=== PATIENT | female | born 1940 | race Caucasian/White ===

== ENCOUNTER → 2017-12-15 09:20 | Outpatient (CLI) | payer MEDICARE, SELFPAY ==
[2017-12-15 12:07] LABS: Absolute Lymphocyte Count 0.54 X10^3/ul (0.83-4.51); Basophil# 0.02 X10^3/uL; Basophil% 0.5 % (0-1); Eosinophils% 2.3 % (0-5); Hematocrit 44.4 % (37-47); Hemoglobin 14.1 g/dl (12.0-15.0); Lymphocyte # 0.54 X10^3/ul (4.0); Lymphocyte % 12.5 % (19-41); Mean Corp Hgb Conc 31.8 g/gl (32-36); Mean Corpuscular Hgb 30.9 pg (27.0-32.0); Mean Corpuscular Volume 97.2 fL (81-99); Mean Platelet Vol. 10.3 fl (6.2-12.0); Monocyte# 0.68 X10^3/uL; Monocyte% 15.8 % (0-10); Neutrophil # 2.97 X10^3/uL (2.7-7.7); Neutrophil % 68.9 % (47-70); Platelet Count 225 K/mm3 (150-450); RBC Distribution Width CV 13.7 % (11.6-14.6); RBC Distribution Width SD 46.5 fl (35.1-43.9); Red Blood Count 4.57 M/mm3 (4.2-5.4); White Blood Count 4.3 K/mm3 (4.4-11.0)
[2017-12-15 12:09] LABS: Differential Indicated SCAN CRITERIA MET; POSITIVE COUNT NO; POSITIVE DIFFERENTIAL YES; POSITIVE MORPHOLOGY NO
[2017-12-15 12:25] LABS: AST(SGOT) 22 U/L (15-37); Alanine Aminotransfer ALT/SGPT 18 U/L (13-56); Albumin, Serum 3.5 g/dL (3.2-5.0); Alkaline Phosphatase 91 U/L (45-117); Anion Gap 6 (5-15); BUN 12 mg/dL (7-18); BUN/Creat Ratio 13.3 RATIO (10-20); Chloride 106 mmol/L (98-107); EST Glomerular Filtration Rate 64 mL/min (>60); Est Glom Filt Rate - Afr Amer 77 mL/min (>60); Globulin 3.6 g/dL (2.2-4.2); Glucose 86 mg/dL (74-106); Potassium 3.9 mmol/L (3.5-5.1); Protein, Total 7.1 g/dL (6.4-8.2); Sodium Level 140 mmol/L (136-145)
== END ==
PROVIDERS: Family Provider Family Medicine; PCP Family Medicine; Visit Provider Internal Medicine Rheumatology
DX: M05.79 Rheumatoid arthritis with rheumatoid factor of multiple sites without organ or systems involvement (principal); Z79.899 Other long term (current) drug therapy; M21.40 Flat foot [pes planus] (acquired), unspecified foot; E03.9 Hypothyroidism, unspecified; Z85.51 Personal history of malignant neoplasm of bladder
CPT/HCPCS: 36415; 80053; 85025

== ENCOUNTER → 2018-02-26 10:34 | Outpatient (CLI) | payer MEDICARE, SELFPAY ==
[2018-02-26 12:30] LABS: AST(SGOT) 22 U/L (15-37); Alanine Aminotransfer ALT/SGPT 17 U/L (13-56); Albumin, Serum 3.4 g/dL (3.2-5.0); Alkaline Phosphatase 79 U/L (45-117); Anion Gap 4 (5-15); BUN 16 mg/dL (7-18); Calcium,Total 8.5 mg/dL (8.5-10.1); Chloride 104 mmol/L (98-107); Creatinine, Serum 0.89 mg/dL (0.55-1.02); EST Glomerular Filtration Rate 65 mL/min (>60); Est Glom Filt Rate - Afr Amer 79 mL/min (>60); Globulin 3.3 g/dL (2.2-4.2); Glucose 78 mg/dL (74-106); Potassium 3.9 mmol/L (3.5-5.1); Protein, Total 6.7 g/dL (6.4-8.2); Sodium Level 137 mmol/L (136-145)
[2018-02-26 12:53] LABS: Absolute Lymphocyte Count 0.85 X10^3/ul (0.83-4.51); Absolute Neutrophil Count 2.4 X10^3/uL (2.0-7.7); Basophil# 0.04 X10^3/uL; Eosinophil# 0.14 X10^3/uL; Eosinophils% 3.6 % (0-5); Hematocrit 42.3 % (37-47); Hemoglobin 13.2 g/dl (12.0-15.0); Lymphocyte # 0.85 X10^3/ul (4.0); Lymphocyte % 21.9 % (19-41); Mean Corp Hgb Conc 31.2 g/gl (32-36); Mean Corpuscular Hgb 30.6 pg (27.0-32.0); Mean Corpuscular Volume 97.9 fL (81-99); Mean Platelet Vol. 11.1 fl (6.2-12.0); Monocyte# 0.48 X10^3/uL; Monocyte% 12.4 % (0-10); Neutrophil # 2.37 X10^3/uL (2.7-7.7); Neutrophil % 61.1 % (47-70); Platelet Count 210 K/mm3 (150-450); RBC Distribution Width CV 14.3 % (11.6-14.6); RBC Distribution Width SD 49.5 fl (35.1-43.9); Red Blood Count 4.32 M/mm3 (4.2-5.4); White Blood Count 3.9 K/mm3 (4.4-11.0)
[2018-02-26 12:57] LABS: POSITIVE COUNT NO; POSITIVE DIFFERENTIAL NO; POSITIVE MORPHOLOGY NO
== END ==
PROVIDERS: Family Provider Family Medicine; PCP Family Medicine; Visit Provider Internal Medicine Rheumatology
DX: M05.79 Rheumatoid arthritis with rheumatoid factor of multiple sites without organ or systems involvement (principal); M21.40 Flat foot [pes planus] (acquired), unspecified foot; E03.9 Hypothyroidism, unspecified; Z79.899 Other long term (current) drug therapy; Z85.51 Personal history of malignant neoplasm of bladder
CPT/HCPCS: 36415; 80053; 85025

== ENCOUNTER → 2018-05-21 11:05 | Outpatient (CLI) | payer MEDICARE, SELFPAY ==
[2018-05-21 12:21] LABS: Absolute Lymphocyte Count 0.94 X10^3/ul (0.83-4.51); Absolute Neutrophil Count 2.8 X10^3/uL (2.0-7.7); Basophil# 0.03 X10^3/uL; Basophil% 0.7 % (0-1); Eosinophil# 0.13 X10^3/uL; Eosinophils% 3.1 % (0-5); Hematocrit 41.9 % (37-47); Hemoglobin 13.1 g/dl (12.0-15.0); Lymphocyte # 0.94 X10^3/ul (4.0); Lymphocyte % 22.7 % (19-41); Mean Corp Hgb Conc 31.3 g/gl (32-36); Mean Corpuscular Volume 99.1 fL (81-99); Mean Platelet Vol. 10.4 fl (6.2-12.0); Monocyte# 0.29 X10^3/uL; Neutrophil # 2.75 X10^3/uL (2.7-7.7); Neutrophil % 66.5 % (47-70); Platelet Count 234 K/mm3 (150-450); RBC Distribution Width CV 14.2 % (11.6-14.6); Red Blood Count 4.23 M/mm3 (4.2-5.4); White Blood Count 4.1 K/mm3 (4.4-11.0)
[2018-05-21 12:35] LABS: POSITIVE COUNT NO; POSITIVE DIFFERENTIAL NO; POSITIVE MORPHOLOGY NO
[2018-05-21 12:55] LABS: AST(SGOT) 29 U/L (15-37); Alanine Aminotransfer ALT/SGPT 26 U/L (13-56); Albumin, Serum 3.4 g/dL (3.2-5.0); Alkaline Phosphatase 96 U/L (45-117); Anion Gap 6 (5-15); BUN 12 mg/dL (7-18); BUN/Creat Ratio 14.9 RATIO (10-20); Calcium,Total 8.9 mg/dL (8.5-10.1); Chloride 104 mmol/L (98-107); EST Glomerular Filtration Rate 73 mL/min (>60); Est Glom Filt Rate - Afr Amer 88 mL/min (>60); Globulin 3.4 g/dL (2.2-4.2); Glucose 84 mg/dL (74-106); Protein, Total 6.8 g/dL (6.4-8.2); Sodium Level 141 mmol/L (136-145)
== END ==
PROVIDERS: Family Provider Family Medicine; PCP Family Medicine; Visit Provider Internal Medicine Rheumatology
DX: M05.79 Rheumatoid arthritis with rheumatoid factor of multiple sites without organ or systems involvement (principal); M21.40 Flat foot [pes planus] (acquired), unspecified foot; E03.9 Hypothyroidism, unspecified; Z85.51 Personal history of malignant neoplasm of bladder; Z79.899 Other long term (current) drug therapy
CPT/HCPCS: 36415; 80053; 85025

== ENCOUNTER → 2018-08-17 08:11 | Outpatient (CLI) | payer MEDICARE, SELFPAY ==
[2018-08-17 10:14] LABS: Absolute Lymphocyte Count 0.74 X10^3/ul (0.83-4.51); Absolute Neutrophil Count 2.7 X10^3/uL (2.0-7.7); Basophil# 0.02 X10^3/uL; Basophil% 0.5 % (0-1); Eosinophil# 0.13 X10^3/uL; Eosinophils% 3.2 % (0-5); Hematocrit 42.2 % (37-47); Hemoglobin 13.4 g/dl (12.0-15.0); Lymphocyte # 0.74 X10^3/ul (4.0); Lymphocyte % 18.3 % (19-41); Mean Corp Hgb Conc 31.8 g/gl (32-36); Mean Corpuscular Hgb 31.1 pg (27.0-32.0); Mean Corpuscular Volume 97.9 fL (81-99); Mean Platelet Vol. 10.4 fl (6.2-12.0); Monocyte# 0.42 X10^3/uL; Monocyte% 10.4 % (0-10); Neutrophil # 2.74 X10^3/uL (2.7-7.7); Neutrophil % 67.6 % (47-70); POSITIVE COUNT NO; POSITIVE DIFFERENTIAL NO; POSITIVE MORPHOLOGY NO; Platelet Count 240 K/mm3 (150-450); RBC Distribution Width CV 13.9 % (11.6-14.6); RBC Distribution Width SD 47.8 fl (35.1-43.9); Red Blood Count 4.31 M/mm3 (4.2-5.4); White Blood Count 4.1 K/mm3 (4.4-11.0)
[2018-08-17 10:25] LABS: ALB/GLOB Ratio 0.9 RATIO (0.9-2.4); AST(SGOT) 19 U/L (15-37); Alanine Aminotransfer ALT/SGPT 18 U/L (13-56); Albumin, Serum 3.3 g/dL (3.2-5.0); Alkaline Phosphatase 93 U/L (45-117); Anion Gap 5 (5-15); BUN 16 mg/dL (7-18); Calcium,Total 8.7 mg/dL (8.5-10.1); Chloride 108 mmol/L (98-107); Creatinine, Serum 0.89 mg/dL (0.55-1.02); EST Glomerular Filtration Rate 65 mL/min (>60); Est Glom Filt Rate - Afr Amer 79 mL/min (>60); Globulin 3.6 g/dL (2.2-4.2); Glucose 78 mg/dL (74-106); Potassium 3.7 mmol/L (3.5-5.1); Protein, Total 6.9 g/dL (6.4-8.2); Sodium Level 141 mmol/L (136-145)
== END ==
PROVIDERS: Family Provider Family Medicine; PCP Family Medicine; Referring Provider Internal Medicine Rheumatology; Visit Provider Internal Medicine Rheumatology
DX: M05.79 Rheumatoid arthritis with rheumatoid factor of multiple sites without organ or systems involvement (principal); M21.40 Flat foot [pes planus] (acquired), unspecified foot; E03.9 Hypothyroidism, unspecified; Z85.51 Personal history of malignant neoplasm of bladder; Z79.899 Other long term (current) drug therapy
CPT/HCPCS: 36415; 80053; 85025

== ENCOUNTER → 2018-11-16 08:00 | Outpatient (CLI) | payer MEDICARE, SELFPAY ==
[2017-11-12 14:28] VITALS: BMI 25.9
[2018-11-16 10:26] LABS: Absolute Lymphocyte Count 0.66 X10^3/ul (0.83-4.51); Absolute Neutrophil Count 2.5 X10^3/uL (2.0-7.7); Basophil# 0.02 X10^3/uL; Basophil% 0.5 % (0-1); Eosinophil# 0.15 X10^3/uL; Eosinophils% 3.9 % (0-5); Hematocrit 43.6 % (37-47); Hemoglobin 13.4 g/dl (12.0-15.0); Lymphocyte # 0.66 X10^3/ul (4.0); Lymphocyte % 17.1 % (19-41); Mean Corp Hgb Conc 30.7 g/gl (32-36); Mean Corpuscular Hgb 29.8 pg (27.0-32.0); Mean Corpuscular Volume 96.9 fL (81-99); Mean Platelet Vol. 10.6 fl (6.2-12.0); Monocyte# 0.55 X10^3/uL; Monocyte% 14.2 % (0-10); Neutrophil # 2.49 X10^3/uL (2.7-7.7); Neutrophil % 64.3 % (47-70); Platelet Count 232 K/mm3 (150-450); RBC Distribution Width CV 14.4 % (11.6-14.6); RBC Distribution Width SD 50.3 fl (35.1-43.9); White Blood Count 3.9 K/mm3 (4.4-11.0)
[2018-11-16 10:32] LABS: POSITIVE COUNT NO; POSITIVE DIFFERENTIAL NO; POSITIVE MORPHOLOGY NO
[2018-11-16 10:47] LABS: AST(SGOT) 18 U/L (15-37); Alanine Aminotransfer ALT/SGPT 15 U/L (13-56); Albumin, Serum 3.4 g/dL (3.2-5.0); Alkaline Phosphatase 101 U/L (45-117); Anion Gap 7 (5-15); BUN 12 mg/dL (7-18); BUN/Creat Ratio 15.4 RATIO (10-20); Calcium,Total 8.6 mg/dL (8.5-10.1); Chloride 109 mmol/L (98-107); Creatinine, Serum 0.78 mg/dL (0.55-1.02); EST Glomerular Filtration Rate 76 mL/min (>60); Est Glom Filt Rate - Afr Amer 92 mL/min (>60); Globulin 3.3 g/dL (2.2-4.2); Glucose 90 mg/dL (74-106); Protein, Total 6.7 g/dL (6.4-8.2); Sodium Level 141 mmol/L (136-145)
== END ==
PROVIDERS: Family Provider Family Medicine; PCP Family Medicine; Referring Provider Internal Medicine Rheumatology; Visit Provider Internal Medicine Rheumatology
DX: M05.79 Rheumatoid arthritis with rheumatoid factor of multiple sites without organ or systems involvement (principal); M21.40 Flat foot [pes planus] (acquired), unspecified foot; E03.9 Hypothyroidism, unspecified; Z85.51 Personal history of malignant neoplasm of bladder; Z79.899 Other long term (current) drug therapy
CPT/HCPCS: 36415; 80053; 85025

== ENCOUNTER → 2018-11-24 15:31 | Outpatient (CLI) | payer MEDICARE, SELFPAY ==
--- NOTE | 2018-11-24 15:48 | RAD_ITS ---
STUDY: X-RAY CHEST REASON FOR EXAM: Female, 78 years old. Rheumatoid arthritis, starting long-term metastases, no complaints. TECHNIQUE: PA and lateral views of the chest. COMPARISON: None. FINDINGS: There is hyperinflation and emphysematous changes, hyperaeration particularly in the right upper and midlung parenchyma with compression of right basilar parenchyma. Increased AP thoracic diameter. There is no focal parenchymal abnormality. There is no demonstrated pleural abnormality. Normal size heart. Normal mediastinum and manuel. Normal visualized pulmonary arteries. Normal visualized aortic arch and descending thoracic aorta. There is demineralization of the osseous structures. Normal visualized ribs, clavicles, and shoulders. There is no demonstrated abnormality of the visualized soft tissue structures of the upper abdomen. RAD/Chest PA and Lateral IMPRESSION: Chronic interstitial lung disease/emphysema and osteopenia. No pulmonary edema, congestive heart failure or confluent pneumonia. Electronically Signed: Sparkle Love MD at 5:36 EST , Service support ,
[2018-11-27 10:37] LABS: QNTFERON TB Mitogen Value > 10.00 IU/mL (.); QNTFERON TB Nil Value 0.05 IU/mL (.); QNTFERON TB1+ Ag Value 0.05 IU/mL (.); QNTFERON TB2+ Ag Value 0.05 IU/mL (.)
[2018-11-27 10:41] LABS: QNTIFERON TB Positive Criteria Negative (Negative)
--- OUTSIDE RECORDS SUMMARY | 2019-01-29 14:51 | XMS RPT_ITS ---
:1940 Author Organization OHIP Care Team Providers Name Role Phone DUGLAS SALES Attending Unavailable ABE HELMS Referring Unavailable DUGLAS SALES Referring Unavailable DUGLAS SALES Referring Unavailable DUGLAS SALES Referring Unavailable DUGLAS SALES Attending Unavailable DUGLAS SALES Referring Unavailable Keilanhawa, Patty Attending Unavailable Morgan, Patty Referring Unavailable Duglas Sales Primary Care Unavailable Morgan, Patty Attending Unavailable Morgan, Patty Referring Unavailable Duglas Sales Primary Care Unavailable Rakanki, Patty Attending Unavailable Morgan, Patty Referring Unavailable Duglas Sales Primary Care Unavailable Rakanki, Patty Attending Unavailable Duglas Sales Primary Care Unavailable Vellanki, Patty Attending Unavailable Morgan, Patty Referring Unavailable Duglas Sales Primary Care Unavailable Rakanki, Patty Attending Unavailable Morgan, Patty Referring Unavailable Duglas Sales Primary Care Unavailable PROBLEMS PROBLEMS DATE TYPE CONDITION / CODE ATTENDING STATUS SOURCE 11/24/2018 Unknown M05.79 - Rheumatoid Rakanhawa Patty Active [place] arthritis with Community rheumatoid factor [facility] sites Repository without organ or systems involvement / M05.79(ICD-10) 11/24/2018 Unknown Z79.899 - Other KeiwesPatty shaikh Active [place] fdc (current) Community drug therapy / Hospital Z79.899(ICD-10) Repository 11/24/2018 Unknown M21.40 - Flat foot Morgan Patty Active [place] [pes planus] Community (acquired), Hospital unspecified foot / Repository M21.40(ICD-10) 11/24/2018 Unknown E03.9 - Morgan Patty Active [place] Hypothyroidism, [facility] unspecified / Hospital E03.9(ICD-10) Repository 11/24/2018 Unknown Z85.51 - Personal Morgan Patty Active [place] history of Community malignant neoplasm [facility] [place] [place] / Repository Z85.51(ICD-10) 08/07/2018 Active Encounter for Active [facility] immunization / [place] Z23(ICD-10) Repository 06/02/2018 Active Encounter for Active [facility] screening mammogram [facility] [place] for malignant Repository neoplasm of breast / Z12.31(ICD-10) 11/20/2015 Active Hypothyroidism, Active [facility] unspecified / [place] E03.9(ICD-10) Repository 12/09/2017 Active Encounter for other Active [facility] preprocedural [place] examination / Repository Z01.818(ICD-10) PROCEDURES PROCEDURES No Procedure Records FoundRESULTS RESULTS CHEST PA AND LATERAL Observed: 11/24/2018 Status: F Source: [place] 3:49 PM [facility] HOSPITAL REPOSITORY [facility] Imaging Services [address] [place] [address] Chest PA and Lateral MR#: [id number] Acct: [id number] Name: CLINT HACKETT Rep #: [id number] : 1940 F 78 From: Sparkle Love MD PCP: Duglas Sales MD Status: REG CLI Study: Chest PA and Lateral Date of Exam: 11/24/18 Exam# [id number] Ordering Dr: Patty Mora MD STUDY: X-RAY CHEST REASON FOR EXAM: Female, 78 years old. Rheumatoid arthritis, starting long-term metastases, no complaints. TECHNIQUE: PA and lateral views of the chest. COMPARISON: None. FINDINGS: There is hyperinflation and emphysematous changes, hyperaeration particularly in the right upper and midlung parenchyma with compression of right basilar parenchyma. Increased AP thoracic diameter. There is no focal parenchymal abnormality. There is no demonstrated pleural abnormality. Normal size heart. Normal mediastinum and manuel. Normal visualized pulmonary arteries. Normal visualized aortic arch and descending thoracic aorta. There is demineralization of the osseous structures. Normal visualized ribs, clavicles, and shoulders. There is no demonstrated abnormality of the visualized soft tissue structures of the upper abdomen. RAD/Chest PA and Lateral IMPRESSION: Chronic interstitial lung disease/emphysema and osteopenia. No pulmonary edema, congestive heart failure or confluent pneumonia. Electronically Signed: Sparkle Love MD at 5:36 EST , Service support , CC: Duglas Sales MD; Patty Mora MD Assistant Brand Manager: Signed QUANTIFERON TB-GOLD+ Collected: 11/24/2018 Status: F Source: [place] 3:40 PM [facility] REPOSITORY TYPE CODE TESTS RESULT OUT OF RANGE REFERENCE UNITS LAB L3400.8025 . Normal QFT TB Comment GOLD Result Comment: The QuantiFERON-TB Gold Plus result is determined by subtracting the Nil value from either TB antigen (Ag) tube. The mitogen tube serves as a control for the test. LAB L3400.8035 . IU/mL Normal QFT TB1+ AG 0.05 [facility] LAB L3400.8045 . IU/mL Normal QFT TB2+ AG 0.05 [facility] LAB L3400.8055 . IU/mL Normal QFT NIL VALUE 0.05 LAB L3400.8065 . IU/mL Normal QFT MITOGEN > 10.00 [facility] LAB L3400.8075 Negative Normal QFT TB POS Negative CRIT Result Comment: The specimen received for QuantiFERON testing was incubated by the ordering institution. Specific procedures outlined in our Directory of Services and in the package insert for the QuantiFERON Gold (In Tube) test must be followed to enable for proper stimulation of cells for the production of interferon gamma. Performed at: [facility] [id number] Valve Steamer: Car Hernandez PhD, Phone: [phone] Performed By: #### L3400.8000 #### [facility] (refer to report for specific site) refer to report for address and phone number CBC W/DIFF, AUTOMATED Collected: 11/16/2018 Status: F Source: [place] 8:08 AM [facility] REPOSITORY TYPE CODE TESTS RESULT OUT OF RANGE REFERENCE UNITS LAB L100.1000 4.4-11.0 K/mm3 Low WBC 3.9 LAB L100.1200 4.2-5.4 M/mm3 Normal RBC 4.50 LAB L100.1300 12.0-15.0 g/dl Normal HGB 13.4 LAB L100.1400 37-47 % Normal HCT 43.6 LAB L100.1500 81-99 fL Normal MCV 96.9 LAB L100.1600 27.0-32.0 pg Normal MCH 29.8 LAB L100.1700 32-36 g/gl Low MCHC 30.7 LAB L100.1810 11.6-14.6 % Normal RDW CV 14.4 LAB L100.1820 35.1-43.9 fl High RDW SD 50.3 LAB L100.1900 150-450 K/mm3 Normal PLT 232 LAB L100.2000 6.2-12.0 fl Normal MPV 10.6 LAB L100.2100 47-70 % Normal NEUT% 64.3 LAB L100.2200 19-41 % Low LY% 17.1 LAB L100.2300 0-10 % High MONO% 14.2 LAB L100.2400 0-5 % Normal EO% 3.9 LAB L100.2500 0-1 % Normal BASO% 0.5 LAB L100.2550 0.0-0.9 % Normal IM GRAN % 0.000 Result Comment: IG% - Immature Granulocytes (promyelocytes, myelocytes and metamyelocytes) > 1% indicates that a LEFT SHIFT is Present. LAB L100.2620 2.0-7.7 X10 3/uL Normal Absolute Neut 2.5 LAB L100.2720 0.83-4.51 X10 3/ul Low Absolute Lymph 0.66 Performed By: #### L100.0100 #### [facility] [address] [place], [address] COMPREHENSIVE METABOLIC Collected: 11/16/2018 Status: F Source: [place] [facility] 8:08 AM [facility] REPOSITORY TYPE CODE TESTS RESULT OUT OF RANGE REFERENCE UNITS LAB L501.0100 74-106 mg/dL Normal GLU 90 Result Comment: Please note revised GLUCOSE reference range effective 2017. LAB L501.1000 7-18 mg/dL Normal BUN 12 LAB L501.1100 0.55-1.02 mg/dL Normal CREAT,SERUM 0.78 Result Comment: The validity of the calculated GFR AND GFRAA in patients over 70 years has not been determined. Clinical correlation is essential. LAB L501.1110 >60 mL/min Normal EST GFR 76 Result Comment: Non- GFR Calc LAB L501.1115 >60 mL/min Normal EST GFR - AA 92 Result Comment: GFR Calc LAB L501.1300 10-20 RATIO Normal BUN/CRE 15.4 LAB L501.1500 6.4-8.2 g/dL T Normal PROT 6.7 LAB L501.1800 3.2-5.0 g/dL Normal ALB 3.4 LAB L501.1950 2.2-4.2 g/dL Normal GLOB 3.3 LAB L501.2000 0.9-2.4 RATIO Normal A/G 1.0 LAB L501.2200 8.5-10.1 mg/dL CA Normal 8.6 LAB L501.4100 15-37 U/L Normal AST 18 LAB L501.4305 45-117 U/L Normal ALK P 101 LAB L501.4405 13-56 U/L Normal ALT 15 LAB L501.4600 0.20-1.00 mg/dL T Normal BILI 0.50 LAB L501.5300 136-145 mmol/L NA Normal 141 LAB L501.5600 3.5-5.1 mmol/L K Normal 4.0 LAB L501.5900 98-107 mmol/L High CL 109 LAB L501.6100 21.0-32.0 mmol/L Normal CO2 25.0 LAB L501.6200 5-15 Normal GAP 7 Performed By: #### L500.4050 #### [facility] [address] [place], [address] CBC W/DIFF, AUTOMATED Collected: 08/17/2018 Status: F Source: [place] 8:16 AM [facility] REPOSITORY TYPE CODE TESTS RESULT OUT OF RANGE REFERENCE UNITS LAB L100.1000 4.4-11.0 K/mm3 Low WBC 4.1 LAB L100.1200 4.2-5.4 M/mm3 Normal RBC 4.31 LAB L100.1300 12.0-15.0 g/dl Normal HGB 13.4 LAB L100.1400 37-47 % Normal HCT 42.2 LAB L100.1500 81-99 fL Normal MCV 97.9 LAB L100.1600 27.0-32.0 pg Normal MCH 31.1 LAB L100.1700 32-36 g/gl Low MCHC 31.8 LAB L100.1810 11.6-14.6 % Normal RDW CV 13.9 LAB L100.1820 35.1-43.9 fl High RDW SD 47.8 LAB L100.1900 150-450 K/mm3 Normal PLT 240 LAB L100.2000 6.2-12.0 fl Normal MPV 10.4 LAB L100.2100 47-70 % Normal NEUT% 67.6 LAB L100.2200 19-41 % Low LY% 18.3 LAB L100.2300 0-10 % High MONO% 10.4 LAB L100.2400 0-5 % Normal EO% 3.2 LAB L100.2500 0-1 % Normal BASO% 0.5 LAB L100.2550 0.0-0.9 % Normal IM GRAN % 0.000 Result Comment: IG% - Immature Granulocytes (promyelocytes, myelocytes and metamyelocytes) > 1% indicates that a LEFT SHIFT is Present. LAB L100.2620 2.0-7.7 X10 3/uL Normal Absolute Neut 2.7 LAB L100.2720 0.83-4.51 X10 3/ul Low Absolute Lymph 0.74 Performed By: #### L100.0100 #### [facility] [address] [place], [place], [address] COMPREHENSIVE METABOLIC Collected: 08/17/2018 Status: F Source: [place] 8:16 AM [facility] REPOSITORY TYPE CODE TESTS RESULT OUT OF RANGE REFERENCE UNITS LAB L501.0100 74-106 mg/dL Normal GLU 78 Result Comment: Please note revised GLUCOSE reference range effective 2017. LAB L501.1000 7-18 mg/dL Normal BUN 16 LAB L501.1100 0.55-1.02 mg/dL Normal CREAT,SERUM 0.89 Result Comment: The validity of the calculated GFR AND GFRAA in patients over 70 years has not been determined. Clinical correlation is essential. LAB L501.1110 >60 mL/min Normal EST GFR 65 Result Comment: Non- GFR Calc LAB L501.1115 >60 mL/min Normal EST GFR - AA 79 Result Comment: GFR Calc LAB L501.1300 10-20 RATIO Normal BUN/CRE 18.0 LAB L501.1500 6.4-8.2 g/dL T Normal PROT 6.9 LAB L501.1800 3.2-5.0 g/dL Normal ALB 3.3 LAB L501.1950 2.2-4.2 g/dL Normal GLOB 3.6 LAB L501.2000 0.9-2.4 RATIO Normal A/G 0.9 LAB L501.2200 8.5-10.1 mg/dL CA Normal 8.7 LAB L501.4100 15-37 U/L Normal AST 19 LAB L501.4305 45-117 U/L Normal ALK P 93 LAB L501.4405 13-56 U/L Normal ALT 18 LAB L501.4600 0.20-1.00 mg/dL T Normal BILI 0.50 LAB L501.5300 136-145 mmol/L NA Normal 141 LAB L501.5600 3.5-5.1 mmol/L K Normal 3.7 LAB L501.5900 98-107 mmol/L High CL 108 LAB L501.6100 21.0-32.0 mmol/L Normal CO2 28.0 LAB L501.6200 5-15 Normal GAP 5 Performed By: #### L500.4050 #### [facility] [place], [address] CNPN Observed: 08/17/2018 Status: COMPLETED Source: [place] 12:00 AM [facility]IT[facility] LEWCLINT Jj ([id number]) 1940 F Date Time Provider Department 08/17/18 DUGLAS SALES [facility] During your visit today, we recorded the following information about you: Allergies As of Date: 08/17/2018 (No Known Allergies) Date Reviewed: 06/15/2018 Reviewed by: Duglas Sales - Fully Assessed Reason for Visit: Outside [id number] Ordered [1005] Order(s):CMP (EXTERNAL) [8168286] Order #: [id number] CBCDIF (EXTERNAL) [[id number]] Order #: [id number] CMP (EXTERNAL) [[id number]] Order #: [id number] CBCDIF (EXTERNAL) [[id number]] Order #: [id number] Prescriptions as of 08/17/2018 Sig: LEVOTHYROXINE 88 MCG TABLET Take 1 tablet by mouth once d* OSTOMY SUPPLIES 1 1/2 Ostomy Pouches to be applied * OSTOMY SUPPLIES SWABS 1 application twice a week. OSTOMY SUPPLIES 1 application twice a week. OSTOMY ADHESIVE PASTE 1 application twice a week. OSTOMY SUPPLIES POWDER Apply 1 application to affect* OSTOMY SUPPLIES 20 Devices. Urostomy care URINARY BAG 1 mL. q * LEFLUNOMIDE 10 MG TABLET Take 10 mg by mouth every oth* * METHOTREXATE SODIUM 2.5 MG TA* Take 5 tablets by mouth one t* * HYDROXYCHLOROQUINE 200 MG TAB* Take 1 tablet by mouth twice * * LEUCOVORIN CALCIUM 5 MG TABLET Take one(1) tablet weekly * FOLIC ACID 1 MG TABLET take two tablets daily * FREDDY-600 WITH VITAMIN D 600 MG* Take one(1) tablet two(2) marquis* More... More... 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 More... Osteopenia [M85.80] INVALID FOR* More... Ureterostomy status (HCC) [Z93.6] INVALID FOR* Leg edema, right [R60.0] INVALID FOR* More... Well adult exam [Z00.00] INVALID FOR* More... Acquired hypothyroidism [E03.9] INVALID FOR* Varicose veins with pain [I83.819] INVALID FOR* Malignant neoplasm of urinary bladder (HCC) [C6*INVALID FOR* More... More... Colon cancer screening [Z12.11] INVALID FOR* Encounter for screening for cardiovascular diso*INVALID FOR* Encounter for screening for diabetes mellitus [*INVALID FOR* Rheumatoid arthritis involving multiple sites (*INVALID FOR* More... Encounter for screening mammogram for malignant*INVALID FOR* Abdominal aortic aneurysm (AAA) without rupture*INVALID FOR* More... Bilateral carotid artery disease (HCC) [I77.9] INVALID FOR* More... Medicare annual wellness visit, subsequent [Z00*INVALID FOR* More... Encounter Status:Closed by LAINA RODGERS MA on 08/17/18 CNNURSE Observed: 08/07/2018 Status: COMPLETED Source: [place] 9:50 AM [facility] REPOSITORY Nurse Visit ([facility]) CLINT HACKETT ([id number]) 1940 F Date Time Provider Department 08/07/18 9:50 AM [facility] During your visit today, we recorded the following information about you: Elida Almanza Esmer 08/07/2018 9:24 AM Signed 78 year old female here for INACTIVATED INFLUENZA VACCINE. Season Patient is identified by name and date of : Yes [] CONTRAINDICATIONS color enhanced section Age less than 6 months? No Allergy to eggs, chicken, chicken feathers, or chicken dander? No Allergy to thimerosal (a preservative) or formaldehyde, gelatin? No History of severe reaction to any vaccine component or a previous dose of influenza vaccination? No History of Guillain-Alma Syndrome within 6 weeks after a previous influenza vaccine? No Patient is not moderately or severely ill? No Current temperature greater or equal to 100.4F? No History of Bone Marrow Transplant prior 6 months or solid organ transplant in the past 3 months ? No History of fainting after a prior injection or medical procedure? No- ? If patient has fainted in the past, the CDC recommends sitting or lying down for 15 minutes after the vaccination. [] VERIFICATION color enhanced section Was the answer Yes for any of the above contraindications? No contraindications present. Acceptable to proceed with vaccine. Patient/guardian agrees the above answers are true to the best of their knowledge? Yes Flu vaccine information sheet given? Yes See immunization activity in [facility] for details of immunizations adminstered today. Patient age: [age] year old For The 0302-0733 Flu Season 6-35 months old: Fluzone 0.25 ml - IM (Preservative Free) 3 years of age: Fluzone 0.5 ml - IM (Preservative Free) 3 years and older: Fluzone 0.5 ml- IM-(with Preservatives) 65+ years old: 2-49 years old Fluzone High-Dose 0.5 ml - IM (Preservative Free) FLUMIST- intranasal REMEMBER: If patient is less than 9 years of age and this is the first vaccine of Influenza to be received in any flu season, they should receive a second dose in one months time. Referring Provider: SELF [200] Allergies As of Date: 08/07/2018 (No Known Allergies) Date Reviewed: 06/15/2018 Reviewed by: Duglas Sales - Fully Assessed Reason for Visit: Imm/Inj [58] Cmt: Flu Vaccine Primary Visit Diagnosis:Need for vaccination [Z23] Order(s):INFLUENZA SEASONAL HIGH DOSE AGE 65+ [[id number]] Order #: [id number] Prescriptions as of 08/07/2018 Sig: LEVOTHYROXINE 88 MCG TABLET Take 1 tablet by mouth once d* OSTOMY SUPPLIES 1 1/2 Ostomy Pouches to be applied * OSTOMY SUPPLIES SWABS 1 application twice a week. OSTOMY SUPPLIES 1 application twice a week. OSTOMY ADHESIVE PASTE 1 application twice a week. OSTOMY SUPPLIES POWDER Apply 1 application to affect* OSTOMY SUPPLIES 20 Devices. Urostomy care URINARY BAG 1 mL. q * LEFLUNOMIDE 10 MG TABLET Take 10 mg by mouth every oth* * METHOTREXATE SODIUM 2.5 MG TA* Take 5 tablets by mouth one t* * HYDROXYCHLOROQUINE 200 MG TAB* Take 1 tablet by mouth twice * * LEUCOVORIN CALCIUM 5 MG TABLET Take one(1) tablet weekly * FOLIC ACID 1 MG TABLET take two tablets daily * FREDDY-600 WITH VITAMIN D 600 MG* Take one(1) tablet two(2) marquis* More... More... 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 More... Osteopenia [M85.80] INVALID FOR* Priority: A More... 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 Well adult exam [Z00.00] INVALID FOR* Priority: E More... Acquired hypothyroidism [E03.9] INVALID FOR* Priority: A Varicose veins with pain [I83.819] INVALID FOR* Priority: D Malignant neoplasm of urinary bladder (HCC) [C6*INVALID FOR* Priority: B More... More... Colon cancer screening [Z12.11] INVALID FOR* Encounter for screening for cardiovascular diso*INVALID FOR* Encounter for screening for diabetes mellitus [*INVALID FOR* Rheumatoid arthritis involving multiple sites (*INVALID FOR* Priority: A More... Encounter for screening mammogram for malignant*INVALID FOR* Abdominal aortic aneurysm (AAA) without rupture*INVALID FOR* Priority: A More... Bilateral carotid artery disease (HCC) [I77.9] INVALID FOR* Priority: A More... Medicare annual wellness visit, subsequent [Z00*INVALID FOR* Priority: E More... Encounter Status:Closed by ELIDA ALMANZA MA on 08/07/18 PROGRESS Observed: 08/02/2018 Status: COMPLETED Source: [place] 4:[address] [facility] [place] REPOSITORY O ID: [id number] Author: Elida Almanza Ma Service: (none) Author Type: (none) Type: Progress Notes Filed: 08/07/2018 9:24 AM Note Text: 78 year old female here for INACTIVATED INFLUENZA VACCINE. 3793-9628 Season Patient is identified by name and date of : Yes [] CONTRAINDICATIONS color enhanced section Age less than 6 months? No Allergy to eggs, chicken, chicken feathers, or chicken dander? No Allergy to thimerosal (a preservative) or formaldehyde, gelatin? No History of severe reaction to any vaccine component or a previous dose of influenza vaccination? No History of Guillain-Alma Syndrome within 6 weeks after a previous influenza vaccine? No Patient is not moderately or severely ill? No Current temperature greater or equal to 100.4F? No History of Bone Marrow Transplant prior 6 months or solid organ transplant in the past 3 months ? No History of fainting after a prior injection or medical procedure? No- ? If patient has fainted in the past, the CDC recommends sitting or lying down for 15 minutes after the vaccination. [] VERIFICATION color enhanced section Was the answer Yes for any of the above contraindications? No contraindications present. Acceptable to proceed with vaccine. Patient/guardian agrees the above answers are true to the best of their knowledge? Yes Flu vaccine information sheet given? Yes See immunization activity in [facility] for details of immunizations adminstered today. Patient age: [age] year old For The 7881-2147 Flu Season 6-35 months old: Fluzone 0.25 ml - IM (Preservative Free) 3 years of age: Fluzone 0.5 ml - IM (Preservative Free) 3 years and older: Fluzone 0.5 ml- IM-(with Preservatives) 65+ years old: 2-49 years old Fluzone High-Dose 0.5 ml - IM (Preservative Free) FLUMIST- intranasal REMEMBER: If patient is less than 9 years of age and this is the first vaccine of Influenza to be received in any flu season, they should receive a second dose in one months time. JAYLEEN Observed: 06/16/2018 Status: COMPLETED Source: [place] 12:00 AM [facility] REPOSITORY Telephone ([facility]) CLINT HACKETT ([id number]) 1940 F Date Time Provider Department 06/16/18 [facility] During your visit today, we recorded the following information about you: Karenwilfredo Buenrostro Psr 06/16/2018 11:59 AM Signed Left message on the cell number and there was not a voicemail on the home number. Was calling to schedule patient for US and García along with a 1 year follow up with PCP. Allergies As of Date: 06/16/2018 (No Known Allergies) Date Reviewed: 06/15/2018 Reviewed by: Duglas Sales - Fully Assessed Reason for Visit: Schedule Appointments [Other] Prescriptions as of 06/16/2018 Sig: LEVOTHYROXINE 88 MCG TABLET Take 1 tablet by mouth once d* OSTOMY SUPPLIES 1 1/2 Ostomy Pouches to be applied * OSTOMY SUPPLIES SWABS 1 application twice a week. OSTOMY SUPPLIES 1 application twice a week. OSTOMY ADHESIVE PASTE 1 application twice a week. OSTOMY SUPPLIES POWDER Apply 1 application to affect* OSTOMY SUPPLIES 20 Devices. Urostomy care URINARY BAG 1 mL. q * LEFLUNOMIDE 10 MG TABLET Take 10 mg by mouth every oth* * METHOTREXATE SODIUM 2.5 MG TA* Take 5 tablets by mouth one t* * HYDROXYCHLOROQUINE 200 MG TAB* Take 1 tablet by mouth twice * * LEUCOVORIN CALCIUM 5 MG TABLET Take one(1) tablet weekly * FOLIC ACID 1 MG TABLET take two tablets daily * FREDDY-600 WITH VITAMIN D 600 MG* Take one(1) tablet two(2) marquis* More... More... 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 More... Osteopenia [M85.80] INVALID FOR* Priority: A More... 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 Well adult exam [Z00.00] INVALID FOR* Priority: E More... Acquired hypothyroidism [E03.9] INVALID FOR* Priority: A Varicose veins with pain [I83.819] INVALID FOR* Priority: D Malignant neoplasm of urinary bladder (HCC) [C6*INVALID FOR* Priority: B More... More... Colon cancer screening [Z12.11] INVALID FOR* Encounter for screening for cardiovascular diso*INVALID FOR* Encounter for screening for diabetes mellitus [*INVALID FOR* Rheumatoid arthritis involving multiple sites (*INVALID FOR* Priority: A More... Encounter for screening mammogram for malignant*INVALID FOR* Abdominal aortic aneurysm (AAA) without rupture*INVALID FOR* Priority: A More... Bilateral carotid artery disease (HCC) [I77.9] INVALID FOR* Priority: A More... Medicare annual wellness visit, subsequent [Z00*INVALID FOR* Priority: E More... Encounter Status:Closed by BILLY GUTIERREZ on 06/16/18 PROGRESS Observed: 06/15/2018 Status: COMPLETED Source: [place] 4:51 PM [facility] REPOSITORY HNO ID: [id number] Author: Duglas Sales Service: (none) Author Type: Physician Type: Progress Notes Filed: 06/15/2018 9:51 PM Note Text: Medicare Yearly Visit Medical B eligibilty date not able to find Date of last exam NA PAST MEDICAL HISTORY Diagnosis Date - Abdominal aortic aneurysm (AAA) without rupture (HCC) 06/08/2017 - Abdominal pain, left lower quadrant - Bilateral carotid artery disease (HCC) 10/16/2017 10/13/2017 Rt: 50-70%, Lt less than 50% - Bowel disease diverticulitis - Diverticulosis of colon (without mention of hemorrhage) - DVT (deep venous thrombosis) (HCC) distal - Kidney stones - LOSS OF HEIGHT (NOT OSTEOPOROSIS) 11/13/2005 - Malignant neoplasm of bladder, part unspecified Bladder cancer - Osteoporosis - 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 - HERNIA REPAIR W/MESH 2008 - PAST SURGICAL HISTORY OF 12/23/2004 bladder removal with urosotomy - REPAIR INCISIONAL HERNIA,REDUCIBLE Hernia repair, incisional - TOTAL ABDOM HYSTERECTOMY 12/23/2004 Hysterectomy, ANDRE, oophorectomy Patient has no known allergies. Medications reviewed: Yes FAMILY HISTORY Problem Relation Age of Onset - None Mother - Heart Father SOCIAL HISTORY: Social History Marital status: Spouse name: Years of education: Number of children: 1 Occupational History Occupation Employer Comment retired [employer]* Social History Main Topics Smoking status: Former Smoker Packs/day: 1.00 Years: 20.00 Types: Cigarettes Quit date: 11/09/1994 Smokeless tobacco: Never Used Alcohol use: No Drug use: No Clint denies regular aerobic exercise. She watches her diet for sodium, low fat and low cholesterol generally not very much. List of current specialists seen: Dr. Venegas and Urology End of Live Planning discussed including patients advanced directive wishes: Yes I am willing to follow Clint's advanced directives. Depression screen She in the past two weeks denies having felt down, depressed, hopeless or with little interest or pleasure in doing things. Functional Ability/Safety Screen 1. Was the patient's timed Up and Go test unsteady or longer than 30 seconds? No 2. Does the patient need help with the phone, transportation, shopping,preparing meals, housework, laundry, medications or managing money? No 3. Does your home have rugs in the hallway, lack of grab bars in the bathroom, lack of handrails on the stairs or have poor lighting? No Hearing Evaluation: normal PHYSICAL EXAM BP 132/70 (BP Site: Left Arm, BP Position: Sitting, BP Cuff Size: Regular Adult) Pulse 72 Resp 14 Ht 160 cm (5' 3) Wt 67.6 kg (149 lb) BMI 26.39 kg/m? Alert and oriented X 3: YES Body mass index is 26.39 kg/m?. Seeing optho See below ASSESSMENT/PLAN: 77 year old female The following prevention plan was discussed during the office visit and provided to the patient: See below Duglas Sales MD Chief Complaint Patient presents with: Physical: 6 months HPI Clint Hackett is a 77 year old female who presents here today for extensive exam. Patient with Hx as reviewed and documented below. Has been doing well. 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 Past medical history, appointments, medications, allergies reviewed. Previous Medical History PAST MEDICAL HISTORY Diagnosis Date - Abdominal aortic aneurysm (AAA) without rupture (HCC) 06/08/2017 - Abdominal pain, left lower quadrant - Bilateral carotid artery disease (HCC) 10/16/2017 US 10/13/2017 Rt: 50-70%, Lt less than 50% - Bowel disease diverticulitis - Diverticulosis of colon (without mention of hemorrhage) - DVT (deep venous thrombosis) (HCC) distal - Kidney stones - LOSS OF HEIGHT (NOT OSTEOPOROSIS) 11/13/2005 - Malignant neoplasm of bladder, part unspecified Bladder cancer - Osteoporosis - Parastomal hernia of ileal conduit 12/27/2011 - Rheumatoid arthritis(714.0) - Unspecified hypothyroidism Hypothyroidism Previous Surgical History PAST SURGICAL HISTORY Procedure Laterality Date - APPENDECTOMY - COLONOSCOP W/ OR W/O BRSH SPEC 04/23/2006 Colonoscopy - COL[facility]OSCOPY 01/20/[facility] - HERNIA REPAIR W/MESH 2008 - PAST SURGICAL HISTORY OF 12/23/2004 bladder removal with urosotomy - REPAIR INCISIONAL HERNIA,REDUCIBLE Hernia repair, incisional - TOTAL ABDOM HYSTERECTOMY 12/23/2004 Hysterectomy, ANDRE, oophorectomy Family History FAMILY HISTORY Problem Relation Age of Onset - None Mother - Heart Father Patient Allergies ALLERGIES No Known Allergies Current Medications Current Outpatient Prescriptions on File Prior to Visit: levothyroxine (SYNTHROID) 88 mcg tablet Take 1 tablet by mouth once daily. leflunomide (ARAVA) 10 mg tablet Take 10 mg by mouth every other day. methotrexate 2.5 mg tablet Take 5 tablets by mouth one time only. hydroxychloroquine 200 mg ORAL tablet Take 1 tablet by mouth twice daily. LEUCOVORIN CALCIUM 5 MG TAB Take one(1) tablet weekly FOLIC ACID 1 MG TAB take two tablets daily Ostomy Supplies 1 1/2 misc Ostomy Pouches to be applied twice a week Ostomy Supplies (ADHESIVE REMOVER WIPES) swab 1 application twice a week. Ostomy Supplies (SKIN PREP WIPES) misc 1 application twice a week. Ostomy Adhesive (STOMAHESIVE PASTE) pste 1 application twice a week. Ostomy Supplies (STOMAHESIVE PROTECTIVE) powd Apply 1 application to affected area twice a week. Ostomy Supplies ([place] COHESIVE SEALS) misc 20 Devices. Urostomy care Urinary Bag (BARDIA URINARY DRAINAGE BAG) misc 1 mL. q FREDYD-600 WITH VITAMIN D 600 MG-200 UNIT TAB Take one(1) tablet two(2) times daily. No current facility-administered medications on file prior to visit. Social History Social History Marital status: Spouse name: Years of education: Number of children: 1 Occupational History Occupation Employer Comment retired [employer]* Social History Main Topics Smoking status: Former Smoker Packs/day: 1.00 Years: 20.00 Types: Cigarettes Quit date: 11/09/1994 Smokeless tobacco: Never Used Alcohol use: No Drug use: No Review of Symptoms REVIEW OF SYSTEMS GENERAL: No malaise or fevers. Some mild weight loss, About 2 lbs over a 17 month period. Just not eating as much HEENT: Negative for frequent or significant headaches, significant change in vision, significant vision problems, significant ear problems or hearing loss, nasal discharge, or nose bleeds, sore throat, difficulty swallowing, mouth lesions, hoarseness, SEE HPI NECK: Negative for lumps, goiter, pain and significant neck swelling RESPIRATORY: Negative for cough, hemoptysis, wheezing, COPD, dyspnea or shortness of breath CARDIOVASCULAR: Negative for chest pain, hypertension, CHF or palpitations. Has chronic swelling in the right leg after lymph nodes removed. GI: No nausea, vomiting, or diarrhea, No heartburn or reflux symptoms and no blood : No history of blood. No issues with urostomy. MUSCULOSKELETAL: Negative for joint pain or swelling, back pain or muscle pain SKIN: Negative for lesions, rash, and itching PSYCH: Negative for sleep disturbance, mood disorder and recent psychosocial stressors HEMATOLOGY/LYMPHOLOGY: Negative for prolonged bleeding, bruising easily or swollen nodes ENDOCRINE: Negative for cold or heat intolerance, polyuria, polydipsia and goiter NEURO: No history of headaches, syncope, paralysis, seizures or tremors EXAM: BP 132/70 (BP Site: Left Arm, BP Position: Sitting, BP Cuff Size: Regular Adult) Pulse 72 Resp 14 Ht 160 cm (5' 3) Wt 67.6 kg (149 lb) BMI 26.39 kg/m? Last 8 Encounter Wt Readings: Date: Wt: 06/15/2018 67.6 kg (149 lb) 12/09/2017 71.7 kg (158 lb) 01/22/2017 77.7 kg (171 lb 3.2 oz) 11/25/2016 75.8 kg (167 lb) 01/24/2016 81.7 kg (180 lb 3.2 oz) 12/25/2015 78.7 kg (173 lb 6.4 oz) 11/26/2015 78.9 kg (174 lb) 11/20/2015 78.9 kg (174 lb) General Appearance: Well appearing, alert, in no acute distress, well-hydrated, well nourished.. Skin: Skin color, texture, turgor normal, no suspicious rashes or lesions. Head: Normocephalic, no masses, lesions, tenderness or abnormalities. Eyes: Anicteric sclera. Pupils are equally round and reactive to light. Extraocular movements are intact. . Ears: External ears normal, canals clear. Nose/Sinuses: Nares normal, septum midline, mucosa normal, no drainage or sinus tenderness. Oropharynx: Lips, mucosa, and tongue normal, teeth and gums normal, oropharynx normal. Neck: Supple, no adenopathy; thyroid symmetric, normal size, no bruits. Lungs: Lungs clear to auscultation. No wheezing, rhonchi, rales. Heart: RRR without murmur, gallop, or rubs. No ectopy. Abdomen: Normal abdominal exam, Abdomen soft, non-tender. Bowel sounds normal. No masses, organomegaly. Extremities: No deformities, edema, skin discoloration. Musculoskeletal: Spine range of motion normal. Muscular strength intact, No joint swelling, deformity, or tenderness. Peripheral Pulses: Normal. Neurologic: Gait normal. Reflexes normal and symmetric. Sensation to light touch and crainal nerves 2-12 intact.. Health Maintenance List DTAP,TDAP,TD(1 - Tdap) due on 11/14/2005 INFLUENZA(1) due on 07/10/2018 DIABETES SCREEN due on 02/26/2021 LIPID SCREEN due on 11/26/2021 COLORECTAL CANCER SCREENING,SEE MODIFIER due on 01/19/2022 BONE DENSITY Completed ADULT PREVNAR-13 Completed PNEUMOVAX AGE 65 AND OVER WITH 5YR LOOKBACK Completed Data reviewed Component Latest Ref Rng AND Units 12/09/2017 02/26/2018 NA 136 - 145 mmol/L 137 K 3.5 - 5.1 mmol/L 3.9 Chloride 98 - 107 MEQ/L 104 CO2 21 - 32 MEQ/L 29.0 Glucose 74 - 106 MG/DL 78 BUN 7 - 18 MG/DL 16 Creatinine 0.6 - 1.3 MG/DL 0.89 GFR mL/MIN 65 GFR AFR AMER mL/MIN 79 Total Protein 6.4 - 8.2 gm/dL 6.7 Albumin 3.2 - 4.6 gm/dL 3.4 Calcium 8.5 - 10.1 mg/dL 8.5 Bili Total 0.2 - 1 mg/dL 0.80 AST 8 - 37 U/L 22 ALT (SGPT) 12 - 78 U/L 17 Alk Phos Total 45 - 117 U/L 79 WBC 3.9 - 11 K/uL 3.9 RBC 4 - 6 M/uL 4.32 HGB 14 - 16.5 g/dL 13.2 (A) HCT 39 - 55 % 42.3 MCV 79 - 98 fL 97.9 MCH 25.4 - 34.6 pg 30.6 MCHC 30 - 36 g/dL 31.2 Platelet 140 - 440 K/uL 210 MPV 7.4 - 10.4 fL 11.1 (A) NEUT % 40 - 74 % 61.1 LYMPH % 20 - 30 % 21.9 MONO % 2 - 8 % 12.4 (A) EOS % 1 - 3 % 3.6 (A) BASO % 0 - 1.5 % 1.0 NEUT ABS 1.9 - 8 K/uL 2.4 LYMPH ABS 1.2 - 4 K/uL 0.85 (A) TSH 0.400 - 5.500 uU/mL 1.400 A/P ASSESSMENT/PLAN: 1. Medicare annual wellness visit, subsequent - ICD9: V70.0, ICD10: Z00.00 (primary diagnosis) - Encouraged monthly Breast Self Exam - Follow up for annual exam in one year. 2. Acquired hypothyroidism - ICD9: 244.9, ICD10: E03.9 - Instructed patient on importance of taking on an empty stomach either first thing in the morning or at bedtime. - continue current dose of Synthroid 0.088 mg 3. Rheumatoid arthritis involving multiple sites, unspecified rheumatoid factor presence (HCC) - ICD9: 714.0, ICD10: M06.9 - Cont f/u with Rheum 4. Bilateral carotid artery disease, unspecified type (HCC) - ICD9: , ICD10: I77.9 - will need US of carotids 5. Abdominal aortic aneurysm (AAA) without rupture (HCC) - ICD9: 441.4, ICD10: I71.4 - Needs US of abd aorta 6. Leg edema, right - ICD9: 782.3, ICD10: R60.0 - Stable, suggest trying CONCEPCION wrap which would be easier to put on. 7. Malignant neoplasm of urinary bladder, unspecified site (HCC) - ICD9: 188.9, ICD10: C67.9 - Cont Urology f/u 8. Ureterostomy status (HCC) - ICD9: V44.6, ICD10: Z93.6 - No issues. Signed Prescriptions Disp Refills levothyroxine (SYNTHROID) 88 mcg tablet 90 tablet 1 Sig: Take 1 tablet by mouth once daily. ELLIE: No f/u in a year sooner if issues. Time entering room was 4:50 PM and time leaving was 5:17 PM (total face to face time was 27 min) Duglas Sales MD CNOV Observed: 06/15/2018 Status: COMPLETED Source: [place] 4:20 PM [facility] REPOSITORY [facility] CLINT HACKETT ([id number]) 1940 F Date Time Provider Department 06/15/18 4:20 PM DUGLAS SALES [facility] During your visit today, we recorded the following information about you: Pulse Respiration Blood pressure Weight 72/minute 14/minute 132/70 67.6 kg Height 1.6 m Duglas Sales MD 06/15/2018 9:51 PM Signed Medicare Yearly Visit Medical B eligibilty date not able to find Date of last exam NA PAST MEDICAL HISTORY Diagnosis Date - Abdominal aortic aneurysm (AAA) without rupture (HCC) 06/08/2017 - Abdominal pain, left lower quadrant - Bilateral carotid artery disease (HCC) 10/16/2017 US 10/13/2017 Rt: 50-70%, Lt less than 50% - Bowel disease diverticulitis - Diverticulosis of colon (without mention of hemorrhage) - DVT (deep venous thrombosis) (HCC) distal - Kidney stones - LOSS OF HEIGHT (NOT OSTEOPOROSIS) 11/13/2005 - Malignant neoplasm of bladder, part unspecified Bladder cancer - Osteoporosis - Parastomal hernia of ileal conduit 12/27/2011 - Rheumatoid arthritis(714.0) - Unspecified hypothyroidism Hypothyroidism PAST SURGICAL HISTORY Procedure Laterality Date - APPENDECTOMY - COLONOSCOP W/ OR W/O BRSH SPEC 04/23/2006 Colonoscopy - COLONOSCOPY 01/20/12 [facility] - HERNIA REPAIR W/MESH 2008 - PAST SURGICAL HISTORY OF 12/23/2004 bladder removal with urosotomy - REPAIR INCISIONAL HERNIA,REDUCIBLE Hernia repair, incisional - TOTAL ABDOM HYSTERECTOMY 12/23/2004 Hysterectomy, ANDRE, oophorectomy Patient has no known allergies. Medications reviewed: Yes FAMILY HISTORY Problem Relation Age of Onset - None Mother - Heart Father SOCIAL HISTORY: Social History Marital status: Spouse name: Years of education: Number of children: 1 Occupational History Occupation Employer Comment retired [employer]* Social History Main Topics Smoking status: Former Smoker Packs/day: 1.00 Years: 20.00 Types: Cigarettes Quit date: 11/09/1994 Smokeless tobacco: Never Used Alcohol use: No Drug use: No Clint denies regular aerobic exercise. She watches her diet for sodium, low fat and low cholesterol generally not very much. List of current specialists seen: Dr. Venegas and Urology [facility] of Live Planning discussed including patients advanced directive wishes: Yes I am willing to follow Clint's advanced directives. Depression screen She in the past two weeks denies having felt down, depressed, hopeless or with little interest or pleasure in doing things. Functional Ability/Safety Screen 1. Was the patient's timed Up and Go test unsteady or longer than 30 seconds? No 2. Does the patient need help with the phone, transportation, shopping,preparing meals, housework, laundry, medications or managing money? No 3. Does your home have rugs in the hallway, lack of grab bars in the bathroom, lack of handrails on the stairs or have poor lighting? No Hearing Evaluation: normal PHYSICAL EXAM BP 132/70 (BP Site: Left Arm, BP Position: Sitting, BP Cuff Size: Regular Adult) Pulse 72 Resp 14 Ht 160 cm (5' 3) Wt 67.6 kg (149 lb) BMI 26.39 kg/m? Alert and oriented X 3: YES Body mass index is 26.39 kg/m?. Seeing optho See below ASSESSMENT/PLAN: 77 year old female The following prevention plan was discussed during the office visit and provided to the patient: See below Duglas Sales MD Chief Complaint Patient presents with: Physical: 6 months HPI Clint Hackett is a 77 year old female who presents here today for extensive exam. Patient with Hx as reviewed and documented below. Has been doing well. 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 Past medical history, appointments, medications, allergies reviewed. 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 - HERNIA REPAIR W/MESH 2008 - PAST SURGICAL HISTORY OF 12/23/2004 bladder removal with urosotomy - REPAIR INCISIONAL HERNIA,REDUCIBLE Hernia repair, incisional - TOTAL ABDOM HYSTERECTOMY 12/23/2004 Hysterectomy, ANDRE, oophorectomy Family History FAMILY HISTORY Problem Relation Age of Onset - None Mother - Heart Father Patient Allergies ALLERGIES No Known Allergies Current Medications Current Outpatient Prescriptions on File Prior to Visit: levothyroxine (SYNTHROID) 88 mcg tablet Take 1 tablet by mouth once daily. leflunomide (ARAVA) 10 mg tablet Take 10 mg by mouth every other day. methotrexate 2.5 mg tablet Take 5 tablets by mouth one time only. hydroxychloroquine 200 mg ORAL tablet Take 1 tablet by mouth twice daily. LEUCOVORIN CALCIUM 5 MG TAB Take one(1) tablet weekly FOLIC ACID 1 MG TAB take two tablets daily Ostomy Supplies 1 / misc Ostomy Pouches to be applied twice a week Ostomy Supplies (ADHESIVE REMOVER WIPES) swab 1 application twice a week. Ostomy Supplies (SKIN PREP WIPES) misc 1 application twice a week. Ostomy Adhesive (STOMAHESIVE PASTE) pste 1 application twice a week. Ostomy Supplies (STOMAHESIVE PROTECTIVE) powd Apply 1 application to affected area twice a week. Ostomy Supplies ([place] COHESIVE SEALS) misc 20 Devices. Urostomy care Urinary Bag (BARDIA URINARY DRAINAGE BAG) misc 1 mL. q FREDDY-600 WITH VITAMIN D 600 MG-200 UNIT TAB Take one(1) tablet two(2) times daily. No current facility-administered medications on file prior to visit. Social History Social History Marital status: Spouse name: Years of education: Number of children: 1 Occupational History Occupation Employer Comment retired [employer]* Social History Main Topics Smoking status: Former Smoker Packs/day: 1.00 Years: 20.00 Types: Cigarettes Quit date: 11/09/1994 Smokeless tobacco: Never Used Alcohol use: No Drug use: No Review of Symptoms REVIEW OF SYSTEMS GENERAL: No malaise or fevers. Some mild weight loss, About 2 lbs over a 17 month period. Just not eating as much HEENT: Negative for frequent or significant headaches, significant change in vision, significant vision problems, significant ear problems or hearing loss, nasal discharge, or nose bleeds, sore throat, difficulty swallowing, mouth lesions, hoarseness, SEE HPI NECK: Negative for lumps, goiter, pain and significant neck swelling RESPIRATORY: Negative for cough, hemoptysis, wheezing, COPD, dyspnea or shortness of breath CARDIOVASCULAR: Negative for chest pain, hypertension, CHF or palpitations. Has chronic swelling in the right leg after lymph nodes removed. GI: No nausea, vomiting, or diarrhea, No heartburn or reflux symptoms and no blood : No history of blood. No issues with urostomy. MUSCULOSKELETAL: Negative for joint pain or swelling, back pain or muscle pain SKIN: Negative for lesions, rash, and itching PSYCH: Negative for sleep disturbance, mood disorder and recent psychosocial stressors HEMATOLOGY/LYMPHOLOGY: Negative for prolonged bleeding, bruising easily or swollen nodes ENDOCRINE: Negative for cold or heat intolerance, polyuria, polydipsia and goiter NEURO: No history of headaches, syncope, paralysis, seizures or tremors EXAM: BP 132/70 (BP Site: Left Arm, BP Position: Sitting, BP Cuff Size: Regular Adult) Pulse 72 Resp 14 Ht 160 cm (5' 3) Wt 67.6 kg (149 lb) BMI 26.39 kg/m? Last 8 Encounter Wt Readings: Date: Wt: 06/15/2018 67.6 kg (149 lb) 12/09/2017 71.7 kg (158 lb) 01/22/2017 77.7 kg (171 lb 3.2 oz) 11/25/2016 75.8 kg (167 lb) 01/24/2016 81.7 kg (180 lb 3.2 oz) 12/25/2015 78.7 kg (173 lb 6.4 oz) 11/26/2015 78.9 kg (174 lb) 11/20/2015 78.9 kg (174 lb) General Appearance: Well appearing, alert, in no acute distress, well-hydrated, well nourished.. Skin: Skin color, texture, turgor normal, no suspicious rashes or lesions. Head: Normocephalic, no masses, lesions, tenderness or abnormalities. Eyes: Anicteric sclera. Pupils are equally round and reactive to light. Extraocular movements are intact. . Ears: External ears normal, canals clear. Nose/Sinuses: Nares normal, septum midline, mucosa normal, no drainage or sinus tenderness. Oropharynx: Lips, mucosa, and tongue normal, teeth and gums normal, oropharynx normal. Neck: Supple, no adenopathy; thyroid symmetric, normal size, no bruits. Lungs: Lungs clear to auscultation. No wheezing, rhonchi, rales. Heart: RRR without murmur, gallop, or rubs. No ectopy. Abdomen: Normal abdominal exam, Abdomen soft, non-tender. Bowel sounds normal. No masses, organomegaly. Extremities: No deformities, edema, skin discoloration. Musculoskeletal: Spine range of motion normal. Muscular strength intact, No joint swelling, deformity, or tenderness. Peripheral Pulses: Normal. Neurologic: Gait normal. Reflexes normal and symmetric. Sensation to light touch and crainal nerves 2-12 intact.. Health Maintenance List DTAP,TDAP,TD(1 - Tdap) due on 11/14/2005 INFLUENZA(1) due on 07/10/2018 DIABETES SCREEN due on 02/26/2021 LIPID SCREEN due on 11/26/2021 COLORECTAL CANCER SCREENING,SEE MODIFIER due on 01/19/2022 BONE DENSITY Completed ADULT PREVNAR-13 Completed PNEUMOVAX AGE 65 AND OVER WITH 5YR LOOKBACK Completed Data reviewed Component Latest Ref Rng AND Units 12/09/2017 02/26/2018 NA 136 - 145 mmol/L 137 K 3.5 - 5.1 mmol/L 3.9 Chloride 98 - 107 MEQ/L 104 CO2 21 - 32 MEQ/L 29.0 Glucose 74 - 106 MG/DL 78 BUN 7 - 18 MG/DL 16 Creatinine 0.6 - 1.3 MG/DL 0.89 GFR mL/MIN 65 GFR AFR AMER mL/MIN 79 Total Protein 6.4 - 8.2 gm/dL 6.7 Albumin 3.2 - 4.6 gm/dL 3.4 Calcium 8.5 - 10.1 mg/dL 8.5 Bili Total 0.2 - 1 mg/dL 0.80 AST 8 - 37 U/L 22 ALT (SGPT) 12 - 78 U/L 17 Alk Phos Total 45 - 117 U/L 79 WBC 3.9 - 11 K/uL 3.9 RBC 4 - 6 M/uL 4.32 HGB 14 - 16.5 g/dL 13.2 (A) HCT 39 - 55 % 42.3 MCV 79 - 98 fL 97.9 MCH 25.4 - 34.6 pg 30.6 MCHC 30 - 36 g/dL 31.2 Platelet 140 - 440 K/uL 210 MPV 7.4 - 10.4 fL 11.1 (A) NEUT % 40 - 74 % 61.1 LYMPH % 20 - 30 % 21.9 MONO % 2 - 8 % 12.4 (A) EOS % 1 - 3 % 3.6 (A) BASO % 0 - 1.5 % 1.0 NEUT ABS 1.9 - 8 K/uL 2.4 LYMPH ABS 1.2 - 4 K/uL 0.85 (A) TSH 0.400 - 5.500 uU/mL 1.400 A/P ASSESSMENT/PLAN: 1. Medicare annual wellness visit, subsequent - ICD9: V70.0, ICD10: Z00.00 (primary diagnosis) - Encouraged monthly Breast Self Exam - Follow up for annual exam in one year. 2. Acquired hypothyroidism - ICD9: 244.9, ICD10: E03.9 - Instructed patient on importance of taking on an empty stomach either first thing in the morning or at bedtime. - continue current dose of Synthroid 0.088 mg 3. Rheumatoid arthritis involving multiple sites, unspecified rheumatoid factor presence (HCC) - ICD9: 714.0, ICD10: M06.9 - Cont f/u with Rheum 4. Bilateral carotid artery disease, unspecified type (HCC) - ICD9: , ICD10: I77.9 - will need US of carotids 5. Abdominal aortic aneurysm (AAA) without rupture (HCC) - ICD9: 441.4, ICD10: I71.4 - Needs US of abd aorta 6. Leg edema, right - ICD9: 782.3, ICD10: R60.0 - Stable, suggest trying CONCEPCION wrap which would be easier to put on. 7. Malignant neoplasm of urinary bladder, unspecified site (HCC) - ICD9: 188.9, ICD10: C67.9 - Cont Urology f/u 8. Ureterostomy status (HCC) - ICD9: V44.6, ICD10: Z93.6 - No issues. Signed Prescriptions Disp Refills levothyroxine (SYNTHROID) 88 mcg tablet 90 tablet 1 Sig: Take 1 tablet by mouth once daily. ELLIE: No f/u in a year sooner if issues. Time entering room was 4:50 PM and time leaving was 5:17 PM (total face to face time was 27 min) MD Duglas Monte MD 06/15/2018 5:15 PM Signed Please call office in Dec 2018 to schedule a complete Physical for on or after 06/15/2019 Referring Provider: DUGLAS SALES [[id number]] Allergies As of Date: 06/15/2018 (No Known Allergies) Date Reviewed: 06/15/2018 Reviewed by: Duglas Sales - Fully Assessed Reason for Visit: Physical [83] Cmt: 6 months Primary Visit Diagnosis:Medicare annual wellness visit, subsequent [Z00.00] Comment:last done: 06/15/2018 Other Visit Diagnoses:Acquired hypothyroidism [E03.9] Rheumatoid arthritis involving multiple sites, unspecified rheumatoid factor presence (HCC) [M06.9] Bilateral carotid artery disease, unspecified type (HCC) [I77.9] Abdominal aortic aneurysm (AAA) without rupture (HCC) [I71.4] Leg edema, right [R60.0] Malignant neoplasm of urinary bladder, unspecified site (HCC) [C67.9] Ureterostomy status (HCC) [Z93.6] Order(s):levothyroxine (SYNTHROID) 88 mcg tabletTake 1 tablet by mouth once daily.Disp: 90 tabletRfl: 1 US CAROTID ARTERIES [facility] [[id number]] Order #: [id number] FUTURE US ABD AORTA [[id number]] Order #: [id number] FUTURE Prescriptions as of 06/15/2018 Sig: LEVOTHYROXINE 88 MCG TABLET Take 1 tablet by mouth once d* * LEFLUNOMIDE 10 MG TABLET Take 10 mg by mouth every oth* * METHOTREXATE SODIUM 2.5 MG TA* Take 5 tablets by mouth one t* * HYDROXYCHLOROQUINE 200 MG TAB* Take 1 tablet by mouth twice * * LEUCOVORIN CALCIUM 5 MG TABLET Take one(1) tablet weekly * FOLIC ACID 1 MG TABLET take two tablets daily OSTOMY SUPPLIES 1 1/2 Ostomy Pouches to be applied * OSTOMY SUPPLIES SWABS 1 application twice a week. OSTOMY SUPPLIES 1 application twice a week. OSTOMY ADHESIVE PASTE 1 application twice a week. OSTOMY SUPPLIES POWDER Apply 1 application to affect* OSTOMY SUPPLIES 20 Devices. Urostomy care URINARY BAG 1 mL. q * FREDDY-600 WITH VITAMIN D 600 MG* Take one(1) tablet two(2) marquis* More... More... 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 More... Osteopenia [M85.80] INVALID FOR* Priority: A More... 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 Well adult exam [Z00.00] INVALID FOR* Priority: E More... Acquired hypothyroidism [E03.9] INVALID FOR* Priority: A Varicose veins with pain [I83.819] INVALID FOR* Priority: D Malignant neoplasm of urinary bladder (HCC) [C6*INVALID FOR* Priority: B More... More... Colon cancer screening [Z12.11] INVALID FOR* Encounter for screening for cardiovascular diso*INVALID FOR* Encounter for screening for diabetes mellitus [*INVALID FOR* Rheumatoid arthritis involving multiple sites (*INVALID FOR* Priority: A More... Encounter for screening mammogram for malignant*INVALID FOR* Abdominal aortic aneurysm (AAA) without rupture*INVALID FOR* Priority: A More... Bilateral carotid artery disease (HCC) [I77.9] INVALID FOR* Priority: A More... Medicare annual wellness visit, subsequent [Z00*INVALID FOR* Priority: E More... Other instructions from your clinician: Please call office in Dec 2018 to schedule a complete Physical for on or after 06/15/2019 Prescriptions ordered this encounter Disp Refills Start End LEVOTHYROXINE 88 MCG TABLET 90 t* 1 06/15/2018 Class: Print RX Route: ORAL Sig: Take 1 tablet by mouth once daily. Medications Discontinued During This Encounter levothyroxine (SYNTHROID) 88 mcg tab* 90 t* 3 06/12/2017 06/15/2018 Route: ORAL Sig: Take 1 tablet by mouth once daily. Disc: Reason for discontinue is not on file. Disposition: Return in about 1 year (around 06/15/2019) for extensive exam/medicare wellness 40 min. Follow-up and Disposition History Recorded Encounter Status:Closed by DUGLAS SALES on 06/15/18 CNCO Observed: 06/02/2018 Status: COMPLETED Source: [place] 12:[address] [facility] [place] REPOSITORY HNO ID: [id number] Author: Mammography Coordinator Service: (none) Author Type: Physician Type: Letter Filed: 06/03/2018 11:32 PM Note Text: June 02, 2018 PID: [id number] Clint Hackett [address] [place] [address] Dear Ms. Hackett, We are pleased to inform you that the results of your recent breast imaging exam on 06/02/2018 are normal. Your mammogram demonstrates that you have dense breast tissue, which could hide abnormalities. Dense breast tissue, in and of itself, is a relatively common condition. Therefore, this information is not provided to cause undue concern; rather, it is to raise your awareness and promote discussion with your health care provider regarding the presence of dense breast tissue in addition to other risk factors. Early detection of cancer is very important. We also understand recommendations regarding breast cancer screening are controversial. Please discuss with your primary care provider which strategy is best for you and whether a mammogram is right for you. Your imaging studies and report will be kept on file at [facility] as part of your permanent medical record and are available for your continuing care. Thank you for allowing us to help in meeting your health care needs. Sincerely, Dr. Henry Interpreting Radiologist [facility] (Normal over 40) [facility] SCREENING Observed: 06/02/2018 Status: F Source: [place] 10:[address] [facility] REPOSITORY * * *Final Report* * * DATE OF EXAM: Jun 02 2018 10:40AM [facility] 0581 - [facility] SCREENING / PROCEDURE REASON: Encounter for screening mammogram for malignant neoplasm of breast * * * * Physician Interpretation * * * * RESULT: #[id number] - [facility] SCREENING BILATERAL DIGITAL SCREENING MAMMOGRAM WITH CAD: 06/02/2018 HISTORY: Encounter For Screening Mammogram For Malignant Neoplasm Of Breast /patient reports no breast symptoms /priors available for comparison. RESULT: TECHNIQUE: The study was acquired using full field digital technology and interpreted from soft copy. Current study was also evaluated with a Computer Aided Detection (CAD). Comparison is made to exams dated: 12/04/2016 mammogram - [facility] and 08/24/2015 mammogram - [facility]. The tissue of both breasts is heterogeneously dense. This may lower the sensitivity of mammography. No significant masses, calcifications, or other findings are seen in either breast. There has been no significant interval change. IMPRESSION: NEGATIVE There is no mammographic evidence of malignancy.A 1 year screening mammogram is recommended. Briana Henry M.D., mc/eric:06/02/2018 12:17:12 Senior Management Consultant: Paola BETANCOURT)(Jeff), [facility] letter sent: Normal over 40 Mammogram BI-RADS: 1 Negative Assistant Brand Manager: Eric Transcribe Date/Time: Jun 02 2018 10:25A Dictated by: BRIANA COVARRUBIAS MD This examination was interpreted and the report reviewed and electronically signed by: BRIANA COVARRUBIAS MD on Jun 02 2018 12:17PM EST [id number] Observed: 06/02/2018 Status: COMPLETED Source: [place] 10:[address] [facility] REPOSITORY HNO ID: [id number] Author: Babita Martino Service: (none) Author Type: (none) Type: Progress Notes Filed: 06/02/2018 10:42 AM Note Text: Radiology Service Progress Note PATIENT NAME: Clint Hackett DATE OF SERVICE: June 02, 2018 TIME: 10:22 AM PATIENT IDENTITY VERIFICATION COMPLETED USING TWO (2) METHODS: Patient confirmed name verbally and Date of . PATIENT GENDER DATA: Female. status: : No status: NO. PATIENT RELEVANT IMPLANT DATA REVIEWED: Not Applicable RADIOLOGY DEPARTMENT: [facility] mammogram PERIPHERAL IV DATA: Not applicable SIGNED BY: Babtia Martino June 02, 2018 10:22 AM CBC W/DIFF, AUTOMATED Collected: 05/21/2018 Status: F Source: [place] 11:24 AM [facility] REPOSITORY TYPE CODE TESTS RESULT OUT OF RANGE REFERENCE UNITS LAB L100.1000 4.4-11.0 K/mm3 Low WBC 4.1 LAB L100.1200 4.2-5.4 M/mm3 Normal RBC 4.23 LAB L100.1300 12.0-15.0 g/dl Normal HGB 13.1 LAB L100.1400 37-47 % Normal HCT 41.9 LAB L100.1500 81-99 fL High MCV 99.1 LAB L100.1600 27.0-32.0 pg Normal MCH 31.0 LAB L100.1700 32-36 g/gl Low MCHC 31.3 LAB L100.1810 11.6-14.6 % Normal RDW CV 14.2 LAB L100.1820 35.1-43.9 fl High RDW SD 51.0 LAB L100.1900 150-450 K/mm3 Normal PLT 234 LAB L100.2000 6.2-12.0 fl Normal MPV 10.4 LAB L100.2100 47-70 % Normal NEUT% 66.5 LAB L100.2200 19-41 % Normal LY% 22.7 LAB L100.2300 0-10 % Normal MONO% 7.0 LAB L100.2400 0-5 % Normal EO% 3.1 LAB L100.2500 0-1 % Normal BASO% 0.7 LAB L100.2550 0.0-0.9 % Normal IM GRAN % 0.000 Result Comment: IG% - Immature Granulocytes (promyelocytes, myelocytes and metamyelocytes) > 1% indicates that a LEFT SHIFT is Present. LAB L100.2620 2.0-7.7 X10 3/uL Normal Absolute Neut 2.8 LAB L100.2720 0.83-4.51 X10 3/ul Normal Absolute Lymph 0.94 Performed By: #### L100.0100 #### [facility] [address] [place], [address] COMPREHENSIVE METABOLIC Collected: 05/21/2018 Status: F Source: [facility] 11:24 AM [facility] REPOSITORY TYPE CODE TESTS RESULT OUT OF RANGE REFERENCE UNITS LAB L501.0100 74-106 mg/dL Normal GLU 84 Result Comment: Please note revised GLUCOSE reference range effective 2017. LAB L501.1000 7-18 mg/dL Normal BUN 12 LAB L501.1100 0.55-1.02 mg/dL Normal CREAT,SERUM 0.80 Result Comment: The validity of the calculated GFR AND GFRAA in patients over 70 years has not been determined. Clinical correlation is essential. LAB L501.1110 >60 mL/min Normal EST GFR 73 Result Comment: Non- GFR Calc LAB L501.1115 >60 mL/min Normal EST GFR - AA 88 Result Comment: GFR Calc LAB L501.1300 10-20 RATIO Normal BUN/CRE 14.9 LAB L501.1500 6.4-8.2 g/dL T Normal PROT 6.8 LAB L501.1800 3.2-5.0 g/dL Normal ALB 3.4 LAB L501.1950 2.2-4.2 g/dL Normal GLOB 3.4 LAB L501.2000 0.9-2.4 RATIO Normal A/G 1.0 LAB L501.2200 8.5-10.1 mg/dL CA Normal 8.9 LAB L501.4100 15-37 U/L Normal AST 29 LAB L501.4305 45-117 U/L Normal ALK P 96 LAB L501.4405 13-56 U/L Normal ALT 26 LAB L501.4600 0.20-1.00 mg/dL T Normal BILI 0.50 LAB L501.5300 136-145 mmol/L NA Normal 141 LAB L501.5600 3.5-5.1 mmol/L K Normal 4.0 LAB L501.5900 98-107 mmol/L CL Normal 104 LAB L501.6100 21.0-32.0 mmol/L Normal CO2 31.0 LAB L501.6200 5-15 Normal GAP 6 Performed By: #### L500.4050 #### [facility] [place], [address] CNPN Observed: 05/21/2018 Status: COMPLETED Source: [place] 12:00 AM [facility] REPOSITORY Telephone (COUMWS) CLINT HACKETT ([id number]) 1940 F Date Time Provider Department 05/21/18 [employer] During your visit today, we recorded the following information about you: Karis Underwood RN 05/21/2018 10:08 AM Signed ----- Message from Jami Cee sent at 05/21/2018 10:06 AM EDT ----- Regarding: MEDICINE/MEERA/HENRRY/MAMMOGRAM Contact: Patient has been identified by name and Date of : Yes Patient: Clint Jj Hackett Date of : 1940 Provider for this encounter : MD Duglas Monte MD Reason for call: ORDER MAMMOGRAM PLEASE CALL PATIENT WHEN ORDER IS PLACED Was an appointment scheduled: No Reason for requesting visit (RFV/signs and symptoms/diagnosis) : MAMMOGRAM Person calling: self Return call to: self Call patient at: at home [phone] (home) Payor: [employer] / Plan: [employer] MEDIELISE ACCESS / Product Type: PPO / Jami Underwood RN 05/21/2018 10:10 AM Signed order for mammo has been pended for review and file if able. patients last mammo was 12/04/16. Duglas Sales MD 05/22/2018 4:33 PM Signed Order filed. Carleen Bradley MA, ESMER 05/24/2018 9:16 AM Signed Please help patient get scheduled for mammo Allergies As of Date: 05/21/2018 (No Known Allergies) Date Reviewed: 12/09/2017 Reviewed by: Duglas Sales - Fully Assessed Reason for Visit: Orders [681] Cmt: request via my chart Primary Visit Diagnosis:Screening for malignant neoplasm of breast [Z12.31] Order(s):ZAIRA SCREENING [0000380] Order #: [id number] FUTURE Prescriptions as of 05/21/2018 Sig: LEVOTHYROXINE 88 MCG TABLET Take 1 tablet by mouth once d* OSTOMY SUPPLIES 1 1/2 Ostomy Pouches to be applied * OSTOMY SUPPLIES SWABS 1 application twice a week. OSTOMY SUPPLIES 1 application twice a week. OSTOMY ADHESIVE PASTE 1 application twice a week. OSTOMY SUPPLIES POWDER Apply 1 application to affect* OSTOMY SUPPLIES 20 Devices. Urostomy care URINARY BAG 1 mL. q * LEFLUNOMIDE 10 MG TABLET Take 10 mg by mouth every oth* * METHOTREXATE SODIUM 2.5 MG TA* Take 5 tablets by mouth one t* * HYDROXYCHLOROQUINE 200 MG TAB* Take 1 tablet by mouth twice * * LEUCOVORIN CALCIUM 5 MG TABLET Take one(1) tablet weekly * FOLIC ACID 1 MG TABLET take two tablets daily * FREDDY-600 WITH VITAMIN D 600 MG* Take one(1) tablet two(2) marquis* More... More... 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 More... Osteopenia [M85.80] INVALID FOR* Priority: A More... 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 Well adult exam [Z00.00] INVALID FOR* Priority: E More... Acquired hypothyroidism [E03.9] INVALID FOR* Priority: A Varicose veins with pain [I83.819] INVALID FOR* Priority: D Malignant neoplasm of urinary bladder (HCC) [C6*INVALID FOR* Priority: B More... More... Colon cancer screening [Z12.11] INVALID FOR* Encounter for screening for cardiovascular diso*INVALID FOR* Encounter for screening for diabetes mellitus [*INVALID FOR* Rheumatoid arthritis involving multiple sites (*INVALID FOR* Priority: A More... Encounter for screening mammogram for malignant*INVALID FOR* Abdominal aortic aneurysm (AAA) without rupture*INVALID FOR* Priority: A More... Bilateral carotid artery disease (HCC) [I77.9] INVALID FOR* Priority: A More... Encounter Status:Closed by KARIS UNDERWOOD RN on 05/24/18 COMPREHENSIVE METABOLIC Collected: 02/26/2018 Status: F Source: [place] 10:39 AM [facility] REPOSITORY TYPE CODE TESTS RESULT OUT OF RANGE REFERENCE UNITS LAB L501.0100 74-106 mg/dL Normal GLU 78 Result Comment: Please note revised GLUCOSE reference range effective 2017. LAB L501.1000 7-18 mg/dL Normal BUN 16 LAB L501.1100 0.55-1.02 mg/dL Normal CREAT,SERUM 0.89 Result Comment: The validity of the calculated GFR AND GFRAA in patients over 70 years has not been determined. Clinical correlation is essential. LAB L501.1110 >60 mL/min Normal EST GFR 65 Result Comment: Non- GFR Calc LAB L501.1115 >60 mL/min Normal EST GFR - AA 79 Result Comment: GFR Calc LAB L501.1300 10-20 RATIO Normal BUN/CRE 18.0 LAB L501.1500 6.4-8.2 g/dL T Normal PROT 6.7 LAB L501.1800 3.2-5.0 g/dL Normal ALB 3.4 LAB L501.1950 2.2-4.2 g/dL Normal GLOB 3.3 LAB L501.2000 0.9-2.4 RATIO Normal A/G 1.0 LAB L501.2200 8.5-10.1 mg/dL CA Normal 8.5 LAB L501.4100 15-37 U/L Normal AST 22 LAB L501.4305 45-117 U/L Normal ALK P 79 LAB L501.4405 13-56 U/L Normal ALT 17 LAB L501.4600 0.20-1.00 mg/dL T Normal BILI 0.80 LAB L501.5300 136-145 mmol/L NA Normal 137 LAB L501.5600 3.5-5.1 mmol/L K Normal 3.9 LAB L501.5900 98-107 mmol/L CL Normal 104 LAB L501.6100 21.0-32.0 mmol/L Normal CO2 29.0 LAB L501.6200 5-15 Low GAP 4 Performed By: #### L500.4050 #### [facility] [address] [place], [address] CBC W/DIFF, AUTOMATED Collected: 02/26/2018 Status: F Source: [place] 10:39 AM [facility] REPOSITORY TYPE CODE TESTS RESULT OUT OF RANGE REFERENCE UNITS LAB L100.1000 4.4-11.0 K/mm3 Low WBC 3.9 LAB L100.1200 4.2-5.4 M/mm3 Normal RBC 4.32 LAB L100.1300 12.0-15.0 g/dl Normal HGB 13.2 LAB L100.1400 37-47 % Normal HCT 42.3 LAB L100.1500 81-99 fL Normal MCV 97.9 LAB L100.1600 27.0-32.0 pg Normal MCH 30.6 LAB L100.1700 32-36 g/gl Low MCHC 31.2 LAB L100.1810 11.6-14.6 % Normal RDW CV 14.3 LAB L100.1820 35.1-43.9 fl High RDW SD 49.5 LAB L100.1900 150-450 K/mm3 Normal PLT 210 LAB L100.2000 6.2-12.0 fl Normal MPV 11.1 LAB L100.2100 47-70 % Normal NEUT% 61.1 LAB L100.2200 19-41 % Normal LY% 21.9 LAB L100.2300 0-10 % High MONO% 12.4 LAB L100.2400 0-5 % Normal EO% 3.6 LAB L100.2500 0-1 % Normal BASO% 1.0 LAB L100.2550 0.0-0.9 % Normal IM GRAN % 0.000 Result Comment: IG% - Immature Granulocytes (promyelocytes, myelocytes and metamyelocytes) > 1% indicates that a LEFT SHIFT is Present. LAB L100.2620 2.0-7.7 X10 3/uL Normal Absolute Neut 2.4 LAB L100.2720 0.83-4.51 X10 3/ul Normal Absolute Lymph 0.85 Performed By: #### L100.0100 #### [facility] [address] [place], [place], [id number] CBC W/DIFF, AUTOMATED Collected: 12/15/2017 Status: F Source: [place] 9:49 AM [facility] REPOSITORY TYPE CODE TESTS RESULT OUT OF RANGE REFERENCE UNITS LAB L100.1000 4.4-11.0 K/mm3 Low WBC 4.3 LAB L100.1200 4.2-5.4 M/mm3 Normal RBC 4.57 LAB L100.1300 12.0-15.0 g/dl Normal HGB 14.1 LAB L100.1400 37-47 % Normal HCT 44.4 LAB L100.1500 81-99 fL Normal MCV 97.2 LAB L100.1600 27.0-32.0 pg Normal MCH 30.9 LAB L100.1700 32-36 g/gl Low MCHC 31.8 LAB L100.1810 11.6-14.6 % Normal RDW CV 13.7 LAB L100.1820 35.1-43.9 fl High RDW SD 46.5 LAB L100.1900 150-450 K/mm3 Normal PLT 225 LAB L100.2000 6.2-12.0 fl Normal MPV 10.3 LAB L100.2100 47-70 % Normal NEUT% 68.9 LAB L100.2200 19-41 % Low LY% 12.5 LAB L100.2300 0-10 % High MONO% 15.8 LAB L100.2400 0-5 % Normal EO% 2.3 LAB L100.2500 0-1 % Normal BASO% 0.5 LAB L100.2550 0.0-0.9 % Normal IM GRAN % 0.000 Result Comment: IG% - Immature Granulocytes (promyelocytes, myelocytes and metamyelocytes) > 1% indicates that a LEFT SHIFT is Present. LAB L100.2620 2.0-7.7 X10 3/uL Normal Absolute Neut 3.0 LAB L100.2720 0.83-4.51 X10 3/ul Low Absolute Lymph 0.54 LAB L100.4500 Normal SMEAR COMMENT COMMENT Result Comment: SLIDE SCANNED - LYMPHOPENIA NOTED. Performed By: #### L100.0100 #### [facility] [address] [place], [address] COMPREHENSIVE METABOLIC Collected: 12/15/2017 Status: F Source: [facility] 9:49 AM [facility] REPOSITORY TYPE CODE TESTS RESULT OUT OF RANGE REFERENCE UNITS LAB L501.0100 74-106 mg/dL Normal GLU 86 LAB L501.1000 7-18 mg/dL Normal BUN 12 LAB L501.1100 0.55-1.02 mg/dL Normal 0.90 CREAT,SERUM Result Comment: The validity of the calculated GFR AND GFRAA in patients over 70 years has not been determined. Clinical correlation is essential. LAB L501.1110 >60 mL/min Normal EST GFR 64 Result Comment: Non- GFR Calc LAB L501.1115 >60 mL/min Normal EST GFR - AA 77 Result Comment: GFR Calc LAB L501.1300 10-20 RATIO Normal BUN/CRE 13.3 LAB L501.1500 6.4-8.2 g/dL T Normal PROT 7.1 LAB L501.1800 3.2-5.0 g/dL Normal ALB 3.5 LAB L501.1950 2.2-4.2 g/dL Normal GLOB 3.6 LAB L501.2000 0.9-2.4 RATIO Normal A/G 1.0 LAB L501.2200 8.5-10.1 mg/dL CA Normal 9.0 LAB L501.4100 15-37 U/L Normal AST 22 LAB L501.4305 45-117 U/L Normal ALK P 91 LAB L501.4405 13-56 U/L Normal ALT 18 Result Comment: Please note revised ALT reference range effective 2017. LAB L501.4600 0.20-1.00 mg/dL Normal T BILI 0.50 LAB L501.5300 136-145 mmol/L Normal NA 140 LAB L501.5600 3.5-5.1 mmol/L Normal K 3.9 LAB L501.5900 98-107 mmol/L Normal CL 106 LAB L501.6100 21.0-32.0 mmol/L Normal CO2 28.0 LAB L501.6200 5-15 Normal GAP 6 Performed By: #### L500.4050 #### [facility] [place], [address] CNPN Observed: 12/10/2017 Status: COMPLETED Source: [place] 12:00 AM [facility] CLINT HACKETT ([id number]) 1940 F Date Time Provider Department 12/10/17 [employer] [facility] During your visit today, we recorded the following information about you: Duglas Sales MD 12/10/2017 8:01 AM Signed Let patient know thyroid test was ok. Laina Rodgers Ma 12/10/2017 8:34 AM Signed Patient notified of results, verbalizes understanding of instructions. Laina Rodgers Ma Allergies As of Date: 12/10/2017 (No Known Allergies) Date Reviewed: 12/09/2017 Reviewed by: Duglas Sales - Fully Assessed Reason for Visit: Results [95] Order(s):CMP (EXTERNAL) [9253673] Order #: [id number] CBCDIF (EXTERNAL) [[id number]] Order #: [id number] Prescriptions as of 12/10/2017 Sig: LEVOTHYROXINE 88 MCG TABLET Take 1 tablet by mouth once d* OSTOMY SUPPLIES 1 1/2 Ostomy Pouches to be applied * OSTOMY SUPPLIES SWABS 1 application twice a week. OSTOMY SUPPLIES 1 application twice a week. OSTOMY ADHESIVE PASTE 1 application twice a week. OSTOMY SUPPLIES POWDER Apply 1 application to affect* OSTOMY SUPPLIES 20 Devices. Urostomy care URINARY BAG 1 mL. q * LEFLUNOMIDE 10 MG TABLET Take 10 mg by mouth every oth* * METHOTREXATE SODIUM 2.5 MG TA* Take 5 tablets by mouth one t* * HYDROXYCHLOROQUINE 200 MG TAB* Take 1 tablet by mouth twice * * LEUCOVORIN CALCIUM 5 MG TABLET Take one(1) tablet weekly * FOLIC ACID 1 MG TABLET take two tablets daily * FREDDY-600 WITH VITAMIN D 600 MG* Take one(1) tablet two(2) marquis* More... More... 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 More... Osteopenia [M85.80] INVALID FOR* Priority: A More... 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 Well adult exam [Z00.00] INVALID FOR* Priority: E More... Acquired hypothyroidism [E03.9] INVALID FOR* Priority: A Varicose veins with pain [I83.819] INVALID FOR* Priority: D Malignant neoplasm of urinary bladder (HCC) [C6*INVALID FOR* Priority: B More... More... Colon cancer screening [Z12.11] INVALID FOR* Encounter for screening for cardiovascular diso*INVALID FOR* Encounter for screening for diabetes mellitus [*INVALID FOR* Rheumatoid arthritis involving multiple sites (*INVALID FOR* Priority: A More... Encounter for screening mammogram for malignant*INVALID FOR* Abdominal aortic aneurysm (AAA) without rupture*INVALID FOR* Priority: A More... Bilateral carotid artery disease (HCC) [I77.9] INVALID FOR* Priority: A More... Encounter Status:Closed by LAINA RODGERS MA on 12/10/17 TSH Collected: 12/09/2017 Status: F Source: [place] 10:18 AM [facility] REPOSITORY TYPE CODE TESTS RESULT OUT OF RANGE REFERENCE UNITS LAB TSH 0.400-5.500 uU/mL TSH 1.400 Performed By: #### TSH #### [facility] [address] [place], [place] [address] PROGRESS Observed: 12/09/2017 Status: COMPLETED Source: [place] 9:49 AM [facility] REPOSITORY HNO ID: [id number] Author: Duglas Sales Service: (none) Author Type: Physician Type: Progress Notes Filed: 12/09/2017 10:40 AM Note Text: Chief Complaint Patient presents with: Pre-Op Exam: eye surgery HPI Clint Hackett is a 77 year old female who presents here today for Pre-op clearance. patient is scheduled to have cornea surgery on the right at the end of December. None healing cataract incision and affecting her vision. Past medical history, appointments, medications, allergies reviewed. 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 - HERNIA REPAIR W/MESH 2008 - PAST SURGICAL HISTORY OF 12/23/2004 bladder removal with urosotomy - REPAIR INCISIONAL HERNIA,REDUCIBLE Hernia repair, incisional - TOTAL ABDOM HYSTERECTOMY 12/23/2004 Hysterectomy, ANDRE, oophorectomy Family History FAMILY HISTORY Problem Relation Age of Onset - None Mother - Heart Father Patient Allergies ALLERGIES No Known Allergies Current Medications Current Outpatient Prescriptions on File Prior to Visit: levothyroxine (SYNTHROID) 88 mcg tablet Take 1 tablet by mouth once daily. Ostomy Supplies 1 11/10 misc Ostomy Pouches to be applied twice a week Ostomy Supplies (ADHESIVE REMOVER WIPES) swab 1 application twice a week. Ostomy Supplies (SKIN PREP WIPES) misc 1 application twice a week. Ostomy Adhesive (STOMAHESIVE PASTE) pste 1 application twice a week. Ostomy Supplies (STOMAHESIVE PROTECTIVE) powd Apply 1 application to affected area twice a week. Ostomy Supplies ([place] COHESIVE SEALS) misc 20 Devices. Urostomy care Urinary Bag (BARDIA URINARY DRAINAGE BAG) misc 1 mL. q leflunomide (ARAVA) 10 mg tablet Take 10 mg by mouth every other day. methotrexate 2.5 mg tablet Take 5 tablets by mouth one time only. hydroxychloroquine 200 mg ORAL tablet Take 1 tablet by mouth twice daily. LEUCOVORIN CALCIUM 5 MG TAB Take one(1) tablet weekly FOLIC ACID 1 MG TAB take two tablets daily FREDDY-600 WITH VITAMIN D 600 MG-200 UNIT TAB Take one(1) tablet two(2) times daily. No current facility-administered medications on file prior to visit. Social History Social History Marital status: Spouse name: Years of education: Number of children: 1 Occupational History Occupation Employer Comment retired [employer]* Social History Main Topics Smoking status: Former Smoker Packs/day: 1.00 Years: 20.00 Types: Cigarettes Quit date: 11/09/1994 Smokeless status: Never Used Alcohol use: No Drug use: No Review of Symptoms REVIEW OF SYSTEMS GENERAL: No weight loss, malaise or fevers HEENT: Negative for frequent or significant headaches, significant change in vision, significant vision problems, significant ear problems or hearing loss, nasal discharge, or nose bleeds, sore throat, difficulty swallowing, mouth lesions, hoarseness NECK: Negative for lumps, goiter, pain and significant neck swelling RESPIRATORY: Negative for productive cough, hemoptysis, wheezing, COPD, dyspnea or shortness of breath. Has a mild dry cough. CARDIOVASCULAR: Negative for chest pain, change in chronic right leg swelling, hypertension, CHF or palpitations GI: No nausea, vomiting, or diarrhea and No heartburn or reflux symptoms : No history of discolored urine or blood in blag MUSCULOSKELETAL: Negative for joint pain or swelling, back pain or muscle pain SKIN: Negative for lesions, rash, and itching HEMATOLOGY/LYMPHOLOGY: Negative for prolonged bleeding, bruising easily or swollen nodes ENDOCRINE: Negative for cold or heat intolerance, polyuria, polydipsia and goiter NEURO: No history of headaches, syncope, paralysis, seizures or tremors EXAM: BP 120/82 (BP Site: Left Arm, BP Position: Sitting, BP Cuff Size: Regular Adult) Pulse 60 Resp 12 Ht 165.1 cm (5' 5) Wt 71.7 kg (158 lb) BMI 26.29 kg/m2 General Appearance: Well appearing, alert, in no acute distress, well-hydrated, well nourished.. Skin: Skin color, texture, turgor normal, no suspicious rashes or lesions. Head: Normocephalic, no masses, lesions, tenderness or abnormalities. Eyes: Anicteric sclera. Pupils are equally round and reactive to light. Extraocular movements are intact. . Ears: External ears normal, canals clear. Nose/Sinuses: Nares normal, septum midline, mucosa normal, no drainage or sinus tenderness. Oropharynx: Lips, mucosa, and tongue normal, teeth and gums normal, oropharynx normal. Neck: Supple, no adenopathy; thyroid symmetric, normal size, no bruits. Lungs: Lungs clear to auscultation. No wheezing, rhonchi, rales. Heart: RRR without murmur, gallop, or rubs. No ectopy. Abdomen: Normal abdominal exam, Abdomen soft, non-tender. Bowel sounds normal. No masses, organomegaly. Extremities: No deformities or skin discoloration. Has chronic right lower extremity edema Musculoskeletal: al. Muscular strength intact, No joint swelling, deformity, or tenderness. Peripheral Pulses: Normal. Neurologic: Gait normal. Reflexes normal and symmetric. Sensation to light touch and crainal nerves 2-12 intact.. Health Maintenance List TETANUS due on 11/13/2015 DIABETES SCREEN due on 11/26/2019 LIPID SCREEN due on 11/26/2021 COLORECTAL CANCER SCREENING,SEE MODIFIER due on 01/19/2022 BONE DENSITY Completed ADULT PREVNAR-13 Completed INFLUENZA Completed PNEUMOVAX AGE 65 AND OVER WITH 5YR LOOKBACK Completed Data reviewed EKG in office shows no acute findings and no changes from EKG done 10/13/2012 ASSESSMENT/PLAN: 1. Pre-op examination - ICD9: V72.84, ICD10: Z01.818 (primary diagnosis) - patient with low risk surgical procedure and cardiac risk index is less than 0.4%. EKG in office is stable in appearance compared to previous one done on 10/13/2012 and is having no cardiac symptoms. It's my opinion that she is low risk cardiac rodriguez for surgery and therefore is not in need of any further cardiac workup and will be cleared medically for surgery. - Patient to contact surgeon and have a medical clearance form faxed to office to be completed and returned. - ECG COMPLETE W INTERPRETATION 2. Corneal abnormality - ICD9: 371.9, ICD10: H18.9 - Has none healing incision and is to have surgical repair. 3. Acquired hypothyroidism - ICD9: 244.9, ICD10: E03.9 - Instructed patient on importance of taking on an empty stomach either first thing in the morning or at bedtime. - continue current dose of Synthroid 0.088 mg - check TSH 4. Rheumatoid arthritis involving multiple sites, unspecified rheumatoid factor presence (HCC) - ICD9: 714.0, ICD10: M06.9 - clinically stable F/u in 6 months WAE Time with patient face to face was 25 min Duglas Sales MD CNOV Observed: 12/09/2017 Status: COMPLETED Source: [place] 9:40 AM [facility] REPOSITORY Office Visit (FAMPWS) CLINT HACKETT ([id number]) 1940 F Date Time Provider Department 12/09/17 9:40 AM [facility]GL[facility] [employer] FAMPWS During your visit today, we recorded the following information about you: Pulse Respiration Blood pressure Weight 60/minute 12/minute 120/82 71.7 kg Height 1.651 m Duglas Sales MD 12/09/2017 10:40 AM Signed Chief Complaint Patient presents with: Pre-Op Exam: eye surgery HPI Clint Hernandezwell is a 77 year old female who presents here today for Pre-op clearance. patient is scheduled to have cornea surgery on the right at the end of December. None healing cataract incision and affecting her vision. Past medical history, appointments, medications, allergies reviewed. 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 - HERNIA REPAIR W/MESH 2008 - PAST SURGICAL HISTORY OF 12/23/2004 bladder removal with urosotomy - REPAIR INCISIONAL HERNIA,REDUCIBLE Hernia repair, incisional - TOTAL ABDOM HYSTERECTOMY 12/23/2004 Hysterectomy, ANDRE, oophorectomy Family History FAMILY HISTORY Problem Relation Age of Onset - None Mother - Heart Father Patient Allergies ALLERGIES No Known Allergies Current Medications Current Outpatient Prescriptions on File Prior to Visit: levothyroxine (SYNTHROID) 88 mcg tablet Take 1 tablet by mouth once daily. Ostomy Supplies 1 11/10 ANDquot; misc Ostomy Pouches to be applied twice a week Ostomy Supplies (ADHESIVE REMOVER WIPES) swab 1 application twice a week. Ostomy Supplies (SKIN PREP WIPES) misc 1 application twice a week. Ostomy Adhesive (STOMAHESIVE PASTE) pste 1 application twice a week. Ostomy Supplies (STOMAHESIVE PROTECTIVE) powd Apply 1 application to affected area twice a week. Ostomy Supplies ([place] COHESIVE SEALS) misc 20 Devices. Urostomy care Urinary Bag (BARDIA URINARY DRAINAGE BAG) misc 1 mL. q leflunomide (ARAVA) 10 mg tablet Take 10 mg by mouth every other day. methotrexate 2.5 mg tablet Take 5 tablets by mouth one time only. hydroxychloroquine 200 mg ORAL tablet Take 1 tablet by mouth twice daily. LEUCOVORIN CALCIUM 5 MG TAB Take one(1) tablet weekly FOLIC ACID 1 MG TAB take two tablets daily FREDDY-600 WITH VITAMIN D 600 MG-200 UNIT TAB Take one(1) tablet two(2) times daily. No current facility-administered medications on file prior to visit. Social History Social History Marital status: Spouse name: Years of education: Number of children: 1 Occupational History Occupation Employer Comment retired [employer]* Social History Main Topics Smoking status: Former Smoker Packs/day: 1.00 Years: 20.00 Types: Cigarettes Quit date: 11/09/1994 Smokeless status: Never Used Alcohol use: No Drug use: No Review of Symptoms REVIEW OF SYSTEMS GENERAL: No weight loss, malaise or fevers HEENT: Negative for frequent or significant headaches, significant change in vision, significant vision problems, significant ear problems or hearing loss, nasal discharge, or nose bleeds, sore throat, difficulty swallowing, mouth lesions, hoarseness NECK: Negative for lumps, goiter, pain and significant neck swelling RESPIRATORY: Negative for productive cough, hemoptysis, wheezing, COPD, dyspnea or shortness of breath. Has a mild dry cough. CARDIOVASCULAR: Negative for chest pain, change in chronic right leg swelling, hypertension, CHF or palpitations GI: No nausea, vomiting, or diarrhea and No heartburn or reflux symptoms : No history of discolored urine or blood in blag MUSCULOSKELETAL: Negative for joint pain or swelling, back pain or muscle pain SKIN: Negative for lesions, rash, and itching HEMATOLOGY/LYMPHOLOGY: Negative for prolonged bleeding, bruising easily or swollen nodes ENDOCRINE: Negative for cold or heat intolerance, polyuria, polydipsia and goiter NEURO: No history of headaches, syncope, paralysis, seizures or tremors EXAM: BP 120/82 (BP Site: Left Arm, BP Position: Sitting, BP Cuff Size: Regular Adult) Pulse 60 Resp 12 Ht 165.1 cm (5' 5ANDquot;) Wt 71.7 kg (158 lb) BMI 26.29 kg/m2 General Appearance: Well appearing, alert, in no acute distress, well-hydrated, well nourished.. Skin: Skin color, texture, turgor normal, no suspicious rashes or lesions. Head: Normocephalic, no masses, lesions, tenderness or abnormalities. Eyes: Anicteric sclera. Pupils are equally round and reactive to light. Extraocular movements are intact. . Ears: External ears normal, canals clear. Nose/Sinuses: Nares normal, septum midline, mucosa normal, no drainage or sinus tenderness. Oropharynx: Lips, mucosa, and tongue normal, teeth and gums normal, oropharynx normal. Neck: Supple, no adenopathy; thyroid symmetric, normal size, no bruits. Lungs: Lungs clear to auscultation. No wheezing, rhonchi, rales. Heart: RRR without murmur, gallop, or rubs. No ectopy. Abdomen: Normal abdominal exam, Abdomen soft, non-tender. Bowel sounds normal. No masses, organomegaly. Extremities: No deformities or skin discoloration. Has chronic right lower extremity edema Musculoskeletal: al. Muscular strength intact, No joint swelling, deformity, or tenderness. Peripheral Pulses: Normal. Neurologic: Gait normal. Reflexes normal and symmetric. Sensation to light touch and crainal nerves 2-12 intact.. Health Maintenance List TETANUS due on 11/13/2015 DIABETES SCREEN due on 11/26/2019 LIPID SCREEN due on 11/26/2021 COLORECTAL CANCER SCREENING,SEE MODIFIER due on 01/19/2022 BONE DENSITY Completed ADULT PREVNAR-13 Completed INFLUENZA Completed PNEUMOVAX AGE 65 AND OVER WITH 5YR LOOKBACK Completed Data reviewed EKG in office shows no acute findings and no changes from EKG done 10/13/2012 ASSESSMENT/PLAN: 1. Pre-op examination - ICD9: V72.84, ICD10: Z01.818 (primary diagnosis) - patient with low risk surgical procedure and cardiac risk index is less than 0.4%. EKG in office is stable in appearance compared to previous one done on 10/13/2012 and is having no cardiac symptoms. It's my opinion that she is low risk cardiac rodriguez for surgery and therefore is not in need of any further cardiac workup and will be cleared medically for surgery. - Patient to contact surgeon and have a medical clearance form faxed to office to be completed and returned. - ECG COMPLETE W INTERPRETATION 2. Corneal abnormality - ICD9: 371.9, ICD10: H18.9 - Has none healing incision and is to have surgical repair. 3. Acquired hypothyroidism - ICD9: 244.9, ICD10: E03.9 - Instructed patient on importance of taking on an empty stomach either first thing in the morning or at bedtime. - continue current dose of Synthroid 0.088 mg - check TSH 4. Rheumatoid arthritis involving multiple sites, unspecified rheumatoid factor presence (HCC) - ICD9: 714.0, ICD10: M06.9 - clinically stable F/u in 6 months WAE Time with patient face to face was 25 min Duglas Sales MD Referring Provider: ABE HLEMS [[id number]] Allergies As of Date: 12/09/2017 (No Known Allergies) Date Reviewed: 12/09/2017 Reviewed by: Duglas Sales - Fully Assessed Reason for Visit: Pre-Op Exam [87] Cmt: eye surgery Primary Visit Diagnosis:Pre-op examination [Z01.818] Other Visit Diagnoses:Corneal abnormality [H18.9] Acquired hypothyroidism [E03.9] Rheumatoid arthritis involving multiple sites, unspecified rheumatoid factor presence (HCC) [M06.9] Order(s):ECG COMPLETE W INTERPRETATION [ECG01] Order #: [id number] FUTURE TSH BLD [SQTSH] Order #: [id number] FUTURE Prescriptions as of 12/09/2017 Sig: LEVOTHYROXINE 88 MCG TABLET Take 1 tablet by mouth once d* OSTOMY SUPPLIES 1 1/2 Ostomy Pouches to be applied * OSTOMY SUPPLIES SWABS 1 application twice a week. OSTOMY SUPPLIES 1 application twice a week. OSTOMY ADHESIVE PASTE 1 application twice a week. OSTOMY SUPPLIES POWDER Apply 1 application to affect* OSTOMY SUPPLIES 20 Devices. Urostomy care URINARY BAG 1 mL. q * LEFLUNOMIDE 10 MG TABLET Take 10 mg by mouth every oth* * METHOTREXATE SODIUM 2.5 MG TA* Take 5 tablets by mouth one t* * HYDROXYCHLOROQUINE 200 MG TAB* Take 1 tablet by mouth twice * * LEUCOVORIN CALCIUM 5 MG TABLET Take one(1) tablet weekly * FOLIC ACID 1 MG TABLET take two tablets daily * FREDDY-600 WITH VITAMIN D 600 MG* Take one(1) tablet two(2) marquis* More... More... 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 More... Osteopenia [M85.80] INVALID FOR* Priority: A More... 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 Well adult exam [Z00.00] INVALID FOR* Priority: E More... Acquired hypothyroidism [E03.9] INVALID FOR* Priority: A Varicose veins with pain [I83.819] INVALID FOR* Priority: D Malignant neoplasm of urinary bladder (HCC) [C6*INVALID FOR* Priority: B More... More... Colon cancer screening [Z12.11] INVALID FOR* Encounter for screening for cardiovascular diso*INVALID FOR* Encounter for screening for diabetes mellitus [*INVALID FOR* Rheumatoid arthritis involving multiple sites (*INVALID FOR* Priority: A More... Encounter for screening mammogram for malignant*INVALID FOR* Abdominal aortic aneurysm (AAA) without rupture*INVALID FOR* Priority: A More... Bilateral carotid artery disease (HCC) [I77.9] INVALID FOR* Priority: A More... Disposition: Return in about 6 months (around 06/08/2018) for complete PE. Follow-up and Disposition History Recorded Encounter Status:Closed by [facility] [employer]ES on 12/09/17 ALLERGIES ALLERGIES DATE TYPE / CODE NAME / CODE REACTION SEVERITY SOURCE 11/12/2017 Drug No Known Unknown [facility] Allergy/416 Allergies/D28822 [facility] 182402(SNOM 0388(RXNORM) Repository ED CT) Drug NO KNOWN [facility] Class/56474 ALLERGIES [facility] 1003(SNOMED Repository CT) ENCOUNTERS ENCOUNTERS ADMIT/DISCHARGE ACCOUNT ADMITTING ENCOUNTER LOCATION SOURCE NUMBER CLASS 11/24/2018 [id number] [facility] ing:MTLAB Repository 11/16/2018 [id number] [facility] ing:MTLAB Repository 08/17/2018 [id number] [facility] ing:MTLAB Repository 08/07/2018/10/01 [id number] Ambulatory [address] Repository 06/15/2018/06/16/20 [id number] Ambulatory [address] Repository 06/02/2018/06/02/20 [id number] Ambulatory [address] Repository 05/21/2018 [id number] Ambulatory [facility] ing:MTLAB Repository 02/26/2018 [id number] Ambulatory [facility] ing:MTLAB Repository 12/15/2017 [id number] Ambulatory [facility] ing:MTLAB Repository 12/09/2017/12/09/19 [id number] Ambulatory [address] Repository 12/09/2017/12/09/19 [id number] Ambulatory [address] Repository 12/09/2017/12/10/19 [id number] Ambulatory [address] Repository PAYERS PAYERS ENCOUNTER GUARANTOR PAYER SUBSCRIBER SOURCE 11/24/2018 CLINT Gardner [id number] Primary [facility] [place] [facility] Insurance:LYNETTE HACKETTDOB: [place], [place] MEDICARE [facility] [id number] [id number]: [phone]) Number: Repository [phone] () [id number] Date:[id number] [address] [place] [address] 09432YD: 11/24/2018 Secondary NOT GIVENUNK [place] Insurance:SELF PAY [facility] Number: Effective Repository Date:2018-11-24 11/16/2018 CLINT Gardner [id number] Primary [place] Insurance:ANTHEM DAVIDESTELADOB: [place], [place] MEDICARE [facility] [id number] [facility] [address]Vus: [phone]) Number: Repository [phone] () [id number] Date:[id number] [address] [place] [address] 38402YR: 11/16/2018 Secondary NOT GIVENUNK [place] Insurance:SELF PAY [facility] Number: Effective Repository Date:2018-11-16 08/17/2018 CLINT [id number] Primary CLINT Gardner [place] Insurance:ANTHEM KIDWELLDOB[facility] [place] [facility] [id number] Hospital 20867Xqj: [phone]) Number: Repository [phone] () [id number] Date:[id number] [address]BT: 08/17/2018 Secondary NOT GIVENUNK [place] Insurance:SELF PAY [facility] Number: Effective Repository Date:2018-08-17 05/21/2018 CLINT Gardner [id number] Primary [place] Insurance:ANTHEM KIDWELLDOB: [facility] [place] [facility] [id number] [facility] 7[address]Ulj: [phone]) Number: Repository [phone] () [id number] Date:[id number] [address] [place] [address] 24883CB: 05/21/2018 Secondary NOT GIVENUNK [place] Insurance:SELF PAY [facility] Number: Effective Repository Date:2018-05-21 02/26/2018 CLINT [id number] Primary CLINT C [place] Insurance:ANTHEM KIDWELLDOB: [place] [facility] [id number] [facility] [address]1371Dyw: [phone] Number: Repository [phone] () [id number] Date:[id number] [address] [place] [address] 92[address]QC: 02/26/2018 Secondary NOT GIVENUNK [place] Insurance:SELF PAY [facility] Number: Effective Repository Date:2018-02-26 12/15/2017 CLINT [id number] Primary CL[place] Insurance:ANTHEM KIDWELLDOB: [facility] [place] [facility] [id number] Hospital [address]Zaw: [phone] Number: Repository [phone] () [id number] Date:[id number], [place] [address]MY: 12/15/2017 Secondary NOT GIVENUNK [place] Insurance:SELF PAY [facility] Number: Effective Repository Date:2017-12-15
== END ==
PROVIDERS: Family Provider Family Medicine; PCP Family Medicine; Referring Provider Internal Medicine Rheumatology; Visit Provider Internal Medicine Rheumatology
DX: M05.79 Rheumatoid arthritis with rheumatoid factor of multiple sites without organ or systems involvement (principal); M21.40 Flat foot [pes planus] (acquired), unspecified foot; E03.9 Hypothyroidism, unspecified; Z85.51 Personal history of malignant neoplasm of bladder; Z79.899 Other long term (current) drug therapy
CPT/HCPCS: 36415; 71046; 86480

== ENCOUNTER → 2019-02-14 | Outpatient (CLI) | payer MEDICARE, SELFPAY ==
[2017-11-12 14:28] VITALS: BMI 25.9
[2019-02-14 12:44] LABS: Absolute Lymphocyte Count 0.64 X10^3/ul (0.83-4.51); Absolute Neutrophil Count 3.2 X10^3/uL (2.0-7.7); Basophil# 0.01 X10^3/uL; Basophil% 0.2 % (0-1); Eosinophil# 0.12 X10^3/uL; Eosinophils% 2.7 % (0-5); Hematocrit 42.4 % (37-47); Hemoglobin 13.3 g/dl (12.0-15.0); Lymphocyte # 0.64 X10^3/ul (4.0); Lymphocyte % 14.3 % (19-41); Mean Corp Hgb Conc 31.4 g/gl (32-36); Mean Corpuscular Hgb 30.4 pg (27.0-32.0); Mean Platelet Vol. 10.8 fl (6.2-12.0); Monocyte# 0.48 X10^3/uL; Monocyte% 10.7 % (0-10); Neutrophil # 3.21 X10^3/uL (2.7-7.7); Neutrophil % 71.9 % (47-70); Platelet Count 232 K/mm3 (150-450); RBC Distribution Width CV 14.5 % (11.6-14.6); Red Blood Count 4.37 M/mm3 (4.2-5.4); White Blood Count 4.5 K/mm3 (4.4-11.0)
[2019-02-14 12:52] LABS: POSITIVE COUNT NO; POSITIVE DIFFERENTIAL NO; POSITIVE MORPHOLOGY NO
[2019-02-14 13:18] LABS: AST(SGOT) 22 U/L (15-37); Alanine Aminotransfer ALT/SGPT 16 U/L (13-56); Albumin, Serum 3.2 g/dL (3.2-5.0); Alkaline Phosphatase 95 U/L (45-117); Anion Gap 5 (5-15); BUN 13 mg/dL (7-18); BUN/Creat Ratio 15.4 RATIO (10-20); Calcium,Total 8.4 mg/dL (8.5-10.1); Chloride 108 mmol/L (98-107); Creatinine, Serum 0.84 mg/dL (0.55-1.02); EST Glomerular Filtration Rate 69 mL/min (>60); Est Glom Filt Rate - Afr Amer 83 mL/min (>60); Globulin 3.1 g/dL (2.2-4.2); Glucose 84 mg/dL (74-106); Potassium 3.8 mmol/L (3.5-5.1); Protein, Total 6.3 g/dL (6.4-8.2); Sodium Level 140 mmol/L (136-145)
== END | disposition home or self-care (01) ==
LOC: MTLAB 11:03
PROVIDERS: Family Provider Family Medicine; PCP Family Medicine; Referring Provider Internal Medicine Rheumatology; Visit Provider Internal Medicine Rheumatology
DX: M05.79 Rheumatoid arthritis with rheumatoid factor of multiple sites without organ or systems involvement (principal); M21.40 Flat foot [pes planus] (acquired), unspecified foot; E03.9 Hypothyroidism, unspecified; Z85.51 Personal history of malignant neoplasm of bladder; Z79.899 Other long term (current) drug therapy
CPT/HCPCS: 36415; 80053; 85025

== ENCOUNTER → 2019-02-21 14:51 | Outpatient (CLI) | payer MEDICARE, SELFPAY ==
[2017-11-12 14:28] VITALS: BMI 25.9
== END ==
PROVIDERS: Family Provider Family Medicine; PCP Family Medicine; Referring Provider Internal Medicine Rheumatology; Visit Provider Internal Medicine Rheumatology
DX: M05.79 Rheumatoid arthritis with rheumatoid factor of multiple sites without organ or systems involvement (principal); M21.40 Flat foot [pes planus] (acquired), unspecified foot; E03.9 Hypothyroidism, unspecified; Z85.51 Personal history of malignant neoplasm of bladder; Z79.899 Other long term (current) drug therapy
CPT/HCPCS: 36415

== ENCOUNTER → 2019-05-18 08:13 | Outpatient (CLI) | payer MEDICARE, SELFPAY ==
[2017-11-12 14:28] VITALS: BMI 25.9
[2019-05-18 10:18] LABS: Absolute Lymphocyte Count 0.68 X10^3/ul (0.83-4.51); Absolute Neutrophil Count 3.4 X10^3/uL (2.0-7.7); Basophil# 0.02 X10^3/uL; Basophil% 0.4 % (0-1); Eosinophil# 0.07 X10^3/uL; Eosinophils% 1.4 % (0-5); Hematocrit 44.4 % (37-47); Hemoglobin 14.2 g/dl (12.0-15.0); Lymphocyte # 0.68 X10^3/ul (4.0); Mean Corpuscular Hgb 30.7 pg (27.0-32.0); Mean Corpuscular Volume 96.1 fL (81-99); Mean Platelet Vol. 10.3 fl (6.2-12.0); Monocyte# 0.68 X10^3/uL; Neutrophil # 3.41 X10^3/uL (2.7-7.7); Platelet Count 236 K/mm3 (150-450); RBC Distribution Width CV 13.9 % (11.6-14.6); RBC Distribution Width SD 46.8 fl (35.1-43.9); Red Blood Count 4.62 M/mm3 (4.2-5.4); White Blood Count 4.9 K/mm3 (4.4-11.0)
[2019-05-18 10:19] LABS: POSITIVE COUNT NO; POSITIVE DIFFERENTIAL NO; POSITIVE MORPHOLOGY NO
[2019-05-18 10:38] LABS: BUN 15 mg/dL (7-18); Creatinine, Serum 0.93 mg/dL (0.55-1.02); Glucose 94 mg/dL (74-106)
[2019-05-18 10:39] LABS: AST(SGOT) 20 U/L (15-37); Alanine Aminotransfer ALT/SGPT 16 U/L (13-56); Albumin, Serum 3.5 g/dL (3.2-5.0); Alkaline Phosphatase 97 U/L (45-117); Anion Gap 7 (5-15); BUN/Creat Ratio 16.1 RATIO (10-20); Chloride 105 mmol/L (98-107); EST Glomerular Filtration Rate 61 mL/min (>60); Est Glom Filt Rate - Afr Amer 74 mL/min (>60); Globulin 3.6 g/dL (2.2-4.2); Potassium 3.9 mmol/L (3.5-5.1); Protein, Total 7.1 g/dL (6.4-8.2); Sodium Level 141 mmol/L (136-145)
== END ==
PROVIDERS: Family Provider Family Medicine; PCP Family Medicine; Referring Provider Internal Medicine Rheumatology; Visit Provider Internal Medicine Rheumatology
DX: M05.79 Rheumatoid arthritis with rheumatoid factor of multiple sites without organ or systems involvement (principal); M21.40 Flat foot [pes planus] (acquired), unspecified foot; E03.9 Hypothyroidism, unspecified; Z79.899 Other long term (current) drug therapy; Z85.51 Personal history of malignant neoplasm of bladder
CPT/HCPCS: 36415; 80053; 85025

== ENCOUNTER → 2019-06-16 07:32 | Outpatient (CLI) | payer MEDICARE, SELFPAY ==
[2019-06-09 09:02] VITALS: BMI 25.9
--- NOTE | 2019-06-16 07:51 | CT_ITS ---
STUDY: CTA NECK WITH CONTRAST REASON FOR EXAM: Female, 78 years old. Bilateral carotid stenosis worse on the right RADIATION DOSAGE (If Supplied By Facility): CTDIvol = ( 17.66 ) mGy, DLP = ( 449.19 ) mGycm TECHNIQUE: CT angiography with multi-detector data acquisition was performed from the aortic arch to the skull base following intravenous administration of 100mL IV Isovue 370. MIP images were reconstructed from the axial data set. Post-processing of the angiographic images was performed, with multiplanar reformation and 3D reconstruction. Individualized dose optimization techniques were used for this CT. COMPARISON: None. FINDINGS: AORTIC ARCH: Normal visualized aortic arch. Normal origins of the brachiocephalic, left common carotid, and left subclavian arteries. RIGHT CAROTID ARTERIES: Normal right common carotid artery (CCA). Moderate calcific plaquing of the right common carotid bulb. Moderate soft and calcific plaquing of the origin of the right internal carotid (ICA) artery without hemodynamically significant stenosis. More severe calcific and soft plaquing of the cervical portion of the right internal carotid artery creating a hemodynamically significant stenosis. Normal origin of the right external carotid artery (ECA). LEFT CAROTID ARTERIES: Normal left common carotid artery (CCA). Moderate calcific plaquing of the left common carotid bulb. Mild calcific plaquing of the origin of the left internal carotid (ICA) artery without a hemodynamically significant stenosis. Mild calcific and soft plaquing of the cervical portion of the left internal carotid artery. Normal origin of the left external carotid artery (ECA). VERTEBRAL ARTERIES: Normal bilateral vertebral arteries. CT/CTA Neck W/WO Contrast IMPRESSION: Atherosclerotic disease more severe on the right with hemodynamically significant stenosis of the proximal right internal carotid utilizing NASCET criteria Electronically Signed: Nito Leung MD at 16:54 EDT , Service support ,
[2019-06-16 09:24] LABS: Cholesterol 141 mg/dL (200); High Density Lipoprotein 59 mg/dL; Triglycerides 92 mg/dL; Very Low Density Lipoprotein 18 mg/dL (5-40)
== END ==
PROVIDERS: Family Provider Family Medicine; PCP Family Medicine; Referring Provider Surgery; Visit Provider Surgery
DX: I65.21 Occlusion and stenosis of right carotid artery (principal); I71.4 Abdominal aortic aneurysm, without rupture
CPT/HCPCS: 36415; 70498; 80061; Q9967

== ENCOUNTER 2019-06-20 05:18 | Inpatient (IN) | payer MEDICARE, SELFPAY ==
[2019-06-09 09:02] VITALS: BMI 25.9
[2019-06-17 09:00] VITALS: BMI 25.0
--- NOTE | 2019-06-17 09:05 | HP_ITS ---
Intake Vital Signs 06/17/19 Height 5 ft 5 in 06/17/19 Weight: 150 lb 06/17/19 Body Mass Index (BMI) 25.0 06/17/19 Blood Pressure 147/76 H 06/17/19 Blood Pressure Location Rt brachial 06/17/19 Respiratory Rate 16 06/17/19 Pulse Rate 62 06/17/19 Pulse Source Monitor 06/17/19 Temperature 97.8 F 06/17/19 Pulse Ox 97 06/17/19 Oxygen Delivery Method room air Intake Visit Reasons: Discuss CTA Results 06/16 @ [facility] Chief Complaint: carotid stenois--occular ischemic syndrome Allergies No Known Allergies Allergy (Verified 06/17/19 09:05) [facility] Medical History (Updated 06/09/19 @ 09:15 by Juan Santa MD) Rheumatoid arthritis (Chronic) Abdominal aortic aneurysm (AAA) (Acute) Carotid stenosis, right (Acute) Hypothyroidism (Acute) Rheumatoid arthritis (Acute) Surgical History (Updated 11/12/17 @ 14:27 by Yazmin Mckeon) History of incisional hernia repair (Acute) History of urostomy (Acute) S/P cataract extraction (Acute) S/P colonoscopy (Acute) S/P hysterectomy (Acute) Family History (Updated 11/12/17 @ 14:28 by Yazmin Mckeon) Father Heart disease Social History (Updated 06/17/19 @ 09:05 by Juan Santa MD) Smoking Status: Former smoker how long ago did patient quit smokin years + alcohol intake: never HPI HPI HPI: CLINT HACKETT, is a 78 F who presents to the office today for HPI HPI Surgical H&P: Yes HPI: CLINT HACKETT, is a 78 F who presents to the office today for ongoing surgical consultation regarding critical stenosis of her right extracranial internal carotid. She has had a recent carotid duplex imaging exam as follows. My previous notes follow-up as well. [facility] Imaging Services [address] [place] [address] CTA Neck W/WO Contrast MR#: [id number] Name: CLINT HACKETT #:[id number] : 1940 78 From: Nito Leung MD PCP:Nito Rivera MD Status:REG CLI Study:CTA Neck W/WO Contrast Date of Exam:06/16/19 Exam#[id number] Ordering Dr: Juan Santa MD STUDY: CTA NECK WITH CONTRAST REASON FOR EXAM: Female, 78 years old. Bilateral carotid stenosis worse on the right RADIATION DOSAGE (If Supplied By Facility): CTDIvol = ( 17.66 ) mGy, DLP = ( 449.19 ) mGycm TECHNIQUE: CT angiography with multi-detector data acquisition was performed from the aortic arch to the skull base following intravenous administration of 100mL IV Isovue 370. MIP images were reconstructed from the axial data set. Post-processing of the angiographic images was performed, with multiplanar reformation and 3D reconstruction. Individualized dose optimization techniques were used for this CT. COMPARISON: None. FINDINGS: AORTIC ARCH: Normal visualized aortic arch. Normal origins of the brachiocephalic, left common carotid, and left subclavian arteries. RIGHT CAROTID ARTERIES: Normal right common carotid artery (CCA). Moderate calcific plaquing of the right common carotid bulb. Moderate soft and calcific plaquing of the origin of the right internal carotid (ICA) artery without hemodynamically significant stenosis. More severe calcific and soft plaquing of the cervical portion of the right internal carotid artery creating a hemodynamically significant stenosis. Normal origin of the right external carotid artery (ECA). LEFT CAROTID ARTERIES: Normal left common carotid artery (CCA). Moderate calcific plaquing of the left common carotid bulb. Mild calcific plaquing of the origin of the left internal carotid (ICA) artery without a hemodynamically significant stenosis. Mild calcific and soft plaquing of the cervical portion of the left internal carotid artery. Normal origin of the left external carotid artery (ECA). VERTEBRAL ARTERIES: Normal bilateral vertebral arteries. CT/CTA Neck W/WO Contrast IMPRESSION: Atherosclerotic disease more severe on the right with hemodynamically significant stenosis of the proximal right internal carotid utilizing NASCET criteria Electronically Signed: Nito Leung MD at 16:54 EDT , Service support , Intake Visit Reasons: Carotid Stenosis Chief Complaint: carotid stenois--occular ischemic syndrome Program Officer Required: No Is patient in pain?: No Allergies No Known Allergies Allergy (Verified 06/09/19 09:03) Medications folic acid 1 mg tablet 2 mg PO QDAY tab 11/12/17 [History Confirmed 06/09/19] hydroxychloroquine 200 mg tablet 200 mg PO BID tab 11/12/17 [History Confirmed 06/09/19] levothyroxine 88 mcg capsule 88 mcg PO QDAY cap 11/12/17 [History Confirmed 06/09/19] methotrexate sodium 2.5 mg tablet 17.5 mg PO QWEEK tab 11/12/17 [History Confirmed 06/09/19] prednisone 10 mg tablet 10 mg PO QDAY PRN 11/12/17 [History Confirmed 06/09/19] abatacept 125 mg/mL subcutaneous auto-injector 125 mg SC QWEEK 06/09/19 [History Confirmed 06/09/19] [facility] Medical History Hypothyroidism (Acute) Rheumatoid arthritis (Acute) Surgical History History of incisional hernia repair (Acute) History of urostomy (Acute) S/P cataract extraction (Acute) S/P colonoscopy (Acute) S/P hysterectomy (Acute) Family History Father Heart disease Social History (Updated 06/09/19 @ 09:21 by Juan Santa MD) Smoking Status: Former smoker how long ago did patient quit smokin years + alcohol intake: never HPI HPI HPI: CLINT HACKETT, is a 78 F who presents to the office today for surgical consult regarding progressive extracranial carotid artery occlusive disease. The patient is kindly referred by her primary care physician Dr. Nito Rivera and a written compromise surgical consult and recommendations will be returned to him. The patient is age 78. She denies documented myocardial infarction or stroke. She states that she has minimal orthostatic dizziness moving from a supine to a sitting position. She claims she has not had any falls at home. She notes that she was a long-term cigarette smoker but she quit maybe 30 years ago.. She does not recall having had a recent lipid panel. She states that she has not been on any cholesterol medication. As part of her routine health check and because she had a previous history of carotid occlusive disease at the [facility] on May 30, 2019 she had carotid duplex imaging. Peak systolic velocity within the origin of the right internal carotid had climbed to 532 cm/s with end-diastolic velocity of 186 cm/s. There is felt to be moderate irregular calcified and shadowing plaque at the origin. This is felt to be consistent with 80 to 99% stenosis. On the left side the peak systolic velocity is 79 cm second peak systolic flow consistent with 20 to 39% stenosis. On May 30, 2019 she had a ultrasound the abdomen. This demonstrates a 3.2 x 3.4 cm infrarenal abdominal aortic aneurysm. In 2004 the patient had a radical urinary bladder cystectomy with a ilial conduit. She states that she has not had any evidence of recurrence of her bladder cancer since that time. She has not currently on any anticoagulation. She states that she does not take a low-dose aspirin. She has had a right corneal transplant. My previous note from November 12, 2017 reflects the following: HPI: CLINT HACKETT, is a 77 F who presents to the office today for surgical consultation regarding a nonhealing right eye surgical cataract site and evidence of known right carotid arterial occlusive disease. The patient is referred by Dr. Nito Giang and a written copy of my surgical consult and recommendations will be returned to Dr. Giang. The patient states that May 2017 she had right eye cataract surgery. Apparently there are issues with eyes swelling and lack of complete resolution. On October 13, 2017 at the [facility] she had carotid duplex imaging. Peak systolic velocity within the right internal carotid is 202 cm/s with an end-diastolic velocity of 56. On the left velocities are normal. There is felt to be consistent with 50-69% stenosis of her right carotid and less than 50% stenosis of her left carotid. It is of note that prior to her cataract surgery she denies previous history of TIA or stroke. Her past medical history is pertinent for having had bladder cancer approximately in 2004. 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 The patient is being medicated with Hydroxychloroquine, leflunomide, prednisone, and methotrexate. Patient states that the issues with the right eye are swelling and blurred vision. Apparently with utilizing a special cataract that flattens her globe she has been able to read. HPI HPI HPI: CLINT HACKETT, is a 78 F who presents to the office today for ROS General General: No weight change, appetite, fatigue, colon cancer, breast cancer or weakness HEENT HEENT: Yes eye surgery; no difficulty swallowing, eye injury, swollen glands or hoarseness Endo Endocrine: Yes thyroid disease; no diabetes mellitus, thyroid cancer, Hair loss, heat intolerance or cold intolerance Skin Skin: No rash or changing moles Breast Breast: No left breast lump, right breast lump, nipple discharge, breast pain, abnormal mammogram, abnormal US or breast enlargement Musc Musculoskeletal: Yes rheumatoid arthritis; no back problems, arthritis, gout or joint pain Cardio Cardiovascular: No murmur, pacemaker, heart disease, atrial fibrillation, high blood pressure, heart attack, heart stent, palpitations, shortness of breat with exertion or chest pain Psych Psychiatric: No depression, anxiety or hearing voices Resp Respiratory: No shortness of breath, No sleep apnea, No cough, No COPD, No asthma, No emphysema, No wheezing Gastro Gastrointestinal: No abdominal pain, No nausea or vomiting, No diarrhea, No constipation, No blood in stool, No acid reflux, No hemorrhoids, No ulcers, No gallbladder problem, No black,tarry stools Artem Hematologic: No blood thinners, No blood disorders, No bleeding, No anemia, No blood clots Neuro Neurologic: No weakness Exam Const General: cooperative, comfortable, no acute distress Nutritional Appearance: average body habitus Orientation: alert, awake, oriented x3 HENMT Head: normal to inspection Chest Chest palpation & inspection: normal inspection of the chest Breast Palpation: No nipple discharge Resp Effort & Inspection: normal respiratory effort Auscultation: clear to auscultation bilaterally Cardio Rate: regular rate Rhythm: regular rhythm Heart Sounds: no murmurs Other: Bilateral carotids are 3+. 2/6 bruit on the right. Bilateral brachials 3+. Bilateral radials 3+. Bilateral femorals 3+. Bilateral popliteals 3+. Bilateral DP and PT 3+ GI Palpation: soft, no hepatosplenomegaly Other: Urinary conduit ileostomy right lower quadrant, superficial healthy mucosa Other: No gross inguinal tenderness Skin General: no rashes or lesions noted Neuro Cognition: normal cognition Extrem Other: Right lower extremity 2+ nonpitting edema. Left lower extremity 1+ edema Psych Affect: normal affect Assessment & Plan Problems 1. Carotid stenosis, right I65.21 2. Abdominal aortic aneurysm (AAA) without rupture I71.4 3. Rheumatoid arthritis, involving unspecified site, unspecified rheumatoid factor presence M06.9 Plan I am recommending to the patient regarding her asymptomatic but progressively much more severe extracranial carotid artery occlusive disease on the right that we obtain a CTA of her carotids. I have instructed the patient and her about the potential recommendations for future intervention. She has had an opportunity to initially ask questions and have answered. I recommend that she initiate a low-dose aspirin 81 mg daily. We will inspect for possible previous lipid panel and update if indicated. Regarding her 3.4 cm infrarenal abdominal aortic aneurysm I recommend abdominal duplex imaging at 1 year. We will have the patient return to the office subsequent to her CTA and discuss benefits risks to right carotid endarterectomy. I very much appreciate the kind opportunity of assisting with her surgical care CC: Dr. Nito Rivera and Dr Patty Santa M.D., F.A.C.S. Coding Level of Care Code 19900 Diagnoses Carotid stenosis, right I65.21 Abdominal aortic aneurysm (AAA) without rupture I71.4 Presence of rupture: without rupture Rheumatoid arthritis, involving unspecified site, unspecified rheumatoid factor presence M06.9 Rheumatoid arthritis location: unspecified site Rheumatoid factor presence: unspecified presence 06/09/19 0921<Electronically signed by Juan Santa MD> Date Juan Santa MD Cosigner Signature:Date (if applicable) CC: Nito Rivera MD; Patty Mora MD ~ HPI HPI Surgical H&P: Yes HPI: CLINTOdilia HACKETT, is a 78 F who presents to the office today for surgical consultation regarding a symptomatic critical stenosis of her right extracranial internal carotid. My previous office notes reflect the following. She did have an updated CTA of her carotids with reports as noted. [facility] Imaging Services [address] [place] [address] CTA Neck W/WO Contrast MR#: [id number] Name: CLINT HACKETT CRep #:[id number] : 1940F 78 From: Nito Leung MD PCP:Nito Rivera MD Status:REG CLI Study:CTA Neck W/WO Contrast Date of Exam:06/16/19 Exam#[id number] Ordering Dr: Juan Santa MD STUDY: CTA NECK WITH CONTRAST REASON FOR EXAM: Female, 78 years old. Bilateral carotid stenosis worse on the right RADIATION DOSAGE (If Supplied By Facility): CTDIvol = ( 17.66 ) mGy, DLP = ( 449.19 ) mGycm TECHNIQUE: CT angiography with multi-detector data acquisition was performed from the aortic arch to the skull base following intravenous administration of 100mL IV Isovue 370. MIP images were reconstructed from the axial data set. Post-processing of the angiographic images was performed, with multiplanar reformation and 3D reconstruction. Individualized dose optimization techniques were used for this CT. COMPARISON: None. FINDINGS: AORTIC ARCH: Normal visualized aortic arch. Normal origins of the brachiocephalic, left common carotid, and left subclavian arteries. RIGHT CAROTID ARTERIES: Normal right common carotid artery (CCA). Moderate calcific plaquing of the right common carotid bulb. Moderate soft and calcific plaquing of the origin of the right internal carotid (ICA) artery without hemodynamically significant stenosis. More severe calcific and soft plaquing of the cervical portion of the right internal carotid artery creating a hemodynamically significant stenosis. Normal origin of the right external carotid artery (ECA). LEFT CAROTID ARTERIES: Normal left common carotid artery (CCA). Moderate calcific plaquing of the left common carotid bulb. Mild calcific plaquing of the origin of the left internal carotid (ICA) artery without a hemodynamically significant stenosis. Mild calcific and soft plaquing of the cervical portion of the left internal carotid artery. Normal origin of the left external carotid artery (ECA). VERTEBRAL ARTERIES: Normal bilateral vertebral arteries. CT/CTA Neck W/WO Contrast IMPRESSION: Atherosclerotic disease more severe on the right with hemodynamically significant stenosis of the proximal right internal carotid utilizing NASCET criteria Electronically Signed: Nito Leung MD at 16:54 EDT , Service support , CC: Nito Rivera MD; Juan Santa MD ~ Honing Machine Try Out Setter: Signed Intake Visit Reasons: Carotid Stenosis Chief Complaint: carotid stenois--occular ischemic syndrome Program Officer Required: No Is patient in pain?: No Allergies No Known Allergies Allergy (Verified 06/09/19 09:03) Medications folic acid 1 mg tablet 2 mg PO QDAY tab 11/12/17 [History Confirmed 06/09/19] hydroxychloroquine 200 mg tablet 200 mg PO BID tab 11/12/17 [History Confirmed 06/09/19] levothyroxine 88 mcg capsule 88 mcg PO QDAY cap 11/12/17 [History Confirmed 06/09/19] methotrexate sodium 2.5 mg tablet 17.5 mg PO QWEEK tab 11/12/17 [History Confirmed 06/09/19] prednisone 10 mg tablet 10 mg PO QDAY PRN 11/12/17 [History Confirmed 06/09/19] abatacept 125 mg/mL subcutaneous auto-injector 125 mg SC QWEEK 06/09/19 [History Confirmed 06/09/19] [facility] Medical History Hypothyroidism (Acute) Rheumatoid arthritis (Acute) Surgical History History of incisional hernia repair (Acute) History of urostomy (Acute) S/P cataract extraction (Acute) S/P colonoscopy (Acute) S/P hysterectomy (Acute) Family History Father Heart disease Social History (Updated 06/09/19 @ 09:21 by Juan Santa MD) Smoking Status: Former smoker how long ago did patient quit smokin years + alcohol intake: never HPI HPI HPI: CLINT HACKETT, is a 78 F who presents to the office today for surgical consult regarding progressive extracranial carotid artery occlusive disease. The patient is kindly referred by her primary care physician Dr. Nito Rivera and a written compromise surgical consult and recommendations will be returned to him. The patient is age 78. She denies documented myocardial infarction or stroke. She states that she has minimal orthostatic dizziness moving from a supine to a sitting position. She claims she has not had any falls at home. She notes that she was a long-term cigarette smoker but she quit maybe 30 years ago.. She does not recall having had a recent lipid panel. She states that she has not been on any cholesterol medication. As part of her routine health check and because she had a previous history of carotid occlusive disease at the [facility] on May 30, 2019 she had carotid duplex imaging. Peak systolic velocity within the origin of the right internal carotid had climbed to 532 cm/s with end-diastolic velocity of 186 cm/s. There is felt to be moderate irregular calcified and shadowing plaque at the origin. This is felt to be consistent with 80 to 99% stenosis. On the left side the peak systolic velocity is 79 cm second peak systolic flow consistent with 20 to 39% stenosis. On May 30, 2019 she had a ultrasound the abdomen. This demonstrates a 3.2 x 3.4 cm infrarenal abdominal aortic aneurysm. In 2005 the patient had a radical urinary bladder cystectomy with a ilial conduit. She states that she has not had any evidence of recurrence of her bladder cancer since that time. She has not currently on any anticoagulation. She states that she does not take a low-dose aspirin. She has had a right corneal transplant. My previous note from November 12, 2017 reflects the following: HPI: CLINT HACKETT, is a 77 F who presents to the office today for surgical consultation regarding a nonhealing right eye surgical cataract site and evidence of known right carotid arterial occlusive disease. The patient is referred by Dr. Nito Giang and a written copy of my surgical consult and recommendations will be returned to Dr. Giang. The patient states that May 2017 she had right eye cataract surgery. Apparently there are issues with eyes swelling and lack of complete resolution. On October 13, 2017 at the [facility] she had carotid duplex imaging. Peak systolic velocity within the right internal carotid is 202 cm/s with an end-diastolic velocity of 56. On the left velocities are normal. There is felt to be consistent with 50-69% stenosis of her right carotid and less than 50% stenosis of her left carotid. It is of note that prior to her cataract surgery she denies previous history of TIA or stroke. Her past medical history is pertinent for having had bladder cancer approximately in 2004. 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 The patient is being medicated with Hydroxychloroquine, leflunomide, prednisone, and methotrexate. Patient states that the issues with the right eye are swelling and blurred vision. Apparently with utilizing a special cataract that flattens her globe she has been able to read. ROS General General: No weight change, appetite, fatigue, colon cancer, breast cancer or weakness HEENT HEENT: Yes eye surgery; no difficulty swallowing, eye injury, swollen glands or hoarseness Endo Endocrine: Yes thyroid disease; no diabetes mellitus, thyroid cancer, Hair loss, heat intolerance or cold intolerance Skin Skin: No rash or changing moles Breast Breast: No left breast lump, right breast lump, nipple discharge, breast pain, abnormal mammogram, abnormal US or breast enlargement Musc Musculoskeletal: Yes rheumatoid arthritis; no back problems, arthritis, gout or joint pain Cardio Cardiovascular: No murmur, pacemaker, heart disease, atrial fibrillation, high blood pressure, heart attack, heart stent, palpitations, shortness of breat with exertion or chest pain Psych Psychiatric: No depression, anxiety or hearing voices Resp Respiratory: No shortness of breath, No sleep apnea, No cough, No COPD, No asthma, No emphysema, No wheezing Gastro Gastrointestinal: No abdominal pain, No nausea or vomiting, No diarrhea, No constipation, No blood in stool, No acid reflux, No hemorrhoids, No ulcers, No gallbladder problem, No black,tarry stools Artem Hematologic: No blood thinners, No blood disorders, No bleeding, No anemia, No blood clots Neuro Neurologic: No weakness Exam Const General: cooperative, comfortable, no acute distress Nutritional Appearance: average body habitus Orientation: alert, awake, oriented x3 [facility] Head: normal to inspection Chest Chest palpation & inspection: normal inspection of the chest Breast Palpation: No nipple discharge Resp Effort & Inspection: normal respiratory effort Auscultation: clear to auscultation bilaterally Cardio Rate: regular rate Rhythm: regular rhythm Heart Sounds: no murmurs Other: Bilateral carotids are 3+. 2/6 bruit on the right. Bilateral brachials 3+. Bilateral radials 3+. Bilateral femorals 3+. Bilateral popliteals 3+. Bilateral DP and PT 3+ GI Palpation: soft, no hepatosplenomegaly Other: Urinary conduit ileostomy right lower quadrant, superficial healthy mucosa Other: No gross inguinal tenderness Skin General: no rashes or lesions noted Neuro Cognition: normal cognition Extrem Other: Right lower extremity 2+ nonpitting edema. Left lower extremity 1+ edema Psych Affect: normal affect Assessment & Plan Problems 1. Carotid stenosis, right I65.21 2. Abdominal aortic aneurysm (AAA) without rupture I71.4 3. Rheumatoid arthritis, involving unspecified site, unspecified rheumatoid factor presence M06.9 Plan I am recommending to the patient regarding her asymptomatic but progressively much more severe extracranial carotid artery occlusive disease on the right that we obtain a CTA of her carotids. I have instructed the patient and her about the potential recommendations for future intervention. She has had an opportunity to initially ask questions and have answered. I recommend that she initiate a low-dose aspirin 81 mg daily. We will inspect for possible previous lipid panel and update if indicated. Regarding her 3.4 cm infrarenal abdominal aortic aneurysm I recommend abdominal duplex imaging at 1 year. We will have the patient return to the office subsequent to her CTA and discuss benefits risks to right carotid endarterectomy. I very much appreciate the kind opportunity of assisting with her surgical care CC: Dr. Nito Rivera and Dr Patty Santa M.D., F.A.C.S. Coding Level of Care Code 57563 Diagnoses Carotid stenosis, right I65.21 Abdominal aortic aneurysm (AAA) without rupture I71.4 Presence of rupture: without rupture Rheumatoid arthritis, involving unspecified site, unspecified rheumatoid factor presence M06.9 Rheumatoid arthritis location: unspecified site Rheumatoid factor presence: unspecified presence 06/09/19 0921<Electronically signed by Juan Santa MD> Date Juan Santa MD [facility] Signature:Date (if applicable) CC: Nito Rivera MD; Patty Mora MD ~ ROS General General: No weight change, appetite, fatigue, colon cancer, breast cancer or weakness HEENT HEENT: Yes eye surgery; no difficulty swallowing, eye injury, swollen glands or hoarseness Endo Endocrine: Yes thyroid disease; no diabetes mellitus, thyroid cancer, Hair loss, heat intolerance or cold intolerance Skin Skin: No rash or changing moles Breast Breast: No left breast lump, right breast lump, nipple discharge, breast pain, abnormal mammogram, abnormal US or breast enlargement Musc Musculoskeletal: Yes rheumatoid arthritis; no back problems, arthritis, gout or joint pain Cardio Cardiovascular: No murmur, pacemaker, heart disease, atrial fibrillation, high blood pressure, heart attack, heart stent, palpitations, shortness of breat with exertion or chest pain Psych Psychiatric: No depression, anxiety or hearing voices Resp Respiratory: No shortness of breath, No sleep apnea, No cough, No COPD, No asthma, No emphysema, No wheezing Gastro Gastrointestinal: No abdominal pain, No nausea or vomiting, No diarrhea, No constipation, No blood in stool, No acid reflux, No hemorrhoids, No ulcers, No gallbladder problem, No black,tarry stools Artem Hematologic: No blood thinners, No blood disorders, No bleeding, No anemia, No blood clots Neuro Neurologic: No weakness Exam Chest Breast Palpation: No nipple discharge Cardio Heart Sounds: no murmurs Assessment & Plan Problems 1. Carotid stenosis, right I65.21 Plan 78-year-old female who is asymptomatic critical stenosis of her right extracranial internal carotid. Duplex imaging and CTA of the carotid both demonstrate high-grade stenosis. Fortunately she remains asymptomatic. In detail with her present today I discussed the technique, benefit, risks, alternatives of right carotid endarterectomy with patch angioplasty. I anticipate utilizing arterial line monitoring. Absolutely no guarantees of success have been offered. She is aware of the technique, benefit, risks, alternatives. She is aware that medical management and surgical management both carry risk. I believe that her risk is less with surgical intervention. She has had an opportunity to ask and have questions answered. We will proceed with planned scheduling for surgery on June 20, 2019. I appreciate the opportunity of assisting with her surgical care. Juan Santa M.D., F.A.C.S. Coding Level of Care Code Off vis,est,level 2 Diagnoses Carotid stenosis, right I65.21 06/17/19 0905 <Electronically signed by Juan baxter MD> Date _ Juan Santa MD I have re-examined the patient. There are no clinical changes since date of exam.
--- NOTE | 2019-06-17 14:26 | EKG12_ITS ---
Test Reason : PRE OP Blood Pressure : / mmHG Vent. Rate : 060 BPM Atrial Rate : 060 BPM P-R Int : 146 ms QRS Dur : 084 ms QT Int : 450 ms P-R-T Axes : 054 034 050 degrees QTc Int : 450 ms Normal sinus rhythm Low voltage QRS Cannot rule out Anterior infarct , age undetermined Abnormal ECG Confirmed by TAYE FAJARDO ([id number]), clinical editor KRISHNA RIVERO ([id number]) on 06/20/2019 1:09:09 PM Referred By: Juan Santa Confirmed By:TAYE FAJARDO
[2019-06-17 14:39] LABS: Hematocrit 41.2 % (37-47); Hemoglobin 13.1 g/dL (12.0-15.0); Mean Corp Hgb Conc 31.8 g/dL (32-36); Mean Corpuscular Hgb 31.3 pg (27.0-32.0); Mean Corpuscular Volume 98.6 fL (81-99); Mean Platelet Vol. 10.2 fl (6.2-12.0); Platelet Count 203 K/mm3 (150-450); RBC Distribution Width SD 50.4 fl (35.1-43.9); Red Blood Count 4.18 M/mm3 (4.2-5.4); White Blood Count 4.1 K/mm3 (4.4-11.0)
[2019-06-17 15:05] LABS: Anion Gap 5 (5-15); BUN 13 mg/dL (7-18); BUN/Creat Ratio 15.5 RATIO (10-20); Calcium,Total 8.8 mg/dL (8.5-10.1); Chloride 108 mmol/L (98-107); Creatinine, Serum 0.84 mg/dL (0.55-1.02); EST Glomerular Filtration Rate 69 mL/min (>60); Est Glom Filt Rate - Afr Amer 84 mL/min (>60); Glucose 80 mg/dL (74-106); Potassium 3.7 mmol/L (3.5-5.1); Sodium Level 143 mmol/L (136-145); Thyroid Stim Hormone (TSH) 0.88 uIU/mL (0.358-3.74)
[2019-06-20] VITALS (33 sets, daily range): BP systolic 105–192; BP diastolic 26–84; PULSE 49–70; RESP 16–18; TEMP 36.2–37.1; O2SAT 92–100; BMI 26.3
--- NOTE | 2019-06-20 05:26 | PCM.HP.BLA ---
Problem List (1) Carotid stenosis, right Status: Acute History and Physical Date of Admission: 06/20/19 Vital Signs 06/17/19 Body Mass Index (BMI) 25.9 Intake Visit Reasons: Amb Documentation Chief Complaint: carotid stenois--occular ischemic syndrome Allergies No Known Allergies Allergy (Verified 06/09/19 09:03) [facility] Medical History (Updated 06/09/19 @ 09:15 by Juan Santa MD) Rheumatoid arthritis (Chronic) Abdominal aortic aneurysm (AAA) (Acute) Carotid stenosis, right (Acute) Hypothyroidism (Acute) Rheumatoid arthritis (Acute) Surgical History (Updated 11/12/17 @ 14:27 by Yazmin Mckeon) History of incisional hernia repair (Acute) History of urostomy (Acute) S/P cataract extraction (Acute) S/P colonoscopy (Acute) S/P hysterectomy (Acute) Family History (Updated 11/12/17 @ 14:28 by Yazmin Mckeon) Father Heart disease Social History Smoking Status: Former smoker how long ago did patient quit smokin years + alcohol intake: never HPI HPI HPI: CLINT HACKETT, is a 78 F who presents to the office today for HPI HPI Surgical H&P: Yes HPI: CLINT HACKETT, is a 78 F who presents to the office today for ongoing surgical consultation regarding critical stenosis of her right extracranial internal carotid. She has had a recent carotid duplex imaging exam as follows. My previous notes follow-up as well. [facility] [address] [place] [address] CTA Neck W/WO Contrast MR#: [id number] Name: CLINT HACKETT CRep #:[id number] : 1940F 78 From: Nito Leung MD PCP:Nito Rivera MD Status:REG CLI Study:CTA Neck W/WO Contrast Date of Exam:06/16/19 Exam#[id number] Ordering Dr: Juan Santa MD STUDY: CTA NECK WITH CONTRAST REASON FOR EXAM: Female, 78 years old. Bilateral carotid stenosis worse on the right RADIATION DOSAGE (If Supplied By Facility): CTDIvol = ( 17.66 ) mGy, DLP = ( 449.19 ) mGycm TECHNIQUE: CT angiography with multi-detector data acquisition was performed from the aortic arch to the skull base following intravenous administration of 100mL IV Isovue 370. MIP images were reconstructed from the axial data set. Post-processing of the angiographic images was performed, with multiplanar reformation and 3D reconstruction. Individualized dose optimization techniques were used for this CT. COMPARISON: None. FINDINGS: AORTIC ARCH: Normal visualized aortic arch. Normal origins of the brachiocephalic, left common carotid, and left subclavian arteries. RIGHT CAROTID ARTERIES: Normal right common carotid artery (CCA). Moderate calcific plaquing of the right common carotid bulb. Moderate soft and calcific plaquing of the origin of the right internal carotid (ICA) artery without hemodynamically significant stenosis. More severe calcific and soft plaquing of the cervical portion of the right internal carotid artery creating a hemodynamically significant stenosis. Normal origin of the right external carotid artery (ECA). LEFT CAROTID ARTERIES: Normal left common carotid artery (CCA). Moderate calcific plaquing of the left common carotid bulb. Mild calcific plaquing of the origin of the left internal carotid (ICA) artery without a hemodynamically significant stenosis. Mild calcific and soft plaquing of the cervical portion of the left internal carotid artery. Normal origin of the left external carotid artery (ECA). VERTEBRAL ARTERIES: Normal bilateral vertebral arteries. CT/CTA Neck W/WO Contrast IMPRESSION: Atherosclerotic disease more severe on the right with hemodynamically significant stenosis of the proximal right internal carotid utilizing NASCET criteria Electronically Signed: Nito Leung MD at 16:54 EDT , Service support , Intake Visit Reasons: Carotid Stenosis Chief Complaint: carotid stenois--occular ischemic syndrome [employer] Supervisor Required: No Is patient in pain?: No Allergies No Known Allergies Allergy (Verified 06/09/19 09:03) Medications folic acid 1 mg tablet 2 mg PO QDAY tab 11/12/17 [History Confirmed 06/09/19] hydroxychloroquine 200 mg tablet 200 mg PO BID tab 11/12/17 [History Confirmed 06/09/19] levothyroxine 88 mcg capsule 88 mcg PO QDAY cap 11/12/17 [History Confirmed 06/09/19] methotrexate sodium 2.5 mg tablet 17.5 mg PO QWEEK tab 11/12/17 [History Confirmed 06/09/19] prednisone 10 mg tablet 10 mg PO QDAY PRN 11/12/17 [History Confirmed 06/09/19] abatacept 125 mg/mL subcutaneous auto-injector 125 mg SC QWEEK 06/09/19 [History Confirmed 06/09/19] PFS Medical History Hypothyroidism (Acute) Rheumatoid arthritis (Acute) Surgical History History of incisional hernia repair (Acute) History of urostomy (Acute) S/P cataract extraction (Acute) S/P colonoscopy (Acute) S/P hysterectomy (Acute) Family History Father Heart disease Social History (Updated 06/09/19 @ 09:21 by Juan Santa MD) Smoking Status: Former smoker how long ago did patient quit smokin years + alcohol intake: never HPI HPI HPI: CLINT HACKETT, is a 78 F who presents to the office today for surgical consult regarding progressive extracranial carotid artery occlusive disease. The patient is kindly referred by her primary care physician Dr. Nito Rivera and a written compromise surgical consult and recommendations will be returned to him. The patient is age 78. She denies documented myocardial infarction or stroke. She states that she has minimal orthostatic dizziness moving from a supine to a sitting position. She claims she has not had any falls at home. She notes that she was a long-term cigarette smoker but she quit maybe 30 years ago.. She does not recall having had a recent lipid panel. She states that she has not been on any cholesterol medication. As part of her routine health check and because she had a previous history of carotid occlusive disease at the [facility] on May 30, 2019 she had carotid duplex imaging. Peak systolic velocity within the origin of the right internal carotid had climbed to 532 cm/s with end-diastolic velocity of 186 cm/s. There is felt to be moderate irregular calcified and shadowing plaque at the origin. This is felt to be consistent with 80 to 99% stenosis. On the left side the peak systolic velocity is 79 cm second peak systolic flow consistent with 20 to 39% stenosis. On May 30, 2019 she had a ultrasound the abdomen. This demonstrates a 3.2 x 3.4 cm infrarenal abdominal aortic aneurysm. In 2004 the patient had a radical urinary bladder cystectomy with a ilial conduit. She states that she has not had any evidence of recurrence of her bladder cancer since that time. She has not currently on any anticoagulation. She states that she does not take a low-dose aspirin. She has had a right corneal transplant. My previous note from November 12, 2017 reflects the following: HPI: CLINT HACKETT, is a 77 F who presents to the office today for surgical consultation regarding a nonhealing right eye surgical cataract site and evidence of known right carotid arterial occlusive disease. The patient is referred by Dr. Nito Giang and a written copy of my surgical consult and recommendations will be returned to Dr. Giang. The patient states that May 2017 she had right eye cataract surgery. Apparently there are issues with eyes swelling and lack of complete resolution. On October 13, 2017 at the [facility] she had carotid duplex imaging. Peak systolic velocity within the right internal carotid is 202 cm/s with an end-diastolic velocity of 56. On the left velocities are normal. There is felt to be consistent with 50-69% stenosis of her right carotid and less than 50% stenosis of her left carotid. It is of note that prior to her cataract surgery she denies previous history of TIA or stroke. Her past medical history is pertinent for having had bladder cancer approximately in 2004. She also has rheumatoid arthritis for which she is treated by nurse emergency Dr. Mora. The patient is being medicated with Hydroxychloroquine, leflunomide, prednisone, and methotrexate. Patient states that the issues with the right eye are swelling and blurred vision. Apparently with utilizing a special cataract that flattens her globe she has been able to read. HPI HPI HPI: CLINT HACKETT, is a 78 F who presents to the office today for ROS General General: No weight change, appetite, fatigue, colon cancer, breast cancer or weakness HEENT HEENT: Yes eye surgery; no difficulty swallowing, eye injury, swollen glands or hoarseness Endo Endocrine: Yes thyroid disease; no diabetes mellitus, thyroid cancer, Hair loss, heat intolerance or cold intolerance Skin Skin: No rash or changing moles Breast Breast: No left breast lump, right breast lump, nipple discharge, breast pain, abnormal mammogram, abnormal US or breast enlargement Musc Musculoskeletal: Yes rheumatoid arthritis; no back problems, arthritis, gout or joint pain Cardio Cardiovascular: No murmur, pacemaker, heart disease, atrial fibrillation, high blood pressure, heart attack, heart stent, palpitations, shortness of breat with exertion or chest pain Psych Psychiatric: No depression, anxiety or hearing voices Resp Respiratory: No shortness of breath, No sleep apnea, No cough, No COPD, No asthma, No emphysema, No wheezing Gastro Gastrointestinal: No abdominal pain, No nausea or vomiting, No diarrhea, No constipation, No blood in stool, No acid reflux, No hemorrhoids, No ulcers, No gallbladder problem, No black,tarry stools Artem Hematologic: No blood thinners, No blood disorders, No bleeding, No anemia, No blood clots Neuro Neurologic: No weakness Exam Const General: cooperative, comfortable, no acute distress Nutritional Appearance: average body habitus Orientation: alert, awake, oriented x3 HENMT Head: normal to inspection Chest Chest palpation & inspection: normal inspection of the chest Breast Palpation: No nipple discharge Resp Effort & Inspection: normal respiratory effort Auscultation: clear to auscultation bilaterally Cardio Rate: regular rate Rhythm: regular rhythm Heart Sounds: no murmurs Other: Bilateral carotids are 3+. 2/6 bruit on the right. Bilateral brachials 3+. Bilateral radials 3+. Bilateral femorals 3+. Bilateral popliteals 3+. Bilateral DP and PT 3+ GI Palpation: soft, no hepatosplenomegaly Other: Urinary conduit ileostomy right lower quadrant, superficial healthy mucosa Other: No gross inguinal tenderness Skin General: no rashes or lesions noted Neuro Cognition: normal cognition Extrem Other: Right lower extremity 2+ nonpitting edema. Left lower extremity 1+ edema Psych Affect: normal affect Assessment & Plan Problems 1. Carotid stenosis, right I65.21 2. Abdominal aortic aneurysm (AAA) without rupture I71.4 3. Rheumatoid arthritis, involving unspecified site, unspecified rheumatoid factor presence M06.9 Plan I am recommending to the patient regarding her asymptomatic but progressively much more severe extracranial carotid artery occlusive disease on the right that we obtain a CTA of her carotids. I have instructed the patient and her about the potential recommendations for future intervention. She has had an opportunity to initially ask questions and have answered. I recommend that she initiate a low-dose aspirin 81 mg daily. We will inspect for possible previous lipid panel and update if indicated. Regarding her 3.4 cm infrarenal abdominal aortic aneurysm I recommend abdominal duplex imaging at 1 year. We will have the patient return to the office subsequent to her CTA and discuss benefits risks to right carotid endarterectomy. I very much appreciate the kind opportunity of assisting with her surgical care CC: Dr. Nito Rivera and Dr Patty Santa M.D., F.A.C.S. Coding Level of Care Code 18776 Diagnoses Carotid stenosis, right I65.21 Abdominal aortic aneurysm (AAA) without rupture I71.4 Presence of rupture: without rupture Rheumatoid arthritis, involving unspecified site, unspecified rheumatoid factor presence M06.9 Rheumatoid arthritis location: unspecified site Rheumatoid factor presence: unspecified presence 06/09/19 0921<Electronically signed by Juan Santa MD> Date Juan Santa MD Cosigner Signature:Date (if applicable) CC: Nito Rivera MD; Patty Mora MD ~ Assessment & Plan Problems 1. Carotid stenosis, right I65.21 Plan I have reviewed the carotid duplex imaging and CTA of the carotids with the patient and her . I am recommending to her a right carotid endarterectomy with patch angioplasty with arterial line monitoring. In detail I have discussed the technique, benefit, risks, alternatives. No guarantees of success have been offered. She has had an opportunity to ask and have questions answered. Coding Diagnoses Carotid stenosis, right I65.21 I have re-examined the patient. There are no clinical changes since date of exam.
--- NOTE | 2019-06-20 06:37 | DCINST_ITS ---
<Juan Santa - Last Filed: 06/20/19 06:37> Discharge Diet: Light diet - advance as tolerated - if you have questions about your diet instructions, please talk to you doctor. Discharge Activity: May Not Drive - for 1 week or while taking narcotic pain medicine. May shower in (days): 4 - You may shower on Thursday Lifting Restrictions: 10 pounds Call your doctor if your incision/area has: Continuous Slow Oozing, Sudden Increased Bleeding, Increased Pain/ Swelling, Increased Redness, Foul Smelling Discharge Call your doctor if you observe: Fever of 101 or Higher Suture Line Care: Avoid Pulling/Pushing, Avoid Pinching/Bending Additional Dressing/Incision Instructions:: You may protect the incision with gauze and tape bandage as needed. Please leave the Steri-Strips in place for 1 week. Allergies/Adverse Reactions: Allergies No Known Allergies Allergy (Verified 06/17/19 12:56) Medications to take at Discharge folic acid 1 mg tablet 2 mg PO QDAY tab 11/12/17 hydroxychloroquine 200 mg tablet 150 mg PO DAILY tab 11/12/17 levothyroxine 88 mcg capsule 88 mcg PO QDAY cap 11/12/17 methotrexate sodium 2.5 mg tablet 17.5 mg PO QWEEK tab 11/12/17 prednisone 10 mg tablet 10 mg PO QDAY PRN 11/12/17 abatacept 125 mg/mL subcutaneous auto-injector 125 mg SC QWEEK 06/09/19 Aspirin E.C. [Ecotrin] 81 mg PO DAILY@0800 06/17/19 Hydrocodone Bitart/Apap 5-325 [[place] 5MG-325MG] 1 tab PO Q6H PRN PRN 2 Days #10 tab 06/21/19 The following prescriptions were given: Hydrocodone Bitart/Apap 5-325 [[place] 5MG-325MG] 1 tab PO Q6H PRN PRN 2 Days #10 tab PRN Reason: Pain Transmission Status: Received by [id number] Primary Care Physician: Nito Rivera MD [Primary Care Provider] - Test Results: Test results from this visit will be discussed in further detail at your follow- up appointment, if applicable. Please Follow Up With: Juan Santa MD - [phone] When: Call to make an appointment to be seen in about 10 days. <Sharyn White - Last Filed: 06/21/19 13:44> Test Results: Test results from this visit will be discussed in further detail at your follow- up appointment, if applicable.
[2019-06-20] MEDS: Cefazolin 2 GM in 0.9% Normal Saline 100 ML IV (07:05)
--- NOTE | 2019-06-20 07:15 | PLAQ_PTH ---
PATIENT: CLINT HACKETT LOC: MS3 U#:[id number] AGE/SX: 78/F ROOM: [facility] RE06/20/[address]: Dr. Juan Santa MD : 1940 BED: 1 DIS: 06/21/2019 SPEC #: [id number] RECD: 06/20/19 11:18 STATUS: MARICARMEN REQ #: [id number] KYLE: 06/20/19 07:[address]: Juan Santa DEPT: SURGICAL PATHOLOGY RECD BY: Kobi Valdivia ENTERED: 06/20/19 12:12 SP TYPE: PLAQUE OTHR DR: Dr. Nito Rivera MD Tissues: PLAQUE Procedures: Decalcification bone/plaque Surgery Specimen Level III HEADER OPERATION: Carotid endarterectomy, patch angioplasty PRE-OP DIAGNOSIS: Carotid stenosis, right TISSUE SUBMITTED: Plaque MICROSCOPIC DIAGNOSIS Plaque, carotid endarterectomy: Atherosclerotic tissue with focal calcification (plaque). AM:eliot 06/23/19 GROSS DESCRIPTION Received in fixative is one container labeled with the patient's name and designated plaque. The specimen consists of multiple irregular fragments of yellow-posada plaque-like material that in aggregate measure 3 x 1.5 x 1 cm. The specimen is sectioned and totally submitted in one cassette after decalcification. / AM:eliot 06/20/19 TC:5 CPT: 16841, 16501
[2019-06-20] MEDS: Heparin Injection (Vial) 5,000 UNIT/ML VIAL 5000 UNIT (09:00)
[2019-06-20] MEDS: Bupivacaine Mpf 0.5% 30 ML VIAL (09:00)
--- NOTE | 2019-06-20 09:19 | OP.PCM_ITS ---
Problem List (1) Carotid stenosis, right Status: Acute Report of Operation Date of Procedure: 06/20/19 Pre-Operative Diagnosis: Critical stenosis right extracranial internal carotid artery Post-Operative Diagnosis: Same Surgery/Procedure Performed:: Right carotid endarterectomy with bovine patch angioplasty utilizing aVascu-Guard. [id number] PN [id number] Lot [id number] Description of Surgical Findings:: Timeout and informed consent was obtained. 78-year-old female taken out from placement table underwent general endotracheal intubation anesthesia. The right neck was sterilely prepped draped. Ancef 2 g given intravenously preoperatively. An oblique incision was made up the internal border the sternocleidomastoid. Sharp dissection carried down through the subcutaneous tissue. The platysmas was incised. The sternocleidomastoid was reflected laterally. The crossing facial vein was secured with 3-0 Vicryl ligature. Hemoclips were used were indicated. Sharp dissection was performed directly down upon the common carotid. The internal carotid was nicely identified it was carefully teased free the hypoglossal nerve quite low-lying and had to be carefully mobilized. A Dacron tape and Srikanth tourniquet were placed to the internal carotid the vessel loop around the external carotid and a Pritchett tie Dacron tape around the common carotid. Care was taken to avoid the vagus nerve. The patient then received 7000 units of heparin. After adequate circulating time peripheral vascular clamps were placed in the internal common and external carotid. 11 blade was used to make an arteriotomy with extended with Pritchett scissors. A #10 USCI style shunt was placed cephalad and proximally. Endarterectomies formed the layer of the external elastic lamina. High-grade stenosis with grumous plaque at the carotid bulb and proximal internal carotid was seen encountered. The plaque was sharply transected proximally and then it was nicely elevated a release of the plaque in the internal carotid was rather challenging as there was diffuse intimal thickening. I had to sharply transect that with small Pritchett scissors. A inversion enterectomy was performed of the e xternal carotid. Careful debris was removed. The vessel was irrigated. I placed several tacking sutures of 7-0 Prolene at the intima of the internal carotid to assure adherence. I used the 8 x 80 mm bovine patch and I shaped deformed. A patch angioplasty was created with running 6-0 Prolene. Prior to completion the shunt was removed. There was good retrograde and antegrade flow. Patch angioplasty was completed. Clamps were released from the external carotid common carotid find the internal carotid. A single repair suture of 7-0 Prolene was required. Hemostasis was nicely intact. It is of note that during the procedure she received an additional 500 units of heparin IV at approximately 40 minutes. Having assured complete hemostasis the patient received 20 mg of protamine as reversal. There is good pulsatile flow. The wound was closed in layers with a deep layer of running 3-0 Vicryl. Skin edges proximal running septic or 5-0 Vicryl. 10 cc of 0.5% Marcaine was instilled in the substance tissues peripheral to the wound. Steri-Strips Telfa tape dressings applied. Sponge and instrument and needle counts reported the surgeon for correct. Blood loss 150 cc. Specimens plaque. Drains none. She appeared to wait neurologically intact was taken to the recovery room in satisfactory condition without apparent complication. Juan Santa M.D., F.A.C.S. Type of Anesthesia:: General Anesthesiologist: Dank Connell
--- NOTE | 2019-06-20 10:40 | SUR.PHASEI ---
Dr. Landers was in to see pt. advised of the BP differences between A-Line and BP Cuff. reccomended checking in both arms.
[2019-06-20] MEDS: HYDROcodone Bitartrate/Apap 5/325 Tablet PO (11:25)
[2019-06-20] MEDS: Acetaminophen 325 MG Tablet PO ×2 (14:22→21:32)
[2019-06-20] MEDS: Cefazolin 1 GM/50 ML BAG IV ×2 (14:25→23:46)
[2019-06-20] MEDS: BENZOCAINE/MENTHOL 1 LOZENGE MUCOUS MEM ×2 (15:40→19:43)
--- NOTE | 2019-06-20 17:38 | PCM.PN.BLA ---
Progress Note Neuro seems intact Pt only complaint is severe sore throat Will try viscous xylocaine
[2019-06-21 02:46] VITALS: BP 128/58; PULSE 73; RESP 18; TEMP 37.6; O2SAT 94
[2019-06-21 05:07] VITALS: BP 131/73; PULSE 86; RESP 18; TEMP 37.4; O2SAT 93
[2019-06-21] MEDS: HYDROcodone Bitartrate/Apap 5/325 Tablet PO (05:18)
--- NOTE | 2019-06-21 05:41 | PCM.CAROT ---
General Carotid Note - Subjective Post-Op Day #: 1 Subjective: Pt c/o severe sore throat. she has been using lozenges No neuro complaints - Objective Vital Signs Temp Pulse Resp BP Pulse Ox 99.4 F H 86 18 131/73 H 93 06/21/19 05:07 06/21/19 05:07 06/21/19 05:07 06/21/19 05:07 06/21/19 05:07 Neck: Supple, - - wound very clean and supple, no bruising Neurological: Cranial nerves II-XII grossly intact Cardiovascular: Regular rate, Regular Rhythm - Assessment/Plan Clinically pt appear stable Hopefully her sore throat can be temporized Plan DC later today
[2019-06-21] MEDS: NYSTATIN 500,000 UNIT/5 ML UDC 500000 UNIT PO (09:43)
[2019-06-21] MEDS: Aspirin E.C. 325 MG Tablet PO (09:43)
[2019-06-21 09:58] VITALS: BP 149/60; PULSE 81; RESP 18; TEMP 37.4; O2SAT 92
--- NOTE | 2019-06-21 11:10 | CASEMGMT ---
RN CM Face to Face with patient for initial transition planning/care coordination assessment. RN CM introduced self and role at [facility]. Patient sitting in chair, alert and oriented. Patient willing to participate in assessment and is able to answer all questions appropriately. Care providers, pharmacy, and demographics verified. Patient wishes to discharge home, denies need for home health at this time. Patient states she has no further needs or concerns at this time. CM to follow for discharge planning needs that may arise. PCP: Miguel Specialists: Morgan broadcast engineer; Terri urologist Preferred Pharmacy: [facility] [employer] Pres[facility] Benefit: yes Living Will/HPOA: yes, believes it is Rafiq Loving LNOK: Living Arrangements: Patient lives with in 1 story home with 2 steps with grab bar to enter the home. Transportation: self/ DME/HHC: patient states she has raised toilet and grab bars at home. Denies previous HHC. Disposition Plan: Patient to discharge home with family support and follow-up plans in place. Yakelin CORTES, RN, CM
[2019-06-21 14:57] VITALS: BP 126/71; PULSE 79; RESP 18; TEMP 37.2; O2SAT 95
== END 2019-06-21 15:16 | disposition home or self-care (01) | DRG 39 ==
LOC: ACINP 05:19 → MS3 05:28
PROVIDERS: Admitting Provider Surgery; Family Provider Family Medicine; PCP Family Medicine; Referring Provider Surgery; Visit Provider Surgery
PROC: 03CK0ZZ Extirpation of Matter from Right Internal Carotid Artery, Open Approach (ICD-10-PCS; CPT 35301; principal; 2019-06-20 06:55)
DX: I65.21 Occlusion and stenosis of right carotid artery (principal); Z87.891 Personal history of nicotine dependence; Z93.2 Ileostomy status; Z85.51 Personal history of malignant neoplasm of bladder; Z90.6 Acquired absence of other parts of urinary tract; M06.9 Rheumatoid arthritis, unspecified; I71.4 Abdominal aortic aneurysm, without rupture
CPT/HCPCS: 36415; 80048; 84443; 85027; 88304; 88311; 93005; J7040; J7120; A4216; J2405

== ENCOUNTER → 2019-07-21 09:23 | Outpatient (CLI) | payer MEDICARE, SELFPAY ==
[2019-06-20 05:52] VITALS: BMI 26.3
--- NOTE | 2019-07-21 09:25 | CDUL_ITS ---
Reason For Study: S/P Right endart, carotid stenosis Rt. Velocities/BP Prox CCA 55.2/13.4 cm/sec. Mid CCA 49.9/16.0 cm/sec. Dist CCA 49.9/14.7 cm/sec. Prox ICA 48.2/9.9 cm/sec. Mid ICA 63.9/19.5 cm/sec. Dist ICA 75.4/21.0 cm/sec. Rt. ICA/CCA = 1.5. Prox ECA 236/9.0 cm/sec. Rt. Vert. 43.4/7.7 cm/sec. Right Extracranial There is homogeneous, smooth atherosclerotic plaque noted in the right common carotid artery. There is intimal thickening but no significant atherosclerotic plaque noted in the right internal carotid artery. There is homogeneous, smooth atherosclerotic plaque noted in the right external carotid artery. Antegrade flow is noted in the right vertebral artery. Procedure Carotid Duplex 45512. The exam was diagnostic. Exam performed in department. Interpretation Summary Post operative changes right carotid bulb and proximal internal carotid <50% stenosis right internal carotid >50% stenosis right external carotid Antegrade right vertebral with <50% stenosis Ordering Physician: Juan Santa Performed By: Freddy Luis RVT
== END ==
PROVIDERS: Family Provider Family Medicine; PCP Family Medicine; Referring Provider Surgery; Visit Provider Surgery
DX: I65.21 Occlusion and stenosis of right carotid artery (principal)
CPT/HCPCS: 93882

== ENCOUNTER → 2019-08-11 12:07 | Outpatient (CLI) | payer MEDICARE, SELFPAY ==
[2019-06-20 05:52] VITALS: BMI 26.3
[2019-08-11 14:04] LABS: Absolute Lymphocyte Count 0.82 X10^3/uL (0.83-4.51); Absolute Neutrophil Count 3.8 X10^3/uL (2.0-7.7); Basophil# 0.04 X10^3/uL; Basophil% 0.8 % (0-1); Eosinophil# 0.14 X10^3/uL; Eosinophils% 2.6 % (0-5); Hematocrit 42.4 % (37-47); Lymphocyte # 0.82 X10^3/ul (4.0); Lymphocyte % 15.4 % (19-41); Mean Corp Hgb Conc 30.7 g/dL (32-36); Mean Corpuscular Hgb 30.2 pg (27.0-32.0); Mean Corpuscular Volume 98.6 fL (81-99); Mean Platelet Vol. 10.4 fl (6.2-12.0); Monocyte% 9.4 % (0-10); NRBC Flagged by Analyzer 0 % (0-5); Neutrophil # 3.81 X10^3/uL (2.7-7.7); Neutrophil % 71.6 % (47-70); Platelet Count 238 K/mm3 (150-450); RBC Distribution Width CV 14.3 % (11.6-14.6); RBC Distribution Width SD 51.5 fl (35.1-43.9); White Blood Count 5.3 K/mm3 (4.4-11.0)
[2019-08-11 14:30] LABS: AST(SGOT) 21 U/L (15-37); Alanine Aminotransfer ALT/SGPT 15 U/L (13-56); Albumin, Serum 3.5 g/dL (3.2-5.0); Alkaline Phosphatase 99 U/L (45-117); Anion Gap 6 (5-15); BUN 13 mg/dL (7-18); BUN/Creat Ratio 15.4 RATIO (10-20); Calcium,Total 8.7 mg/dL (8.5-10.1); Chloride 104 mmol/L (98-107); Creatinine, Serum 0.84 mg/dL (0.55-1.02); EST Glomerular Filtration Rate 69 mL/min (>60); Est Glom Filt Rate - Afr Amer 83 mL/min (>60); Globulin 3.6 g/dL (2.2-4.2); Glucose 81 mg/dL (74-106); Potassium 3.6 mmol/L (3.5-5.1); Protein, Total 7.1 g/dL (6.4-8.2); Sodium Level 139 mmol/L (136-145)
== END ==
PROVIDERS: Family Provider Family Medicine; PCP Family Medicine; Referring Provider Internal Medicine Rheumatology; Visit Provider Internal Medicine Rheumatology
DX: M05.79 Rheumatoid arthritis with rheumatoid factor of multiple sites without organ or systems involvement (principal); M21.40 Flat foot [pes planus] (acquired), unspecified foot; E03.9 Hypothyroidism, unspecified; Z85.51 Personal history of malignant neoplasm of bladder; Z79.899 Other long term (current) drug therapy
CPT/HCPCS: 36415; 80053; 85025

== ENCOUNTER → 2019-10-12 10:18 | Outpatient (CLI) | payer MEDICARE, SELFPAY ==
[2019-06-20 05:52] VITALS: BMI 26.3
[2019-10-12 12:40] LABS: Absolute Lymphocyte Count 0.75 X10^3/uL (0.83-4.51); Absolute Neutrophil Count 5.4 X10^3/uL (2.0-7.7); Basophil# 0.04 X10^3/uL; Basophil% 0.6 % (0-1); Eosinophil# 0.12 X10^3/uL; Eosinophils% 1.7 % (0-5); Hematocrit 41.5 % (37-47); Lymphocyte # 0.75 X10^3/ul (4.0); Lymphocyte % 10.8 % (19-41); Mean Corp Hgb Conc 31.3 g/dL (32-36); Mean Corpuscular Hgb 30.8 pg (27.0-32.0); Mean Corpuscular Volume 98.3 fL (81-99); Mean Platelet Vol. 10.4 fl (6.2-12.0); Monocyte# 0.63 X10^3/uL; Monocyte% 9.1 % (0-10); NRBC Flagged by Analyzer 0 % (0-5); Neutrophil # 5.39 X10^3/uL (2.7-7.7); Neutrophil % 77.4 % (47-70); Platelet Count 263 K/mm3 (150-450); RBC Distribution Width CV 14.4 % (11.6-14.6); RBC Distribution Width SD 51.7 fl (35.1-43.9); Red Blood Count 4.22 M/mm3 (4.2-5.4)
[2019-10-12 13:04] LABS: ALB/GLOB Ratio 0.9 RATIO (0.9-2.4); AST(SGOT) 18 U/L (15-37); Alanine Aminotransfer ALT/SGPT 18 U/L (13-56); Albumin, Serum 3.3 g/dL (3.2-5.0); Alkaline Phosphatase 89 U/L (45-117); Anion Gap 5 (5-15); BUN 16 mg/dL (7-18); BUN/Creat Ratio 16.5 RATIO (10-20); Calcium,Total 8.6 mg/dL (8.5-10.1); Chloride 106 mmol/L (98-107); Creatinine, Serum 0.97 mg/dL (0.55-1.02); EST Glomerular Filtration Rate 58 mL/min (>60); Est Glom Filt Rate - Afr Amer 71 mL/min (>60); Globulin 3.5 g/dL (2.2-4.2); Glucose 83 mg/dL (74-106); Potassium 3.7 mmol/L (3.5-5.1); Protein, Total 6.8 g/dL (6.4-8.2); Sodium Level 141 mmol/L (136-145)
== END ==
PROVIDERS: Family Provider Family Medicine; PCP Family Medicine; Referring Provider Internal Medicine Rheumatology; Visit Provider Internal Medicine Rheumatology
DX: M05.79 Rheumatoid arthritis with rheumatoid factor of multiple sites without organ or systems involvement (principal); Z79.899 Other long term (current) drug therapy
CPT/HCPCS: 36415; 80053; 85025

== ENCOUNTER → 2020-01-09 07:48 | Outpatient (CLI) | payer MEDICARE, SELFPAY ==
[2019-06-20 05:52] VITALS: BMI 26.3
[2020-01-09 10:15] LABS: Absolute Lymphocyte Count 0.59 X10^3/uL (0.83-4.51); Basophil# 0.05 X10^3/uL; Eosinophil# 0.14 X10^3/uL; Eosinophils% 2.7 % (0-5); Hematocrit 41.1 % (37-47); Hemoglobin 12.6 g/dL (12.0-15.0); Lymphocyte # 0.59 X10^3/ul (4.0); Lymphocyte % 11.4 % (19-41); Mean Corp Hgb Conc 30.7 g/dL (32-36); Mean Corpuscular Hgb 30.1 pg (27.0-32.0); Mean Corpuscular Volume 98.1 fL (81-99); Mean Platelet Vol. 10.4 fl (6.2-12.0); Monocyte# 0.36 X10^3/uL; Monocyte% 6.9 % (0-10); NRBC Flagged by Analyzer 0 % (0-5); Neutrophil # 4.03 X10^3/uL (2.7-7.7); Neutrophil % 77.6 % (47-70); POSITIVE DIFFERENTIAL YES; Platelet Count 252 K/mm3 (150-450); RBC Distribution Width CV 15.1 % (11.6-14.6); RBC Distribution Width SD 53.9 fl (35.1-43.9); Red Blood Count 4.19 M/mm3 (4.2-5.4); White Blood Count 5.2 K/mm3 (4.4-11.0)
[2020-01-09 10:16] LABS: Differential Indicated SCAN CRITERIA MET
[2020-01-09 10:28] LABS: ALB/GLOB Ratio 0.9 RATIO (0.9-2.4); AST(SGOT) 20 U/L (15-37); Alanine Aminotransfer ALT/SGPT 18 U/L (13-56); Albumin, Serum 3.3 g/dL (3.2-5.0); Alkaline Phosphatase 94 U/L (45-117); Anion Gap 7 (5-15); BUN 16 mg/dL (7-18); BUN/Creat Ratio 20.3 RATIO (10-20); Calcium,Total 8.9 mg/dL (8.5-10.1); Chloride 106 mmol/L (98-107); Creatinine, Serum 0.79 mg/dL (0.55-1.02); EST Glomerular Filtration Rate 74 mL/min (>60); Est Glom Filt Rate - Afr Amer 90 mL/min (>60); Globulin 3.7 g/dL (2.2-4.2); Glucose 72 mg/dL (74-106); Potassium 3.5 mmol/L (3.5-5.1); Sodium Level 141 mmol/L (136-145)
== END ==
PROVIDERS: PCP Family Medicine; Referring Provider Internal Medicine Rheumatology; Visit Provider Internal Medicine Rheumatology
DX: M05.79 Rheumatoid arthritis with rheumatoid factor of multiple sites without organ or systems involvement (principal); M21.40 Flat foot [pes planus] (acquired), unspecified foot; E03.9 Hypothyroidism, unspecified; Z79.899 Other long term (current) drug therapy; Z85.51 Personal history of malignant neoplasm of bladder
CPT/HCPCS: 36415; 80053; 85025

== ENCOUNTER → 2020-03-19 09:27 | Outpatient (CLI) | payer MEDICARE, SELFPAY ==
[2019-06-20 05:52] VITALS: BMI 26.3
[2020-03-19 12:14] LABS: Absolute Lymphocyte Count 0.54 X10^3/uL (0.83-4.51); Absolute Neutrophil Count 7.8 X10^3/uL (2.0-7.7); Basophil# 0.02 X10^3/uL; Basophil% 0.2 % (0-1); Eosinophil# 0.04 X10^3/uL; Eosinophils% 0.4 % (0-5); Hematocrit 38.4 % (37-47); Hemoglobin 11.9 g/dL (12.0-15.0); Lymphocyte # 0.54 X10^3/ul (4.0); Lymphocyte % 5.9 % (19-41); Mean Corpuscular Hgb 29.1 pg (27.0-32.0); Mean Corpuscular Volume 93.9 fL (81-99); Mean Platelet Vol. 9.9 fl (6.2-12.0); Monocyte# 0.76 X10^3/uL; Monocyte% 8.2 % (0-10); NRBC Flagged by Analyzer 0 % (0-5); Neutrophil # 7.84 X10^3/uL (2.7-7.7); POSITIVE DIFFERENTIAL YES; Platelet Count 371 K/mm3 (150-450); RBC Distribution Width CV 15.9 % (11.6-14.6); RBC Distribution Width SD 53.8 fl (35.1-43.9); Red Blood Count 4.09 M/mm3 (4.2-5.4); White Blood Count 9.2 K/mm3 (4.4-11.0)
[2020-03-19 12:15] LABS: Differential Indicated SCAN CRITERIA MET
[2020-03-19 12:28] LABS: ALB/GLOB Ratio 0.6 RATIO (0.9-2.4); AST(SGOT) 30 U/L (15-37); Alanine Aminotransfer ALT/SGPT 26 U/L (13-56); Albumin, Serum 2.7 g/dL (3.2-5.0); Alkaline Phosphatase 114 U/L (45-117); Anion Gap 6 (5-15); BUN 14 mg/dL (7-18); BUN/Creat Ratio 15.3 RATIO (10-20); Calcium,Total 8.8 mg/dL (8.5-10.1); Chloride 101 mmol/L (98-107); Creatinine, Serum 0.92 mg/dL (0.55-1.02); EST Glomerular Filtration Rate 62 mL/min (>60); Est Glom Filt Rate - Afr Amer 75 mL/min (>60); Globulin 4.4 g/dL (2.2-4.2); Glucose 97 mg/dL (74-106); Potassium 3.1 mmol/L (3.5-5.1); Protein, Total 7.1 g/dL (6.4-8.2); Sodium Level 135 mmol/L (136-145)
[2020-03-19 12:49] LABS: Differential Comment SCANNED
== END ==
PROVIDERS: PCP Family Medicine; Referring Provider Internal Medicine Rheumatology; Visit Provider Internal Medicine Rheumatology
DX: M05.70 Rheumatoid arthritis with rheumatoid factor of unspecified site without organ or systems involvement (principal); M21.40 Flat foot [pes planus] (acquired), unspecified foot; E03.9 Hypothyroidism, unspecified; Z79.899 Other long term (current) drug therapy; Z85.51 Personal history of malignant neoplasm of bladder
CPT/HCPCS: 36415; 80053; 85025

== ENCOUNTER → 2020-04-18 09:54 | Outpatient (CLI) | payer MEDICARE, SELFPAY ==
[2019-06-20 05:52] VITALS: BMI 26.3
--- NOTE | 2020-04-18 09:55 | AAAS_ITS ---
Reason For Study: AAA screenning Aorta Measurements Aorta Doppler Measurements Proximal aorta measures1.6 x 1.6cm. in cross- Peak systolic flow velocities within the proximal sectional axis. aorta measure 59.8 cm/sec. Proximal aorta measures1.8cm. in longitudinal Peak systolic flow velocities within the mid aorta axis. measure 68.6 cm/sec. Mid aorta measures3.1 x 3.3cm. in cross-sectional Peak systolic flow velocities within the distal axis. aorta measure 25.1 cm/sec. Mid aorta measures3.1cm. in longitudinal axis. Distal aorta measures1.6 x 1.5cm. in cross- sectional axis. Distal aorta measures1.5cm. in longitudinal axis. Left Iliac Artery Left iliac artery measures 0.79 x 0.83 cm. in the cross-sectional axis. Left iliac artery measures 0.79 cm. in the longitudinal axis. Peak systolic velocity in the left iliac artery measures 92.9 cm/sec. Right Iliac Artery Right iliac artery measures 0.696 x 0.73 cm. in the cross-sectional axis. Right iliac artery measures 0.73 cm. in the longitudinal axis. Peak systolic velocity in the right iliac artery measures 69.1 cm/sec. Procedure Aorta IVC Iliac vasculature or bypass grafts 55455. The exam was diagnostic. Exam performed in department. Interpretation Summary Mid infrarenal abdominal aortic aneurysm measuring 3.1 x 3.3 cm diameter Right common iliac 0.7 x 0.73 cm diameter Left common iliac 0.79 x 0.83 cm diameter Normal flow rates noted in the abdominal aorta and bilateral iliac arteries Ordering Physician: Juan Santa Referring Physician: Nito Rivera Performed By: Geri Leslie, RDCS, RVT
== END ==
PROVIDERS: PCP Family Medicine; Referring Provider Surgery; Visit Provider Surgery
DX: I71.4 Abdominal aortic aneurysm, without rupture (principal); I65.21 Occlusion and stenosis of right carotid artery
CPT/HCPCS: 76706

== ENCOUNTER → 2020-05-29 13:12 | Outpatient (CLI) | payer MEDICARE, SELFPAY ==
[2019-06-20 05:52] VITALS: BMI 26.3
[2020-05-29 15:20] LABS: Absolute Lymphocyte Count 0.48 X10^3/uL (0.83-4.51); Absolute Neutrophil Count 8.9 X10^3/uL (2.0-7.7); Basophil# 0.02 X10^3/uL; Basophil% 0.2 % (0-1); Hematocrit 38.8 % (37-47); Hemoglobin 11.8 g/dL (12.0-15.0); Lymphocyte # 0.48 X10^3/ul (4.0); Lymphocyte % 4.6 % (19-41); Mean Corp Hgb Conc 30.4 g/dL (32-36); Mean Corpuscular Hgb 29.6 pg (27.0-32.0); Mean Corpuscular Volume 97.2 fL (81-99); Mean Platelet Vol. 10.3 fl (6.2-12.0); Monocyte# 0.96 X10^3/uL; Monocyte% 9.2 % (0-10); NRBC Flagged by Analyzer 0 % (0-5); Neutrophil # 8.89 X10^3/uL (2.7-7.7); Neutrophil % 85.3 % (47-70); POSITIVE DIFFERENTIAL YES; Platelet Count 345 K/mm3 (150-450); RBC Distribution Width CV 15.9 % (11.6-14.6); RBC Distribution Width SD 55.8 fl (35.1-43.9); Red Blood Count 3.99 M/mm3 (4.2-5.4); White Blood Count 10.4 K/mm3 (4.4-11.0)
[2020-05-29 15:42] LABS: ALB/GLOB Ratio 0.8 RATIO (0.9-2.4); AST(SGOT) 18 U/L (15-37); Alanine Aminotransfer ALT/SGPT 15 U/L (13-56); Albumin, Serum 3.1 g/dL (3.2-5.0); Alkaline Phosphatase 80 U/L (45-117); Anion Gap 3 (5-15); BUN 22 mg/dL (7-18); BUN/Creat Ratio 20.8 RATIO (10-20); Calcium,Total 8.7 mg/dL (8.5-10.1); Chloride 104 mmol/L (98-107); Creatinine, Serum 1.06 mg/dL (0.55-1.02); EST Glomerular Filtration Rate 53 mL/min (>60); Est Glom Filt Rate - Afr Amer 64 mL/min (>60); Globulin 3.9 g/dL (2.2-4.2); Glucose 139 mg/dL (74-106); Sodium Level 136 mmol/L (136-145)
[2020-05-29 15:46] LABS: Differential Indicated SCAN CRITERIA MET
[2020-05-29 15:53] LABS: Platelet Estimate ADEQUATE (ADEQ)
[2020-05-29 15:54] LABS: Anisocytosis RARE; Macrocytosis RARE; Red Cell Morphology N CHROM NORMAL (NORM C&C)
== END ==
PROVIDERS: PCP Family Medicine; Referring Provider Internal Medicine Rheumatology; Visit Provider Internal Medicine Rheumatology
DX: M05.70 Rheumatoid arthritis with rheumatoid factor of unspecified site without organ or systems involvement (principal); M21.40 Flat foot [pes planus] (acquired), unspecified foot; E03.9 Hypothyroidism, unspecified; Z79.899 Other long term (current) drug therapy; Z85.51 Personal history of malignant neoplasm of bladder
CPT/HCPCS: 36415; 80053; 85025

== ENCOUNTER → 2020-06-20 09:30 | Outpatient (CLI) | payer MEDICARE, SELFPAY ==
[2019-06-20 05:52] VITALS: BMI 26.3
--- NOTE | 2020-06-20 09:32 | CDU_ITS ---
Reason For Study: Carotid Stenosis Rt. Velocities/BP Lt. Velocities/BP Prox CCA 47/9 cm/sec. Prox CCA 52/12 cm/sec. Mid CCA 56/12 cm/sec. Mid CCA 50/11 cm/sec. Dist CCA 49/9 cm/sec. Dist CCA 47/11 cm/sec. Prox ICA 72/20 cm/sec. Prox ICA 34/6 cm/sec. Mid ICA 129/30 cm/sec. Mid ICA 63/19 cm/sec. Dist ICA 92/25 cm/sec. Dist ICA 85/27 cm/sec. Rt. ICA/CCA = 2.3. Lt. ICA/CCA = 1.7. Prox ECA 356/21 cm/sec. Prox ECA 52 cm/sec. Rt. Vert. 36/6 cm/sec. Lt. Vert. 45/10 cm/sec. Right Extracranial There is homogeneous, smooth atherosclerotic plaque noted in the right common carotid artery. There is homogeneous, smooth atherosclerotic plaque noted in the right internal carotid artery. There is homogeneous, smooth atherosclerotic plaque noted in the right external carotid artery. Antegrade flow is noted in the right vertebral artery. Left Extracranial There is heterogeneous, irregular atherosclerotic plaque noted in the left common carotid artery. There is heterogeneous, irregular atherosclerotic plaque noted in the left internal carotid artery. There is heterogeneous, irregular atherosclerotic plaque noted in the left external carotid artery. Antegrade flow is noted in the left vertebral artery. Procedure Carotid Duplex [id number]. Exam performed in department. Interpretation Summary Postoperative changes of the right carotid bulb and proximal internal carotid with smooth plaque and less than 50% stenosis. >50% stenosis right external carotid Minimal calcific plaque with shadowing at the proximal left internal carotid with less than 50% stenosis <50% stenosis left external carotid Patent and antegrade vertebrals bilaterally No significant change from the previous examination of July 21, 2019 Ordering Physician: Juan Santa Referring Physician: Nito Rivera Performed By: Clau Cedeno, YANET, RVT
== END ==
PROVIDERS: PCP Family Medicine; Referring Provider Surgery; Visit Provider Surgery
DX: I65.21 Occlusion and stenosis of right carotid artery (principal)
CPT/HCPCS: 93880

== ENCOUNTER → 2020-08-17 11:20 | Outpatient (CLI) | payer MEDICARE, SELFPAY ==
[2020-06-29 07:48] VITALS: BMI 24.5
[2020-08-17 15:09] LABS: Absolute Lymphocyte Count 0.76 X10^3/uL (0.83-4.51); Absolute Neutrophil Count 4.5 X10^3/uL (2.0-7.7); Basophil# 0.04 X10^3/uL; Basophil% 0.7 % (0-1); Eosinophil# 0.13 X10^3/uL; Eosinophils% 2.2 % (0-5); Hematocrit 40.2 % (37-47); Lymphocyte # 0.76 X10^3/ul (4.0); Lymphocyte % 12.8 % (19-41); Mean Corp Hgb Conc 29.9 g/dL (32-36); Mean Corpuscular Hgb 29.6 pg (27.0-32.0); Mean Corpuscular Volume 99.3 fL (81-99); Mean Platelet Vol. 10.4 fl (6.2-12.0); Monocyte# 0.46 X10^3/uL; Monocyte% 7.7 % (0-10); NRBC Flagged by Analyzer 0 % (0-5); Neutrophil # 4.54 X10^3/uL (2.7-7.7); Neutrophil % 76.4 % (47-70); Platelet Count 300 K/mm3 (150-450); RBC Distribution Width CV 15.9 % (11.6-14.6); RBC Distribution Width SD 57.8 fl (35.1-43.9); Red Blood Count 4.05 M/mm3 (4.2-5.4); White Blood Count 5.9 K/mm3 (4.4-11.0)
[2020-08-17 15:23] LABS: ALB/GLOB Ratio 0.8 RATIO (0.9-2.4); AST(SGOT) 18 U/L (15-37); Alanine Aminotransfer ALT/SGPT 12 U/L (13-56); Albumin, Serum 3.1 g/dL (3.2-5.0); Alkaline Phosphatase 89 U/L (45-117); Anion Gap 3 (5-15); BUN 17 mg/dL (7-18); Calcium,Total 8.8 mg/dL (8.5-10.1); Chloride 108 mmol/L (98-107); EST Glomerular Filtration Rate 64 mL/min (>60); Est Glom Filt Rate - Afr Amer 78 mL/min (>60); Globulin 3.8 g/dL (2.2-4.2); Glucose 71 mg/dL (74-106); Potassium 3.7 mmol/L (3.5-5.1); Protein, Total 6.9 g/dL (6.4-8.2); Sodium Level 142 mmol/L (136-145)
== END ==
PROVIDERS: PCP Family Medicine; Referring Provider Internal Medicine Rheumatology; Visit Provider Internal Medicine Rheumatology
DX: M05.70 Rheumatoid arthritis with rheumatoid factor of unspecified site without organ or systems involvement (principal); M21.40 Flat foot [pes planus] (acquired), unspecified foot; E03.9 Hypothyroidism, unspecified; Z79.899 Other long term (current) drug therapy; Z85.51 Personal history of malignant neoplasm of bladder
CPT/HCPCS: 80053; 85025

== ENCOUNTER → 2020-10-25 10:13 | Outpatient (CLI) | payer MEDICARE, SELFPAY ==
[2020-06-29 07:48] VITALS: BMI 24.5
[2020-10-25 12:45] LABS: ALB/GLOB Ratio 0.8 RATIO (0.9-2.4); AST(SGOT) 18 U/L (15-37); Alanine Aminotransfer ALT/SGPT 18 U/L (13-56); Albumin, Serum 3.2 g/dL (3.2-5.0); Alkaline Phosphatase 82 U/L (45-117); Anion Gap 6 (5-15); BUN 16 mg/dL (7-18); BUN/Creat Ratio 15.7 RATIO (10-20); Calcium,Total 8.8 mg/dL (8.5-10.1); Chloride 103 mmol/L (98-107); Creatinine, Serum 1.02 mg/dL (0.55-1.02); EST Glomerular Filtration Rate 55 mL/min (>60); Est Glom Filt Rate - Afr Amer 67 mL/min (>60); Glucose 90 mg/dL (74-106); Potassium 4.1 mmol/L (3.5-5.1); Protein, Total 7.2 g/dL (6.4-8.2); Sodium Level 138 mmol/L (136-145)
[2020-10-25 12:47] LABS: Absolute Lymphocyte Count 0.79 X10^3/uL (0.83-4.51); Absolute Neutrophil Count 4.1 X10^3/uL (2.0-7.7); Basophil# 0.04 X10^3/uL; Basophil% 0.7 % (0-1); Eosinophil# 0.14 X10^3/uL; Eosinophils% 2.6 % (0-5); Hematocrit 39.5 % (37-47); Hemoglobin 11.7 g/dL (12.0-15.0); Lymphocyte # 0.79 X10^3/ul (4.0); Lymphocyte % 14.7 % (19-41); Mean Corp Hgb Conc 29.6 g/dL (32-36); Mean Corpuscular Hgb 28.1 pg (27.0-32.0); Mean Platelet Vol. 10.6 fl (6.2-12.0); Monocyte# 0.35 X10^3/uL; Monocyte% 6.5 % (0-10); NRBC Flagged by Analyzer 0 % (0-5); Neutrophil # 4.06 X10^3/uL (2.7-7.7); Neutrophil % 75.3 % (47-70); Platelet Count 315 K/mm3 (150-450); RBC Distribution Width CV 15.7 % (11.6-14.6); Red Blood Count 4.16 M/mm3 (4.2-5.4); White Blood Count 5.4 K/mm3 (4.4-11.0)
== END ==
PROVIDERS: PCP Family Medicine; Referring Provider Internal Medicine Rheumatology; Visit Provider Internal Medicine Rheumatology
DX: M05.70 Rheumatoid arthritis with rheumatoid factor of unspecified site without organ or systems involvement (principal); M21.40 Flat foot [pes planus] (acquired), unspecified foot; E03.9 Hypothyroidism, unspecified; Z85.51 Personal history of malignant neoplasm of bladder; Z79.899 Other long term (current) drug therapy
CPT/HCPCS: 36415; 80053; 85025

== ENCOUNTER → 2021-01-01 14:28 | Outpatient (CLI) | payer MEDICARE, SELFPAY ==
[2020-06-29 07:48] VITALS: BMI 24.5
[2021-01-01 17:35] LABS: Absolute Lymphocyte Count 0.72 X10^3/uL (0.83-4.51); Absolute Neutrophil Count 6.3 X10^3/uL (2.0-7.7); Basophil# 0.03 X10^3/uL; Basophil% 0.4 % (0-1); Eosinophil# 0.03 X10^3/uL; Eosinophils% 0.4 % (0-5); Hematocrit 37.8 % (37-47); Hemoglobin 11.7 g/dL (12.0-15.0); Lymphocyte # 0.72 X10^3/ul (4.0); Lymphocyte % 9.2 % (19-41); Mean Corpuscular Hgb 30.3 pg (27.0-32.0); Mean Corpuscular Volume 97.9 fL (81-99); Mean Platelet Vol. 10.5 fl (6.2-12.0); Monocyte# 0.73 X10^3/uL; Monocyte% 9.3 % (0-10); NRBC Flagged by Analyzer 0 % (0-5); Neutrophil # 6.31 X10^3/uL (2.7-7.7); Neutrophil % 80.3 % (47-70); Platelet Count 255 K/mm3 (150-450); RBC Distribution Width CV 17.3 % (11.6-14.6); RBC Distribution Width SD 61.5 fl (35.1-43.9); Red Blood Count 3.86 M/mm3 (4.2-5.4); White Blood Count 7.9 K/mm3 (4.4-11.0)
[2021-01-01 18:03] LABS: ALB/GLOB Ratio 0.8 RATIO (0.9-2.4); AST(SGOT) 17 U/L (15-37); Alanine Aminotransfer ALT/SGPT 16 U/L (13-56); Albumin, Serum 3.4 g/dL (3.2-5.0); Alkaline Phosphatase 77 U/L (45-117); Anion Gap 6 (5-15); BUN 18 mg/dL (7-18); Calcium,Total 9.1 mg/dL (8.5-10.1); Chloride 103 mmol/L (98-107); Creatinine, Serum 1.06 mg/dL (0.55-1.02); EST Glomerular Filtration Rate 53 mL/min (>60); Est Glom Filt Rate - Afr Amer 64 mL/min (>60); Glucose 95 mg/dL (74-106); Potassium 3.5 mmol/L (3.5-5.1); Protein, Total 7.4 g/dL (6.4-8.2); Sodium Level 137 mmol/L (136-145)
== END ==
PROVIDERS: PCP Family Medicine; Referring Provider Internal Medicine Rheumatology; Visit Provider Internal Medicine Rheumatology
DX: M05.70 Rheumatoid arthritis with rheumatoid factor of unspecified site without organ or systems involvement (principal); M21.40 Flat foot [pes planus] (acquired), unspecified foot; E03.9 Hypothyroidism, unspecified; Z79.899 Other long term (current) drug therapy; Z85.51 Personal history of malignant neoplasm of bladder
CPT/HCPCS: 36415; 80053; 85025

== ENCOUNTER → 2021-04-03 10:41 | Outpatient (CLI) | payer MEDICARE, SELFPAY ==
[2020-06-29 07:48] VITALS: BMI 24.5
[2021-04-03 12:10] LABS: Absolute Lymphocyte Count 0.58 X10^3/uL (0.83-4.51); Absolute Neutrophil Count 8.1 X10^3/uL (2.0-7.7); Basophil# 0.01 X10^3/uL; Basophil% 0.1 % (0-1); Eosinophil# 0.02 X10^3/uL; Eosinophils% 0.2 % (0-5); Hematocrit 37.8 % (37-47); Hemoglobin 11.4 g/dL (12.0-15.0); Lymphocyte # 0.58 X10^3/ul (0.83-4.51); Lymphocyte % 6.1 % (19-41); Mean Corp Hgb Conc 30.2 g/dL (32-36); Mean Corpuscular Volume 96.2 fL (81-99); Mean Platelet Vol. 9.7 fl (6.2-12.0); Monocyte# 0.78 X10^3/uL; Monocyte% 8.1 % (0-10); NRBC Flagged by Analyzer 0 % (0-5); Neutrophil # 8.14 X10^3/uL (2.7-7.7); POSITIVE DIFFERENTIAL YES; Platelet Count 350 K/mm3 (150-450); RBC Distribution Width CV 15.6 % (11.6-14.6); RBC Distribution Width SD 54.4 fl (35.1-43.9); Red Blood Count 3.93 M/mm3 (4.2-5.4); White Blood Count 9.6 K/mm3 (4.4-11.0)
[2021-04-03 12:16] LABS: Differential Indicated SCAN CRITERIA MET
[2021-04-03 12:36] LABS: ALB/GLOB Ratio 0.8 RATIO (0.9-2.4); AST(SGOT) 14 U/L (15-37); Alanine Aminotransfer ALT/SGPT 12 U/L (13-56); Alkaline Phosphatase 75 U/L (45-117); Anion Gap 6 (5-15); BUN 16 mg/dL (7-18); BUN/Creat Ratio 13.9 RATIO (10-20); Calcium,Total 8.6 mg/dL (8.5-10.1); Chloride 104 mmol/L (98-107); Creatinine, Serum 1.15 mg/dL (0.55-1.02); EST Glomerular Filtration Rate 48 mL/min (>60); Est Glom Filt Rate - Afr Amer 58 mL/min (>60); Globulin 3.7 g/dL (2.2-4.2); Glucose 98 mg/dL (74-106); Potassium 3.7 mmol/L (3.5-5.1); Protein, Total 6.7 g/dL (6.4-8.2); Sodium Level 139 mmol/L (136-145)
== END ==
PROVIDERS: PCP Family Medicine; Referring Provider Internal Medicine Rheumatology; Visit Provider Internal Medicine Rheumatology
DX: M05.70 Rheumatoid arthritis with rheumatoid factor of unspecified site without organ or systems involvement (principal); M21.40 Flat foot [pes planus] (acquired), unspecified foot; E03.9 Hypothyroidism, unspecified; Z79.899 Other long term (current) drug therapy; Z85.51 Personal history of malignant neoplasm of bladder
CPT/HCPCS: 36415; 80053; 85025

== ENCOUNTER → 2021-04-15 08:21 | Outpatient (CLI) | payer MEDICARE, SELFPAY ==
[2020-06-29 07:48] VITALS: BMI 24.5
--- NOTE | 2021-04-15 08:31 | US_ITS ---
STUDY: RENAL ULTRASOUND - COMPLETE REASON FOR EXAM: Female, 80 years old. HYDRONEPHROSIS . History of bladder cancer and prior cystectomy. TECHNIQUE: Ultrasound evaluation of the kidneys was performed with real-time and static lambert-scale imaging. COMPARISON: None. FINDINGS: RIGHT KIDNEY: Normal location of the right kidney, which is normal in size. The right kidney measures 12.2 cm x 5.6 cm x 4.9 cm. There is a normal cortex of the right kidney. The renal cortex measures 1.3 cm. There is no right renal mass or cyst. There are no right renal calculi. There is moderate hydronephrosis of the right kidney. DISTAL RIGHT URETER: There is non-visualization of the distal right ureter. There is no demonstrated right ureterovesical junction calculus. There is a visualized right ureteral jet. LEFT KIDNEY: Normal location of the left kidney, which is normal in size. The left kidney measures 12 cm x 5.1 cm x 5 cm. There is a normal cortex of the left kidney. The renal cortex measures 1.3 cm. There is no left renal mass or cyst. There are no left renal calculi. There is moderate hydronephrosis of the left kidney. DISTAL LEFT URETER: There is non-visualization of the distal left ureter. There is no demonstrated left ureterovesical junction calculus. There is a visualized left ureteral jet. BLADDER: Status post cystectomy. US/Kidney and Bladder IMPRESSION: Moderate degree of bilateral hydronephrosis. Electronically Signed: Gustavo Kim MD at 10:13 EDT , Service support ,
== END ==
PROVIDERS: PCP Family Medicine; Referring Provider Nurse Practitioner Adult Health; Visit Provider Nurse Practitioner Adult Health
DX: N13.39 Other hydronephrosis (principal); Z85.51 Personal history of malignant neoplasm of bladder
CPT/HCPCS: 76770

== ENCOUNTER → 2021-05-01 14:32 | Outpatient (CLI) | payer MEDICARE, SELFPAY ==
[2020-06-29 07:48] VITALS: BMI 24.5
[2021-05-01 18:19] LABS: ALB/GLOB Ratio 0.7 RATIO (0.9-2.4); AST(SGOT) 16 U/L (15-37); Alanine Aminotransfer ALT/SGPT 15 U/L (13-56); Albumin, Serum 3.1 g/dL (3.2-5.0); Alkaline Phosphatase 96 U/L (45-117); Anion Gap 8 (5-15); BUN 15 mg/dL (7-18); BUN/Creat Ratio 12.6 RATIO (10-20); Calcium,Total 9.4 mg/dL (8.5-10.1); Chloride 104 mmol/L (98-107); Creatinine, Serum 1.19 mg/dL (0.55-1.02); EST Glomerular Filtration Rate 46 mL/min (>60); Est Glom Filt Rate - Afr Amer 56 mL/min (>60); Globulin 4.5 g/dL (2.2-4.2); Glucose 85 mg/dL (74-106); Potassium 3.7 mmol/L (3.5-5.1); Protein, Total 7.6 g/dL (6.4-8.2); Sodium Level 139 mmol/L (136-145)
== END ==
PROVIDERS: PCP Family Medicine; Referring Provider Internal Medicine Rheumatology; Visit Provider Internal Medicine Rheumatology
DX: M05.70 Rheumatoid arthritis with rheumatoid factor of unspecified site without organ or systems involvement (principal); M21.40 Flat foot [pes planus] (acquired), unspecified foot; E03.9 Hypothyroidism, unspecified; Z79.899 Other long term (current) drug therapy; Z85.51 Personal history of malignant neoplasm of bladder
CPT/HCPCS: 36415; 80053

== ENCOUNTER → 2021-09-19 08:25 | Outpatient (CLI) | payer MEDICARE, SELFPAY ==
[2021-09-19 10:31] LABS: Absolute Lymphocyte Count 0.84 X10^3/uL (0.83-4.51); Absolute Neutrophil Count 5.4 X10^3/uL (2.0-7.7); Basophil# 0.04 X10^3/uL; Basophil% 0.6 % (0-1); Eosinophil# 0.06 X10^3/uL; Eosinophils% 0.9 % (0-5); Hematocrit 36.3 % (37-47); Hemoglobin 10.9 g/dL (12.0-15.0); Lymphocyte # 0.84 X10^3/ul (0.83-4.51); Mean Corpuscular Hgb 26.2 pg (27.0-32.0); Mean Corpuscular Volume 87.3 fL (81-99); Mean Platelet Vol. 9.7 fl (6.2-12.0); Monocyte# 0.68 X10^3/uL; Monocyte% 9.7 % (0-10); NRBC Flagged by Analyzer 0 % (0-5); Neutrophil # 5.35 X10^3/uL (2.7-7.7); Neutrophil % 76.5 % (47-70); Platelet Count 408 K/mm3 (150-450); RBC Distribution Width CV 15.7 % (11.6-14.6); RBC Distribution Width SD 49.3 fl (35.1-43.9); Red Blood Count 4.16 M/mm3 (4.2-5.4)
[2021-09-19 10:54] LABS: ALB/GLOB Ratio 0.6 RATIO (0.9-2.4); AST(SGOT) 19 U/L (15-37); Alanine Aminotransfer ALT/SGPT 10 U/L (13-56); Albumin, Serum 2.9 g/dL (3.2-5.0); Alkaline Phosphatase 76 U/L (45-117); Anion Gap 7 (5-15); BUN 27 mg/dL (7-18); BUN/Creat Ratio 13.6 RATIO (10-20); Calcium,Total 8.9 mg/dL (8.5-10.1); Chloride 103 mmol/L (98-107); Creatinine, Serum 1.98 mg/dL (0.55-1.02); EST Glomerular Filtration Rate 26 mL/min (>60); Est Glom Filt Rate - Afr Amer 31 mL/min (>60); Globulin 4.8 g/dL (2.2-4.2); Glucose 86 mg/dL (74-106); Potassium 3.9 mmol/L (3.5-5.1); Protein, Total 7.7 g/dL (6.4-8.2); Sodium Level 137 mmol/L (136-145)
== END ==
PROVIDERS: PCP Family Medicine; Referring Provider Internal Medicine Rheumatology; Visit Provider Internal Medicine Rheumatology
DX: M05.70 Rheumatoid arthritis with rheumatoid factor of unspecified site without organ or systems involvement (principal); M21.40 Flat foot [pes planus] (acquired), unspecified foot; E03.9 Hypothyroidism, unspecified; Z85.51 Personal history of malignant neoplasm of bladder; Z79.899 Other long term (current) drug therapy
CPT/HCPCS: 36415; 80053; 85025

== ENCOUNTER → 2021-10-09 10:10 | Outpatient (CLI) | payer MEDICARE, SELFPAY | PROVIDERS: PCP Family Medicine; Visit Provider Internal Medicine Nephrology | DX: N17.9 Acute kidney failure, unspecified (principal); N28.9 Disorder of kidney and ureter, unspecified | CPT/HCPCS: 87077; 87086; 87088 ==

== ENCOUNTER → 2021-10-30 13:24 | Outpatient (CLI) | payer MEDICARE, SELFPAY ==
--- NOTE | 2021-10-30 13:49 | CT_ITS ---
STUDY: CT ABDOMEN AND PELVIS WITHOUT CONTRAST REASON FOR EXAM: Female, 81 years old. HYDRONEPHROSIS. Prior resection of the urinary bladder with cystectomy and ileal conduit. RADIATION DOSAGE (If Supplied By Facility): CTDIvol = ( 5.45 ) mGy, DLP = ( 236.48 ) mGycm TECHNIQUE: Transaxial images were obtained from the dome of the diaphragm to the symphysis pubis without oral contrast, and without intravenous contrast. Sagittal and coronal images were reconstructed. Individualized dose optimization techniques were used for this CT. COMPARISON: Comparison is made with prior examination dated 05/28/2017. FINDINGS: Stable mild increased interstitial markings at the lung bases suggestive of bibasilar scarring. Coronary artery calcification. Normal liver. The gallbladder is contracted. Normal spleen. Normal pancreas. Normal bilateral adrenal glands. There is a moderate degree of bilateral hydronephrosis and hydroureter. There is a 2.6 cm x 3 cm cystic density in the right lower quadrant with 2 calculi at this base. This may represent a dilated distal ileal loop with stones. Normal visualized stomach. An ileostomy is seen in the right lower quadrant. Moderate amount of fecal material is seen in the colon. Scattered sigmoid diverticulosis. There is diffuse atherosclerotic calcification of the abdominal aorta and its major visceral branches. There is a fusiform infrarenal abdominal aortic aneurysm with a transverse dimension of 4.2 cm. Normal inferior vena cava. Normal retroperitoneum. Normal urinary bladder. There is absence of the uterus consistent with a prior hysterectomy. The patient is status post anterior abdominal hernia repair with a large mesh. There is deformity of the mesh and this is unchanged. There are degenerative changes of the visualized lumbar spine. CT/Abdomen/Pelvis without Cont IMPRESSION: Status post cystectomy with ileal loop and bilateral hydronephrosis. There is suggestion of a dilated right distal portion of the aorta with 2 calculi. This is unchanged. Prior anterior abdominal wall hernia repair with a mesh. The mesh as irregular shape and this is unchanged. Electronically Signed: Gustavo Kim MD at 14:32 EST , Service support ,
== END ==
PROVIDERS: PCP Family Medicine; Referring Provider Urology; Visit Provider Urology
DX: N13.30 Unspecified hydronephrosis (principal)
CPT/HCPCS: 74176

== ENCOUNTER → 2021-11-07 10:58 | Outpatient (CLI) | payer MEDICARE, SELFPAY ==
--- NOTE | 2021-11-07 12:03 | US_ITS ---
INDICATION: HYDRO EXAMINATION: Ultrasound US Kidney(s) complete (eg, kidneys and bladder) TECHNIQUE: Walsh scale and color doppler images were obtained of the kidneys. COMPARISON: 04/15/2021. FINDINGS: RIGHT KIDNEY: The right kidney measures 12.3 x 5.1 x 5.1 cm. The right renal cortex measures 1.2 cm.. There is [id number] right hydronephrosis. No shadowing calculus, focal lesion or perinephric collection is demonstrated. Slightly increased echogenicity of the right kidney is seen. Echogenicity LEFT KIDNEY: The left kidney measures 11.2 x 4.9 x 5.1 cm. The right renal cortex measures 1.4 cm.. There is [id number] left hydronephrosis. No shadowing calculus, focal lesion or perinephric collection is demonstrated. Slightly increased echogenicity of the left kidney is seen. US/Kidney and Bladder IMPRESSION: Mild to moderate degree of bilateral hydronephrosis is seen, no evidence of obstruction is visualized. This demonstrates slight decrease in comparison to the prior study. Increased echogenicity of the renal parenchyma correlate for medical renal disease. Electronically Signed: Skip Forbes MD at 14:18 EST Tel , Service support ,
--- NOTE | 2021-11-07 12:58 | RAD_ITS ---
PROCEDURE: Retrograde urography. CLINICAL HISTORY: Female, 81 years old. URETERAL PATENCY CONSENT: Informed, written consent was obtained from the patient, prior to procedure and following discussion of risks, benefits, alternatives and personnel. Patient oriented dose modulation technique utilized. SEDATION: VERSED: None. PERFORMING PHYSICIAN: Skip Forbes MD DATE OF PROCEDURE: 11/07/2021 ESTIMATED BLOOD LOSS: None. SPECIMENS REMOVED: None. COMPLICATIONS: None TECHNIQUE: Patient was positioned supine on the CT table. A timeout procedure was obtained. Fluoroscopic evaluation of the abdomen and pelvis was performed, this demonstrated multiple surgical clips soft tissues. The ostomy bag was then removed. The skin and adjacent soft tissues was then prepped and draped in the usual sterile manner. Cannulation of the stoma of the ileal conduit with then performed, contrast injection confirmed positioning. Contiguous contrast injection was then performed under fluoroscopy into the ileal conduit. Images demonstrated unremarkable contour of the ileal conduit with reflux visualized into both ureters and up a 2 the pelvicalyceal systems bilaterally, no evidence of significant stricture or delayed contrast was visualized, mild kinking of the pelv-ureteric junction was visualized bilaterally simulating narrowing however on opacification there was no evidence of stenosis at this location. Moderate bilateral hydroureter and hydronephrosis is visualized, no evidence of diverticula, no evidence of strictures. Unremarkable emptying of the contrast was visualized. The patient tolerated the procedure well with no immediate complications and was transferred to recovery in stable condition. RAD/Fluoroscopy 1 Hr or Less IMPRESSION: Retrograde loopogram demonstrates unremarkable opacification of the ileal conduit and unremarkable reflux into bilateral ureters, moderate bilateral hydronephrosis and hydroureter was visualized, no evidence of strictures, no evidence of diverticula or occlusive lesions. Electronically Signed: Skip Forbes MD at 15:13 EST Tel , Service support ,
== END ==
PROVIDERS: PCP Family Medicine; Referring Provider Urology; Visit Provider Urology
DX: N13.39 Other hydronephrosis (principal)
CPT/HCPCS: 76000; 76770; J7040; Q9967; C1769

== ENCOUNTER 2021-12-16 12:31 | Outpatient (CLI) | payer MEDICARE, SELFPAY ==
[2021-12-16 15:03] LABS: Absolute Lymphocyte Count 1.19 X10^3/uL (0.83-4.51); Absolute Neutrophil Count 3.9 X10^3/uL (2.0-7.7); Basophil# 0.04 X10^3/uL; Basophil% 0.7 % (0-1); Eosinophil# 0.06 X10^3/uL; Hematocrit 36.9 % (37-47); Hemoglobin 11.4 g/dL (12.0-15.0); Lymphocyte # 1.19 X10^3/ul (0.83-4.51); Lymphocyte % 20.6 % (19-41); Mean Corp Hgb Conc 30.9 g/dL (32-36); Mean Corpuscular Volume 87.2 fL (81-99); Mean Platelet Vol. 9.5 fl (6.2-12.0); Monocyte# 0.54 X10^3/uL; Monocyte% 9.4 % (0-10); NRBC Flagged by Analyzer 0 % (0-5); Neutrophil # 3.93 X10^3/uL (2.7-7.7); Neutrophil % 68.1 % (47-70); Platelet Count 304 K/mm3 (150-450); RBC Distribution Width CV 14.6 % (11.6-14.6); RBC Distribution Width SD 46.4 fl (35.1-43.9); Red Blood Count 4.23 M/mm3 (4.2-5.4); White Blood Count 5.8 K/mm3 (4.4-11.0)
[2021-12-16 15:24] LABS: ALB/GLOB Ratio 0.6 RATIO (0.9-2.4); AST(SGOT) 22 U/L (15-37); Alanine Aminotransfer ALT/SGPT 14 U/L (13-56); Alkaline Phosphatase 87 U/L (45-117); Anion Gap 5 (5-15); BUN 20 mg/dL (7-18); BUN/Creat Ratio 12.5 RATIO (10-20); Calcium,Total 8.9 mg/dL (8.5-10.1); Chloride 104 mmol/L (98-107); EST Glomerular Filtration Rate 33 mL/min (>60); Est Glom Filt Rate - Afr Amer 40 mL/min (>60); Globulin 4.7 g/dL (2.2-4.2); Glucose 86 mg/dL (74-106); Potassium 3.8 mmol/L (3.5-5.1); Protein, Total 7.7 g/dL (6.4-8.2); Sodium Level 135 mmol/L (136-145)
== END 2021-12-16 23:59 | disposition home or self-care (01) ==
LOC: MTLAB 12:33
PROVIDERS: PCP Family Medicine; Referring Provider Internal Medicine Rheumatology; Visit Provider Internal Medicine Rheumatology
DX: M05.70 Rheumatoid arthritis with rheumatoid factor of unspecified site without organ or systems involvement (principal); M21.40 Flat foot [pes planus] (acquired), unspecified foot; E03.9 Hypothyroidism, unspecified; Z85.51 Personal history of malignant neoplasm of bladder; Z79.899 Other long term (current) drug therapy
CPT/HCPCS: 36415; 80053; 85025

== ENCOUNTER → 2022-03-14 | Outpatient (CLI) | payer MEDICARE, SELFPAY ==
[2022-03-14 17:28] LABS: Absolute Lymphocyte Count 1.01 X10^3/uL (0.83-4.51); Absolute Neutrophil Count 4.4 X10^3/uL (2.0-7.7); Basophil# 0.03 X10^3/uL; Basophil% 0.5 % (0-1); Eosinophil# 0.06 X10^3/uL; Hematocrit 38.8 % (37-47); Hemoglobin 11.3 g/dL (12.0-15.0); Lymphocyte # 1.01 X10^3/ul (0.83-4.51); Mean Corp Hgb Conc 29.1 g/dL (32-36); Mean Corpuscular Hgb 27.2 pg (27.0-32.0); Mean Corpuscular Volume 93.3 fL (81-99); Mean Platelet Vol. 10.4 fl (6.2-12.0); Monocyte# 0.42 X10^3/uL; Monocyte% 7.1 % (0-10); NRBC Flagged by Analyzer 0 % (0-5); Neutrophil % 74.2 % (47-70); Platelet Count 304 K/mm3 (150-450); RBC Distribution Width CV 16.5 % (11.6-14.6); RBC Distribution Width SD 56.6 fl (35.1-43.9); Red Blood Count 4.16 M/mm3 (4.2-5.4); White Blood Count 5.9 K/mm3 (4.4-11.0)
[2022-03-14 17:56] LABS: ALB/GLOB Ratio 0.7 RATIO (0.9-2.4); AST(SGOT) 18 U/L (15-37); Alanine Aminotransfer ALT/SGPT 15 U/L (13-56); Albumin, Serum 3.3 g/dL (3.2-5.0); Alkaline Phosphatase 99 U/L (45-117); Anion Gap 9 (5-15); BUN 26 mg/dL (7-18); BUN/Creat Ratio 14.9 RATIO (10-20); Calcium,Total 9.5 mg/dL (8.5-10.1); Chloride 105 mmol/L (98-107); Creatinine, Serum 1.74 mg/dL (0.55-1.02); EST Glomerular Filtration Rate 30 mL/min (>60); Est Glom Filt Rate - Afr Amer 36 mL/min (>60); Glucose 85 mg/dL (74-106); Protein, Total 8.3 g/dL (6.4-8.2); Sodium Level 138 mmol/L (136-145)
== END | disposition home or self-care (01) ==
LOC: MTLAB 15:12
PROVIDERS: PCP Family Medicine; Referring Provider Internal Medicine Rheumatology; Visit Provider Internal Medicine Rheumatology
DX: M05.70 Rheumatoid arthritis with rheumatoid factor of unspecified site without organ or systems involvement (principal); M21.40 Flat foot [pes planus] (acquired), unspecified foot; E03.9 Hypothyroidism, unspecified; Z85.51 Personal history of malignant neoplasm of bladder; Z79.899 Other long term (current) drug therapy
CPT/HCPCS: 36415; 80053; 85025

== ENCOUNTER → 2022-06-10 | Outpatient (CLI) | payer MEDICARE, SELFPAY ==
[2022-06-10 18:01] LABS: Absolute Lymphocyte Count 1.05 X10^3/uL (0.83-4.51); Absolute Neutrophil Count 5.5 X10^3/uL (2.0-7.7); Basophil# 0.03 X10^3/uL; Basophil% 0.4 % (0-1); Eosinophil# 0.03 X10^3/uL; Eosinophils% 0.4 % (0-5); Hemoglobin 11.2 g/dL (12.0-15.0); Lymphocyte # 1.05 X10^3/ul (0.83-4.51); Lymphocyte % 14.7 % (19-41); Mean Corp Hgb Conc 30.3 g/dL (32-36); Mean Corpuscular Hgb 28.7 pg (27.0-32.0); Mean Corpuscular Volume 94.9 fL (81-99); Mean Platelet Vol. 10.3 fl (6.2-12.0); Monocyte# 0.51 X10^3/uL; Monocyte% 7.1 % (0-10); NRBC Flagged by Analyzer 0 % (0-5); Neutrophil % 77.1 % (47-70); Platelet Count 320 K/mm3 (150-450); RBC Distribution Width CV 14.2 % (11.6-14.6); RBC Distribution Width SD 49.1 fl (35.1-43.9); White Blood Count 7.1 K/mm3 (4.4-11.0)
[2022-06-10 18:02] LABS: ALB/GLOB Ratio 0.8 RATIO (0.9-2.4); AST(SGOT) 18 U/L (15-37); Alanine Aminotransfer ALT/SGPT 16 U/L (13-56); Albumin, Serum 3.5 g/dL (3.2-5.0); Alkaline Phosphatase 128 U/L (45-117); Anion Gap 6 (5-15); BUN 27 mg/dL (7-18); BUN/Creat Ratio 14.8 RATIO (10-20); Calcium,Total 9.1 mg/dL (8.5-10.1); Chloride 108 mmol/L (98-107); Creatinine, Serum 1.82 mg/dL (0.55-1.02); EST Glomerular Filtration Rate 28 mL/min (>60); Est Glom Filt Rate - Afr Amer 34 mL/min (>60); Globulin 4.6 g/dL (2.2-4.2); Glucose 87 mg/dL (74-106); Potassium 4.2 mmol/L (3.5-5.1); Protein, Total 8.1 g/dL (6.4-8.2); Sodium Level 138 mmol/L (136-145)
== END | disposition home or self-care (01) ==
LOC: MTLAB 15:30
PROVIDERS: PCP Family Medicine; Referring Provider Internal Medicine Rheumatology; Visit Provider Internal Medicine Rheumatology
DX: M05.70 Rheumatoid arthritis with rheumatoid factor of unspecified site without organ or systems involvement (principal); M21.40 Flat foot [pes planus] (acquired), unspecified foot; E03.9 Hypothyroidism, unspecified; N18.9 Chronic kidney disease, unspecified; Z85.51 Personal history of malignant neoplasm of bladder; Z79.899 Other long term (current) drug therapy
CPT/HCPCS: 36415; 80053; 85025

== ENCOUNTER 2022-06-14 12:16 | Emergency (ER) | payer MEDICARE, SELFPAY ==
[2022-06-14 12:16] VITALS: BP 147/62; PULSE 68; RESP 18; TEMP 36.8; O2SAT 100
--- NOTE | 2022-06-14 12:38 | CT_ITS ---
EXAM: CT ABDOMEN AND PELVIS WITHOUT INTRAVENOUS CONTRAST CLINICAL INDICATION: low back pain, lower abdominal swelling TECHNIQUE: Helically acquired images were obtained of the abdomen and pelvis without intravenous contrast. This CT exam was performed using one or more of the following dose reduction techniques: automated exposure control, adjustment of the mA and/or kV according to patient size, and/or use of iterative reconstruction technique. This report was created using [employer] report generation technology. COMPARISON: 10/30/2021 FINDINGS: LOWER THORAX: There is interstitial scarring in the lung bases. No cardiomegaly. No significant pericardial effusion. ABDOMEN: LIVER: Unremarkable. Homogeneous. GALLBLADDER AND BILE DUCTS: Unremarkable. No calcified gallstones. No gallbladder distention or wall edema. No intra- or extrahepatic biliary ductal dilation. PANCREAS: Unremarkable. No focal cystic mass. SPLEEN: Unremarkable. Normal size without focal cystic or solid mass. ADRENALS: Unremarkable. No nodules. KIDNEYS AND URETERS: There is moderate to severe bilateral hydronephrosis and hydroureter. Normal renal size and position. STOMACH AND BOWEL: The patient is status post cystectomy with a right lower quadrant ileal loop. There is sigmoid diverticulosis with no evidence of diverticulitis. No stomach or bowel distention. PELVIS: APPENDIX: No evidence of acute appendicitis. BLADDER: Unremarkable. REPRODUCTIVE: Unremarkable as visualized. No mass. ABDOMEN and PELVIS: INTRAPERITONEAL SPACE: Unremarkable. No ascites or other fluid collection. No free air. BONES/JOINTS: Unremarkable. No suspicious lytic or blastic abnormality. SOFT TISSUES: There is mesh over the anterior abdomen from abdominal hernia repair. VASCULATURE: There is an infrarenal abdominal aortic aneurysm measures 4.1 cm. LYMPH NODES: Unremarkable. No enlarged lymph nodes. CT/Abdomen/Pelvis without Cont IMPRESSION: Status post cystectomy with ileal loop. There is stable bilateral hydronephrosis and hydroureter. There has been no significant change from reference exam. There is no acute abnormality in the abdomen or pelvis. Electronically Signed: Shlomo Castillo MD at 14:21 EDT ,
--- NOTE | 2022-06-14 12:38 | CT_ITS ---
EXAM: CT LUMBAR SPINE WITHOUT INTRAVENOUS CONTRAST CLINICAL INDICATION: pain, low back, falls TECHNIQUE: Helically acquired images were obtained of the lumbar spine without intravenous contrast. 2D reformats were reviewed. This CT exam was performed using one or more of the following dose reduction techniques: automated exposure control, adjustment of the mA and/or kV according to patient size, and/or use of iterative reconstruction technique. This report was created using [employer] report [employer] technology. COMPARISON: None. FINDINGS: VERTEBRAE: Unremarkable. No fracture. No traumatic subluxation. No discrete lytic or blastic abnormality. Normal alignment. DISCS/SPINAL CANAL/NEURAL FORAMINA: There is disc space narrowing at L5-S1. There is facet hypertrophy at L4-5. VASCULATURE: Visualized abdominal aorta is not dilated. LYMPH NODES: Unremarkable. No retroperitoneal adenopathy. OTHER FINDINGS: The bones are osteopenic but intact. CT/Spine Lumbar without Contrast IMPRESSION: No acute osseous abnormalities of the lumbar spine. There are mild degenerative changes with facet hypertrophy and disc space narrowing. Electronically Signed: Shlomo Castillo MD at 14:23 EDT ,
--- NOTE | 2022-06-14 12:41 | ED.VIS.BACK ---
HPI History of Present Illness Chief Complaint: Back Informant: patient Narrative Narrative: Patient is an 81-year-old female with complex medical history including infrarenal AAA (4.[address] 10/30/2021), urostomy, rheumatoid arthritis on an injection which she cannot recall the name of it, presenting with worsening low back pain. She states it felt like sciatica. She has been dealing with back pain off and on for the past year and its been more severe over the past 3 to 4 days and significantly bad over the past 2 days. She can no longer walk. It radiates down both legs, right more than left now. She denies any saddle anesthesia or stool incontinence. She is been taking Tylenol with no relief. She is told by her unarmed security officer she cannot take NSAIDs because of her RA medication. She also has CKD which they are monitoring. Patient states she lives at home with her java scala developer who recently had a femur fracture so she does not have any assistance there. She is not currently in any type of pain management. She denies any recent falls. She notes that she has had some increased swelling of her lower abdomen next to her urostomy site for the past month or so. She was told it might be a hernia. No other complaints at this time. [facility] Medical History Abdominal aortic aneurysm (AAA) Carotid stenosis, right History of bladder cancer (~2015) History of diverticulosis History of DVT (deep vein thrombosis) Hypothyroidism Rheumatoid arthritis Home Medications folic acid 1 mg tablet 2 mg PO QDAY SUPPLEMENT 11/12/17 [History Last Taken Unknown] hydroxychloroquine 200 mg tablet 150 mg PO DAILY RA 11/12/17 [History Last Taken Unknown] aspirin 81 mg tablet,delayed release 81 mg PO DAILY@0800 BLOOD THINNER 06/17/19 [History Last Taken Unknown] ferrous sulfate 325 mg (65 mg iron) tablet 325 mg PO DAILY 03/18/22 [History Last Taken Unknown] levothyroxine 100 mcg tablet 100 mcg PO DAILY 03/18/22 [History Last Taken Unknown] hydrocodone-acetaminophen 5-325mg 5mg-325mg 1 tab PO Q6H PRN pain 3 days #12 tabs 06/14/22 [Rx Last Taken Unknown] prednisone 20 mg tablet 40 mg PO DAILY #8 tabs 06/14/22 [Rx Last Taken Unknown] Allergy/AdvReac Type Severity Reaction Status Date / Time No Known Allergies Allergy Verified 06/14/22 12:18 Family History Father Heart disease Surgical History History of bilateral oophorectomies History of colonoscopy (~2011) History of incisional hernia repair History of right-sided carotid endarterectomy History of urostomy S/P cataract extraction S/P colonoscopy S/P hysterectomy Social History Smoking Status: Never smoker how long ago did patient quit smokin years + alcohol intake: never ROS ROS ED Constitutional Constitutional ED: Denies chills or fever(s) Eyes Eyes: Denies change in vision ENT ENT ED: Denies ear pain or sore throat Cardiovascular Cardiovascular: Denies chest pain or palpitations Respiratory/Chest Respiratory/Chest: Denies dyspnea Gastrointestinal Gastrointestinal: Denies abdominal pain, constipation, diarrhea, nausea or vomiting Genitourinary Genitourinary ED: Reports other Details: Urostomy, no change in urine output Musculoskeletal Musculoskeletal: Reports back pain; Denies myalgias Integumentary Denies Abrasions or rash Neurologic Neurologic: Denies headache(s), paresthesias or weakness Psychiatric Psychiatric: Denies anxiety Hematologic/Lymphatic Hematologic/Lymphatic: Denies easy bleeding or easy bruising EXAM Physical Exam Const Vital Signs: 06/14/22 12:16 Temperature 98.2 F Temperature Source Temporal Pulse Rate 68 Respiratory Rate 18 Blood Pressure 147/62 H Blood Pressure Mean 90 Pulse Ox 100 Oxygen Delivery Method Room Air Positive well nourished and well developed Constitutional Narrative: Patient lying on her right side. Uncomfortable appearing. General Appearance ED: well developed HEENT Reports moist mucous membranes Eyes PERRL and EOMs intact bilaterally Neck supple and no JVD Resp normal respiratory effort and clear to auscultation bilaterally Cardio regular rate, regular rhythm and no murmurs Cardio Narrative: 1+ bilateral DP and radial pulses GI soft to palpation and non-tender GI Narrative: Patient has a urostomy in the right lower quadrant. Midline of this there is a slight area of distention that is soft, nontender and reducible. No pulsatile mass appreciated. Back/Spine Back/Spine Narrative: No midline tenderness. No step-off sign. No paraspinal tenderness palpation. Patient is bilateral positive straight leg test. Extremity normal to inspection Extremity Narrative: 2+ pain edema of the left lower extremity, 3+ pain edema of the right lower extremity. General Extremety ED: Yes edema; Negative for tenderness General Extremity: edema Neuro oriented x3 and no sensory deficits noted Motor Exam: strength 5/5 throughout Skin no rashes or lesions noted and no wounds MDM MDM MDM Narrative Medical decision making narrative: Patient is evaluated for worsening low back pain. She denies any recent trauma. She does have a history of a infrarenal AAA that is too small for surgical intervention. She has equal pulses in her extremities and I do not think this is vascular nature. She does have some slight distention and swelling of her lower abdomen which she thought might be a hernia. She has known CKD. CT of the abdomen pelvis as well as CT of the lumbar spine obtained looking for any acute abnormalities. This is largely negative. Patient's physical exam is highly consistent with sciatica. CMP shows that patient's renal function is at her baseline. Patient is given 2 doses of IV morphine in the emergency room. Discussed admission for SNF placement/PT OT evaluation versus discharge home with pain control. Patient states she would like to try to go home. She is able to ambulate in the ER with a walker. She is discharged home on a burst of prednisone (she does not have any history of diabetes) as well as [place] for pain control. Patient feels that she is adequate assistance at home. She is counseled to use MiraLAX or a stool softener while taking [place] for pain control. Counseled on the risk of confusion and falls with [place]. Patient verbalizes agreement understand this plan. She is given a referral for spine as well as pain management for outpatient follow-up. Discharged home in stable and improved condition. Lab Data Attestation: I reviewed the patient's lab results. Labs: Laboratory Results - last 24 hr 06/14/22 13:05 Sodium 140 Potassium 4.1 Chloride 111 H Carbon Dioxide 22.0 Anion Gap 7 BUN 38 H Creatinine 1.66 H Estim Creat Clear Calc 22.06 Est GFR (MDRD) Af Amer 38 L Est GFR (MDRD) Non-Af 31 L BUN/Creatinine Ratio 22.9 H Glucose 87 Calcium 9.4 Total Bilirubin 0.60 AST 19 ALT 13 Alkaline Phosphatase 136 H Total Protein 7.8 Albumin 3.3 Globulin 4.5 H Albumin/Globulin Ratio 0.7 L Radiography Diagnostic Testing: Clinical Impression(s) from Imaging Studies Abdomen/Pelvis CT 06/14/22 12:38 IMPRESSION: Status post cystectomy with ileal loop. There is stable bilateral hydronephrosis and hydroureter. There has been no significant change from reference exam. There is no acute abnormality in the abdomen or pelvis. Electronically Signed: Shlomo Castillo MD at 14:21 EDT , Lumbar Spine CT 06/14/22 12:38 IMPRESSION: No acute osseous abnormalities of the lumbar spine. There are mild degenerative changes with facet hypertrophy and disc space narrowing. Electronically Signed: Shlomo Castillo MD at 14:23 EDT , Discharge Plan Triage Chief Complaint: Back ED Provider: Rupa Oconnell Dx/Rx/DC Orders Clinical Impression: Sciatica, Difficulty walking Instructions: ED Sciatica, ED Walker Use Prescriptions: New hydrocodone-acetaminophen 5-325 mg tablet 1 tab PO Q6H PRN (Reason: pain) 3 Days Qty: 12 0RF prednisone 20 mg tablet 40 mg PO DAILY Qty: 8 0RF No Action hydroxychloroquine 200 mg tablet 150 mg PO DAILY folic acid 1 mg tablet 2 mg PO QDAY levothyroxine 100 mcg tablet 100 mcg PO DAILY ferrous sulfate 325 mg (65 mg iron) tablet 325 mg PO DAILY aspirin 81 MG tablet 81 mg PO DAILY@0800 Primary Care Provider: Nito Rivera Referrals: Jhon Ulloa MD [Med Staff - Active Staff] - As soon as possible Nito Rivera MD [Primary Care Provider] - Nito Avila DO [Med Staff - Active Staff] - As Needed Disposition Disposition: Home, Self Care
[2022-06-14] MEDS: Morphine 4 MG/ML Syringe IV ×2 (13:01→15:29)
[2022-06-14] MEDS: Ondansetron 4 MG/2 ML Vial IV (13:01)
[2022-06-14 13:30] LABS: ALB/GLOB Ratio 0.7 RATIO (0.9-2.4); AST(SGOT) 19 U/L (15-37); Alanine Aminotransfer ALT/SGPT 13 U/L (13-56); Albumin, Serum 3.3 g/dL (3.2-5.0); Alkaline Phosphatase 136 U/L (45-117); Anion Gap 7 (5-15); BUN 38 mg/dL (7-18); BUN/Creat Ratio 22.9 RATIO (10-20); Calcium,Total 9.4 mg/dL (8.5-10.1); Chloride 111 mmol/L (98-107); Creatinine, Serum 1.66 mg/dL (0.55-1.02); EST Glomerular Filtration Rate 31 mL/min (>60); Est Glom Filt Rate - Afr Amer 38 mL/min (>60); Estimated Creatinine Clearance 22.06 ml/min; Globulin 4.5 g/dL (2.2-4.2); Glucose 87 mg/dL (74-106); Potassium 4.1 mmol/L (3.5-5.1); Protein, Total 7.8 g/dL (6.4-8.2); Sodium Level 140 mmol/L (136-145)
[2022-06-14] MEDS: predniSONE 20 MG Tablet 60 MG PO (16:30)
== END 2022-06-14 16:51 | disposition home or self-care (01) ==
PROVIDERS: Emergency Provider Emergency Medicine; PCP Family Medicine; Visit Provider Emergency Medicine
DX: M54.30 Sciatica, unspecified side (principal); R26.2 Difficulty in walking, not elsewhere classified; N18.9 Chronic kidney disease, unspecified; Z86.718 Personal history of other venous thrombosis and embolism
CPT/HCPCS: 72131; 74176; 80053; 96374; 96375; 96376; 99284; A4216; J2405

== ENCOUNTER 2022-06-17 13:46 | Observation (INO) | payer MEDICARE, SELFPAY ==
[2022-06-17 13:46] VITALS: BP 125/46; PULSE 66; RESP 18; TEMP 36.8; O2SAT 98; BMI 18.3
[2022-06-17] MEDS: Ondansetron 4 MG/2 ML Vial IV (15:34)
[2022-06-17] MEDS: Morphine 4 MG/ML Syringe IV (15:34)
--- NOTE | 2022-06-17 15:42 | ED.VIS.BACK ---
HPI History of Present Illness Chief Complaint: Back Narrative Narrative: 81-year-old female presenting for sciatic pain. She states he was seen on 06/14/2022 for similar pain in the left sciatic region. She was offered admission and transfer to [facility] facility but declined. The physician who treated her spoke with her primary care physician and placed her on [place] and prednisone. Patient states that now states she has been walking regularly she has sciatic pain on the right side. She denies any trauma. She had CTs of her lumbar spine and her pelvis on 06/14/2022 and there were no acute findings. She states she is not doing well at home is having difficulty ambulating. No loss of bladder or bowel control. No saddle anesthesia. [facility] Medical History Abdominal aortic aneurysm (AAA) Carotid stenosis, right History of bladder cancer (~2015) History of diverticulosis History of DVT (deep vein thrombosis) Hypothyroidism Rheumatoid arthritis Home Medications levothyroxine 100 mcg tablet 150 mcg PO CRUZ THYROID 03/18/22 [History Last Taken 06/15/22] abatacept 125 mg/mL subcutaneous syringe (Orencia) 125 mg subcut FR ARTHRITIS 06/17/22 [History Last Taken 06/13/22] levothyroxine 100 mcg tablet 100 mcg PO MOTUWETHFRSA THYROID 06/17/22 [History Last Taken 06/17/22] Allergy/AdvReac Type Severity Reaction Status Date / Time No Known Allergies Allergy Verified 06/17/22 13:48 Family History Father Heart disease Surgical History History of bilateral oophorectomies History of colonoscopy (~2011) History of incisional hernia repair History of right-sided carotid endarterectomy History of urostomy S/P cataract extraction S/P colonoscopy S/P hysterectomy Social History Smoking Status: Never smoker how long ago did patient quit smokin years + alcohol intake: never EXAM Physical Exam Const Vital Signs: 06/17/22 13:46 06/17/22 16:20 Temperature 98.2 F Temperature Source Temporal Pulse Rate 66 51 L Respiratory Rate 18 18 Blood Pressure 125/46 H 137/66 H Blood Pressure Mean 72 89 Pulse Ox 98 98 Oxygen Delivery Method Room Air Room Air Positive well nourished General Appearance ED: NAD; Negative for pallor HEENT Reports moist mucous membranes Eyes PERRL and EOMs intact bilaterally Resp normal respiratory effort and clear to auscultation bilaterally Cardio regular rate and regular rhythm GI normal to inspection, nondistended, normoactive bowel sounds Back/Spine normal to inspection Back/Spine Narrative: Tenderness palpation left and right gluteal region on examination. I am able to lift the patient's left leg up to about 70 degrees before she is symptomatic. On the right this is more like 20 to 30 degrees. She has pain with internal rotation on the right as well. No midline spinal deformity or step-off. No leg length discrepancy. Neuro oriented x3 Sensorium / Orientation: alert Psych mental status grossly normal Skin General Skin Exam: Negative for jaundice or pallor MDM MDM MDM Narrative Medical decision making narrative: Patient presenting with difficulty ambulating secondary to sciatica. The sciatic that she had on the left is improving however now she has pain on the right. On exam this is consistent with a sciatic pain. She recently had a CT of the lumbar spine as well as the abdomen pelvis and this is all normal. Blood work was obtained today and her CBC and BMP are unremarkable. I had social work come see her to see if she could get into a [facility] facility from here and she needed to be admitted. I spoke with the hospitalist who will have her see PT OT. Patient admitted in stable condition. Impression: 1. Sciatica 2. Inability to ambulate Lab Data Labs: Laboratory Results - last 24 hr 06/17/22 06/17/22 15:30 15:30 WBC 7.6 RBC 3.53 L Hgb 10.3 L Hct 32.8 L MCV 92.9 MCH 29.2 MCHC 31.4 L RDW Std Deviation 49.2 H RDW Coeff of [place] 14.6 Plt Count 306 MPV 10.1 Immature Gran % (Auto) 0.400 Neut % (Auto) 92.9 H Lymph % (Auto) 5.0 L [place] % (Auto) 1.7 Eos % (Auto) 0.0 Baso % (Auto) 0.0 Absolute Neuts (auto) 7.1 Absolute Lymphs (auto) 0.38 L Nucleated RBC % 0 Differential Comment SEE COMMENT Platelet Estimate ADEQUATE RBC Morphology N CHROM Anisocytosis RARE Macrocytosis RARE Sodium 139 Potassium 4.2 Chloride 112 H Carbon Dioxide 22.0 Anion Gap 5 BUN 60 H Creatinine 1.59 H Estim Creat Clear Calc 21.12 Est GFR (MDRD) Af Amer 40 L Est GFR (MDRD) Non-Af 33 L BUN/Creatinine Ratio 37.7 H Glucose 114 H Calcium 8.9 Discharge Plan Triage Chief Complaint: Back ED Provider: Saqib Ctuler Dx/Rx/DC Orders Prescriptions: No Action levothyroxine 100 mcg tablet 150 mcg PO CRUZ levothyroxine 100 mcg tablet 100 mcg PO MOTUWETHFRSA Label Comments: TAKE 1 TABLET BY MOUTH ONCE DAILY, THURSDAY THRU THURSDAY, AND 1 & 1/2 TABLETS ON THURSDAY Orencia 125 mg/mL Syringe 125 mg SUBCUT FR Primary Care Provider: Nito Rivera Referrals: Nito Rivera MD [Primary Care Provider] -
[2022-06-17 15:57] LABS: Absolute Lymphocyte Count 0.38 X10^3/uL (0.83-4.51); Absolute Neutrophil Count 7.1 X10^3/uL (2.0-7.7); Hematocrit 32.8 % (37-47); Hemoglobin 10.3 g/dL (12.0-15.0); Lymphocyte # 0.38 X10^3/ul (0.83-4.51); Mean Corp Hgb Conc 31.4 g/dL (32-36); Mean Corpuscular Hgb 29.2 pg (27.0-32.0); Mean Corpuscular Volume 92.9 fL (81-99); Mean Platelet Vol. 10.1 fl (6.2-12.0); Monocyte# 0.13 X10^3/uL; Monocyte% 1.7 % (0-10); NRBC Flagged by Analyzer 0 % (0-5); Neutrophil % 92.9 % (47-70); POSITIVE DIFFERENTIAL YES; Platelet Count 306 K/mm3 (150-450); RBC Distribution Width CV 14.6 % (11.6-14.6); RBC Distribution Width SD 49.2 fl (35.1-43.9); Red Blood Count 3.53 M/mm3 (4.2-5.4); White Blood Count 7.6 K/mm3 (4.4-11.0)
[2022-06-17 16:11] LABS: Anion Gap 5 (5-15); BUN 60 mg/dL (7-18); BUN/Creat Ratio 37.7 RATIO (10-20); Calcium,Total 8.9 mg/dL (8.5-10.1); Chloride 112 mmol/L (98-107); Creatinine, Serum 1.59 mg/dL (0.55-1.02); EST Glomerular Filtration Rate 33 mL/min (>60); Est Glom Filt Rate - Afr Amer 40 mL/min (>60); Estimated Creatinine Clearance 21.12 ml/min; Glucose 114 mg/dL (74-106); Potassium 4.2 mmol/L (3.5-5.1); Sodium Level 139 mmol/L (136-145)
[2022-06-17 16:20] VITALS: BP 137/66; PULSE 51; RESP 18; O2SAT 98
[2022-06-17 16:28] LABS: Differential Indicated SCAN CRITERIA MET
[2022-06-17 16:37] LABS: Anisocytosis RARE; Macrocytosis RARE; Platelet Estimate ADEQUATE (ADEQ); Red Cell Morphology N CHROM NORMAL (NORM C&C)
--- NOTE | 2022-06-17 16:56 | HP.PCM.HOS_ITS ---
HPI - General General Date of Admission: 06/17/22 Date of Service: 06/17/22 Chief Complaint: Back pain, radiculopathy, sciatic pain. HPI Narrative The patient is an 81 y/o F w/ PMHx: CKD stage III unclear subtype, AAA, Carotid stenosis s/p R CEA, Hypothyroidism, Hx DVT, Rheumatoid arthritis, Hx bladder CA s/p resection with Hx urostomy, Chronic normocytic anemia/Fe deficiency anemia who presents to the [facility] ED on 06/17/22 with history of ongoing intractable bilateral lumbar paraspinous back discomfort with initially over the last 1 to 2 weeks left lower extremity radicular discomfort and sciatic shooting pain with ED evaluation on 06/14/2022 with some improvement following in addition to follow- up with her chiropractor however now she has had continued recurrent discomfort and lumbar spine again and now onset significant right lower extremity radiculopathy with shooting sciatic pain stating she cannot move, pain worse with any ambulatory attempts and with palpation of the SI region primarily in the right right-sided now. She currently rates discomfort with any movement or palpation 8 out of 10 in severity, sudden, severe and unrelenting if she attempts to bear weight. With evaluation on 06/14/2022 patient was offered admission and potentially skilled placement but declined at that time but she states now she can hardly function and has returned. Work-up in the ED included T98.2, heart rate 66, BP 125/46, respiratory rate 18, 98% on room air, CBC with WC 7.6, hemoglobin 10.3, platelets 306 with lymphopenia, BMP with chloride 112, BUN/creatinine 60/1.59, glucose 114. No repeat imaging was performed with most recent imaging on ED evaluation 06/14/[address] lumbar spine without IV contrast at that time with no acute osseous abnormality of the spine with mild degenerative changes and facet hypertrophy and disc space narrowing. In the ED patient ministered Zofran 4 mg IV x1 as well as morphine 4 mg IV x1. [facility] Medical History Abdominal aortic aneurysm (AAA) Carotid stenosis, right History of bladder cancer (~2015) History of diverticulosis History of DVT (deep vein thrombosis) Hypothyroidism Rheumatoid arthritis Home Medications levothyroxine 100 mcg tablet 150 mcg PO CRUZ THYROID 03/18/22 [History Last Taken 06/15/22] abatacept 125 mg/mL subcutaneous syringe (Orencia) 125 mg subcut FR ARTHRITIS 06/17/22 [History Last Taken 06/13/22] levothyroxine 100 mcg tablet 100 mcg PO MOTUWETHFRSA THYROID 06/17/22 [History Last Taken 06/17/22] Allergy/AdvReac Type Severity Reaction Status Date / Time No Known Allergies Allergy Verified 06/17/22 13:48 Family History (Updated 06/17/22 @ 20:[address] Noemi Boone MD) Father Heart disease Mother Heart disease Hypertension Surgical History History of bilateral oophorectomies History of colonoscopy (~2011) History of incisional hernia repair History of right-sided carotid endarterectomy History of urostomy S/P cataract extraction S/P colonoscopy S/P hysterectomy Social History (Updated 06/17/22 @ 20:[address] Noemi Boone MD) household members: none Smoking Status: Never smoker alcohol intake: never substance use type: does not use ROS ROS Narrative Admission Review of Systems: CONSTITUTIONAL: No weight loss, fever, chills, +weakness or fatigue. HEENT: Eyes: No visual loss, blurred vision, double vision or yellow sclerae. Ears, Nose, Throat: No hearing loss, sneezing, congestion, runny nose or sore throat. SKIN: No rash or itching, lesions, wounds. CARDIOVASCULAR: No chest pain, chest pressure or chest discomfort, palpitations, edema, orthopnea, syncopal events. RESPIRATORY: No shortness of breath, cough or sputum, wheezing, hemoptysis. GASTROINTESTINAL: No anorexia, nausea, vomiting or diarrhea, abdominal pain, m tomas, BRBPR. GENITOURINARY: + Chronic urostomy in place. NEUROLOGICAL: + BL Lumbar spine pain with radiculopathy, sciatic pain. No headache, dizziness, syncope, paralysis, ataxia, change in bowel or bladder control, seizure. MUSCULOSKELETAL: + muscle, back pain, joint pain or stiffness. HEMATOLOGIC: + anemia, bleeding or bruising. LYMPHATICS: No enlarged nodes. No history of splenectomy. PSYCHIATRIC: No history of depression or anxiety. ENDOCRINOLOGIC: No reports of sweating, cold or heat intolerance. No polyuria or polydipsia. ALLERGIES: No history of asthma, hives, eczema or rhinitis. Vital Signs Vital Signs Vital Signs: 06/17/22 13:46 06/17/22 16:20 Temperature 98.2 F Temperature Source Temporal Pulse Rate 66 51 L Respiratory Rate 18 18 Blood Pressure 125/46 H 137/66 H Blood Pressure Mean 72 89 Pulse Ox 98 98 Oxygen Delivery Method Room Air Room Air Weight Weight: 110 lb Body Mass Index (BMI) 18.3 Physical Exam Narrative Physical Examination: General: Awake, alert, oriented x 3 and cooperative, laying in the ED bed, fatigued, notes uncomfortable when she attempts to move, pain currently controlled if she does not bear any weight or palpate the SI regions. Skin: Normal color, normal turgor, no icterus, no cyanosis except occasional staged ecchymoses. HEENT: AT/NC, EOMI, PERRLA, MMM, no carotid bruits or JVD noted. Lungs: CTA bilaterally, moderate effort, mild decrease BL bases, no rales, ronchi or wheezing. Heart: Regular rate and rhythm; no gallop, rub audible. Abdomen: Soft, NTTP, ND, normal BS, no HSM. Extremities: No cyanosis, no clubbing, chronic bilateral lower extremity lymphedema, right greater than left which is unchanged following bladder cancer surgery with lymph node dissection Neurological: Patient awake, alert, oriented as noted, cognitive function appears baseline intact; pupils equally reactive to light and accommodation, cranial nerves II-XII grossly normal, moving all 4 extremities however extremely limited as does cause shooting sciatic discomfort, no specific focal deficit, able to reproduce sciatic discomfort with primarily palpation of the right SI region, bilateral notable straight leg raise, sensation intact, strength sev erely globally decreased. Psychiatric: Affect appears fatigued, no acute evidence of depressive or anxiety feelings. Results Lab / Micro Data Result Diagrams: 06/17/22 15:30 06/17/22 15:30 Labs: Laboratory Results - last 24 hr 06/17/22 15:30: WBC 7.6, RBC 3.53 L, Hgb 10.3 L, Hct 32.8 L, MCV 92.9, MCH 29.2, MCHC 31.4 L, RDW Std Deviation 49.2 H, RDW Coeff of [place] 14.6, Plt Count 306, MPV 10.1, Immature Gran % (Auto) 0.400, Neut % (Auto) 92.9 H, Lymph % (Auto) 5.0 L, [place] % (Auto) 1.7, Eos % (Auto) 0.0, Baso % (Auto) 0.0, Absolute Neuts (auto) 7.1, Absolute Lymphs (auto) 0.38 L, Nucleated RBC % 0, Differential Comment SEE COMMENT, Platelet Estimate ADEQUATE, RBC Morphology N CHROM, Anisocytosis RARE, Macrocytosis RARE 06/17/22 15:30: Sodium 139, Potassium 4.2, Chloride 112 H, Carbon Dioxide 22.0, Anion Gap 5, BUN 60 H, Creatinine 1.59 H, Estim Creat Clear Calc 21.12, Est GFR (MDRD) Af Amer 40 L, Est GFR (MDRD) Non-Af 33 L, BUN/Creatinine Ratio 37.7 H, Glucose 114 H, Calcium 8.9 Assessment & Plan Assessment/Plan (1) Sciatica associated with disorder of lumbar spine: PLAN: Plan The patient is an 81 y/o F w/ PMHx: CKD stage III unclear subtype, AAA, Carotid stenosis s/p R CEA, Hypothyroidism, Hx DVT, Rheumatoid arthritis, Hx bladder CA s/p resection with Hx urostomy, Chronic normocytic anemia/Fe deficiency anemia w ho presents to the [facility] ED on 06/17/22 with history of ongoing intractable bilateral lumbar paraspinous back discomfort with initially over the last 1 to 2 weeks left lower extremity radicular discomfort and sciatic shooting pain with ED evaluation on 06/14/2022 with some improvement following in addition to follow- up with her chiropractor however now she has had continued recurrent discomfort and lumbar spine again and now onset significant right lower extremity radiculopathy with shooting sciatic pain stating she cannot move, pain worse with any ambulatory attempts and with palpation of the SI region primarily in the right right-sided now. #1. Acute Intractable Lumbar Back Pain w/ Radiculopathy, Sciatic pain: Will admit to [facility], maintain on fall precautions, frequent positioning, initiate l idoacine patches, low dose tizanidine, medrol dose pack, po/IV narcotic pain regimen, low dose gabapentin, anti-emetics, bowel regimen. Defer NSAIDS given renal function and adjust medications as needed pending repeat AM function. Will consult PT and OT for evaluation as well as case management for discharge planning. #2. Chronic Kidney Disease Stage III, unclear subtype: Admission BUN/Cr 60/1.5 9, baseline renal function primarily 1.5-1.8, repeat BMP in AM. #3. Chronic normocytic anemia/iron deficiency anemia: Admission hemoglobin 10.3, baseline 10-11, stable, trend. #4. Rheumatoid arthritis: Patient is on chronic subcu injections with Orencia, will continue outpatient encourage follow-up with rheumatology. #5. History of carotid disease: Status post right CEA, will continue aspirin, not on statin, not on any hypertensive regimen BPP is normal of note. #6. History AAA: Noted in history however most recent 06/14/2022 CT abdomen pelvis performed with noted 4.1 cm infrarenal abdominal aortic aneurysm, encourage continued outpatient follow-up with vascular #7. History of prior DVT: Not on any regimen, remote, will continue chemoprophylaxis as noted. #8. History of bladder cancer w/ Chronic associated RLE Lymphedema: Status post resection as well as lymph node dissection with chronic right lower extremity lymphedema in addition to placement urostomy, considered in remission. #9. Hypothyroidism: Continue home synthroid regimen. #10. DVT prophylaxis: SCDs, heparin. #11. CODE status: Patient ZELDA is her sister and living will is currently in place. Discussed CODE status at length including difference between FULL code, DNR-CCA and DNR-CC status. Following discussions about the differences in these status, requested DNR-CCA, no intubation status. Advanced Care Planning Face to Face Time: 16 minutes. Charges/Coding Visit Charges OBSV E&M: 31992 Initial observation care L3 Procedures Hospitalists Procedures: 15479 Advncd Care Plan 30 Min
--- NOTE | 2022-06-17 17:33 | CM.ED ---
HANANE Note HANANE was advised by AISHA Adams that the MD was inquiring if patient could be placed in a SNF today as patient is requiring SNF for rehab. HANANE met with patient and her granddaughter, Barbara. Patient said that she wanted outpatient rehab as Barbara could take her to rehab. Patient then voiced that she needed help, from her family, to get out of bed this morning. Patient said that she wanted to go home as her glycerin operator, Rafiq Nichole, needed her as he was recuperating after being in the hospital and [facility]. Patient then inquired about home health. Patient said that she felt she and Rafiq got good care when they were in the hospital for Rafiq's recovery in the past. SW talked to patient about what would happen if she went home tonight and nothing had changed and she woke up tomorrow unable to get out of bed. Patient inquired about Rafiq and patient's granddaughter said that she will assist with Rafiq's care. Patient said that she will talk to her son and discuss the options and get back with this functional tester typewriters. SW went back into patient's room and spoke and patient. She said that she had decided to go into the hospital. HANANE explained to patient that the PT/OT will evaluate and assess what type of treatment patient needs. Patient is interested in TCU and RU at discharge from [facility]. HANANE sent email to Alicia/Jaylin advising patient is interested in TCU and Rehab. Ginger SWAIN
[2022-06-17 17:37] VITALS: BP 155/68; PULSE 57; RESP 18; TEMP 36.5; O2SAT 100
[2022-06-17 17:59] VITALS: BMI 18.5
[2022-06-17 18:00] VITALS: BP 156/52; PULSE 54; RESP 16; TEMP 36.3; O2SAT 99
[2022-06-17] MEDS: 0.9% Normal Saline 1,000 ML 100 ML IV (19:40)
[2022-06-17] MEDS: 0.9% Saline Lock 10 ML Syringe IV (19:40)
[2022-06-17] MEDS: tiZANidine HCl 2 MG Tablet PO (19:41)
[2022-06-17] MEDS: Gabapentin 100 MG Capsule PO (19:41)
[2022-06-17 21:33] VITALS: BP 131/57; PULSE 50; RESP 16; TEMP 36.6; O2SAT 100
[2022-06-17] MEDS: Heparin Injection (Vial) 5,000 UNIT/ML VIAL 5000 UNIT SC (21:42)
[2022-06-17] MEDS: MethylPREDNISolone DosePak 4 MG BOX PO (21:43)
[2022-06-18] MEDS: Morphine 4 MG/ML Syringe IV (00:41)
[2022-06-18] MEDS: 0.9% Saline Lock 10 ML Syringe IV ×2 (00:42→09:55)
[2022-06-18 03:10] VITALS: BP 146/79; PULSE 54; RESP 16; TEMP 37.1; O2SAT 99
[2022-06-18] MEDS: Mag Hydrox/Al Hydrox/Simeth 30 ML UDC PO (03:16)
[2022-06-18] MEDS: Levothyroxine 100 MCG Tablet PO (05:25)
[2022-06-18 07:08] VITALS: O2SAT 96
[2022-06-18 07:13] LABS: Absolute Lymphocyte Count 0.56 X10^3/uL (0.83-4.51); Hematocrit 31.8 % (37-47); Hemoglobin 9.7 g/dL (12.0-15.0); Lymphocyte # 0.56 X10^3/ul (0.83-4.51); Lymphocyte % 9.7 % (19-41); Mean Corp Hgb Conc 30.5 g/dL (32-36); Mean Corpuscular Hgb 28.7 pg (27.0-32.0); Mean Corpuscular Volume 94.1 fL (81-99); Mean Platelet Vol. 10.2 fl (6.2-12.0); Monocyte# 0.23 X10^3/uL; NRBC Flagged by Analyzer 0 % (0-5); Neutrophil # 4.98 X10^3/uL (2.7-7.7); POSITIVE DIFFERENTIAL YES; Platelet Count 269 K/mm3 (150-450); RBC Distribution Width CV 14.4 % (11.6-14.6); RBC Distribution Width SD 49.7 fl (35.1-43.9); Red Blood Count 3.38 M/mm3 (4.2-5.4); White Blood Count 5.8 K/mm3 (4.4-11.0)
[2022-06-18 07:15] LABS: Differential Indicated SCAN CRITERIA MET
--- NOTE | 2022-06-18 07:37 | PCM.PN.HOSP ---
Subjective Subjective Patient is an 81-year-old lady admitted with intractable low back pain Objective Data Objective Data Vital Signs: Vital Signs Temp Pulse Resp BP Pulse Ox O2 Del Method 98.8 F 54 L 16 146/79 H 99 Room Air 06/18/22 03:10 06/18/22 03:10 06/18/22 03:10 06/18/22 03:10 06/18/22 03:10 06/18/22 03:10 Oxygen Delivery Method Room Air Weight: 55.2 kg Body Mass Index (BMI) 18.5 Intake & Output: Intake and Output for Last 24 Hours 06/16/22 06/17/22 06/18/22 23:59 23:59 23:59 Intake Total 240 / 240 1800 / 1800 Output Total 1100 / 1100 Balance 240 / 240 700 / 700 Lab / Micro Data Result Diagrams: 06/18/22 06:10 06/18/22 06:10 Labs: Laboratory Results - last 24 hr 06/17/22 15:30: WBC 7.6, RBC 3.53 L, Hgb 10.3 L, Hct 32.8 L, MCV 92.9, MCH 29.2, MCHC 31.4 L, RDW Std Deviation 49.2 H, RDW Coeff of [place] 14.6, Plt Count 306, MPV 10.1, Immature Gran % (Auto) 0.400, Neut % (Auto) 92.9 H, Lymph % (Auto) 5.0 L, [place] % (Auto) 1.7, Eos % (Auto) 0.0, Baso % (Auto) 0.0, Absolute Neuts (auto) 7.1, Absolute Lymphs (auto) 0.38 L, Nucleated RBC % 0, Differential Comment SEE COMMENT, Platelet Estimate ADEQUATE, RBC Morphology N CHROM, Anisocytosis RARE, Macrocytosis RARE 06/17/22 15:30: Sodium 139, Potassium 4.2, Chloride 112 H, Carbon Dioxide 22.0, Anion Gap 5, BUN 60 H, Creatinine 1.59 H, Estim Creat Clear Calc 21.12, Est GFR (MDRD) Af Amer 40 L, Est GFR (MDRD) Non-Af 33 L, BUN/Creatinine Ratio 37.7 H, Glucose 114 H, Calcium 8.9 06/18/22 06:10: WBC 5.8, RBC 3.38 L, Hgb 9.7 L, Hct 31.8 L, MCV 94.1, MCH 28.7, MCHC 30.5 L, RDW Std Deviation 49.7 H, RDW Coeff of Ken[place] 14.4, Plt Count 269, MPV 10.2, Immature Gran % (Auto) 0.300, Neut % (Auto) 86.0 H, Lymph % (Auto) 9.7 L, [place] % (Auto) 4.0, Eos % (Auto) 0.0, Baso % (Auto) 0.0, Absolute Neuts (auto) 5.0, Absolute Lymphs (auto) 0.56 L, Nucleated RBC % 0 Physical Exam Narrative GENERAL: cooperative HEENT: Atraumatic; EYES; Anicteric, Normal Conjunctiva NECK; supple, normal thyroid, RESPIRATORY: Diminished to auscultation CARDIOVASCULAR: Regular S1 S2, GI: soft, normoactive bowel sounds, : No Renal angle tenderness; EXTREMITIES: No edema, no clubbing, MUSCULOSKELETAL: no muscle wasting NEURO: Awake; no lateralizing signs. SKIN: No Rash PSYCH; Flat affect Assessment & Plan Assessment/Plan (1) Sciatica associated with disorder of lumbar spine: PLAN: Plan Patient is an 81-year-old lady admitted with intractable low back pain 1. Intractable low back pain ? Thought to be secondary to sciatic pain with radiculopathy. Admitted to the regular nursing floor for symptom management 2. Chronic kidney disease stage III ? Kidney function at baseline 3. Rheumatoid arthritis ? Patient is on Orencia 4. Anemia - Secondary to chronic disorder monitoring H&H and transfuse if patient becomes symptomatic or hemoglobin falls below 7 5. Hypothyroidism - Patient is on levothyroxine home dose continued 6. AAA ? Currently being monitored serially by PCP 7. Previous history of DVT ? Patient did complete treatment 8. History of bladder CA ? Currently in remission 9. Carotid artery disease ? With previous right CEA by Dr. Santa 10. DVT prophylaxis ? SC heparin 11. Physical deconditioning - Requested for PT OT eval and outreach and education social worker to assist with discharge planning Charges/Coding Visit Charges OBSV E&M: 63664 Subsequent observation care L2
[2022-06-18 07:44] LABS: ALB/GLOB Ratio 0.8 RATIO (0.9-2.4); AST(SGOT) 24 U/L (15-37); Alanine Aminotransfer ALT/SGPT 24 U/L (13-56); Albumin, Serum 2.7 g/dL (3.2-5.0); Alkaline Phosphatase 107 U/L (45-117); Anion Gap 6 (5-15); BUN 53 mg/dL (7-18); BUN/Creat Ratio 35.3 RATIO (10-20); Calcium,Total 8.2 mg/dL (8.5-10.1); Chloride 110 mmol/L (98-107); EST Glomerular Filtration Rate 35 mL/min (>60); Est Glom Filt Rate - Afr Amer 43 mL/min (>60); Estimated Creatinine Clearance 24.76 ml/min; Globulin 3.2 g/dL (2.2-4.2); Glucose 119 mg/dL (74-106); Potassium 4.5 mmol/L (3.5-5.1); Protein, Total 5.9 g/dL (6.4-8.2); Sodium Level 140 mmol/L (136-145)
[2022-06-18 07:54] LABS: Platelet Estimate ADEQUATE (ADEQ); Red Cell Morphology NORM C+C NORMAL (NORM C&C)
[2022-06-18 09:00] VITALS: BP 131/56; PULSE 61; RESP 18; TEMP 36.6; O2SAT 96
[2022-06-18] MEDS: MethylPREDNISolone DosePak 4 MG BOX PO ×4 (09:51→21:28)
--- NOTE | 2022-06-18 09:51 | CASEMGMT ---
Social Work Sw in to met pt and discuss discharge plans. SW introduced self and explained role at the hospital. Pt adamant she will not go to a [facility] and hopes to go home as soon as possible. Pt explained she has a plastics engineering teacher at home she needs to get back to as he requires a fine patcher. SW discussed with PT that it is important for her to take care of herself as well, as she will be no help to plastics engineering teacher, Rafiq, if she cannot take care of herself first. Pt voiced understanding and agreeable to go somewhere inpatient and hopefully it will only be a short time. SW explained inpatient rehab depends on pt progress. Pt understanding. Patient was provided a list of?SNF?providers including quality and resource use data that is consistent with the patient?s preferred geographic region, medical needs, and insurance network. The patient?s preferred provider is [facility] Rehab Unit and her second choice is [facility] Transitional Care Unit. Pt stated if I cannot go to either of these I want to go home with Home health Care. HANANE discussed with Malou at and [facility]. Malou states pt will not be approved for as she has not qualifying DX to support an admit. [facility] does not have an open bed at this time. HANANE discussed with AISHACM, who will get a list of [facility] providers and discuss this with pt. ZEESHAN Chung
[2022-06-18] MEDS: Heparin Injection (Vial) 5,000 UNIT/ML VIAL 5000 UNIT SC ×2 (09:57→21:28)
[2022-06-18] MEDS: Lidocaine 5% Patch 2 PATCH TOPICAL (09:57)
[2022-06-18] MEDS: Gabapentin 100 MG Capsule PO ×3 (10:01→17:03)
[2022-06-18] MEDS: oxyCODONE 5 MG Tablet PO ×2 (10:01→23:26)
[2022-06-18] MEDS: tiZANidine HCl 2 MG Tablet PO (10:02)
--- NOTE | 2022-06-18 10:17 | DS.PCM_ITS ---
Providers Date of Admission: 06/17/22 Date of Discharge: 06/18/22 Primary Care Physician: Dr. Nito Rivera MD Reason For Visit: INTRACTABLE BACK PAIN Diagnosis Discharge Diagnosis (1) Sciatica associated with disorder of lumbar spine: Status: Acute Code(s): M53.86 - Other specified dorsopathies, lumbar region (2) Sciatica: Status: Acute Code(s): M54.30 - Sciatica, unspecified side Plan Patient is an 81-year-old lady admitted with intractable low back pain 1. Intractable low back pain ? Thought to be secondary to sciatic pain with radiculopathy. Admitted to the regular nursing floor for symptom management 2. Chronic kidney disease stage III ? Kidney function at baseline 3. Rheumatoid arthritis ? Patient is on Orencia 4. Anemia - Secondary to chronic disorder monitoring H&H and transfuse if patient becomes symptomatic or hemoglobin falls below 7 5. Hypothyroidism - Patient is on levothyroxine home dose continued 6. AAA ? Currently being monitored serially by PCP 7. Previous history of DVT ? Patient did complete treatment 8. History of bladder CA ? Currently in remission 9. Carotid artery disease ? With previous right CEA by Dr. Santa 10. DVT prophylaxis ? SC heparin 11. Physical deconditioning - Requested for PT OT eval and manager social services to assist with discharge planning Medications at Discharge Home Medications levothyroxine 100 mcg tablet 150 mcg PO CRUZ THYROID 03/18/22 abatacept 125 mg/mL subcutaneous syringe (Orencia) 125 mg subcut FR ARTHRITIS 06/17/22 levothyroxine 100 mcg tablet 100 mcg PO MOTUWETHFRSA THYROID 06/17/22 acetaminophen 325 mg tablet (Tylenol) 650 mg PO Q4H PRN PRN Fever, pain 1-10 #0 tabs 06/18/22 gabapentin 100 mg capsule 100 mg PO TIDCM #90 caps 06/18/22 lidocaine 5 % topical patch 2 patch topical DAILY #60 ea 06/18/22 oxycodone 5 mg tablet 5 mg PO Q4H PRN PRN Pain Score 4-5 3 days #12 tabs 06/18/22 prednisone 20 mg tablet 40 mg PO DAILY #10 tabs 06/18/22 Hospital Course Summary of Care Provided Minutes Spent on Discharge: 35 Hospital Course: Patient is an 81-year-old lady admitted with intractable low back pain 1. Intractable low back pain ? Thought to be secondary to sciatic pain with radiculopathy. Admitted to the regular nursing floor for symptom management -06/18/2022 patient symptoms did improve the day after her admission. She was discharged home with home health 2. Chronic kidney disease stage III ? Kidney function at baseline 3. Rheumatoid arthritis ? Patient is on Orencia 4. Anemia - Secondary to chronic disorder monitoring H&H and transfuse if patient becomes symptomatic or hemoglobin falls below 7 5. Hypothyroidism - Patient is on levothyroxine home dose continued 6. AAA ? Currently being monitored serially by PCP 7. Previous history of DVT ? Patient did complete treatment 8. History of bladder CA ? Currently in remission 9. Carotid artery disease ? With previous right CEA by Dr. Santa 10. DVT prophylaxis ? SC heparin 11. Physical deconditioning - Requested for PT OT eval and manager social services to assist with discharge planning Physical Exam Narrative GENERAL: cooperative HEENT: Atraumatic; EYES; Anicteric, Normal Conjunctiva NECK; supple, normal thyroid, RESPIRATORY: Diminished to auscultation CARDIOVASCULAR: Regular S1 S2, GI: soft, normoactive bowel sounds, : No Renal angle tenderness; EXTREMITIES: No edema, no clubbing, MUSCULOSKELETAL: no muscle wasting NEURO: Awake; no lateralizing signs. SKIN: No Rash PSYCH; Flat affect Weight / BMI Weight Weight: 55.2 kg Body Mass Index (BMI) 18.5 ABG / Lab / Microbiology Data Result Diagrams: 06/18/22 06:10 06/18/22 06:10 Laboratory: Laboratory Results - last 24 hr 06/17/22 15:30: WBC 7.6, RBC 3.53 L, Hgb 10.3 L, Hct 32.8 L, MCV 92.9, MCH 29.2, MCHC 31.4 L, RDW Std Deviation 49.2 H, RDW Coeff of Kenzie 14.6, Plt Count 306, MPV 10.1, Immature Gran % (Auto) 0.400, Neut % (Auto) 92.9 H, Lymph % (Auto) 5.0 L, [place] % (Auto) 1.7, Eos % (Auto) 0.0, Baso % (Auto) 0.0, Absolute Neuts (auto) 7. 1, Absolute Lymphs (auto) 0.38 L, Nucleated RBC % 0, Differential Comment SEE COMMENT, Platelet Estimate ADEQUATE, RBC Morphology N CHROM, Anisocytosis RARE, Macrocytosis RARE 06/17/22 15:30: Sodium 139, Potassium 4.2, Chloride 112 H, Carbon Dioxide 22.0, Anion Gap 5, BUN 60 H, Creatinine 1.59 H, Estim Creat Clear Calc 21.12, Est GFR (MDRD) Af Amer 40 L, Est GFR (MDRD) Non-Af 33 L, BUN/Creatinine Ratio 37.7 H, Glucose 114 H, Calcium 8.9 06/18/22 06:10: WBC 5.8, RBC 3.38 L, Hgb 9.7 L, Hct 31.8 L, MCV 94.1, MCH 28.7, MCHC 30.5 L, RDW Std Deviation 49.7 H, RDW Coeff of Kenzie 14.4, Plt Count 269, MPV 10.2, Immature Gran % (Auto) 0.300, Neut % (Auto) 86.0 H, Lymph % (Auto) 9.7 L, [place] % (Auto) 4.0, Eos % (Auto) 0.0, Baso % (Auto) 0.0, Absolute Neuts (auto) 5.0, Absolute Lymphs (auto) 0.56 L, Nucleated RBC % 0, Differential Comment , Platelet Estimate ADEQUATE, RBC Morphology NORM C+C 06/18/22 06:10: Sodium 140, Potassium 4.5, Chloride 110 H, Carbon Dioxide 24.0, Anion Gap 6, BUN 53 H, Creatinine 1.50 H, Estim Creat Clear Calc 24.76, Est GFR (MDRD) Af Amer 43 L, Est GFR (MDRD) Non-Af 35 L, BUN/Creatinine Ratio 35.3 H, Glucose 119 H, Calcium 8.2 L, Total Bilirubin 0.40, AST 24, ALT 24, Alkaline Phosphatase 107, Total Protein 5.9 L, Albumin 2.7 L, Globulin 3.2, Albumin/Globulin Ratio 0.8 L D/C Instructions Discharge Diet: No restrictions Discharge Activity: Return to Normal Activity Call your doctor if you observe: Fever of 101 or Higher, Shortness of breath, Fainting spells and Chest pain Meaningful Use Info Meaningful Use Diagnoses (Choose all that apply): None applicable Discharge Plan Admission Admit Date/Time: 06/17/22 17:03 Attending Provider: Bassam Sigala Primary Care Provider: Nito Rivera Consulting Providers: Noemi Boone Discharge Orders/Prescriptions Prescriptions: New acetaminophen [Tylenol] 325 mg Tablet 650 mg PO Q4H PRN PRN (Reason: Fever, pain 1-10) Qty: 0 0RF lidocaine 5 % Adhesive Patch,Medicated 2 patch topical DAILY Qty: 60 0RF Protocol: *Topical Application Instructions APPLICATION INSTRUCTIONS: lumbar spine gabapentin 100 mg Capsule 100 mg PO TIDCM Qty: 90 0RF oxycodone 5 mg Tablet 5 mg PO Q4H PRN PRN (Reason: Pain Score 4-5) 3 Days Qty: 12 0RF prednisone 20 mg tablet 40 mg PO DAILY Qty: 10 0RF Continued levothyroxine 100 mcg tablet 150 mcg PO CRUZ levothyroxine 100 mcg tablet 100 mcg PO MOTUWETHFRSA Label Comments: TAKE 1 TABLET BY MOUTH ONCE DAILY, THURSDAY THRU THURSDAY, AND 1 & 1/2 TABLETS ON THURSDAY Orencia 125 mg/mL Syringe 125 mg SUBCUT FR Referrals / Follow Up: Nito Rivera MD [Primary Care Provider] - In 1 Week Disposition Disposition (needs filled in before D/C Order can be placed): Home Health Servi ce Charges/Coding Visit Charges OBSV E&M: 19800 Observation care discharge
--- NOTE | 2022-06-18 10:20 | CASEMGMT ---
AISHA SOLOMON in to pt room, pt nurse at bedside. Discussed with patient HHC options at home and expectations of HHC. Pt questioned what other options were. She is concerned that she will not be able to get out of bed again. Discussed HHC vs SNF. Pt states she knows a therapist that she can private hire to supplement the HHC therapists. She is aware she would need to set this up. She states the therapist is Liz Zamarripa. She expresses concern of her friend at home and she needs to care for him as he just was discharged from [facility]. She states she has others caring for him and who stayed the night with him. Pt states she will work with therapy to determine if she wants to for sure go home or go to SNF. She is aware TCU has no beds at this time. Patient was provided a list of HHC providers including quality and resource use data and consistent with the patient?s preferred geographic region, medical needs, and insurance network. The patient?s preferred provider is [facility] should she go home. AISHA SOLOMON to check in once pt has worked with therapy.
--- NOTE | 2022-06-18 11:44 | CASEMGMT ---
Addendum entered by Jaylin Hough 06/18/22 13:20: SW in to ask pt if she would like family notified of the plan for her to wait in the hospital for TCU. Pt shared she has spoken to her retail assistant manager, Rafiq, and there is no one else that she would like notified at this time. ZEESHAN Chung Addendum entered by Jaylin Hough 06/18/22 11:46: HANANE also updated Alicia GARCIA that HHC is no longer needed at this time. ZEESHAN Chung Original Note: Social Work SW notified that a TCU bed is now open and pt can go pending precert. HANANE met with pt and she accepts the bed. SW explained insurance will have to approve before she can go. Pt voiced understanding. HANANE updated Malou at TCU. Malou will start precert today. HANANE updated Dr. Sigala with new discharge plan. Plan: TCU, pending precert. Jaylin Hough
--- NOTE | 2022-06-18 12:22 | CASEMGMT ---
AISHA CM in to discuss GLEASON form with patient. RN CM explained GLEASON form, patient voiced understanding. Pt signed form and filed in chart. Pt provided with a copy of signed GLEASON form. Patient had no further questions or concerns at this time.
[2022-06-18 15:00] VITALS: BP 150/64; PULSE 53; RESP 18; TEMP 36.6; O2SAT 98
[2022-06-18 21:17] VITALS: BP 156/60; PULSE 57; RESP 18; TEMP 36.4; O2SAT 97
[2022-06-18] MEDS: Senna/Docusate Sodium 1 Tablet 2 TABLET PO (21:28)
[2022-06-19] VITALS (8 sets, daily range): BP systolic 121–149; BP diastolic 54–76; PULSE 54–58; RESP 14–18; TEMP 36.6–37; O2SAT 96–100
[2022-06-19] MEDS: Levothyroxine 100 MCG Tablet PO (05:42)
--- NOTE | 2022-06-19 07:40 | PN.HOSP_ITS ---
Subjective Subjective Patient seen pain level improved. Patient agreed to be discharged to a care home facility instead of going home with home health. Referral has been sent to the transitional care unit awaiting insurance approval prior to discharge Objective Data Objective Data Vital Signs: Vital Signs Temp Pulse Resp BP Pulse Ox O2 Del Method 98.3 F 54 L 18 144/64 H 97 Room Air 06/19/22 03:18 06/19/22 03:18 06/19/22 03:18 06/19/22 03:18 06/19/22 03:18 06/19/22 03:18 Oxygen Delivery Method Room Air Weight: 51.5 kg Body Mass Index (BMI) 18.5 Intake & Output: Intake and Output for Last 24 Hours 06/17/22 06/18/22 06/19/22 23:59 23:59 23:59 Intake Total 240 / 240 2640 / 2940 400 / 400 Output Total 1500 / 1900 900 / 900 Balance 240 / 240 1140 / 1040 -500 / -500 Medical Nutrition Assessment Dietitian: Malnutrition Criteria Met Start: 06/18/22 11:03 Freq: Status: Active Protocol: Document 06/18/22 11:04 RMA (Rec: 06/18/22 11:04 RMA [id number]) Nutrition Malnutrition Evidence of Malnutrition Exists Yes Malnutrition (severe): Chronic Evidenced By Suboptimal Energy Intake ( Severe),Weight Loss (Severe), Physical Changes (Moderate) Clinical Problem Chronic Disease or Condition Related Malnutrition Etiology Severe protein-calorie malnutrition in the context of chronic disease and debility related to inadequate calorie intake and decreased appetite due to chronic pain Signs/Symptoms as evidenced by mild to moderate muscle/fat wasting in the face and clavicle, wt loss ~24% x past 12 months, BMI 20.3 and PO meeting less than 50-75% estimated nutrition needs x 6-12 months Status Active Problem Recommendation Dietitian Recommendations/Changes Will continue regular diet as ordered. Will add 120 ml vanilla ensure enlive TID w/ meals. Add/adjust ONS as needed to optimize PO and prevent further weight loss. Lab / Micro Data Result Diagrams: 06/18/22 06:10 06/18/22 06:10 Labs: Laboratory Results - last 24 hr 06/18/22 06:10: Differential Comment , Platelet Estimate ADEQUATE, RBC Morphology NORM C+C 08/10/22 06:10: Sodium 140, Potassium 4.5, Chloride 110 H, Carbon Dioxide 24.0, Anion Gap 6, BUN 53 H, Creatinine 1.50 H, Estim Creat Clear Calc 24.76, Est GFR (MDRD) Af Amer 43 L, Est GFR (MDRD) Non-Af 35 L, BUN/Creatinine Ratio 35.3 H, Glucose 119 H, Calcium 8.2 L, Total Bilirubin 0.40, AST 24, ALT 24, Alkaline Ph osphatase 107, Total Protein 5.9 L, Albumin 2.7 L, Globulin 3.2, Albumin/Globulin Ratio 0.8 L Physical Exam Narrative GENERAL: cooperative HEENT: Atraumatic; EYES; Anicteric, Normal Conjunctiva NECK; supple, normal thyroid, RESPIRATORY: Diminished to auscultation CARDIOVASCULAR: Regular S1 S2, GI: soft, normoactive bowel sounds, : No Renal angle tenderness; EXTREMITIES: No edema, no clubbing, MUSCULOSKELETAL: no muscle wasting NEURO: Awake; no lateralizing signs. SKIN: No Rash PSYCH; Flat affect Assessment & Plan Assessment/Plan (1) Sciatica associated with disorder of lumbar spine: (2) Sciatica: PLAN: Plan Patient is an 81-year-old lady admitted with intractable low back pain 1. Intractable low back pain ? Thought to be secondary to sciatic pain with radiculopathy. Admitted to the regular nursing floor for symptom management ? 2Patient seen pain level improved. Patient agreed to be discharged to a care home facility instead of going home with home health. Referral has been sent to the transitional care unit awaiting insurance approval prior to discharge 2. Chronic kidney disease stage III ? Kidney function at baseline 3. Rheumatoid arthritis ? Patient is on Orencia 4. Anemia - Secondary to chronic disorder monitoring H&H and transfuse if patient becomes symptomatic or hemoglobin falls below 7 5. Hypothyroidism - Patient is on levothyroxine home dose continued 6. AAA ? Currently being monitored serially by PCP 7. Previous history of DVT ? Patient did complete treatment 8. History of bladder CA ? Currently in remission 9. Carotid artery disease ? With previous right CEA by Dr. Santa 10. DVT prophylaxis ? SC heparin 11. Physical deconditioning - Requested for PT OT eval and social and human services assistant to assist with discharge planning Charges/Coding Visit Charges OBSV E&M: 81061 Subsequent observation care L2
[2022-06-19] MEDS: MethylPREDNISolone DosePak 4 MG BOX PO ×4 (09:28→22:17)
[2022-06-19] MEDS: Aspirin 81 MG TAB.CHEW PO (09:29)
[2022-06-19] MEDS: Heparin Injection (Vial) 5,000 UNIT/ML VIAL 5000 UNIT SC ×2 (09:29→22:17)
[2022-06-19] MEDS: Lidocaine 5% Patch 2 PATCH TOPICAL (09:29)
[2022-06-19] MEDS: oxyCODONE 5 MG Tablet PO ×2 (09:34→22:19)
[2022-06-19] MEDS: Gabapentin 100 MG Capsule PO ×3 (09:34→17:58)
[2022-06-19] MEDS: 0.9% Saline Lock 10 ML Syringe IV (10:41)
[2022-06-19] MEDS: Acetaminophen 325 MG Tablet 650 MG PO (22:19)
[2022-06-20 03:30] VITALS: BP 134/70; PULSE 55; RESP 12; TEMP 36.7; O2SAT 98
[2022-06-20] MEDS: Levothyroxine 100 MCG Tablet PO (06:00)
--- NOTE | 2022-06-20 07:25 | PCM.PN.HOSP ---
Subjective Subjective Awaiting insurance precertification prior to transfer to alf facility Objective Data Objective Data Vital Signs: Vital Signs Temp Pulse Resp BP Pulse Ox O2 Del Method 98.0 F 55 L 12 134/70 H 98 Room Air 06/20/22 03:30 06/20/22 03:30 06/20/22 03:30 06/20/22 03:30 06/20/22 03:30 06/20/22 03:30 Oxygen Delivery Method Room Air Weight: 54.431 kg Body Mass Index (BMI) 18.5 Intake & Output: Intake and Output for Last 24 Hours 06/18/22 06/19/22 06/20/22 23:59 23:59 23:59 Intake Total 2640 / 2940 400 / 850 650 / 650 Output Total 1500 / 1900 1225 / 2075 1750 / 1750 Balance 1140 / 1040 -825 / -1225 -1100 / -1100 Medical Nutrition Assessment Dietitian: Malnutrition Criteria Met Start: 06/18/22 11:03 Freq: Status: Active Protocol: Document 06/18/22 11:04 RMA (Rec: 06/18/22 11:04 RMA [id number]) Nutrition Malnutrition Evidence of Malnutrition Exists Yes Malnutrition (severe): Chronic Evidenced By Suboptimal Energy Intake ( Severe),Weight Loss (Severe), Physical Changes (Moderate) Clinical Problem Chronic Disease or Condition Related Malnutrition Etiology Severe protein-calorie malnutrition in the context of chronic disease and debility related to inadequate calorie intake and decreased appetite due to chronic pain Signs/Symptoms as evidenced by mild to moderate muscle/fat wasting in the face and clavicle, wt loss ~24% x past 12 months, BMI 20.3 and PO meeting less than 50-75% estimated nutrition needs x 6-12 months Status Active Problem Recommendation Dietitian Recommendations/Changes Will continue regular diet as ordered. Will add 120 ml vanilla ensure enlive TID w/ meals. Add/adjust ONS as needed to optimize PO and prevent further weight loss. Lab / Micro Data Result Diagrams: 06/18/22 06:10 06/18/22 06:10 Physical Exam Narrative GENERAL: cooperative HEENT: Atraumatic; EYES; Anicteric, Normal Conjunctiva NECK; supple, normal thyroid, RESPIRATORY: Diminished to auscultation CARDIOVASCULAR: Regular S1 S2, GI: soft, normoactive bowel sounds, : No Renal angle tenderness; EXTREMITIES: No edema, no clubbing, MUSCULOSKELETAL: no muscle wasting NEURO: Awake; no lateralizing signs. SKIN: No Rash PSYCH; Flat affect Assessment & Plan Assessment/Plan (1) Sciatica associated with disorder of lumbar spine: (2) Sciatica: PLAN: Plan Patient is an 81-year-old lady admitted with intractable low back pain 1. Intractable low back pain ? Thought to be secondary to sciatic pain with radiculopathy. Admitted to the regular nursing floor for symptom management ? 06/19/2022atient seen pain level improved. Patient agreed to be discharged to a alf facility instead of going home with home health. Referral has been sent to the transitional care unit awaiting insurance approval prior to discharge ? 06/20/2022; insurance pre-CERT still pending 2. Chronic kidney disease stage III ? Kidney function at baseline 3. Rheumatoid arthritis ? Patient is on Orencia 4. Anemia - Secondary to chronic disorder monitoring H&H and transfuse if patient becomes symptomatic or hemoglobin falls below 7 5. Hypothyroidism - Patient is on levothyroxine home dose continued 6. AAA ? Currently being monitored serially by PCP 7. Previous history of DVT ? Patient did complete treatment 8. History of bladder CA ? Currently in remission 9. Carotid artery disease ? With previous right CEA by Dr. Santa 10. DVT prophylaxis ? SC heparin 11. Physical deconditioning - Requested for PT OT eval and social insurance administrator to assist with discharge planning Charges/Coding Visit Charges Inpatient E&M: 36048 Subs Hosp L2
[2022-06-20 07:43] VITALS: O2SAT 97
[2022-06-20 08:44] VITALS: BP 144/65; PULSE 56; RESP 18; TEMP 36.6; O2SAT 98
[2022-06-20 08:45] VITALS: PULSE 56; O2SAT 96
[2022-06-20] MEDS: Aspirin 81 MG TAB.CHEW PO (08:53)
[2022-06-20] MEDS: Lidocaine 5% Patch 2 PATCH TOPICAL (08:54)
[2022-06-20] MEDS: Heparin Injection (Vial) 5,000 UNIT/ML VIAL 5000 UNIT SC (08:54)
[2022-06-20] MEDS: Gabapentin 100 MG Capsule PO ×2 (08:55→11:59)
[2022-06-20] MEDS: MethylPREDNISolone DosePak 4 MG BOX PO ×2 (08:55→11:59)
--- NOTE | 2022-06-20 10:33 | CASEMGMT ---
Addendum entered by Leyla Griffin 06/20/22 13:24: Social Work SW notified that precert has been obtained and pt can discharge to TCU today. Physician updated and pt is ready for discharge. SW updated pt and she is agreeable with discharge. Pt states she will call her significant other Rafiq. Orders faxed to TCU. Nursing made aware of discharge and that pt will need a covid test. Disposition: TCU, skilled level of care ZEESHAN Couch Original Note: Social Work SW met with pt and updated that precert is still pending with insurance. Pt reassured that bed will not be given away as pt expresses these fears. Will await precert from insurance with plans to go to TCU when obtained. Plan: TCU, pending precert ZEESHAN Couch
[2022-06-20] MEDS: oxyCODONE 5 MG Tablet PO (10:40)
--- NOTE | 2022-06-20 13:11 | PCM.TXEXTCAR ---
Diet Diet Order/Speech Therapy: 06/17/22 18:12 Diet: Regular - General Food consistency:: Regular Liquid Consistency:: Regular/Thin Type of Dietary Supplement:: Ensure Enlive Diet Comments: 120ml vanilla ensure enlive TID w/ meals Therapies Physical Therapy: Eval and Treat Occupational Therapy: Eval and Treat Problem/Diagnosis (1) Sciatica associated with disorder of lumbar spine: Status: Acute Code(s): M53.86 - Other specified dorsopathies, lumbar region (2) Sciatica: Status: Acute Code(s): M54.30 - Sciatica, unspecified side Plan Patient is an 81-year-old lady admitted with intractable low back pain 1. Intractable low back pain ? Thought to be secondary to sciatic pain with radiculopathy. Admitted to the regular nursing floor for symptom management ? 06/19/2022atient seen pain level improved. Patient agreed to be discharged to a fci facility instead of going home with home health. Referral has been sent to the transitional care unit awaiting insurance approval prior to discharge ? 06/20/2022; insurance pre-CERT still pending 2. Chronic kidney disease stage III ? Kidney function at baseline 3. Rheumatoid arthritis ? Patient is on Orencia 4. Anemia - Secondary to chronic disorder monitoring H&H and transfuse if patient becomes symptomatic or hemoglobin falls below 7 5. Hypothyroidism - Patient is on levothyroxine home dose continued 6. AAA ? Currently being monitored serially by PCP 7. Previous history of DVT ? Patient did complete treatment 8. History of bladder CA ? Currently in remission 9. Carotid artery disease ? With previous right CEA by Dr. Santa 10. DVT prophylaxis ? SC heparin 11. Physical deconditioning - Requested for PT OT eval and social media community manager to assist with discharge planning Allergies/Procedures Done in Hospital Allergies No Known Allergies Allergy (Verified 06/17/22 13:48) Procedures: None Type of Care/Length of Stay Estimated LOS: Convalescent Care Less Than 30 days Type of Care Needed: Skilled Rehab Potential: Good Prognosis: Good Additional Orders/Day of Discharge H&P will serve as current which was dated: 06/20/22 Day of Discharge: 06/20/22 Dietary and Speech Recommendations Dietitian Recommendations/Changes: Will continue regular diet as ordered. Will add 120 ml vanilla ensure enlive TID w/ meals. Add/adjust ONS as needed to optimize PO and prevent further weight loss. Discharge Plan Admission Admit Date/Time: 06/17/22 17:03 Attending Provider: Bassam Sigala Primary Care Provider: Nito Rivera Consulting Providers: Noemi Boone Discharge Orders/Prescriptions Prescriptions: New acetaminophen [Tylenol] 325 mg Tablet 650 mg PO Q4H PRN PRN (Reason: Fever, pain 1-10) Qty: 0 0RF lidocaine 5 % Adhesive Patch,Medicated 2 patch topical DAILY Qty: 60 0RF Protocol: *Topical Application Instructions APPLICATION INSTRUCTIONS: lumbar spine gabapentin 100 mg Capsule 100 mg PO TIDCM Qty: 90 0RF prednisone 20 mg tablet 40 mg PO DAILY Qty: 10 0RF tizanidine 2 mg Tablet 2 mg PO Q8H PRN PRN (Reason: muscle spasm, strain) Qty: 0 0RF sennosides-docusate sodium [Stool Softener-Stimulant Laxat] 8.6-50 mg Tablet 2 tab PO BID PRN PRN (Reason: Constipation) Qty: 0 0RF melatonin 3 mg Tablet 3 mg PO QHS PRN PRN (Reason: Insomnia) Qty: 0 0RF alum-mag hydroxide-simeth [Mag-Al Plus Extra Strength] 400-400-40 mg/5 mL Suspension 30 ml PO Q6H PRN PRN (Reason: Gastric Burning) Qty: 0 0RF oxycodone 5 mg capsule 5 mg PO Q6H PRN (Reason: pain) 2 Days Qty: 6 0RF Continued levothyroxine 100 mcg tablet 150 mcg PO CRUZ levothyroxine 100 mcg tablet 100 mcg PO MOTUWETHFRSA Label Comments: TAKE 1 TABLET BY MOUTH ONCE DAILY, THURSDAY THRU THURSDAY, AND 1 & 1/2 TABLETS ON THURSDAY Orencia 125 mg/mL Syringe 125 mg SUBCUT FR Referrals / Follow Up: Nito Rivera MD [Primary Care Provider] - In 1 Week Disposition Disposition (needs filled in before D/C Order can be placed): Retirement Facility
--- NOTE | 2022-06-20 13:19 | PCM.DC.SUM ---
Providers Date of Admission: 06/17/22 Date of Discharge: 06/20/22 Primary Care Physician: Dr. Nito Rivera MD Reason For Visit: INTRACTABLE BACK PAIN Diagnosis Discharge Diagnosis (1) Sciatica associated with disorder of lumbar spine: Status: Acute Code(s): M53.86 - Other specified dorsopathies, lumbar region (2) Sciatica: Status: Acute Code(s): M54.30 - Sciatica, unspecified side Plan Patient is an 81-year-old lady admitted with intractable low back pain 1. Intractable low back pain ? Thought to be secondary to sciatic pain with radiculopathy. Admitted to the regular nursing floor for symptom management 2. Chronic kidney disease stage III ? Kidney function at baseline 3. Rheumatoid arthritis ? Patient is on Orencia 4. Anemia - Secondary to chronic disorder monitoring H&H and transfuse if patient becomes symptomatic or hemoglobin falls below 7 5. Hypothyroidism - Patient is on levothyroxine home dose continued 6. AAA ? Currently being monitored serially by PCP 7. Previous history of DVT ? Patient did complete treatment 8. History of bladder CA ? Currently in remission 9. Carotid artery disease ? With previous right CEA by Dr. Santa 10. DVT prophylaxis ? SC heparin 11. Physical deconditioning - Requested for PT OT eval and social services coordinator to assist with discharge planning Medications at Discharge Home Medications levothyroxine 100 mcg tablet 150 mcg PO CRUZ THYROID 03/18/22 abatacept 125 mg/mL subcutaneous syringe (Orencia) 125 mg subcut FR ARTHRITIS 06/17/22 levothyroxine 100 mcg tablet 100 mcg PO MOTUWETHFRSA THYROID 06/17/22 acetaminophen 325 mg tablet (Tylenol) 650 mg PO Q4H PRN PRN Fever, pain 1-10 #0 tabs 06/18/22 gabapentin 100 mg capsule 100 mg PO TIDCM #90 caps 06/18/22 lidocaine 5 % topical patch 2 patch topical DAILY #60 ea 06/18/22 prednisone 20 mg tablet 40 mg PO DAILY #10 tabs 06/18/22 aluminum-mag hydroxide-simethicone 400 mg-400 mg-40 mg/5 mL oral susp (Mag-Al Plus Extra Strength) 30 ml PO Q6H PRN PRN Gastric Burning #0 mL 06/20/22 melatonin 3 mg tablet 3 mg PO QHS PRN PRN Insomnia #0 tabs 06/20/22 oxycodone 5 mg capsule 5 mg PO Q6H PRN pain 2 days #6 caps 06/20/22 sennosides 8.6 mg-docusate sodium 50 mg tablet (Stool Softener-Stimulant Laxative) 2 tab PO BID PRN PRN Constipation #0 tabs 06/20/22 tizanidine 2 mg tablet 2 mg PO Q8H PRN PRN muscle spasm, strain #0 tabs 06/20/22 Hospital Course Summary of Care Provided Minutes Spent on Discharge: 35 Physical Exam Narrative GENERAL: cooperative HEENT: Atraumatic; EYES; Anicteric, Normal Conjunctiva NECK; supple, normal thyroid, RESPIRATORY: Diminished to auscultation CARDIOVASCULAR: Regular S1 S2, GI: soft, normoactive bowel sounds, : No Renal angle tenderness; EXTREMITIES: No edema, no clubbing, MUSCULOSKELETAL: no muscle wasting NEURO: Awake; no lateralizing signs. SKIN: No Rash PSYCH; Flat affect Medical Records Data Medical Nutrition Assessment Dietitian: Malnutrition Criteria Met Start: 06/18/22 11:03 Freq: Status: Active Protocol: Document 06/18/22 11:04 RMA (Rec: 06/18/22 11:04 RMA [id number]) Nutrition Malnutrition Evidence of Malnutrition Exists Yes Malnutrition (severe): Chronic Evidenced By Suboptimal Energy Intake ( Severe),Weight Loss (Severe), Physical Changes (Moderate) Clinical Problem Chronic Disease or Condition Related Malnutrition Etiology Severe protein-calorie malnutrition in the context of chronic disease and debility related to inadequate calorie intake and decreased appetite due to chronic pain Signs/Symptoms as evidenced by mild to moderate muscle/fat wasting in the face and clavicle, wt loss ~24% x past 12 months, BMI 20.3 and PO meeting less than 50-75% estimated nutrition needs x 6-12 months Status Active Problem Recommendation Dietitian Recommendations/Changes Will continue regular diet as ordered. Will add 120 ml vanilla ensure enlive TID w/ meals. Add/adjust ONS as needed to optimize PO and prevent further weight loss. Weight / BMI Weight Weight: 54.431 kg Body Mass Index (BMI) 18.5 ABG / Lab / Microbiology Data Result Diagrams: 06/18/22 06:10 06/18/22 06:10 D/C Instructions Discharge Diet: No restrictions Call your doctor if you observe: Fever of 101 or Higher, Shortness of breath, Fainting spells and Chest pain Meaningful Use Info Meaningful Use Diagnoses (Choose all that apply): None applicable Discharge Plan Admission Admit Date/Time: 06/17/22 17:03 Attending Provider: Bassam Sigala Primary Care Provider: Nito Rivera Consulting Providers: Noemi Boone Discharge Orders/Prescriptions Prescriptions: New acetaminophen [Tylenol] 325 mg Tablet 650 mg PO Q4H PRN PRN (Reason: Fever, pain 1-10) Qty: 0 0RF lidocaine 5 % Adhesive Patch,Medicated 2 patch topical DAILY Qty: 60 0RF Protocol: *Topical Application Instructions APPLICATION INSTRUCTIONS: lumbar spine gabapentin 100 mg Capsule 100 mg PO TIDCM Qty: 90 0RF prednisone 20 mg tablet 40 mg PO DAILY Qty: 10 0RF tizanidine 2 mg Tablet 2 mg PO Q8H PRN PRN (Reason: muscle spasm, strain) Qty: 0 0RF sennosides-docusate sodium [Stool Softener-Stimulant Laxat] 8.6-50 mg Tablet 2 tab PO BID PRN PRN (Reason: Constipation) Qty: 0 0RF melatonin 3 mg Tablet 3 mg PO QHS PRN PRN (Reason: Insomnia) Qty: 0 0RF alum-mag hydroxide-simeth [Mag-Al Plus Extra Strength] 400-400-40 mg/5 mL Suspension 30 ml PO Q6H PRN PRN (Reason: Gastric Burning) Qty: 0 0RF oxycodone 5 mg capsule 5 mg PO Q6H PRN (Reason: pain) 2 Days Qty: 6 0RF Continued levothyroxine 100 mcg tablet 150 mcg PO CRUZ levothyroxine 100 mcg tablet 100 mcg PO MOTUWETHFRSA Label Comments: TAKE 1 TABLET BY MOUTH ONCE DAILY, THURSDAY THRU THURSDAY, AND 1 & 1/2 TABLETS ON THURSDAY Orencia 125 mg/mL Syringe 125 mg SUBCUT FR Referrals / Follow Up: Nito Rivera MD [Primary Care Provider] - In 1 Week Disposition Disposition (needs filled in before D/C Order can be placed): Assisted Facility Charges/Coding Visit Charges OBSV E&M: 20989 Observation care discharge
[2022-06-20 14:33] VITALS: BP 127/63; PULSE 62; RESP 18; TEMP 36.8; O2SAT 97
== END 2022-06-20 15:55 | disposition skilled nursing facility (03) ==
LOC: ED 17:09 → MS3 17:19
PROVIDERS: Admitting Provider Family Medicine; Emergency Provider Student in an Organized Health Care Education/Training Program; PCP Family Medicine; Visit Provider Internal Medicine
DX: M54.40 Lumbago with sciatica, unspecified side (principal); M06.9 Rheumatoid arthritis, unspecified; I71.4 Abdominal aortic aneurysm, without rupture; I77.9 Disorder of arteries and arterioles, unspecified; N18.30 Chronic kidney disease, stage 3 unspecified; R26.2 Difficulty in walking, not elsewhere classified; E03.9 Hypothyroidism, unspecified; D64.9 Anemia, unspecified; M47.20 Other spondylosis with radiculopathy, site unspecified; Z79.899 Other long term (current) drug therapy; Z79.890 Hormone replacement therapy; Z86.718 Personal history of other venous thrombosis and embolism; D50.9 Iron deficiency anemia, unspecified; I89.0 Lymphedema, not elsewhere classified
CPT/HCPCS: 36415; 80048; 80053; 85025; 87426; 96361; 96372; 96374; 96375; 96376; 97110; 97116; 97162; 97166; 97530; 97535; 97802; 99218; 99284; J7030; A4216; G0378; J2405

== ENCOUNTER 2022-06-20 16:03 | Inpatient (IN) | payer MEDICARE, SELFPAY ==
[2022-06-20 16:22] VITALS: BMI 19.1
--- NOTE | 2022-06-20 16:43 | NURSING ---
CODE STATUS DISCUSSED. WISHES TO BE DNRCC-A. PAPER SIGNED AND PURPLE BRACELET APPLIED.
[2022-06-20 16:44] VITALS: BP 137/66; PULSE 58; RESP 16; TEMP 36.4; O2SAT 96
[2022-06-20 16:54] VITALS: PULSE 58
[2022-06-20] MEDS: oxyCODONE 5 MG Tablet PO (17:57)
[2022-06-20] MEDS: Gabapentin 100 MG Capsule PO (17:58)
--- NOTE | 2022-06-20 19:23 | HP.PCM_ITS ---
HPI - General General Date of Admission: 06/20/22 Date of Service: 06/20/22 Chief Complaint: Here for rehab. HPI Narrative 06/17/2022 CLINT HACKETT, is a 81 Female who presents to [facility] Emergency Department with back pain. Seen in [facility] ED 06/14/2022 for left sciatica, declined [facility] facility, discharged on [place], Prednisone. Now has right sciatica. CT lumbar spine, pelvis negative. Patient having difficulty walking. CBC okay, BMP okay. 06/17/2022 Admit to Hospital. Lidoderm patch, Tizanidine, steroids, PO/IV narcotic pain medications, gabapentin for low back pain, sciatica. PT/OT for debility. 06/18/2022 Sciatica pain with lumbar radiculopathy. PT/OT for SNF. 06/19/2022 Pain improved. Patient agreeable for SNF instead of home with home health care. 06/20/2022 Admit to TCU with debility,here for rehabilitation, strengthening, prior to discharge home with significant other. [facility] Medical History Abdominal aortic aneurysm (AAA) Carotid stenosis, right History of bladder cancer (~2015) History of diverticulosis History of DVT (deep vein thrombosis) Hypothyroidism Rheumatoid arthritis Home Medications levothyroxine 100 mcg tablet 150 mcg PO CRUZ THYROID 03/18/22 [History Last Taken 06/15/22] abatacept 125 mg/mL subcutaneous syringe (Orencia) 125 mg subcut FR ARTHRITIS 06/17/22 [History Last Taken 06/13/22] levothyroxine 100 mcg tablet 100 mcg PO MOTUWETHFRSA THYROID 06/17/22 [History Last Taken 06/17/22] acetaminophen 325 mg tablet (Tylenol) 650 mg PO Q4H PRN PRN Pain 1-5 06/20/22 [History Last Taken Unknown] aluminum-mag hydroxide-simethicone 400 mg-400 mg-40 mg/5 mL oral susp (Mag-Al Plus Extra Strength) 30 ml PO Q6H PRN PRN Gastric Burning #0 mL 06/20/22 [Rx Last Taken Unknown] gabapentin 100 mg capsule 100 mg PO TIDCM Nerve Pain 06/20/22 [History Last Taken Unknown] lidocaine 5 % topical patch 2 patch topical DAILY Pain 06/20/22 [History Last Taken Unknown] melatonin 3 mg tablet 3 mg PO QHS PRN PRN Insomnia #0 tabs 06/20/22 [Rx Last Taken Unknown] oxycodone 5 mg capsule 5 mg PO Q6H PRN Pain (Scale Score 7-10) 06/20/22 [History Last Taken Unknown] prednisone 20 mg tablet 40 mg PO DAILY Check with primary doctor 06/20/22 [History Last Taken Unknown] sennosides 8.6 mg-docusate sodium 50 mg tablet (Stool Softener-Stimulant Laxative) 2 tab PO BID PRN PRN Constipation #0 tabs 06/20/22 [Rx Last Taken Unknown] tizanidine 2 mg tablet 2 mg PO Q8H PRN PRN muscle spasm, strain #0 tabs 06/20/22 [Rx Last Taken Unknown] Allergy/AdvReac Type Severity Reaction Status Date / Time No Known Allergies Allergy Verified 06/17/22 13:48 Family History Father Heart disease Mother Heart disease Hypertension Surgical History History of bilateral oophorectomies History of colonoscopy (~2011) History of incisional hernia repair History of right-sided carotid endarterectomy History of urostomy S/P cataract extraction S/P colonoscopy S/P hysterectomy Social History (Updated 06/20/22 @ 19:[address] Martinez Holly MD) household members: significant other Smoking Status: Never smoker alcohol intake: never substance use type: does not use ROS Constitutional Constitutional: Denies chills, fever(s) or weight gain ENT HEENT: Denies headache(s), nasal congestion or nasal discharge Cardiovascular Cardiovascular: Denies chest pain or palpitations Respiratory/Chest Respiratory/Chest: Denies cough, excessive phlegm production or shortness of breath with exertion Gastrointestinal Gastrointestinal: Denies abdominal pain, nausea or vomiting Genitourinary Genitourinary: Denies dysuria Musculoskeletal Musculoskeletal: Denies joint pain or joint swelling Integumentary Integumentary: Denies rash or wounds Neurologic Neurologic: Denies focal weakness, numbness or tingling Psychiatric Psychiatric: Denies anxiety, auditory hallucinations, depression, homicidal ideation or suicidal ideation Vital Signs Vital Signs Vital Signs: 06/20/22 16:44 06/20/22 16:54 Temperature 97.6 F L Temperature Source Temporal Pulse Rate 58 L 58 L Pulse Rhythm Regular Pulse Strength Normal (2+) Respiratory Rate 16 Respiratory Effort Normal Non-Labored Respiratory Depth Normal Respiratory Pattern Normal Blood Pressure 137/66 H Blood Pressure Mean 89 Blood Pressure Source Monitor Blood Pressure Position Semi-Fowlers Blood Pressure Location Left Arm Pulse Ox 96 Oxygen Delivery Method Room Air Room Air Weight Weight: 52.163 kg Body Mass Index (BMI) 19.1 Physical Exam GI GI Narrative: Right lower quadrant urostomy. Assessment & Plan Assessment/Plan (1) Debility: (2) Intractable low back pain: (3) Sciatica: (4) Lumbar radiculopathy: (5) Hypothyroidism: (6) Rheumatoid arthritis: (7) Abdominal aortic aneurysm (AAA): QUALIFIERS: Presence of rupture: without rupture Qualified Code(s): I71.4 - Abdominal aortic aneurysm, without rupture (8) History of urostomy: (9) Carotid stenosis, right: (10) History of bladder cancer: PLAN: Plan 81 year old female with below past medical history hospitalized for intractable back pain, right sciatica, admitted to TCU with debility, here for rehabilitation, strengthening, prior to discharge home with significant other. * Debility - PT/OT. * Pain - Tylenol 1000mg q6h prn pain (1-3), Tramadol 50mg q6h prn pain (4-5), Oxycodone 5mg q4h prn pain (6-10). * Bowel - Miralax 17gm daily, senna/colace 2 tablets bid, Dulcolax 10mg daily prn. * Adult immunization - Administer pneumonia vaccine, covid19 vaccine, flu vaccine as appropriate. * DVT prophylaxis - Hold, progressive anemia. * Rheumatoid Arthritis - Orencia 125mg sc qweek. * Neuropathic pain - Gabapentin 100mg tid thru 07/20/2022. * Hypothyroidism - Levothyroxine 100mcg 6 days/week, 150mcg 1 day/week. * Intractable low back pain - Lidoderm patches 2 patches td daily, Prednisone 40mg daily thru 07/01/2022, if no improvement, consider consulting Dr. Ulloa for lumbar epidural steroid injection. * Indigestion - Mylanta 2 30ml q6h prn. * Insomnia - Melatonin 3mg qhs prn. * Skin irritation - Calmoseptine topical bid. * Muscle spasm - Tizanidine 2mg q8h prn.
[2022-06-20] MEDS: Menthol/Lanolin/Calamine/Znox 113 GM Tube 1 APPLIC TOPICAL (23:11)
[2022-06-21] MEDS: Polyethylene Glycol 3350 17 GM PACKET PO (05:14)
[2022-06-21] MEDS: Lidocaine 5% Patch 2 PATCH TOPICAL (05:14)
[2022-06-21] MEDS: Levothyroxine 100 MCG Tablet PO (05:14)
[2022-06-21] MEDS: Senna/Docusate Sodium 1 Tablet 2 TABLET PO ×2 (05:15→17:12)
[2022-06-21 07:15] LABS: Absolute Lymphocyte Count 1.26 X10^3/uL (0.83-4.51); Absolute Neutrophil Count 7.4 X10^3/uL (2.0-7.7); Basophil# 0.01 X10^3/uL; Basophil% 0.1 % (0-1); Eosinophil# 0.08 X10^3/uL; Eosinophils% 0.8 % (0-5); Hemoglobin 11.5 g/dL (12.0-15.0); Lymphocyte # 1.26 X10^3/ul (0.83-4.51); Lymphocyte % 12.9 % (19-41); Mean Corp Hgb Conc 31.1 g/dL (32-36); Mean Corpuscular Hgb 28.5 pg (27.0-32.0); Mean Corpuscular Volume 91.8 fL (81-99); Mean Platelet Vol. 10.3 fl (6.2-12.0); Monocyte# 0.94 X10^3/uL; Monocyte% 9.6 % (0-10); NRBC Flagged by Analyzer 0 % (0-5); Neutrophil # 7.42 X10^3/uL (2.7-7.7); Platelet Count 276 K/mm3 (150-450); RBC Distribution Width CV 14.7 % (11.6-14.6); RBC Distribution Width SD 49.3 fl (35.1-43.9); Red Blood Count 4.03 M/mm3 (4.2-5.4); White Blood Count 9.8 K/mm3 (4.4-11.0)
[2022-06-21 07:32] LABS: Anion Gap 5 (5-15); BUN 53 mg/dL (7-18); BUN/Creat Ratio 36.8 RATIO (10-20); Calcium,Total 8.4 mg/dL (8.5-10.1); Chloride 110 mmol/L (98-107); Creatinine, Serum 1.44 mg/dL (0.55-1.02); EST Glomerular Filtration Rate 37 mL/min (>60); Est Glom Filt Rate - Afr Amer 45 mL/min (>60); Estimated Creatinine Clearance 24.38 ml/min; Glucose 93 mg/dL (74-106); Potassium 4.5 mmol/L (3.5-5.1); Sodium Level 137 mmol/L (136-145)
[2022-06-21] MEDS: predniSONE 20 MG Tablet 40 MG PO (08:16)
[2022-06-21] MEDS: Gabapentin 100 MG Capsule PO ×3 (08:59→17:11)
[2022-06-21 09:51] VITALS: RESP 18; O2SAT 96
[2022-06-21] MEDS: Menthol/Lanolin/Calamine/Znox 113 GM Tube 1 APPLIC TOPICAL ×2 (10:00→17:12)
[2022-06-21] MEDS: Tuberculin,Purif.prot.deriv. 50 TU/ML Vial 0.1 ML ID (11:08)
[2022-06-21 15:30] VITALS: BP 140/57; PULSE 62; RESP 18; TEMP 37.1; O2SAT 97
[2022-06-22] MEDS: Lidocaine 5% Patch 2 PATCH TOPICAL (05:30)
[2022-06-22] MEDS: Polyethylene Glycol 3350 17 GM PACKET PO (05:31)
[2022-06-22] MEDS: Levothyroxine 150 MCG Tablet PO (05:32)
[2022-06-22] MEDS: Senna/Docusate Sodium 1 Tablet 2 TABLET PO ×2 (05:33→17:06)
[2022-06-22] MEDS: Menthol/Lanolin/Calamine/Znox 113 GM Tube 1 APPLIC TOPICAL ×2 (05:33→17:06)
[2022-06-22] MEDS: Gabapentin 100 MG Capsule PO ×3 (08:40→17:07)
[2022-06-22] MEDS: predniSONE 20 MG Tablet 40 MG PO (08:40)
[2022-06-22 10:00] VITALS: O2SAT 96
[2022-06-22] MEDS: oxyCODONE 5 MG Tablet PO ×2 (15:22→21:24)
[2022-06-22 16:00] VITALS: BP 100/74; PULSE 68; RESP 16; TEMP 36.8; O2SAT 97
[2022-06-22] MEDS: Acetaminophen 500 MG Tablet 1000 MG PO (21:23)
[2022-06-22] MEDS: Mag Hydrox/Al Hydrox/Simeth 30 ML UDC PO (22:18)
[2022-06-23] MEDS: Levothyroxine 100 MCG Tablet PO (06:15)
[2022-06-23] MEDS: Polyethylene Glycol 3350 17 GM PACKET PO (06:15)
[2022-06-23] MEDS: Senna/Docusate Sodium 1 Tablet 2 TABLET PO ×2 (06:15→18:11)
[2022-06-23] MEDS: Lidocaine 5% Patch 2 PATCH TOPICAL (06:16)
[2022-06-23] MEDS: predniSONE 20 MG Tablet 40 MG PO (07:49)
[2022-06-23] MEDS: Gabapentin 100 MG Capsule PO ×3 (07:49→18:11)
[2022-06-23] MEDS: Menthol/Lanolin/Calamine/Znox 113 GM Tube 1 APPLIC TOPICAL ×2 (07:54→18:12)
[2022-06-23 15:48] VITALS: BP 127/52; PULSE 66; RESP 14; TEMP 36.8; O2SAT 98
[2022-06-23 21:45] VITALS: O2SAT 98
[2022-06-23] MEDS: Acetaminophen 500 MG Tablet 1000 MG PO (21:53)
[2022-06-24] MEDS: Levothyroxine 100 MCG Tablet PO (06:12)
[2022-06-24] MEDS: Menthol/Lanolin/Calamine/Znox 113 GM Tube 1 APPLIC TOPICAL ×2 (06:12→17:19)
[2022-06-24] MEDS: Senna/Docusate Sodium 1 Tablet 2 TABLET PO ×2 (06:13→17:21)
[2022-06-24] MEDS: Lidocaine 5% Patch 2 PATCH TOPICAL (06:14)
--- NOTE | 2022-06-24 06:15 | NURSING ---
Pt resting in bed, states she is not having pain this morning, able to roll side to side to have lidoderm patches placed on either side of lower back.
[2022-06-24 06:31] LABS: Bedside Glucose 98 mg/dL (74-106)
[2022-06-24] MEDS: Gabapentin 100 MG Capsule PO ×3 (08:23→17:21)
[2022-06-24] MEDS: predniSONE 20 MG Tablet 40 MG PO (08:23)
[2022-06-24] MEDS: Acetaminophen 500 MG Tablet 1000 MG PO ×2 (12:18→21:14)
[2022-06-24 12:32] VITALS: PULSE 66; RESP 16; O2SAT 97
--- NOTE | 2022-06-24 15:01 | NURSING ---
pt updated on staff member testing positive for covid
--- NOTE | 2022-06-24 15:01 | PCM.PN.DRR ---
TCU RX Drug Regimen Review Subjective: TCU Admission. Objective: Allergies No Known Allergies Allergy (Verified 06/17/22 13:48) Current Medications Generic Name Dose Route Start Last Admin Trade Name Lai PRN Reason Stop Dose Admin Acetaminophen 1,000 mg 06/20/22 19:42 06/24/22 12:18 Acetaminophen 500 Mg Tablet PO 1,000 mg Q6H PRN PRN Administration Pain Score 1-3 Al Hydroxide/Mg Hydroxide 30 ml 06/20/22 16:30 06/22/22 22:18 Mag Hydrox/Al Hydrox/Simeth 30 Ml Udc PO 30 ml Q6H PRN PRN Administration Gastric Burning Bisacodyl 10 mg 06/20/22 19:40 Bisacodyl 5 Mg Tablet PO DAILY PRN Constipation Calamine/Phenol 1 applic 06/20/22 22:00 06/24/22 06:12 Menthol/Lanolin/Calamine/Znox 113 Gm Tube TOPICAL 1 applic BID [facility] Administration Protocol Gabapentin 100 mg 06/20/22 17:45 06/24/22 12:18 Gabapentin 100 Mg Capsule PO 07/20/22 12:46 100 mg TIDCM RICHARD Administration Levothyroxine Sodium 100 mcg 06/21/22 06:00 06/24/22 06:12 Levothyroxine 100 Mcg Tablet PO 100 mcg [id number]@0600 RICHARD Administration Levothyroxine Sodium 150 mcg 06/22/22 06:00 06/22/22 05:32 Levothyroxine 150 Mcg Tablet PO 150 mcg [id number]@0600 RICHARD Administration Lidocaine 2 patch 06/21/22 06:00 06/24/22 06:14 Lidocaine 5% Patch TOPICAL 2 patch DAILY RICHARD Administration Protocol Melatonin 3 mg 06/20/22 16:30 Melatonin 3 Mg Tablet PO QHS PRN PRN Insomnia Non-Formulary Medication 125 mg 06/27/22 16:30 Abatacept [Orencia] SC [facility] Oxycodone HCl 5 mg 06/20/22 19:42 06/22/22 21:24 Oxycodone 5 Mg Tablet PO 5 mg Q4H PRN PRN Administration Pain Score 6-10 Polyethylene Glycol 17 gm 06/21/22 06:00 06/24/22 06:13 Polyethylene Glycol 3350 17 Gm Packet PO Not Given DAILY [facility] Prednisone 40 mg 06/21/22 08:00 06/24/22 08:23 Prednisone 20 Mg Tablet PO 07/01/22 08:01 40 mg DAILYCM RICHARD Administration Senna/Docusate Sodium 2 tablet 06/20/22 19:45 06/24/22 06:13 Senna/Docusate Sodium 1 Tablet PO 1 tablet BID RICHARD Administration Tizanidine HCl 2 mg 06/20/22 16:30 Tizanidine Hcl 2 Mg Tablet PO Q8H PRN PRN muscle spasm, strain Tramadol HCl 50 mg 06/20/22 19:40 Tramadol 50 Mg Tablet PO Q6H PRN PRN Pain Score 4-5 Tuberculin PPD 0.1 ml 06/28/22 10:00 Tuberculin,Purif.Prot.Deriv. 50 Tu/Ml Vial ID 06/28/22 10:01 X1 ONE Problem List (Last Reviewed 06/20/22 @ 19:[address] Martinez Holly MD) History of bladder cancer (Acute) Rheumatoid arthritis (Acute) Lumbar radiculopathy (Acute) Sciatica (Acute) Intractable low back pain (Acute) Debility (Acute) History of urostomy (Acute) Hypothyroidism (Acute) Abdominal aortic aneurysm (AAA) (Acute) Carotid stenosis, right (Acute) Vital Signs Temp Pulse Resp BP Pulse Ox O2 Del Method 98.2 F 66 16 127/52 H 97 Room Air 06/23/22 15:48 06/24/22 12:32 06/24/22 12:32 06/23/22 15:48 06/24/22 12:32 06/24/22 12:32 Oxygen Delivery Method Room Air Weight: 52.163 kg Body Mass Index (BMI) 19.1 Sodium 137 mmol/L (136-145) 06/21/22 06:57 Potassium 4.5 mmol/L (3.5-5.1) 06/21/22 06:57 Chloride 110 mmol/L (98-107) H 06/21/22 06:57 Carbon Dioxide 22.0 mmol/L (21.0-32.0) 06/21/22 06:57 Anion Gap 5 (5-15) 06/21/22 06:57 BUN 53 mg/dL (7-18) H 06/21/22 06:57 Creatinine 1.44 mg/dL (0.55-1.02) H 06/21/22 06:57 Est GFR (MDRD) Af Amer 45 mL/min (>60) L 06/21/22 06:57 Est GFR (MDRD) Non-Af 37 mL/min (>60) L 06/21/22 06:57 BUN/Creatinine Ratio 36.8 RATIO (10-20) H 06/21/22 06:57 Glucose 93 mg/dL (74-106) 06/21/22 06:57 Assessment/Plan: 1. Pain/Intractable low back pain: acetaminophen 1000mg PO Q6H PRN pain (1-3), tramadol 50mg PO Q6H PRN pain (4-5), oxycodone 5mg PO Q4H prn pain (6-10), Lidoderm patches 2 patches topically daily, prednisone 40mg PO daily thru 07/01/22. Please continue to monitor for S/S of increased pain, PRN usage, rash, glucose (last 98mg/dL), renal function, constipation and respiratory depression. Last documented bowel movement 06/22/22. Resident has used 3 doses of acetaminophen from pain 3, 7-8 in hip/back/buttock and 2 doses of oxycodone for pain of 8 in hip/butttock. No doses of tramadol have been used. 2. Bowel: Miralax 17gm PO daily, senna/docusate 2T PO BID, and bisacodyl 10mg PO daily PRN constipation. Please continue to monitor for constipation and PRN usage. Last documented bowel movement 06/22/22. No doses of bisacodyl have been used. 3. Rheumatoid Arthritis: Orencia 125mg SC Fridays. Please continue to monitor for S/S of infection, rash and GI symptoms.? 4. Hypothyroidism: levothyroxine 100mcg PO daily except 150mcg on Sundays. Please consider ordering a TSH level if clinically appropriate. Last level from 06/17/19. Thanks. Please continue to monitor for S/S of hypo/hyperthyroidism.? 5. Indigestion: Mylanta II 30ml PO Q6H PRN gastric burning. Please continue to monitor S/S of indigestion?and PRN usage. Resident has had 1 dose so far. 6. Insomnia: melatonin 3mg PO QHS PRN insomnia. Please continue monitoring patient sleeping habits and PRN usage.? 7. Muscle spasm: tizanidine 2mg PO Q8H RPN muscle spasm/strain. Please continue to monitor for S/S of muscle spasms, PRN usage (never has been used). Assessment/Plan for indications treated with psychotropic medications: 1. Neuropathic pain: gabapentin 100mg PO TIDCM thru 07/20/22. Based on resident's CrCl of 24 ml/min, max dose should be 200-700mg PO daily. Please consider changing to 300mg PO daily if clinically appropriate. Thanks. Please continue to monitor for confusion and renal function. Not using for psychotropic affects, GDR not appropriate. This medication is on the BEERs list for falls. Please continue to monitor. Medical chart and medication regimen reviewed. The following medication irregularities or issues were identified: *1. Gabapentin 100mg PO TIDCM thru 07/20/22. Based on resident's CrCl of 24 ml/min, max dose should be 200-700mg PO daily. Please consider changing to 300mg PO daily if clinically appropriate. Thanks. *2. Levothyroxine 100mcg PO daily except 150mcg on Sundays. Please consider ordering a TSH level if clinically appropriate. Last level from 06/17/19. Thanks. Date of Note:: 06/24/22
[2022-06-24 15:22] VITALS: BP 102/57; PULSE 66; RESP 16; TEMP 36.7; O2SAT 97
--- NOTE | 2022-06-24 15:55 | CASEMGMT ---
SW notified pt's advanced directives are not on file and requested those documents. Pt confirms her neighbors can bring in the copies.
--- NOTE | 2022-06-24 15:59 | CASEMGMT ---
Social Work Met with patient to complete initial assessment. Introduced self and role. Verified/updated contacts. Discussed code status and MOLST form. Pt confirms DNR-CCA, no intubation. MOLST communicated to , placed in chart. Explained [facility] insurance with NRD 06/30 and continued stay is not guaranteed. The goal is for pt to return home with . However, has own physical limitations and pt was caregiver for . Pt expressed since therapy has begun, her pain has significantly subsided and has not needed stronger pain meds than Tylenol. Pt focused on returning home as soon as possible. SW encouraged pt to continue working with therapy for the remainder of the week to ensure the pain does not return. SW to follow up and determine if a DC date needs set for the weekend. Pt agreeable and appreciative. Pt is agreeable to [facility] PT/OT at DC. SW to continue to follow for DC planning. Barbara Morales, SHEETER OPERATOR BLUEPRINT ASSEMBLER
--- NOTE | 2022-06-24 16:49 | DS.PCM_ITS ---
Providers Date of Admission: 06/20/22 Primary Care Physician: Dr. Nito Rivera MD Reason For Visit: INTRACTABLE BACK PAIN Diagnosis Discharge Diagnosis (1) Debility: Status: Acute Code(s): R53.81 - Other malaise (2) Intractable low back pain: Status: Acute Code(s): M54.59 - Other low back pain (3) Sciatica: Status: Acute Code(s): M54.30 - Sciatica, unspecified side (4) Lumbar radiculopathy: Status: Acute Code(s): M54.16 - Radiculopathy, lumbar region (5) Hypothyroidism: Status: Acute Code(s): E03.9 - Hypothyroidism, unspecified (6) Rheumatoid arthritis: Status: Acute Code(s): M06.9 - Rheumatoid arthritis, unspecified (7) Abdominal aortic aneurysm (AAA): Status: Acute Code(s): I71.4 - Abdominal aortic aneurysm, without rupture Qualifiers: Presence of rupture: without rupture Qualified Code(s): I71.4 - Abdominal aortic aneurysm, without rupture (8) History of urostomy: Status: Acute Code(s): Z98.890 - Other specified postprocedural states (9) Carotid stenosis, right: Status: Acute Code(s): I65.21 - Occlusion and stenosis of right carotid artery (10) History of bladder cancer: Status: Acute Code(s): Z85.51 - Personal history of malignant neoplasm of bladder Plan 81 year old female with below past medical history hospitalized for intractable back pain, right sciatica, admitted to TCU with debility, here for rehabilitation, strengthening, prior to discharge home with significant other. * Debility - PT/OT. * Pain - Tylenol 1000mg q6h prn pain (1-3), Tramadol 50mg q6h prn pain (4-5), Oxycodone 5mg q4h prn pain (6-10). * Bowel - Miralax 17gm daily, senna/colace 2 tablets bid, Dulcolax 10mg daily prn. * Adult immunization - Administer pneumonia vaccine, covid19 vaccine, flu vaccine as appropriate. * DVT prophylaxis - Hold, progressive anemia. * Rheumatoid Arthritis - Orencia 125mg sc qweek. * Neuropathic pain - Gabapentin 100mg tid thru 07/20/2022. * Hypothyroidism - Levothyroxine 100mcg 6 days/week, 150mcg 1 day/week. * Intractable low back pain - Lidoderm patches 2 patches td daily, Prednisone 40mg daily thru 07/01/2022, if no improvement, consider consulting Dr. Ulloa for lumbar epidural steroid injection. * Indigestion - Mylanta 2 30ml q6h prn. * Insomnia - Melatonin 3mg qhs prn. * Skin irritation - Calmoseptine topical bid. * Muscle spasm - Tizanidine 2mg q8h prn. Medications at Discharge Home Medications levothyroxine 100 mcg tablet 150 mcg PO CRUZ THYROID 03/18/22 abatacept 125 mg/mL subcutaneous syringe (Orencia) 125 mg subcut FR ARTHRITIS 06/17/22 levothyroxine 100 mcg tablet 100 mcg PO MOTUWETHFRSA THYROID 06/17/22 acetaminophen 500 mg tablet 1,000 mg PO Q6H PRN PRN Pain Score 1-3 #0 tabs 06/24/22 gabapentin 100 mg capsule 100 mg PO TIDCM Nerve Pain 30 days #90 caps 06/24/22 lidocaine 5 % topical patch 2 patch topical DAILY Pain 30 days #60 ea 06/24/22 Hospital Course Operations None Procedures None Summary of Care Provided Minutes Spent on Discharge: 35 Hospital Course: 81 year old female with below past medical history hospitalized for intractable back pain, right sciatica, admitted to TCU with debility, here for rehabilitation, strengthening, prior to discharge home with significant other. Discharge home with significant other 06/29/2022, Home [facility] Care PT/OT. Physical Exam Const alert General Appearance: cooperative HEENT normocephalic Eyes PERRL and EOMs intact bilaterally Neck supple, no JVD and no carotid bruits Resp normal respiratory effort, normal air movement and clear to auscultation bilaterally Cardio regular rate and regular rhythm GI normal to inspection, nondistended, normoactive bowel sounds, non-tender and non-distended Extremity normal capillary refill General Extremity: Negative for edema Skin no rashes or lesions noted General Skin Exam: no breakdown Psych affect normal Appearance: appropriate Weight / BMI Weight Weight: 52.163 kg Body Mass Index (BMI) 19.1 ABG / Lab / Microbiology Data Result Diagrams: 06/21/22 06:57 06/21/22 06:57 Laboratory: Laboratory Results - last 24 hr 06/24/22 05:56: POC Glucose 98 D/C Instructions Discharge Diet: No restrictions Discharge Activity: Return to Normal Activity, May Shower and Use Walker Weight Bearing Status: Weight bearing as tolerated Call your doctor if you observe: Fever of 101 or Higher, Inability to urinate, Inability to have a bowel movement, Shortness of breath, Dizziness, Fainting spells, Swelling in the ankles, Chest pain and Uncontrolled pain Additional Instructions: Discharge home with significant other 06/29/2022, Home Health Care PT/OT. Meaningful Use Info Meaningful Use Diagnoses (Choose all that apply): None applicable Discharge Plan Admission Admit Date/Time: 06/20/22 16:03 Primary Reason for Your Visit: Debility. Attending Provider: Martinez Holly Chi Primary Care Provider: Nito Rivera Instructions Additional Instructions / Restrictions: Discharge home with significant other 06/29/2022, Home Health Care PT/OT. Discharge Orders/Prescriptions Prescriptions: New acetaminophen 500 mg Tablet 1,000 mg PO Q6H PRN PRN (Reason: Pain Score 1-3) Qty: 0 0RF Continued levothyroxine 100 mcg tablet 150 mcg PO CRUZ levothyroxine 100 mcg tablet 100 mcg PO MOTUWETHFRSA Label Comments: TAKE 1 TABLET BY MOUTH ONCE DAILY, THURSDAY THRU THURSDAY, AND 1 & 1/2 TABLETS ON THURSDAY Orencia 125 mg/mL Syringe 125 mg SUBCUT FR lidocaine 5 % adhesive patch,medicated 2 patch topical DAILY 30 Days Qty: 60 0RF Protocol: *Topical Application Instructions APPLICATION INSTRUCTIONS: lumbar spine gabapentin 100 mg capsule 100 mg PO TIDCM 30 Days Qty: 90 0RF Discontinued tizanidine 2 mg Tablet 2 mg PO Q8H PRN PRN (Reason: muscle spasm, strain) Qty: 0 0RF sennosides-docusate sodium [Stool Softener-Stimulant Laxat] 8.6-50 mg Tablet 2 tab PO BID PRN PRN (Reason: Constipation) Qty: 0 0RF melatonin 3 mg Tablet 3 mg PO QHS PRN PRN (Reason: Insomnia) Qty: 0 0RF alum-mag hydroxide-simeth [Mag-Al Plus Extra Strength] 400-400-40 mg/5 mL Suspension 30 ml PO Q6H PRN PRN (Reason: Gastric Burning) Qty: 0 0RF acetaminophen [Tylenol] 325 mg tablet 650 mg PO Q4H PRN PRN (Reason: Pain 1-5) prednisone 20 mg tablet 40 mg PO DAILY oxycodone 5 mg capsule 5 mg PO Q6H PRN (Reason: Pain (Scale Score 7-10)) Referrals / Follow Up: Nito Rivera MD [Primary Care Provider] - Disposition Disposition (needs filled in before D/C Order can be placed): Home Health Service
[2022-06-25] MEDS: Lidocaine 5% Patch 2 PATCH TOPICAL (04:57)
[2022-06-25] MEDS: Menthol/Lanolin/Calamine/Znox 113 GM Tube 1 APPLIC TOPICAL ×2 (04:58→17:16)
[2022-06-25] MEDS: Levothyroxine 100 MCG Tablet PO (04:58)
[2022-06-25] MEDS: Senna/Docusate Sodium 1 Tablet 2 TABLET PO ×2 (04:58→17:23)
[2022-06-25] MEDS: oxyCODONE 5 MG Tablet PO (05:04)
[2022-06-25] MEDS: Gabapentin 100 MG Capsule PO ×3 (08:26→17:16)
[2022-06-25] MEDS: predniSONE 20 MG Tablet 40 MG PO (08:27)
--- NOTE | 2022-06-25 10:29 | CASEMGMT ---
Social Work IDT met with patient and life partner via conference call for care plan meeting. Discussed patient's progress in PT/OT/SN. Explained [facility] insurance with NRD 06/30. IDT and pt agreed to DC 06/29 home with LP. Provided skilled [facility] provider list including quality and resource use data and consistent with the patient?s preferred geographic region, medical needs, and insurance network. SW to order PT/OT. No DME needs. Neighbors can transport pt home. Pt to notify SW of [facility] agency of choice. Reminded pt to have neighbors bring in advanced directives. Plan: DC home with LP 06/29, [facility] PT/OT BLAINE Solano
[2022-06-25 14:27] VITALS: BP 115/60; PULSE 58; RESP 14; O2SAT 97
[2022-06-25] MEDS: Mag Hydrox/Al Hydrox/Simeth 30 ML UDC PO (21:26)
[2022-06-25 22:00] VITALS: PULSE 70; RESP 16; O2SAT 97
[2022-06-26] MEDS: oxyCODONE 5 MG Tablet PO ×2 (01:34→20:45)
[2022-06-26] MEDS: Polyethylene Glycol 3350 17 GM PACKET PO (06:39)
[2022-06-26] MEDS: Levothyroxine 100 MCG Tablet PO (06:39)
[2022-06-26] MEDS: Menthol/Lanolin/Calamine/Znox 113 GM Tube 1 APPLIC TOPICAL ×2 (06:43→17:23)
[2022-06-26] MEDS: predniSONE 20 MG Tablet 40 MG PO (08:37)
[2022-06-26] MEDS: Gabapentin 100 MG Capsule PO ×3 (08:37→17:21)
--- NOTE | 2022-06-26 11:26 | NURSING ---
Pt and family updated on positive Covid resident.
--- NOTE | 2022-06-26 11:39 | CASEMGMT ---
Social Work BIMS () for PHQ-9 (02/02) completed for MDS assessment. Inquired about HHC preference. Pt prefers [facility]. SW faxed referral to [facility] for PT/OT. Barbara Morales, WEB DATABASE DEVELOPER BUILDING MAINTENANCE TECHNICIAN
[2022-06-26] MEDS: Lidocaine 5% Patch 2 PATCH TOPICAL (12:00)
[2022-06-26 13:49] VITALS: BP 122/65; PULSE 61; RESP 16; TEMP 35.9; O2SAT 97
--- NOTE | 2022-06-26 15:09 | CASEMGMT ---
Social Work [employer] unable to staff referral. Spoke with pt about second preference. Pt prefers [facility]. Referral made to [facility]. Barbara Morales, PARIMUTUEL TICKET CHECKER BRAKE SPECIALIST
[2022-06-26] MEDS: Senna/Docusate Sodium 1 Tablet 2 TABLET PO (17:23)
--- NOTE | 2022-06-26 19:43 | NURSING ---
Pt changed Urostomy appliance this shift did not change han bag.
[2022-06-27] MEDS: Lidocaine 5% Patch 2 PATCH TOPICAL (05:28)
[2022-06-27] MEDS: Polyethylene Glycol 3350 17 GM PACKET PO (05:29)
[2022-06-27] MEDS: Senna/Docusate Sodium 1 Tablet 2 TABLET PO ×2 (05:29→18:12)
[2022-06-27] MEDS: Levothyroxine 100 MCG Tablet PO (05:29)
[2022-06-27] MEDS: Menthol/Lanolin/Calamine/Znox 113 GM Tube 1 APPLIC TOPICAL ×2 (05:38→18:09)
[2022-06-27] MEDS: predniSONE 20 MG Tablet 40 MG PO (08:26)
[2022-06-27] MEDS: Gabapentin 100 MG Capsule PO ×3 (08:26→18:07)
[2022-06-27 16:00] VITALS: BP 120/64; PULSE 48; RESP 15; TEMP 36.2; O2SAT 96
[2022-06-27 21:42] VITALS: PULSE 61; RESP 16
[2022-06-27] MEDS: Acetaminophen 500 MG Tablet 1000 MG PO (22:30)
[2022-06-27] MEDS: oxyCODONE 5 MG Tablet PO (22:30)
[2022-06-28] MEDS: Levothyroxine 100 MCG Tablet PO (05:16)
[2022-06-28] MEDS: Lidocaine 5% Patch 2 PATCH TOPICAL (05:17)
[2022-06-28] MEDS: Menthol/Lanolin/Calamine/Znox 113 GM Tube 1 APPLIC TOPICAL ×2 (05:17→16:51)
[2022-06-28] MEDS: Polyethylene Glycol 3350 17 GM PACKET PO (05:19)
[2022-06-28] MEDS: Senna/Docusate Sodium 1 Tablet 2 TABLET PO ×2 (05:21→16:51)
[2022-06-28 07:16] LABS: Absolute Lymphocyte Count 1.66 X10^3/uL (0.83-4.51); Absolute Neutrophil Count 7.4 X10^3/uL (2.0-7.7); Eosinophil# 0.01 X10^3/uL; Eosinophils% 0.1 % (0-5); Hematocrit 35.5 % (37-47); Hemoglobin 11.4 g/dL (12.0-15.0); Lymphocyte # 1.66 X10^3/ul (0.83-4.51); Lymphocyte % 16.9 % (19-41); Mean Corp Hgb Conc 32.1 g/dL (32-36); Mean Corpuscular Hgb 30.2 pg (27.0-32.0); Mean Corpuscular Volume 93.9 fL (81-99); Mean Platelet Vol. 10.3 fl (6.2-12.0); Monocyte# 0.68 X10^3/uL; Monocyte% 6.9 % (0-10); NRBC Flagged by Analyzer 0 % (0-5); Neutrophil # 7.43 X10^3/uL (2.7-7.7); Neutrophil % 75.5 % (47-70); Platelet Count 279 K/mm3 (150-450); RBC Distribution Width CV 15.5 % (11.6-14.6); Red Blood Count 3.78 M/mm3 (4.2-5.4); White Blood Count 9.8 K/mm3 (4.4-11.0)
[2022-06-28 07:41] LABS: Anion Gap 6 (5-15); BUN 56 mg/dL (7-18); BUN/Creat Ratio 42.1 RATIO (10-20); Calcium,Total 8.5 mg/dL (8.5-10.1); Chloride 103 mmol/L (98-107); Creatinine, Serum 1.33 mg/dL (0.55-1.02); EST Glomerular Filtration Rate 40 mL/min (>60); Est Glom Filt Rate - Afr Amer 49 mL/min (>60); Estimated Creatinine Clearance 26.39 ml/min; Glucose 82 mg/dL (74-106); Potassium 4.4 mmol/L (3.5-5.1); Sodium Level 138 mmol/L (136-145)
[2022-06-28] MEDS: predniSONE 20 MG Tablet 40 MG PO (08:15)
[2022-06-28] MEDS: Gabapentin 100 MG Capsule PO ×3 (08:16→16:51)
--- NOTE | 2022-06-28 15:06 | NURSING ---
Updated Pt and family on covid positive resident.
[2022-06-28 16:00] VITALS: BP 111/53; PULSE 66; RESP 14; TEMP 36.5; O2SAT 96
[2022-06-29] MEDS: Polyethylene Glycol 3350 17 GM PACKET PO (05:38)
[2022-06-29] MEDS: Senna/Docusate Sodium 1 Tablet 2 TABLET PO (05:38)
[2022-06-29] MEDS: Menthol/Lanolin/Calamine/Znox 113 GM Tube 1 APPLIC TOPICAL (05:38)
[2022-06-29] MEDS: Levothyroxine 150 MCG Tablet PO (05:39)
[2022-06-29] MEDS: Lidocaine 5% Patch 2 PATCH TOPICAL (05:41)
[2022-06-29] MEDS: Gabapentin 100 MG Capsule PO ×2 (08:00→11:55)
[2022-06-29] MEDS: predniSONE 20 MG Tablet 40 MG PO (08:00)
[2022-06-29 11:00] VITALS: BP 139/76; PULSE 61; RESP 16; TEMP 36.7; O2SAT 96
--- NOTE | 2022-06-30 08:39 | NURSING ---
Stitch Burnisher Note: Interview for MDS Section F completed on 06/26/22 for SEVERO of 06/27/22. Section F entered and complete.
--- NOTE | 2022-07-02 11:39 | MDS.RN ---
Information for the mds was obtained from review of the clinical record, interview of resident, staff, and direct observation of resident's care.
== END 2022-06-29 12:30 | disposition home health service (06) | DRG 552 ==
PROVIDERS: Admitting Provider Family Medicine Geriatric Medicine; PCP Family Medicine; Visit Provider Family Medicine Geriatric Medicine
DX: M54.16 Radiculopathy, lumbar region (principal); E03.9 Hypothyroidism, unspecified; I71.4 Abdominal aortic aneurysm, without rupture; M06.9 Rheumatoid arthritis, unspecified; I65.21 Occlusion and stenosis of right carotid artery; Z79.899 Other long term (current) drug therapy; Z79.52 Long term (current) use of systemic steroids; Z79.890 Hormone replacement therapy; Z86.718 Personal history of other venous thrombosis and embolism
CPT/HCPCS: 36415; 80048; 82962; 85025; 87426; 97110; 97116; 97162; 97165; 97530; 97535; 97802

== ENCOUNTER → 2022-07-25 | Outpatient (CLI) | payer MEDICARE, SELFPAY ==
--- NOTE | 2022-07-25 12:45 | CDU_ITS ---
Reason For Study: Carotid stenosis Rt. Velocities/BP Lt. Velocities/BP Prox CCA 54.1/13.5 cm/sec. Prox CCA 51.3/13.5 cm/sec. Mid CCA 48.5/17.3 cm/sec. Mid CCA 55.1/14.5 cm/sec. Dist CCA 48.5/13.5 cm/sec. Dist CCA 48.5/14.5 cm/sec. Prox ICA 53.2/17.6 cm/sec. Prox ICA 33.4/9 cm/sec. Mid ICA 94.9/32.3 cm/sec. Mid ICA 64.8/23.8 cm/sec. Dist ICA 101.1/28.6 cm/sec. Dist ICA 78.7/26.7 cm/sec. Rt. ICA/CCA = 2.08. Lt. ICA/CCA = 1.53. Prox ECA 195.2/26.7 cm/sec. Prox ECA 43.7/6.9 cm/sec. Rt. Vert. 37.1/8.8 cm/sec. Lt. Vert. 40.9/10.7 cm/sec. Right Extracranial There is homogeneous, smooth atherosclerotic plaque noted in the right common carotid artery. There is homogeneous, smooth atherosclerotic plaque noted in the right internal carotid artery. There is homogeneous, smooth atherosclerotic plaque noted in the right external carotid artery. Antegrade flow is noted in the right vertebral artery. Left Extracranial There is homogeneous, smooth atherosclerotic plaque noted in the left common carotid artery. There is heterogeneous, irregular atherosclerotic plaque noted in the left internal carotid artery. The atherosclerotic plaque causes acoustic shadowing. There is heterogeneous, irregular atherosclerotic plaque noted in the left external carotid artery. Antegrade flow is noted in the left vertebral artery. Procedure Carotid Duplex [id number]. This is a Carotid Duplex examination using B-mode, color flow and specral Doppler. Exam performed in department. VL/Carotid Duplex Ultrasound Interpretation Summary Widely patent right common carotid and proximal internal carotid with postopera tive changes and less than 50% stenosis of the internal carotid. Less than 50% stenosis right external carotid. Minimal plaque at the proximal left internal carotid artery with less than 50% stenosis. Less than 50% stenosis left external carotid artery Patent and antegrade vertebral arteries bilaterally Findings are improved on the right from the previous examination of June 20, 2020 Ordering Physician: Juan Santa Referring Physician: Nito Rivera Performed By: Yakelin Frias RVT
== END | disposition home or self-care (01) ==
LOC: CVS 12:36
PROVIDERS: PCP Family Medicine; Visit Provider Surgery
DX: I65.21 Occlusion and stenosis of right carotid artery (principal)
CPT/HCPCS: 93880

== ENCOUNTER → 2022-11-14 | Outpatient (CLI) | payer MEDICARE, SELFPAY ==
[2022-11-14 15:13] LABS: Absolute Lymphocyte Count 1.73 X10^3/uL (0.83-4.51); Absolute Neutrophil Count 4.4 X10^3/uL (2.0-7.7); Basophil# 0.04 X10^3/uL; Basophil% 0.6 % (0-1); Eosinophil# 0.17 X10^3/uL; Eosinophils% 2.4 % (0-5); Hematocrit 42.3 % (37-47); Lymphocyte # 1.73 X10^3/ul (0.83-4.51); Lymphocyte % 24.9 % (19-41); Mean Corp Hgb Conc 30.7 g/dL (32-36); Mean Corpuscular Hgb 29.1 pg (27.0-32.0); Mean Corpuscular Volume 94.8 fL (81-99); Mean Platelet Vol. 11.2 fl (6.2-12.0); Monocyte# 0.58 X10^3/uL; Monocyte% 8.3 % (0-10); NRBC Flagged by Analyzer 0 % (0-5); Neutrophil # 4.42 X10^3/uL (2.7-7.7); Neutrophil % 63.7 % (47-70); Platelet Count 258 K/mm3 (150-450); RBC Distribution Width CV 14.8 % (11.6-14.6); RBC Distribution Width SD 51.2 fl (35.1-43.9); Red Blood Count 4.46 M/mm3 (4.2-5.4)
[2022-11-14 15:41] LABS: AST(SGOT) 17 U/L (15-37); Alanine Aminotransfer ALT/SGPT 19 U/L (13-56); Albumin, Serum 3.4 g/dL (3.2-5.0); Alkaline Phosphatase 94 U/L (45-117); Anion Gap 8 (5-15); BUN 34 mg/dL (7-18); BUN/Creat Ratio 20.6 RATIO (10-20); Calcium,Total 9.2 mg/dL (8.5-10.1); Chloride 104 mmol/L (98-107); Creatinine, Serum 1.65 mg/dL (0.55-1.02); EST Glomerular Filtration Rate 32 mL/min (>60); Est Glom Filt Rate - Afr Amer 38 mL/min (>60); Globulin 3.4 g/dL (2.2-4.2); Glucose 97 mg/dL (74-106); Potassium 4.2 mmol/L (3.5-5.1); Protein, Total 6.8 g/dL (6.4-8.2); Sodium Level 141 mmol/L (136-145)
== END | disposition home or self-care (01) ==
LOC: MTLAB 11:25
PROVIDERS: PCP Family Medicine; Referring Provider Internal Medicine Rheumatology; Visit Provider Internal Medicine Rheumatology
DX: M05.70 Rheumatoid arthritis with rheumatoid factor of unspecified site without organ or systems involvement (principal); E03.9 Hypothyroidism, unspecified; Z79.899 Other long term (current) drug therapy
CPT/HCPCS: 36415; 80053; 85025

== ENCOUNTER → 2023-03-26 | Outpatient (CLI) | payer MEDICARE, SELFPAY ==
--- NOTE | 2023-03-26 | ASPOS_PTH ---
PATIENT: CLINT HACKETT LOC: [facility] U#:[id number] AGE/SX: 82/F ROOM: RE03/26/[address]: Dr. Edward Box MD : 1940 BED: DIS: 03/26/2023 SPEC #: [id number] RECD: 03/26/23 11:42 STATUS: MARICARMEN CRAWFORD #: [id number] KYLE: 03/26/23 00:[address]: Edward Box DEPT: CYTOLOGY RECD BY: Shola Trinh ENTERED: 03/26/23 11:42 SP TYPE: ASP HERE OTHR DR: Dr. Nito Rivera MD Tissues: Parotid gland, NOS Procedures: Surgery Specimen Level IV Cytology Other Fine Needle Asp on Site HEADER OPERATION: Fine needle aspiration left parotid mass PRE-OP DIAGNOSIS: Left parotid mass TISSUE SUBMITTED: Left parotid mass DIAGNOSIS CYTOLOGY Fine needle aspiration, left parotid mass (smears and cell block): Oncocytic neoplasm with cystic change. See comment. AM:eliot 03/27/2023 COMMENT An FNA was performed and specimen is evaluated at the time of FNA by Dr. Appiah. 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 Clinical correlation is suggested. CYTOLOGY STUDY Slides are reviewed. CYTOLOGY GROSS Received is 0.2 ml of reddish labeled with the patient's name, and designated left parotid mass. Five imprints and four paps are made from the submitted fluid and the rest is added to CytoLyt for cell block preparation. Submitted for cytology study. / AM:eliot 03/26/2023 TC:5 CPT: 82314, 72567, 49158, [id number]
== END | disposition home or self-care (01) ==
LOC: LAB 09:21
PROVIDERS: PCP Family Medicine; Referring Provider Otolaryngology; Visit Provider Otolaryngology
DX: R22.1 Localized swelling, mass and lump, neck (principal)
CPT/HCPCS: 10021; 88161; 88305

== ENCOUNTER → 2023-04-30 | Outpatient (CLI) | payer MEDICARE, SELFPAY ==
[2023-04-30 13:11] LABS: Anion Gap 2 (5-15); BUN 31 mg/dL (7-18); BUN/Creat Ratio 20.8 RATIO (10-20); Calcium,Total 8.9 mg/dL (8.5-10.1); Chloride 109 mmol/L (98-107); Creatinine, Serum 1.49 mg/dL (0.55-1.02); EST Glomerular Filtration Rate 35 mL/min (>60); Est Glom Filt Rate - Afr Amer 43 mL/min (>60); Glucose 93 mg/dL (74-106); Sodium Level 140 mmol/L (136-145)
== END | disposition home or self-care (01) ==
LOC: LAB 12:10
PROVIDERS: PCP Family Medicine; Referring Provider Urology; Visit Provider Urology
DX: N18.9 Chronic kidney disease, unspecified (principal)
CPT/HCPCS: 36415; 80048

== ENCOUNTER → 2023-05-06 | Outpatient (CLI) | payer MEDICARE, SELFPAY ==
[2023-05-06 11:05] LABS: Absolute Lymphocyte Count 1.86 X10^3/uL (0.83-4.51); Absolute Neutrophil Count 4.5 X10^3/uL (2.0-7.7); Basophil# 0.03 X10^3/uL; Basophil% 0.4 % (0-1); Eosinophil# 0.14 X10^3/uL; Hematocrit 42.2 % (37-47); Hemoglobin 12.8 g/dL (12.0-15.0); Lymphocyte # 1.86 X10^3/ul (0.83-4.51); Mean Corp Hgb Conc 30.3 g/dL (32-36); Mean Corpuscular Hgb 29.4 pg (27.0-32.0); Mean Corpuscular Volume 96.8 fL (81-99); Mean Platelet Vol. 11.5 fl (6.2-12.0); Monocyte% 8.4 % (0-10); NRBC Flagged by Analyzer 0 % (0-5); Neutrophil # 4.51 X10^3/uL (2.7-7.7); Neutrophil % 62.9 % (47-70); Platelet Count 180 K/mm3 (150-450); RBC Distribution Width SD 50.3 fl (35.1-43.9); Red Blood Count 4.36 M/mm3 (4.2-5.4); White Blood Count 7.2 K/mm3 (4.4-11.0)
[2023-05-06 11:36] LABS: ALB/GLOB Ratio 0.8 RATIO (0.9-2.4); AST(SGOT) 29 U/L (15-37); Alanine Aminotransfer ALT/SGPT 17 U/L (13-56); Albumin, Serum 3.3 g/dL (3.2-5.0); Alkaline Phosphatase 102 U/L (45-117); Anion Gap 5 (5-15); BUN 22 mg/dL (7-18); BUN/Creat Ratio 15.9 RATIO (10-20); Calcium,Total 9.1 mg/dL (8.5-10.1); Chloride 109 mmol/L (98-107); Creatinine, Serum 1.38 mg/dL (0.55-1.02); EST Glomerular Filtration Rate 39 mL/min (>60); Est Glom Filt Rate - Afr Amer 47 mL/min (>60); Globulin 3.9 g/dL (2.2-4.2); Glucose 79 mg/dL (74-106); Potassium 4.2 mmol/L (3.5-5.1); Protein, Total 7.2 g/dL (6.4-8.2); Sodium Level 139 mmol/L (136-145)
== END | disposition home or self-care (01) ==
LOC: MTLAB 09:19
PROVIDERS: PCP Family Medicine; Referring Provider Internal Medicine Rheumatology; Visit Provider Internal Medicine Rheumatology
DX: M05.70 Rheumatoid arthritis with rheumatoid factor of unspecified site without organ or systems involvement (principal); M21.40 Flat foot [pes planus] (acquired), unspecified foot; E03.9 Hypothyroidism, unspecified; N18.9 Chronic kidney disease, unspecified; Z85.51 Personal history of malignant neoplasm of bladder; Z79.899 Other long term (current) drug therapy
CPT/HCPCS: 36415; 80053; 85025

== ENCOUNTER → 2023-11-05 | Outpatient (CLI) | payer MEDICARE, SELFPAY ==
--- OUTSIDE RECORDS SUMMARY | 2023-11-05 11:18 | XMS RPT_ITS | CCD ---
Author Name Unknown Address [address] [facility] [address] [place] [address] Organization [facility] Care Team Providers Care Careers Counsellor Name Role Phone Duglas Sales MD Primary Care Provider FABIO SCHULTE Referring Unavailable DUGLAS SALES Primary Care Unavailable FABIO SCHULTE Referring Unavailable DUGLAS SALES Primary Care Unavailable DUGLAS SALES Referring Unavailable DUGLAS SALES Primary Care Unavailable FABIO SCHULTE Referring Unavailable DUGLAS SALES Primary Care Unavailable FABIO SCHULTE Attending Unavailable DUGLAS SALES Primary Care Unavailable Medications Current Medications Medication Drug Class(es) Dates Sig (Normalized) Sig (Original) gabapentin 100 mg oral capsule (20 sources) Anti-epileptic Agent Start: 06-29-2022 End: 11-14-2023 take 1 capsule by mouth three times daily gabapentin (NEURONTIN) 100 mg capsule Take 1 capsule by mouth three times daily for 180 days. 270 capsule 1 05/18/2023 11/14/2023 Active Completed/Discontinued Medications Medication Drug Class(es) Dates Sig (Normalized) Sig (Original) 1 ml abatacept 125 mg/ml prefilled syringe (20 sources) Selective T Cell Costimulation Modulator Start: 06-17-2022 inject 125 mg by subcutaneous injection every week abatacept 125 mg/mL Inject 125 mg subcutaneously one time a week. 0 06/17/2022 Active Problems Active Problems Problem Classification Problem Date Documented Date Episodic/Chronic Aortic; peripheral; and visceral artery aneurysms (20 sources) Abdominal aortic aneurysm without rupture; Translations: [Abdominal aortic aneurysm, without rupture] Onset: 06-08-2017 04-23-2020 Chronic Cancer of bladder (20 sources) Malignant tumor of urinary bladder; Translations: [Malignant neoplasm of bladder, unspecified] Onset: 11-20-2015 12-22-2019 Chronic Cancer of bladder (1 source) H/O: malignant neoplasm; Translations: [Personal history of malignant neoplasm of bladder] Episodic Chronic kidney disease (20 sources) Chronic kidney disease stage 3B ; Translations: [Stage 3b chronic kidney disease] Onset: 08-20-2021 08-20-2021 Chronic Chronic kidney disease (1 source) Chronic kidney disease; Translations: [Stage 3b chronic kidney disease (HCC)] Onset: 08-29-2022 Conditions associated with dizziness or vertigo (1 source) Dizziness; Translations: [Dizziness and giddiness] Episodic Diverticulosis and diverticulitis (20 sources) Diverticulosis of colon; Translations: [Diverticulosis of large intestine without perforation or abscess without bleeding] 12-22-2019 Chronic Genitourinary symptoms and ill-defined conditions (20 sources) Stoma finding; Translations: [Other artificial openings of urinary tract status] Onset: 05-16-2015 05-16-2015 Chronic Malaise and fatigue (2 sources) Asthenia; Translations: [Other malaise] Episodic Occlusion or stenosis of precerebral arteries (20 sources) Bilateral stenosis of carotid arteries; Translations: [Occlusion and stenosis of bilateral carotid arteries] Onset: 10-10-2019 12-22-2019 Chronic Osteoporosis (20 sources) Senile osteoporosis; Translations: [Age-related osteoporosis without current pathological fracture] Onset: 06-04-2011 07-13-2019 Chronic Other connective tissue disease (1 source) Recurrent falls ; Translations: [Repeated falls] Episodic Other connective tissue disease (1 source) Spasm; Translations: [Other muscle spasm] Episodic Other diseases of veins and lymphatics (20 sources) Lymphedema; Translations: [Lymphedema, not elsewhere classified] Onset: 12-16-2018 06-15-2019 Chronic Other diseases of veins and lymphatics (20 sources) Disorder of lymph node; Translations: [Noninfective disorder of lymphatic vessels and lymph nodes, unspecified] Onset: 12-16-2018 01-09-2021 Chronic Other disorders of stomach and duodenum (1 source) Mild dietary indigestion; Translations: [Functional dyspepsia] Episodic Other nervous system disorders (1 source) Shuffling gait; Translations: [Other abnormalities of gait and mobility] Episodic Other nervous system disorders (1 source) Ataxia; Translations: [Ataxia, unspecified] Episodic Other skin disorders (3 sources) Mass of neck; Translations: [Localized swelling, mass and lump, neck] Episodic Residual codes; unclassified (1 source) Persistent insomnia; Translations: [Insomnia, unspecified] Episodic Rheumatoid arthritis and related disease (20 sources) Rheumatoid arthritis of multiple joints; Translations: [Rheumatoid arthritis, unspecified] Onset: 11-25-2016 11-25-2016 Chronic Spondylosis; intervertebral disc disorders; other back problems (20 sources) 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; Translations: [Other cervical disc displacement, unspecified cervical region] Onset: 12-06-2007 05-20-2016 Chronic Thyroid disorders (20 sources) Acquired hypothyroidism; Translations: [Hypothyroidism, unspecified] Onset: 11-20-2015 11-20-2015 Chronic Unclassified (1 source) Abdominal aortic aneurysm (AAA) without rupture, unspecified part (HCC); Translations: [Abdominal aortic aneurysm (AAA) without rupture, unspecified part (HCC)] Onset: 03-07-2022 Past or Other Problems Problem Classification Problem Date Documented Da te Episodic/Chronic Administrative/social admission (20 sources) Advance directive discussed with patient; Translations: [Other specified counseling] Onset: 02-21-2022 02-21-2022 Episodic Deficiency and other anemia (20 sources) Iron deficiency anemia; Translations: [Iron deficiency anemia, unspecified] Onset: 02-24-2022 Episodic Deficiency and other anemia (1 source) Iron deficiency anemia, unspecified; Translations: [Iron deficiency anemia, unspecified iron deficiency anemia type] Onset: 02-24-2022 Episodic Neoplasms of unspecified nature or uncertain behavior (11 sources) Neoplasm of uncertain behavior of parotid gland; Translations: [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] Onset: 03-13-2023 Episodic Other and unspecified benign neoplasm (5 sources) Adenolymphoma; 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, unspecified] Onset: 05-02-2023 05-02-2023 Episodic Other bone disease and musculoskeletal deformities (20 sources) Osteopenia; Translations: [Other specified disorders of bone density and structure, unspecified site] Onset: 06-04-2011 01-09-2021 Episodic Other circulatory disease (20 sources) History of cerebellar stroke; Translations: [Personal history of transient ischemic attack (TIA), and cerebral infarction without residual deficits] Onset: 03-30-2022 Episodic Other connective tissue disease (20 sources) Pain in lower limb; Translations: [Pain in leg, unspecified] Onset: 12-16-2018 12-16-2018 Episodic Other screening for suspected conditions (not mental disorders or infectious disease) (20 sources) Patient encounter status; Translations: [Encounter for screening for malignant neoplasm of colon] Onset: 11-20-2015 11-20-2015 Episodic Other skin disorders (1 source) Localized swelling, mass and lump, neck; Translations: [Neck mass] Onset: 03-13-2023 Episodic Residual codes; unclassified (20 sources) Edema of right lower limb; Translations: [Localized edema] Onset: 05-16-2015 11-25-2016 Episodic Residual codes; unclassified (20 sources) Active living will ; Translations: [Other specified health status] Onset: 02-21-2022 02-21-2022 Episodic Screening and history of mental health and substance abuse codes (20 sources) Ex-smoker; Translations: [Personal history of nicotine dependence] Onset: 06-22-2020 07-16-2021 Episodic Spondylosis; intervertebral disc disorders; other back problems (20 sources) Neck pain; Translations: [Cervicalgia] Onset: 12-06-2007 05-20-2016 Episodic Varicose veins of lower extremity (20 sources) Venous varices; Translations: [Varicose veins of unspecified lower extremity with pain] Onset: 11-20-2015 11-25-2016 Episodic Results Test Name Value Interpretation Reference Range Facil ity Vital Signs Date Time Vital Sign Value Performing Clinician Faci lity 02-27-2023 10:23040 Body temperature 97.81 [degF] Fabio Schulte PA-C Work Phone: [facility] 02-27-2023 10:230400 Body weight 60.33 kg Fabio Schulte PA-C Work Phone: [facility] 02-27-2023 10:23040 Diastolic blood pressure 72 mm[Hg] Fabio Schulte PA-C Work Phone: [facility] 02-27-2023 10:23040 Heart rate 105 /min Fabio Schulte PA-C Work Phone: [facility] 02-27-2023 10:230400 Respiratory rate 16 /min Fabioabram Schulte PA-C Work Phone: [facility] 02-27-2023 10:23040 Systolic blood pressure 122 mm[Hg] Fabioabram Schulte PA-C Work Phone: [facility] 08-29-2022 14:29-0400 Body height 161.3 cm Duglas Sales MD Work Phone: [facility] 08-29-2022 14:290400 Body weight 56.25 kg Duglas Sales MD Work Phone: [facility] 08-29-2022 14:290400 Diastolic blood pressure 80 mm[Hg] Duglas Sales MD Work Phone: [facility] 08-29-2022 14:29-0400 Heart rate 60 /min Duglas Sales MD Work Phone: [facility] 08-29-2022 14:29-0400 Respiratory rate 14 /min Duglas Sales MD Work Phone: [facility] 08-29-2022 14:29-0400 Systolic blood pressure 128 mm[Hg] Duglas Sales MD Work Phone: [facility] 07-01-2022 10:15-0400 Body temperature 99.39 [degF] Fabio Schulte PA-C Work Phone: [facility] 07-01-2022 10:15040 Body weight 53.52 kg Fabio Schulte PA-C Work Phone: [facility] 07-01-2022 10:15-0400 Diastolic blood pressure 60 mm[Hg] Fabio Schulte PA-C Work Phone: [facility] 07-01-2022 10:15-0400 Heart rate 84 /min Fabio Schulte PA-C Work Phone: [facility] 07-01-2022 10:15-0400 Respiratory rate 16 /min Fabio Eris PA-C Work Phone: [facility] 07-01-2022 10:15-0400 Systolic blood pressure 116 mm[Hg] Fabio Schulte PA-C Work Phone: [facility] Encounters Encounter Date Encounter Type Care Provider Facility Start: 09-25-2023 Telephone encounter Duglas Sales MD Work Phone: [facility] Procedures Date Procedure Procedure Detail Performing Clinician Start: 03-13-2023 Ct soft tissue neck w/o contrast material Duglas Sales MD Work Phone: Start: 03-13-2023 Us retroperitoneal r eal time w/image limited Fabio Schulte PA-C Work Phone: Start: 08-29-2022 INFLUENZA SEASONAL QUADRIVALENT HIGH DOSE AGE 65+ Duglas Sales MD Work Phone: Start: 03-28-2022 Mri brain brain stem w/o w/contrast material Duglas Sales MD Work Phone: Start: 03-07-2022 Us retroperitoneal r eal time w/image limited Duglas Sales MD Work Phone: Plan of Treatment Date Care Activity Detail Author Start: 02-24-2026 DIABETES SCREEN DIABETES SCREEN [facility] Start: 02-24-2026 Diabetes Screening Diabetes Screenin g [facility] Start: 08-29-2025 DIABETES SCREEN DIABETES SCREEN [facility] Start: 02-12-2025 DIABETES SCREEN DIABETES SCREEN [facility] Start: 02-28-2024 COVID-19 VACCINE (4 - Booster for Moderna series) COVID-19 VACCINE (4 - Booster for Moderna series) [facility] Immunizations Immunization Date Immunization Notes Care Provider Fa cility 08-29-2022 influenza, high-dose , quadrivalent vaccine (FLUZONE HIGH DOSE QUADRIVALENT) Duglas Sales MD Work Phone: [facility] 08-29-2022 influenza virus vacc ine, unspecified formulation Ct (I-Stat) Work Phone: [facility] 12-27-2020 COVID-19 vaccine, fu ll dose (MODERNA) Duglas Sales MD Work Phone: [facility] Work Phone: 11-29-2020 COVID-19 vaccine, fu ll dose (MODERNA) Duglas Sales MD Work Phone: [facility] Work Phone: 08-31-2020 influenza, high-dose , quadrivalent vaccine (FLUZONE HIGH DOSE QUADRIVALENT) Duglas Sales MD Work Phone: [facility] Work Phone: 09-09-2019 influenza, high dose seasonal, preservative-free Duglas Sales MD Work Phone: [facility] 08-07-2018 influenza, high dose seasonal, preservative-free Duglas Sales MD Work Phone: [facility] 08-15-2017 influenza, high dose seasonal, preservative-free Duglas Sales MD Work Phone: [facility] 09-26-2016 influenza, high dose seasonal, preservative-free Duglas Sales MD Work Phone: [facility] Work Phone: 05-20-2016 pneumococcal conjuga te vaccine, 13 valent Duglas Sales MD Work Phone: [facility] Work Phone: 09-21-2015 influenza, high dose garry, preservative-free Duglas Sales MD Work Phone: [facility] Work Phone: 05-16-2015 pneumococcal polysaccharide vaccine, 23 valent Duglas Sales MD Work Phone: [facility] Work Phone: 08-15-2014 influenza, high dose seasonal, preservative-free Duglas Sales MD Work Phone: [facility] 08-15-2013 influenza virus vacc ine, unspecified formulation Duglas Sales MD Work Phone: [facility] Work Phone: 08-20-2012 influenza virus vacc ine, unspecified formulation Duglas Sales MD Work Phone: [facility] 09-02-2011 influenza virus vacc ine, unspecified formulation Duglas Sales MD Work Phone: [facility] Work Phone: 08-24-2010 influenza virus vacc ine, unspecified formulation Duglas Sales MD Work Phone: [facility] Work Phone: 08-16-2009 influenza virus vacc ine, unspecified formulation Duglas Sales MD Work Phone: [facility] Work Phone: 09-21-2008 influenza virus vacc ine, unspecified formulation Duglas Sales MD Work Phone: [facility] 09-14-2007 influenza virus vacc ine, unspecified formulation Duglas Sales MD Work Phone: [facility] Work Phone: 09-11-2006 influenza virus vacc ine, whole virus Duglas Sales MD Work Phone: [facility] Work Phone: 11-13-2005 pneumococcal polysaccharide vaccine, 23 valent Duglas Sales MD Work Phone: [facility] Work Phone: 11-13-2005 tetanus and diphther ia toxoids, adsorbed, preservative free, for adult use (2 Lf of tetanus toxoid and 2 Lf of diphtheria toxoid) Duglas Sales MD Work Phone: [facility] Work Phone: Payers Date Payer Category Payer Medicare BCBS MEDICARE OO S [facility] MEDICARE PPO OOS [id number] 2020-Present [phone] [address] [place] [address] PPO [id number] 2020 Medicare BCBS MEDICARE OO S [facility] MEDICARE PPO OOS [id number] 2020-Present [phone] [address] [place] [address] PPO [id number] 2020 Medicare [id number] Social History Date Type Detail Facility Start: 07-20-2009 End: 07-01-2022 Tobacco smoking status NHIS Ex-smoker [facility] Work Phone: End: 11-09-1994 History of tobacco use Current smoker [facility] Work Phone: End: 11-09-1994 History of tobacco use Cigarette Smoker [facility] Work Phone: Start: 02-22-2022 End: 05-02-2023 Alcohol intake Current non-drinker of alcohol (finding) [facility] Start: 1940 Sex Assigned At Not on file C [facility] Start: 02-11-2022 End: 08-29-2022 Exposure to SARS-CoV-2 (event) Not sure [facility] Start: 03-17-2022 End: 03-27-2022 Exposure to SARS-CoV-2 (event) Unable to assess [facility] Start: 07-20-2009 End: 12-03-2022 Cigarettes smoked current (pack per day) - Reported 1 [facility] Work Phone: Start: 07-20-2009 End: 07-01-2022 Tobacco use and exposure Smokeless tobacco non-user [facility] Start: 12-03-2022 End: 05-02-2023 Tobacco use panel [facility] Work Phone: Adult Depression Screening Assessment 4 [facility] Work Phone: Medical Equipment Procedure Code Equipment Code Equipment Origin al Text Equipment Identifier Dates Mesh Srg Pariete x 15cm Vntrl - [id number] Start: 09-21-2012 Clinical Notes 10-16-2017 to 09-25-2023 Telephone Encounter - Laina Odonnell Ma - 09/25/2023 12:37 PM ESTTelephone Encounter - Idalmis Hoff - 09/25/2023 12:10 PM ESTTelephone Encounter - Elva Verdugo - 09/21/2023 1:34 PM EST Note Date & Type Note Facility 09-25-2023 Miscellaneous Notes Formattin g of this note might be different from the original. Called Vicky to verify since rx has been dispensed before with no issue since not name brand. Vicky advised does not need PA just cant be filled till 10/03. Patient was notified and verbalized understanding Laina Odonnell Ma Debbie Rodrigez is calling Duglas Sales MD today to request Prior Authorization for the levothyroxine. Patient has been identified by name and birthdate. Duration of symptoms: N/A Person calling: self Call patient at: at home [phone] (home) Was an appointment scheduled: No Closing statement: Idalmis Smith documented in this encounter [facility] 09-21-2023 Miscellaneous Notes Formattin g of this note is different from the original. The following approved medication requests have been transmitted electronically. Requested Prescriptions Signed Prescriptions Disp Refills levothyroxine (SYNTHROID) 100 mcg tablet 102 tablet 1 Sig: Take 1 tablet by mouth once daily. Thursday-Thursday. Take 2 tablets on Sundays Authorizing Provider: DUGLAS SALES MD Patient has been identified by name and date of : Yes Requested Prescriptions Pending Prescriptions Disp Refills levothyroxine (SYNTHROID) 100 mcg tablet 102 tablet 1 Sig: Take 1 tablet by mouth once daily. Thursday-Thursday. Take 2 tablets on Sundays RX INSTRUCTIONS: Patient aware RX will be sent to pharmacy. No need to notify patient. Ana Laura Cornelius MA Shazia 02/2023 Nov Last refill: 04/2023 Patient has been identified by name and date of : Yes Requested Prescriptions Pending Prescriptions Disp Refills levothyroxine (SYNTHROID) 100 mcg tablet 102 tablet 1 Sig: Take 1 tablet by mouth once daily. Thursday-Thursday. Take 2 tablets on Sundays RX INSTRUCTIONS: Patient aware RX will be sent to pharmacy. No need to notify patient. Elva Verdugo documented in this encounter [facility] 05-18-2023 Miscellaneous Notes Formattin g of this note might be different from the original. SHAZIA 02/27/23 NOV 09/18/23 Clau Marc MA Patient has been identified by name and date of : Yes Requested Prescriptions Pending Prescriptions Disp Refills gabapentin (NEURONTIN) 100 mg capsule 270 capsule 1 Sig: Take 1 capsule by mouth three times daily for 180 days. RX INSTRUCTIONS: Patient aware RX will be sent to pharmacy. No need to notify patient. Paty Olivarez documented in this encounter [facility] 05-14-2023 Note HNO ID: [id number] Author: Ana Laura Cronelius MA Service: ? Author Type: Shareholder Type: Progress Notes Filed: 05/14/2023 8:10 PM Note Text: Scan on 05/06/2023 11:37 AM by External Provider, PABrookeC: Hematology Scan on 05/06/2023 12:00 PM by External Provider, EMILY: Jyoti Cornelius MA [facility] 05-14-2023 History of Presen t illness Narrative Scan on 05/06/2023 11:37 AM by External Provider, RULAC: Hematology Scan on 05/06/2023 12:00 PM by External Provider, EMILY: Jyoti Cornelius MA documented in this encounter [facility] 05-01-2023 Note HNO ID: [id number] Author: Danny Miranda LPN Service: ? Author Type: ? Type: Progress Notes Filed: 05/02/2023 8:41 AM Note Text: Scan on 04/30/2023 1:27 PM by External Provider, EMILY: Chemistry [facility] 05-01-2023 History of Presen t illness Narrative Scan on 04/30/2023 1:27 PM by External Provider, EMILY: Chemistry documented in this encounter [facility] 04-24-2023 Miscellaneous Notes Formattin g of this note might be different from the original. Patient notified and she will need new prescription. Ana Laura Cornelius MA Let patient know thyroid lab much better. No changes needed. documented in this encounter [facility] 03-27-2023 Note HNO ID: [id number] Author: Ana Laura Cornelius MA Service: ? Author Type: Shareholder Type: Progress Notes Filed: 03/29/2023 5:29 PM Note Text: Scan on 03/26/2023 3:17 PM by External Provider, EMILY: Consultation - General Surgery Ana Laura Cornelius MA [facility] 03-16-2023 Miscellaneous Notes Formattin g of this note might be different from the original. Copy of US has been faxed to Dr Juan Santa's office. Danny Miranda LPN Noted. Please send copy of US to their office. TC to patient who verbalized understanding of providers message. Pt states she is still following with Dr. Santa and she has a follow up soon with him. Pt unable to verify date of appointment at this time. CARLENE Hurley Let patient know that the AAA has increased slightly. We cheryl continue to monitor. Is she still seeing dr. Santa for this too? Fabio Schulte PA-C documented in this encounter [facility] 03-13-2023 Miscellaneous Notes Formattin g of this note might be different from the original. Faxed. Ana Laura Cornelius MA Order placed Patient notified and voiced understanding. Ok with [facility]. 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 Want her to see ENT. See if ok with [facility] documented in this encounter [facility] 03-13-2023 Note HNO ID: [id number] Author: RT Jaxon(R) Service: ? Author Type: Hr Administrator Type: Progress Notes Filed: 03/13/2023 1:57 PM Note Text: Radiology Service Progress Note PATIENT NAME: Debbie Rodrigez DATE OF SERVICE: March 13, 2023 TIME: 1:56 PM PATIENT IDENTITY VERIFICATION COMPLETED USING TWO (2) IDENTIFIERS: Name and Date of confirmed by patient verbally. FALL SCREENING: Has the patient had 2 falls in the last year or 1 fall with injury or currently using an Ambulatory Assistive Device (Walker, Cane, Wheelchair, Crutches, etc.)? No PATIENT GENDER DATA: Female. status: : No status: NO. PATIENT RELEVANT IMPLANT DATA REVIEWED: Yes RADIOLOGY DEPARTMENT: CT; Exam(s) Completed: Neck PERIPHERAL IV DATA: Not applicable SIGNED BY: RT Juan Alberto(R) March 13, 2023 1:56 PM [facility] 03-13-2023 Note HNO ID: [id number] Author: Ragini Denis RDMS Service: ? Author Type: Hr Administrator Type: Progress Notes Filed: 03/13/2023 10:34 AM Note Text: Radiology Service Progress Note PATIENT NAME: Debbie Rodrigez DATE OF SERVICE: March 13, 2023 TIME: 10:33 AM PATIENT IDENTITY VERIFICATION COMPLETED USING TWO (2) IDENTIFIERS: Name and Date of confirmed by patient verbally. FALL SCREENING: Has the patient had 2 falls in the last year or 1 fall with injury or currently using an Ambulatory Assistive Device (Walker, Cane, Wheelchair, Crutches, etc.)? Yes, Patient High Risk for Falls What interventions were put in place to prevent falls during this visit? Offered Assistance with Transfers/Clothing and Increased Observations by Caregivers PATIENT GENDER DATA: Female. status: : No status: NO. PATIENT RELEVANT IMPLANT DATA REVIEWED: Not Applicable RADIOLOGY DEPARTMENT: Ultrasound PERIPHERAL IV DATA: Not applicable SIGNED BY: Ragini Denis RDMS March 13, 2023 10:33 AM [facility] 03-13-2023 History of Presen t illness Narrative Radiology Service Progress Note PATIENT NAME: Debbie Rodrigez DATE OF SERVICE: March 13, 2023 TIME: 1:56 PM PATIENT IDENTITY VERIFICATION COMPLETED USING TWO (2) IDENTIFIERS: Name and Date of confirmed by patient verbally. FALL SCREENING: Has the patient had 2 falls in the last year or 1 fall with injury or currently using an Ambulatory Assistive Device (Walker, Cane, Wheelchair, Crutches, etc.)? No PATIENT GENDER DATA: Female. status: : No status: NO. PATIENT RELEVANT IMPLANT DATA REVIEWED: Yes RADIOLOGY DEPARTMENT: CT; Exam(s) Completed: Neck PERIPHERAL IV DATA: Not applicable SIGNED BY: RT Juan Alberto(R) March 13, 2023 1:56 PM documented in this encounter [facility] 03-13-2023 History of Presen t illness Narrative Radiology Service Progress Note PATIENT NAME: Debbie Rodrigez DATE OF SERVICE: March 13, 2023 TIME: 10:33 AM PATIENT IDENTITY VERIFICATION COMPLETED USING TWO (2) IDENTIFIERS: Name and Date of confirmed by patient verbally. FALL SCREENING: Has the patient had 2 falls in the last year or 1 fall with injury or currently using an Ambulatory Assistive Device (Walker, Cane, Wheelchair, Crutches, etc.)? Yes, Patient High Risk for Falls What interventions were put in place to prevent falls during this visit? Offered Assistance with Transfers/Clothing and Increased Observations by Caregivers PATIENT GENDER DATA: Female. status: : No status: NO. PATIENT RELEVANT IMPLANT DATA REVIEWED: Not Applicable RADIOLOGY DEPARTMENT: Ultrasound PERIPHERAL IV DATA: Not applicable SIGNED BY: Ragini Denis RDMS March 13, 2023 10:33 AM documented in this encounter [facility] 02-27-2023 Note HNO ID: [id number] Author: Fabio Schulte PA-C Service: ? Author Type: Physician Director Of Marketing [employer] Type: Progress Notes Filed: 02/27/2023 11:53 AM Note Text: Chief Complaint Patient presents with: 6 Month Exam HPI Debbie Rodrigez is a 82 year old female who presents here today for Chronic Medical Conditions.. Patient with hx of AAA, bladder cancer, CKD, hypothyroid, RA, osteoporosis, caroid stenosis, and those as below. Patient overall doing okay. She denies concerns. At end of the visit patient asks about her instability. States she feels off balance sometimes. Has to use a walker just in case. Last 6 Encounter Wt Readings: Date: Wt: 02/27/2023 60.3 kg (133 lb) 08/29/2022 56.2 kg (124 lb) 07/01/2022 53.5 kg (118 lb) 02/21/2022 55.3 kg (122 lb) 07/16/2021 57.2 kg (126 lb) 01/09/2021 59 kg (130 lb) Past medical history, appointments, medications, allergies reviewed. Previous Medical History PAST MEDICAL HISTORY Diagnosis Date Abdominal aortic aneurysm (AAA) without rupture (HCC) 06/08/2017 Acquired hypothyroidism 11/20/2015 Advance directive discussed with patient 02/21/2022 Discussed 02/2022 Age-related osteoporosis without current pathological fracture 06/04/2011 DEXA DUE 2012 Arterial ischemic stroke, vertebrobasilar, cerebellar, remote, resolved 03/30/2022 Per MRI 03/2022 Bilateral carotid artery stenosis 10/10/2019 US 05/2019: Rt 80-10 %, Lt 20-40%, S/p CEA (06/2019) (? Who she sees for vascular) Bilateral carotid artery stenosis 10/10/2019 US 05/2019: Rt 80-10 %, Lt 20-40%, S/p CEA (06/2019) seeing Dr. 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 Sullivan-- s/p cystectomy, stoma placement * December 25, 2004 underwent a radical cystectomy with creation of an ileal loop for invasive carcinoma of the bladder. She did not receive any adjunctive or postoperative therapy and workups to date have been negative Malignant neoplasm of urinary bladder (HCC) 11/20/2015 Bladder cancer -- Dr. Little-- s/p cystectomy, stoma placement * December 25, 2004 underwent a radical cystectomy with creation of an ileal loop for invasive carcinoma of the bladder. She did not receive any adjunctive or postoperative therapy and workups to date have been negative Medicare annual wellness visit, subsequent 06/15/2018 Medicare Part B: 06/09/2003 last done: 06/15/2019 Osteopenia 06/04/2011 DEXA DUE 2011 Parastomal hernia of ileal conduit 12/27/2011 Rheumatoid arthritis involving multiple sites (HCC) 11/25/2016 Dr. Venegas Diagnosed 2007 +/- Stage 3b chronic kidney disease (HCC) 08/20/2021 Ureterostomy status (HCC) 05/16/2015 Varicose veins with pain 11/20/2015 Previous Surgical History PAST SURGICAL HISTORY Procedure Laterality Date APPENDECTOMY CAROTID ENDARTERECTOMY Right 06/20/2019 Dr. Santa COLONOSCOPY 01/20/2012 [facility] COLONOSCOPY FLX DX W/COLLJ SPEC WHEN PFRMD 04/23/2006 Colonoscopy HERNIA REPAIR W/MESH 2008 PAST SURGICAL HISTORY OF 12/23/2004 bladder removal with urosotomy REMV CATARACT EXTRACAP,INSERT LENS Right 2019 with corneal transplant REPAIR FIRST ABDOMINAL WALL HERNIA Hernia repair, incisional TOTAL ABDOMINAL HYSTERECT W/WO RMVL TUBE OVARY 12/23/2004 Hysterectomy, ANDRE, oophorectomy Family History FAMILY HISTORY Problem Relation Age of Onset None Mother Heart Father Patient Allergies ALLERGIES No Known Allergies Current Medications Current Outpatient Medications on File Prior to Visit Medication Sig levothyroxine (SYNTHROID) 100 mcg tablet Take 1 tablet by mouth once daily. Thursday-Thursday. Take 1.5 tablets on Sundays gabapentin (NEURONTIN) 100 mg capsule Take 1 capsule by mouth three times daily for 180 days. Ferrous Sulfate (SLOW FE) 142 mg (45 mg iron) TbER Take two tab by mouth daily. abatacept 125 mg/mL Inject 125 mg subcutaneously one time a week. COMPOUNDED PRESCRIPTION Pair of compression socks 10 mmHg Dx: M79.606, I89.0, I83.819, C67.9, I89.9 Ostomy Supplies 1 1/2 misc Ostomy Pouches [...] Supplies ([employer]) misc 20 Devices. Uros (more content not included)... [facility] 02-27-2023 Instructions Fabio Schulte PA-C - 02/27/2023 10:48 AM EDT Repeat thyroid labs around April 24. Increase iron tablet to twice a day. Follow for wellness exam in 6 months. documented in this encounter [facility] 02-27-2023 History of Presen t illness Narrative Chief Complaint Patient presents with: 6 Month Exam HPI Debbie Rodrigez is a 82 year old female who presents here today for Chronic Medical Conditions.. Patient with hx of AAA, bladder cancer, CKD, hypothyroid, RA, osteoporosis, caroid stenosis, and those as below. Patient overall doing okay. She denies concerns. At end of the visit patient asks about her instability. States she feels off balance sometimes. Has to use a walker just in case. Last 6 Encounter Wt Readings: Date: Wt: 02/27/2023 60.3 kg (133 lb) 08/29/2022 56.2 kg (124 lb) 07/01/2022 53.5 kg (118 lb) 02/21/2022 55.3 kg (122 lb) 07/16/2021 57.2 kg (126 lb) 01/09/2021 59 kg (130 lb) Past medical history, appointments, medications, allergies reviewed. Previous Medical History PAST MEDICAL HISTORY Diagnosis Date Abdominal aortic aneurysm (AAA) without rupture (HCC) 06/08/2017 Acquired hypothyroidism 11/20/2015 Advance directive discussed with patient 02/21/2022 Discussed 02/2022 Age-related osteoporosis without current pathological fracture 06/04/2011 DEXA DUE 2012 Arterial ischemic stroke, vertebrobasilar, cerebellar, remote, resolved 03/30/2022 Per MRI 03/2022 Bilateral carotid artery stenosis 10/10/2019 US 05/2019: Rt 80-10 %, Lt 20-40%, S/p CEA (06/2019) (? Who she sees for vascular) Bilateral carotid artery stenosis 10/10/2019 US 05/2019: Rt 80-10 %, Lt 20-40%, S/p CEA (06/2019) seeing Dr. 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 Sullivan-- s/p cystectomy, stoma placement * December 25, 2004 underwent a radical cystectomy with creation of an ileal loop for invasive carcinoma of the bladder. She did not receive any adjunctive or postoperative therapy and workups to date have been negative Malignant neoplasm of urinary bladder ([facility]) 11/20/2015 Bladder cancer -- Dr. Little-- s/p cystectomy, stoma placement * December 25, 2004 underwent a radical cystectomy with creation of an ileal loop for invasive carcinoma of the bladder. She did not receive any adjunctive or postoperative therapy and workups to date have been negative Medicare annual wellness visit, subsequent 06/15/2018 Medicare Part B: 06/09/2003 last done: 06/15/2019 Osteopenia 06/04/2011 DEXA DUE 2011 Parastomal hernia of ileal conduit 12/27/2011 Rheumatoid arthritis involving multiple sites ([facility]) 11/25/2016 Dr. Venegas Diagnosed 2006 +/- Stage 3b chronic kidney disease ([facility]) 08/20/2021 Ureterostomy status ([facility]) 05/16/2015 Varicose veins with pain 11/20/2015 Previous Surgical History PAST SURGICAL HISTORY Procedure Laterality Date APPENDECTOMY CAROTID ENDARTERECTOMY Right 06/20/2019 Dr. Santa COLONOSCOPY 01/20/2012 [facility] COLONOSCOPY FLX DX W/COLLJ SPEC WHEN PFRMD 04/23/2006 Colonoscopy HERNIA REPAIR W/MESH 2009 PAST SURGICAL HISTORY OF 12/23/2004 bladder removal with urosotomy REMV CATARACT EXTRACAP,INSERT LENS Right 2019 with corneal transplant REPAIR FIRST ABDOMINAL WALL HERNIA Hernia repair, incisional TOTAL ABDOMINAL HYSTERECT W/WO RMVL TUBE OVARY 12/23/2004 Hysterectomy, ANDRE, oophorectomy Family History FAMILY HISTORY Problem Relation Age of Onset None Mother Heart Father Patient Allergies ALLERGIES No Known Allergies Current Medications Current Outpatient Medications on File Prior to Visit Medication Sig levothyroxine (SYNTHROID) 100 mcg tablet Take 1 tablet by mouth once daily. Thursday-Thursday. Take 1.5 tablets on Sundays gabapentin (NEURONTIN) 100 mg capsule Take 1 capsule by mouth three times daily for 180 days. Ferrous Sulfate (SLOW FE) 142 mg (45 mg iron) TbER Take two tab by mouth daily. abatacept 125 mg/mL Inject 125 mg subcutaneously one time a week. COMPOUNDED PRESCRIPTION Pair of compression socks 10 mmHg Dx: M79.606, I89.0, I83.819, C67.9, I89.9 Ostomy Supplies 1 1/2 misc Ostomy Pouches [...] URINARY DRAINAGE BAG) misc 1 mL. q lidocaine (LIDODERM) 5 % DAILY (Patient not taking: Reported on 02/27/2023) aspirin, enteric coated (ASPIRIN, ENTERIC COATED) 81 mg EC tablet Take 1 tablet by mouth once daily. (Patient not taking: No sig reported) hydroxychloroquine 200 mg ORAL tablet Take 1 tablet by mouth twice daily. (Patient not taking: Reported on 02/27/2023) Current Facility-Administered Medications on File Prior to Visit Medication perflutren lipid microspheres 1.3 mL in NaCl (PF) 0.9% 10 mL injection (DEFINITY) sodium chloride 0.9 % (flush) 10 mL (BD POSIFLUSH) Social History Social History Tobacco Use Smoking status: Former Packs/day: 1.00 Years: 20.00 Pack years: 20.00 Types: Cigarettes Quit date: 11/09/1994 Years since quittin.3 Smokeless tobacco: Never Substance Use Topics Alcohol use: No Drug use: No Review of Symptoms REVIEW OF SYSTEMS GENERAL: No weight loss, malaise or fevers NECK: Negative for lumps, goiter, pain and significant neck swelling RESPIRATORY: Negative for cough, hemoptysis, wheezing, COPD, dyspnea or shortness of breath CARDIOVASCULAR: Negative for chest pain, leg swelling, hypertension, CHF or palpitations NEURO: No history of headaches, syncope, paralysis, seizures or tremors EXAM: BP 122/72 (BP Site: Right Arm, BP Position: Sitting, BP Cuff Size: Regular Adult) Pulse 105 Temp 36.6 C (97.8 F) Resp 16 Wt 60.3 kg (133 lb) BMI 23.19 kg/m General Appearance: Well appearing, alert, in no acute distress, well-hydrated, well nourished.. Neck: Supple, no adenopathy; thyroid symmetric, normal size, no bruits. Lungs: Lungs clear to auscultation. No wheezing, rhonchi, rales.. Heart: RRR without murmur, gallop, or rubs. No ectopy. Extremities: Edema noted but stable chronically. No deformities, skin discoloration, clubbing or cyanosis. Good capillary refill. . Peripheral Pulses: Normal. Health Maintenance List SHINGRIX VACCINE(1 of 2) Never done ADVANCE DIRECTIVE DISCUSSION due on 11/09/2022 DEPRESSION ASSESSMENT due on 11/09/2022 DTAP,TDAP,TD(1 - Tdap) due on 08/29/2023 COVID-19 VACCINE(4 - Booster for Moderna series) due on 02/28/2024 DIABETES SCREEN due on 02/24/2026 BONE DENSITY Completed INFLUENZA Completed PNEUMOCOCCAL: 65+ Completed Data reviewed Component Latest Ref Rng & Units 02/24/2023 WBC 3.70 - 11.00 k/uL 6.93 RBC 3.90 - 5.20 m/uL 4.51 Hemoglobin 11.5 - 15.5 g/dL 13.4 Hematocrit 36.0 - 46.0 % 44.0 MCV 80.0 - 100.0 fL 97.6 MCH 26.0 - 34.0 pg 29.7 MCHC 30.5 - 36.0 g/dL 30.5 RDW-CV 11.5 - 15.0 % 13.5 Platelet Count 150 - 400 k/uL 237 MPV 9.0 - 12.7 fL 11.1 Neut% % 63.6 Abs Neut (ANC) 1.45 - 7.50 k/uL 4.41 Lymph% % 24.7 Abs Lymph 1.00 - 4.00 k/uL 1.71 Republic% % 9.1 Abs Republic <0.87 k/uL 0.63 Eosin% % 1.9 Abs Eosin <0.46 k/uL 0.13 Baso% % 0.6 Abs Baso <0.11 k/uL 0.04 Immature Gran % % 0.1 IMMATURE GRANS (ABS) <0.10 k/uL <0.03 NRBC /100 WBC 0.0 Absolute nRBC <0.01 k/uL <0.01 DTYPE Auto Glucose 74 - 99 mg/dL 94 BUN 7 - 21 mg/dL 26 (H) Creatinine 0.58 - 0.96 mg/dL 1.56 (H) Sodium 136 - 144 mmol/L 138 Potassium 3.7 - 5.1 mmol/L 4.4 Chloride 97 - 105 mmol/L 102 CO2 22 - 30 mmol/L 26 Anion Gap 9 - 18 mmol/L 10 Calcium 8.5 - 10.2 mg/dL 9.6 eGFR >=60 mL/min/1.73m 33 (L) Iron 41 - 186 ug/dL 35 (L) TIBC 232 - 386 ug/dL 319 Transferrin Saturation 15.0 - 57.0 % 11.0 (L) TSH 0.270 - 4.200 mIU/L 5.170 (H) ASSESSMENT/PLAN: 1. Acquired hypothyroidism - ICD9: 244.9, ICD10: E03.9 (primary diagnosis) - Instructed patient on importance of taking on an empty stomach either first thing in the morning or at bedtime. - check TSH in 8 weeks - Increase Synthroid dose to: as ordered - TSH BLD - TSH BLD 2. Abdominal aortic aneurysm (AAA) without rupture, unspecified part (HCC) - ICD9: 441.4, ICD10: I71.40 Rehceck: - US ABD AORTA - US DOPPLER AORTA - LIPID PANEL, NONFASTING 3. Malignant neoplasm of urinary bladder, unspecified site (HCC) - ICD9: 188.9, ICD10: C67.9 Cont with uro 4. Stage 3b chronic kidney disease (HCC) - ICD9: 585.3, ICD10: N18.32 Stable. Patient declines returning to nephrology for now. Willmonitor - COMP METABOLIC PANEL 5. Rheumatoid arthritis involving multiple sites, unspecified whether rheumatoid factor present (HCC) - ICD9: 714.0, ICD10: M06.9 Cont with rheum 6. Age-related osteoporosis without current pathological fracture - ICD9: 733.01, ICD10: M81.0 7. Bilateral carotid artery stenosis - ICD9: 433.10, 433.30, ICD10: I65.23 Stable on rececnt check 8. Iron deficiency anemia, unspecified iron deficiency anemia type - ICD9: 280.9, ICD10: D50.9 Increase iron tab to BID - IRON + TIBC - CBC + DIFF 9. Generalized weakness - ICD9: 780.79, ICD10: R53.1 Discussed options. Patient declines Physical Therapy Fall risk reduction handouts given. Follow up in 6 months for medicare wellness. Labs prior. Fabio Schulte PA-C documented in this encounter [facility] 02-23-2023 Miscellaneous Notes Formattin g of this note might be different from the original. Pt notified of lab orders. Danny Miranda LPN Labs placed. Pt has an appt Tuesday 02/27 and is asking if she needs to get any lab work done beforehand. No labs ordered at this time. Call pt only if she needs lab work. Cris Jacob LPN documented in this encounter [facility] 11-17-2022 Miscellaneous Notes Formattin g of this note might be different from the original. Patient calling for refill of Levothyroxine. Advised patient she should have refill available at pharmacy. Natalie Resendiz RN documented in this encounter [facility] 09-12-2022 Miscellaneous Notes Formattin g of this note might be different from the original. Order placed. Received call [place] [id number]. She indicated that's current creatine is 1.58 with a GFR of 32. This is to low for her to complete the CT with Contrast. Please order with out contrast. Ana Laura Cornelius MA documented in this encounter [facility] 08-29-2022 History of Presen t illness Narrative Medicare Yearly Visit Medical B eligibilty date 06/09/2003 Date of last exam 07/16/2021 PAST MEDICAL HISTORY PAST MEDICAL HISTORY Diagnosis Date Abdominal aortic aneurysm (AAA) without rupture (HCC) 06/08/2017 Abdominal pain, left lower quadrant Bilateral carotid artery disease (HCC) 10/16/2017 US 10/13/2017 Rt: 50-70%, Lt less than 50% Bowel disease diverticulitis Diverticulosis of colon (without mention of hemorrhage) DVT (deep venous thrombosis) (HCC) distal Kidney stones LOSS OF HEIGHT (NOT OSTEOPOROSIS) 11/13/2005 Malignant neoplasm of bladder, part unspecified Bladder cancer Osteoporosis Parastomal hernia of ileal conduit 12/27/2011 Rheumatoid arthritis(714.0) Unspecified hypothyroidism Hypothyroidism PAST SURGICAL HISTORY PAST SURGICAL HISTORY Procedure Laterality Date APPENDECTOMY COLONOSCOP W/ OR W/O BRSH SPEC 04/23/2006 Colonoscopy COLONOSCOPY 01/20/12 [facility] HERNIA REPAIR W/MESH 2008 PAST SURGICAL HISTORY OF 12/23/2004 bladder removal with urosotomy REPAIR INCISIONAL HERNIA,REDUCIBLE Hernia repair, incisional TOTAL ABDOM HYSTERECTOMY 12/23/2004 Hysterectomy, ANDRE, oophorectomy Patient has no known allergies. Medications reviewed: Yes FAMILY HISTORY FAMILY HISTORY Problem Relation Age of Onset None Mother Heart Father SOCIAL HISTORY: SOCIAL HISTORY Social History Marital status: Spouse name: Years of education: Number of children: 1 Occupational History Occupation Employer Comment retired [employer]* Social History Main Topics Smoking status: Former Smoker Packs/day: 1.00 Years: 20.00 Types: Cigarettes Quit date: 11/09/1994 Smokeless tobacco: Never Used Alcohol use: No Drug use: No Debbie not alking as much due to balance issues and her sciatica. She watches her diet for sodium, low fat and low cholesterol generally not very much. List of current specialists seen: Dr. Venegas (Rheum), Dr. Santa (vascular) Dr. Little (Urology) End of Live Planning discussed including patients advanced directive wishes: Yes I am willing to follow Debbie's advanced directives. Depression screen Depression Screening 12/09/2017 06/15/2019 02/21/2022 08/29/2022 PHQ-2 Score 0 0 0 4 Depression screening tool completed and reviewed. Based on score and interview, patient is at risk for depression. Screening tool discussed with patient, and I recommended continuing current plan of care. Patient has not noted a decrease in quality of life. Functional Ability/Safety Screen 1. Was the patient's timed Up and Go test unsteady or longer than 30 seconds? No 2. Does the patient need help with the phone, transportation, shopping,preparing meals, housework, laundry, medications or managing money? Not driving, neighbors help getting her places and shopping. Does her own finances 3. Does your home have rugs in the hallway, lack of grab bars in the bathroom, lack of handrails on the stairs or have poor lighting? No Hearing Evaluation: normal PHYSICAL EXAM BP 128/80 (BP Site: Right Arm, BP Position: Sitting, BP Cuff Size: Regular Adult) Pulse 60 Resp 14 Ht 161.3 cm (5' 3.5 ) Wt 56.2 kg (124 lb) BMI 21.62 kg/m Alert and oriented X 3: YES Body mass index is 21.62 kg/m . Seeing optho See below ASSESSMENT/PLAN: 82 year old female The following prevention plan was discussed during the office visit and provided to the patient: See below Chief Complaint Patient presents with: Medicare Wellness Exam HPI Debbie Rodrigez is a 82 year old female who presents here today for Medicare Annual Visit. Patient with Hx of hypothyroidism, carotid artery stenosis, AAA, osteopenia, hx of bladder cancer, CKD, RA, Hx of CVA, lymph edema, ex-smoker, low back pain with sciatica as well as those reviewed and addressed belwo and in ROS. Patient has been doing ok. Not driving any longer and using a walker to help with balance and to prevent falls. She is doing better in regards to her back pain. Would like a script to contnue the gabapentin. Past medical history, appointments, medications, allergies reviewed. Previous Medical History PAST MEDICAL HISTORY Diagnosis Date Abdominal aortic aneurysm (AAA) without rupture (HCC) 06/08/2017 Acquired hypothyroidism 11/20/2015 Advance directive discussed with patient 02/21/2022 Discussed 02/2022 Age-related osteoporosis without current pathological fracture 06/04/2011 DEXA DUE 2011 Arterial ischemic stroke, vertebrobasilar, cerebellar, remote, resolved 03/30/2022 Per MRI 03/2022 Bilateral carotid artery stenosis 10/10/2019 US 05/2019: Rt 80-10 %, Lt 20-40%, S/p CEA (06/2019) (? Who she sees for vascular) Bilateral carotid artery stenosis 10/10/2019 US 05/2019: Rt 80-10 %, Lt 20-40%, S/p CEA (06/2019) seeing Dr. Santa Cervicalgia 12/06/2007 Displacement of cervical intervertebral disc without myelopathy 12/06/2007 Diverticulosis of colon DVT (deep venous thrombosis) ([facility]) distal Ex-smoker 06/22/2020 Kidney stones Leg edema, right 05/16/2015 Due to lymph node removal with bladder Ca. 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 Sullivan-- s/p cystectomy, stoma placement * December 25, 2004 underwent a radical cystectomy with creation of an ileal loop for invasive carcinoma of the bladder. She did not receive any adjunctive or postoperative therapy and workups to date have been negative Malignant neoplasm of urinary bladder (HCC) 11/20/2015 Bladder cancer -- Dr. Little-- s/p cystectomy, stoma placement * December 25, 2004 underwent a radical cystectomy with creation of an ileal loop for invasive carcinoma of the bladder. She did not receive any adjunctive or postoperative therapy and workups to date have been negative Medicare annual wellness visit, subsequent 06/15/2018 Medicare Part B: 06/09/2003 last done: 06/15/2019 Osteopenia 06/04/2011 DEXA DUE 2011 Parastomal hernia of ileal conduit 12/27/2011 Rheumatoid arthritis involving multiple sites (HCC) 11/25/2016 Dr. Venegas Diagnosed 2007 +/- Stage 3b chronic kidney disease (HCC) 08/20/2021 Ureterostomy status ([facility]) 05/16/2015 Varicose veins with pain 11/20/2015 Previous Surgical History PAST SURGICAL HISTORY Procedure Laterality Date APPENDECTOMY CAROTID ENDARTERECTOMY Right 06/20/2019 Dr. Santa COLONOSCOPY 01/20/2012 [facility] COLONOSCOPY FLX DX W/COLLJ SPEC WHEN PFRMD 04/23/2006 Colonoscopy HERNIA REPAIR W/MESH 2008 PAST SURGICAL HISTORY OF 12/23/2004 bladder removal with urosotomy REMV CATARACT EXTRACAP,INSERT LENS Right 2019 with corneal transplant REPAIR FIRST ABDOMINAL WALL HERNIA Hernia repair, incisional TOTAL ABDOMINAL HYSTERECT W/WO RMVL TUBE OVARY 12/23/2004 Hysterectomy, ANDRE, oophorectomy Family History FAMILY HISTORY Problem Relation Age of Onset None Mother Heart Father Patient Allergies ALLERGIES No Known Allergies Current Medications Current Outpatient Medications on File Prior to Visit Medication Sig Ferrous Sulfate (SLOW FE) 142 mg (45 mg iron) TbER Take two tab by mouth daily. abatacept 125 mg/mL Inject 125 mg subcutaneously one time a week. gabapentin (NEURONTIN) 100 mg capsule Take 100 mg by mouth three times daily. lidocaine (LIDODERM) 5 % DAILY levothyroxine (SYNTHROID) 100 mcg tablet Take 1 tablet by mouth once daily. Thursday-Thursday. Take 1.5 tablets on Sundays Ostomy Supplies 1 1/2 misc Ostomy Pouches [...] URINARY DRAINAGE BAG) misc 1 mL. q hydroxychloroquine 200 mg ORAL tablet Take 1 tablet by mouth twice daily. aspirin, enteric coated (ASPIRIN, ENTERIC COATED) 81 mg EC tablet Take 1 tablet by mouth once daily. (Patient not taking: No sig reported) COMPOUNDED PRESCRIPTION Pair of compression socks 10 mmHg Dx: M79.606, I89.0, I83.819, C67.9, I89.9 Current Facility-Administered Medications on File Prior to Visit Medication perflutren lipid microspheres 1.3 mL in NaCl (PF) 0.9% 10 mL injection (DEFINITY) sodium chloride 0.9 % (flush) 10 mL (BD POSIFLUSH) Social History Social History Tobacco Use Smoking status: Former Packs/day: 1.00 Years: 20.00 Pack years: 20.00 Types: Cigarettes Quit date: 11/09/1994 Years since quittin.8 Smokeless tobacco: Never Substance Use Topics Alcohol use: No Drug use: No Review of Symptoms REVIEW OF SYSTEMS GENERAL: No weight loss, malaise or fevers HEENT: Negative for frequent or significant headaches, No changes in hearing or no nose bleeds or other nasal problems. Patient vision has decreased due to cataracts. NECK: Negative for goiter, pain and significant neck swelling. Has a lump on the left side of the neck. Not tender and has not had a sore throat. RESPIRATORY: Negative for cough, hemoptysis, wheezing, COPD, dyspnea or shortness of breath CARDIOVASCULAR: Negative for chest pain, increased leg swelling, hypertension, CHF or palpitations GI: No nausea, vomiting, or diarrhea, No heartburn or reflux symptoms, and no blood : No history of blood MUSCULOSKELETAL: just her back hurts and the arthritis in her back SKIN: Negative for lesions, rash, and itching PSYCH: some depression but not affecting quality of life. HEMATOLOGY/LYMPHOLOGY: Negative for prolonged bleeding, bruising easily or swollen nodes ENDOCRINE: Negative for cold or heat intolerance, polyuria, polydipsia and goiter NEURO: No history of headaches, syncope, paralysis, seizures or tremors EXAM: BP 128/80 (BP Site: Right Arm, BP Position: Sitting, BP Cuff Size: Regular Adult) Pulse 60 Resp 14 Ht 161.3 cm (5' 3.5 ) Wt 56.2 kg (124 lb) BMI 21.62 kg/m Last 4 Encounter Wt Readings: Date: Wt: 08/29/2022 56.2 kg (124 lb) 07/01/2022 53.5 kg (118 lb) 02/21/2022 55.3 kg (122 lb) 07/16/2021 57.2 kg (126 lb) General Appearance: Well appearing, alert, in no acute distress, well-hydrated, well nourished.. Skin: Skin color, texture, turgor normal, no suspicious rashes or lesions. Head: Normocephalic, no masses, lesions, tenderness or abnormalities. Eyes: Anicteric sclera. Pupils are equally round and reactive to light. Extraocular movements are intact. . Ears: External ears normal, canals clear. Oropharynx: Lips, mucosa, and tongue normal, teeth and gums normal, oropharynx normal. Neck: Supple, no adenopathy; thyroid symmetric, normal size, no bruits. Has a non-tender mass on the left side of the neck near the angle of the mandible. Lungs: Lungs clear to auscultation. No wheezing, rhonchi, rales.. Heart: RRR without murmur, gallop, or rubs. No ectopy. Abdomen: Normal abdominal exam, Abdomen soft, non-tender. Bowel sounds normal. No masses, organomegaly. Extremities: No deformities, skin discoloration, clubbing or cyanosis. Good capillary refill. Has 2-3+ pitting edema on both sides. . Musculoskeletal: Muscular strength intact. Peripheral Pulses: Normal. Neurologic: Gait aided with walker. Sensation to light touch and crainal nerves 2-12 intact.. Health Maintenance List DTAP,TDAP,TD(1 - Tdap) due on 11/14/2005 COVID-19 VACCINE(4 - Booster for Moderna series) due on 10/31/2021 DEPRESSION ASSESSMENT Never done INFLUENZA(1) due on 07/10/2022 SHINGRIX VACCINE(1 of 2) due on 02/21/2023 DIABETES SCREEN due on 02/12/2025 BONE DENSITY Completed ADVANCE DIRECTIVE DISCUSSION Completed PNEUMOCOCCAL: 65+ Completed Data reviewed Component Latest Ref Rng & Units 02/12/2022 02/21/2022 07/01/2022 WBC 3.70 - 11.00 k/uL 6.41 10.66 RBC 3.90 - 5.20 m/uL 3.96 4.10 Hemoglobin 11.5 - 15.5 g/dL 10.7 (L) 11.9 Hematocrit 36.0 - 46.0 % 35.7 (L) 39.4 MCV 80.0 - 100.0 fL 90.2 96.1 MCH 26.0 - 34.0 pg 27.0 29.0 MCHC 30.5 - 36.0 g/dL 30.0 (L) 30.2 (L) RDW-CV 11.5 - 15.0 % 16.6 (H) 15.9 (H) Platelet Count 150 - 400 k/uL 303 276 MPV 9.0 - 12.7 fL 10.1 10.3 Neut% % 69.3 83.9 Abs Neut (ANC) 1.45 - 7.50 k/uL 4.44 8.95 (H) Lymph% % 20.0 10.2 Abs Lymph 1.00 - 4.00 k/uL 1.28 1.09 Republic% % 8.9 5.1 Abs Republic <0.87 k/uL 0.57 0.54 Eosin% % 0.9 0.3 Abs Eosin <0.46 k/uL 0.06 0.03 Baso% % 0.6 0.1 Abs Baso <0.11 k/uL 0.04 <0.03 Immature Gran % % 0.3 0.4 IMMATURE GRANS (ABS) <0.10 k/uL <0.03 0.04 NRBC /100 WBC 0.0 0.0 Absolute nRBC <0.01 k/uL <0.01 <0.01 DTYPE Auto Auto Glucose 74 - 99 mg/dL 77 BUN 7 - 21 mg/dL 25 (H) Creatinine 0.58 - 0.96 mg/dL 1.65 (H) Sodium 136 - 144 mmol/L 139 Potassium 3.7 - 5.1 mmol/L 4.4 Chloride 97 - 105 mmol/L 103 CO2 22 - 30 mmol/L 24 Anion Gap 9 - 18 mmol/L 12 Calcium 8.5 - 10.2 mg/dL 9.0 eGFR >=60 mL/min/1.73m 31 (L) Iron 41 - 186 ug/dL 14 (L) 29 (L) TIBC 232 - 386 ug/dL 257 272 Transferrin Saturation 15.0 - 57.0 % 5 (L) 10.7 (L) TSH 0.270 - 4.200 mIU/L 1.450 Vitamin B12 232-1,245 pg/mL 458 A/P ASSESSMENT/PLAN: 1. Medicare annual wellness visit, subsequent - ICD9: V70.0, ICD10: Z00.00(primary diagnosis) - Counseled on healthy diet and regular exercise - Calcium intake with supplements or by diet of 1000 mg/day for under 50, 5677-0569 mg/day for 50+ - Patient was counseled [id number] by myself (the billing provider) for the following immunizations and vaccine components, including side effects: Influenza. Patient consents for immunization and understands risks and benefits. A VIS sheet on each immunization was given to the patient. - Follow up for annual exam in one year 2. Encounter for immunization - ICD9: V03.89, ICD10: Z23 - INFLUENZA SEASONAL QUADRIVALENT HIGH DOSE AGE 65+: given 3. Acquired hypothyroidism - ICD9: 244.9, ICD10: E03.9 - Instructed patient on importance of taking on an empty stomach either first thing in the morning or at bedtime. - continue current dose of Synthroid Check - TSH BLD - CBC + DIFF 4. Abdominal aortic aneurysm (AAA) without rupture, unspecified part - ICD9: 441.4, ICD10: I71.40 - management per vascular - LIPID PANEL, NONFASTING 5. Bilateral carotid artery stenosis - ICD9: 433.10, 433.30, ICD10: I65.23 - as per #4 - LIPID PANEL, NONFASTING 6. Rheumatoid arthritis involving multiple sites, unspecified whether rheumatoid factor present (HCC) - ICD9: 714.0, ICD10: M06.9 - management per Rheum 7. Stage 3b chronic kidney disease (HCC) - ICD9: 585.3, ICD10: N18.32 - cont current Tx and check - COMP METABOLIC PANEL - URINALYSIS, WITH MICROSCOPIC - CREATININE BLD 8. Iron deficiency anemia, unspecified iron deficiency anemia type - ICD9: 280.9, ICD10: D50.9 Check - IRON + TIBC - CBC + DIFF 9. Arterial ischemic stroke, vertebrobasilar, cerebellar, remote, resolved - ICD9: V12.54, ICD10: Z86.73 - stable no changes in Tx. 10. Malignant neoplasm of urinary bladder, unspecified site (HCC) - ICD9: 188.9, ICD10: C67.9 - management per Urology 11. Lymph edema - ICD9: 457.1, ICD10: I89.0 - patient encouraged to wear her support soccks 12. Advance directive discussed with patient - ICD9: V65.49, ICD10: Z71.89 - up to date 13. Ureterostomy status (HCC) - ICD9: V44.6, ICD10: Z93.6 - no issues seeing urology 14. Chronic midline low back pain with bilateral sciatica - ICD9: 724.2, 724.3, 338.29, ICD10: M54.41, M54.42, G89.29 - will cont gabapentin 100 mg TID 15. Neck mass - ICD9: 784.2, ICD10: R22.1 Check - CT NECK SOFT TISSUE W IVCON Requested Prescriptions Signed Prescriptions Disp Refills levothyroxine (SYNTHROID) 100 mcg tablet 90 tablet 1 Sig: Take 1 tablet by mouth once daily. Thursday-Thursday. Take 1.5 tablets on Sundays gabapentin (NEURONTIN) 100 mg capsule 270 capsule 1 Sig: Take 1 capsule by mouth three times daily for 180 days. iv contrast (will be provided with radiology test) 1 Each 0 Sig: Inject 1 Each intravenously one time only for [address] Neck W IVCON No IV access, insert saline lock prior to the sedation, infusion, injection for imaging exam. Discontinue saline lock post exam. If Pt. has a central line or IVAD, may access for administration according to line specific nursing protocol. Once exam is complete flush line and de-access according to line specific nursing protocol in the CT contrast administration guidelines link. F/u 6 months routine I spent a total of 40 minutes on the date of the service which included preparing to see the patient, [id number] patient care, completing clinical documentation, performing a medically appropriate examination, counseling and educating the patient/family/caregiver and ordering medications, tests, or procedures. Duglas Sales MD documented in this encounter [facility] 07-18-2022 Miscellaneous Notes Formattin g of this note might be different from the original. Noted. Called [facility] and they said the Lidoderm patches need a PA. She said one came from Dr Holly and one came from Dr Beaulieu. She said she is going to try and get it to the right place for the PA. Called and let Pt know that [facility] was going to send the message to the right providers that they need a PA. Please contact [facility] pharmacy and see why they are needing my ok for them to fill a script for lioderm written by another provider? Pt calling states spoke with another nurse before , she states vicky here in [place] holding a script for her of lidocaine 5% . She states it was written and sent from hospital but they need ok from . Please advise.Asking office documented in this encounter [facility] 07-08-2022 Miscellaneous Notes Formattin g of this note might be different from the original. Noted. Detailed message left for nurse Olguin that patient should go to ER for evaluation. Called and spoke with patient again today and explained that she needed to go to ER to have legs evaluated. Patient stated that this has been on going and that she was just recently at the hospital and MRI was fine. Explain to patient that an MRI doesn't show if there is a blood clot or CHF and that Dr. Sales is strongly encouraging her to go to ER. Patient states that she has been keeping her legs elavated and by doing so the swelling goes down and stated I'm fine I don't think that is the problem. Patient refusing to go to ER for eval. Patient needs to go to the ER. Having a nurse come eval is not going to be able to r/o a DVT and though PE may be able to demonstrate CHF the patient will need labs, x-rays and a cardiac work up that the [facility] nurse cannot provide. Clau with [facility] HH calls to let provider know that patient didn't seek treatment yesterday in ED as instructed by Dr. Sales for acute leg swelling that needed to be evaluated for possible DVT, CHF, and acute OR. Clau asking if HH can have an order for alf to come out and evaluate edema. Clau requesting a call back at [phone] with provider response. Please review and advise, Prerna Robbins RN documented in this encounter [facility] 07-07-2022 Miscellaneous Notes Formattin g of this note might be different from the original. Noted. Pt called and is notified of providers message and instructions. Pt reports she will try to get there in the next couple of days, she has to find someone to take her. Pt was told that she needs to go today, and if she can't find a ride she needs to call the EMS to come get her. She reports maybe she will wait a couple days to see if it gets better. Pt was told that she needs to find a ride to the ER today to makes sure that she doesn't have any underlying issues. Pt states alright I will try. She states she will keep provider updates. Sharyn Flores RN Advise Rhond that patient should be instructed to go to the ER. She does not have a Hx of leg swelling but with acute onset need to be evaluated for DVT, CHF and acute OR. Emely from [facility] Home Health PT calling patient lower legs are swollen and patient said getting worse each day. Patient does not weigh herself, no compression stockings. Patient does not have home health alf, PT spoke to the business area director for home health, was told to call PCP office. Please call patient with PCP response. Please advise documented in this encounter [facility] 07-07-2022 History of Presen t illness Narrative Patient's home health 485 form / care plan for certification period 06/30/2022 to 08/28/2022 reviewed and signed. Relevant medical records were reviewed. No changes were indicated documented in this encounter [facility] 07-02-2022 Miscellaneous Notes Formattin g of this note might be different from the original. Noted. Emiliana CROOKS calling from [facility] HH to report plan of care for patient and OT will visit patient 1 time only. OT will work with patient on Home Safety. Patient is doing well, and has sustainable agriculture specialist/neighbor support. Patient does not need OT at this time. No call back needed. Karin Hardy RN documented in this encounter [facility] 07-01-2022 History of Presen t illness Narrative Chief Complaint Patient presents with: Hospital F/U TRANSITION CARE MANAGEMENT (TCM) INITIAL CONTACT Shareholder Outreach Provider Action/FYI: Received documentation that patient had been D/C from the hospital. Contact Contacted and patient has not been discharged from Rehab She can be contacted at [phone]. Tried to contact patient several times. indicated that she would be D/C 06/29. Contacted patient on 06/30/2022 and patient was scheduled 07/01/2022 for hospital follow up. Initial contact with patient post discharge, spoke to spouse. Patient identified by name and . TRANSITION CARE MANAGEMENT INITIAL OUTREACH DOCUMENTATION: Date of Outreach: 06/19/2022 06/19/2022 Outreach Attempt 1: Contact Made - Date of Discharge 06/18/2022 06/18/2022 Some recent data might be hidden SUMMARY: -Pt discharged from [facility] Rehab on 06/29/2022. -Admitted for: Intractable back pain HPI Debbie Rodrigez is a 81 year old female who presents here today for Hospital Discharge Follow up.. Patient with hx of chronic back pain. Went to ER on 06/17/22 due to intractable back pain. Was admitted and then sent to rehab for therapies. On 06/29 she was discharged home with home health orders. Physical Therapy plan of care is visit 2x/week for 4 weeks. She has had improvement since original hospitalization. No specific concerns for me today. Past medical history, appointments, medications, allergies reviewed. Previous Medical History PAST MEDICAL HISTORY Diagnosis Date Abdominal aortic aneurysm (AAA) without rupture (HCC) 06/08/2017 Acquired hypothyroidism 11/20/2015 Advance directive discussed with patient 02/21/2022 Discussed 02/2022 Age-related osteoporosis without current pathological fracture 06/04/2011 DEXA DUE 2012 Arterial ischemic stroke, vertebrobasilar, cerebellar, remote, resolved 03/30/2022 Per MRI 03/2022 Bilateral carotid artery stenosis 10/10/2019 US 05/2019: Rt 80-10 %, Lt 20-40%, S/p CEA (06/2019) (? Who she sees for vascular) Bilateral carotid artery stenosis 10/10/2019 US 05/2019: Rt 80-10 %, Lt 20-40%, S/p CEA (06/2019) seeing Dr. Santa Cervicalgia 12/06/2007 Displacement of cervical intervertebral disc without myelopathy 12/06/2007 Diverticulosis of colon DVT (deep venous thrombosis) ([facility]) distal Ex-smoker 06/22/2020 Kidney stones Leg edema, right 05/16/2015 Due to lymph node removal with bladder Ca. 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 Sullivan-- s/p cystectomy, stoma placement * December 25, 2004 underwent a radical cystectomy with creation of an ileal loop for invasive carcinoma of the bladder. She did not receive any adjunctive or postoperative therapy and workups to date have been negative Malignant neoplasm of urinary bladder (HCC) 11/20/2015 Bladder cancer -- Dr. Little-- s/p cystectomy, stoma placement * December 25, 2004 underwent a radical cystectomy with creation of an ileal loop for invasive carcinoma of the bladder. She did not receive any adjunctive or postoperative therapy and workups to date have been negative Medicare annual wellness visit, subsequent 06/15/2018 Medicare Part B: 06/09/2003 last done: 06/15/2019 Osteopenia 06/04/2011 DEXA DUE 2011 Parastomal hernia of ileal conduit 12/27/2011 Rheumatoid arthritis involving multiple sites ([facility]) 11/25/2016 Dr. Venegas Diagnosed 2006 +/- Stage 3b chronic kidney disease ([facility]) 08/20/2021 Ureterostomy status ([facility]) 05/16/2015 Varicose veins with pain 11/20/2015 Previous Surgical History PAST SURGICAL HISTORY Procedure Laterality Date APPENDECTOMY CAROTID ENDARTERECTOMY Right 06/20/2019 Dr. Satna COLONOSCOPY 01/20/2012 [facility] COLONOSCOPY FLX DX W/COLLJ SPEC WHEN PFRMD 04/23/2006 Colonoscopy HERNIA REPAIR W/MESH 2008 PAST SURGICAL HISTORY OF 12/23/2004 bladder removal with urosotomy REMV CATARACT EXTRACAP,INSERT LENS Right 2019 with corneal transplant REPAIR FIRST ABDOMINAL WALL HERNIA Hernia repair, incisional TOTAL ABDOMINAL HYSTERECT W/WO RMVL TUBE OVARY 12/23/2004 Hysterectomy, ANDRE, oophorectomy Family History FAMILY HISTORY Problem Relation Age of Onset None Mother Heart Father Patient Allergies ALLERGIES No Known Allergies Current Medications Current Outpatient Medications on File Prior to Visit Medication Sig abatacept 125 mg/mL Inject 125 mg subcutaneously one time a week. gabapentin (NEURONTIN) 100 mg capsule Take 100 mg by mouth three times daily. lidocaine (LIDODERM) 5 % DAILY levothyroxine (SYNTHROID) 100 mcg tablet Take 1 tablet by mouth once daily. Thursday-Thursday. Take 1.5 tablets on Sundays COMPOUNDED PRESCRIPTION Pair of compression socks 10 mmHg Dx: M79.606, I89.0, I83.819, C67.9, I89.9 Ostomy Supplies 1 1/2 misc Ostomy Pouches [...] URINARY DRAINAGE BAG) misc 1 mL. q hydroxychloroquine 200 mg ORAL tablet Take 1 tablet by mouth twice daily. Ferrous Sulfate (SLOW FE) 142 mg (45 mg iron) TbER Take one tab by mouth daily. aspirin, enteric coated (ASPIRIN, ENTERIC COATED) 81 mg EC tablet Take 1 tablet by mouth once daily. (Patient not taking: Reported on 07/01/2022) Current Facility-Administered Medications on File Prior to Visit Medication perflutren lipid microspheres 1.3 mL in NaCl (PF) 0.9% 10 mL injection (DEFINITY) sodium chloride 0.9 % (flush) 10 mL (BD POSIFLUSH) Social History Social History Tobacco Use Smoking status: Former Packs/day: 1.00 Years: 20.00 Pack years: 20.00 Types: Cigarettes Quit date: 11/09/1994 Years since quittin.6 Smokeless tobacco: Never Substance Use Topics Alcohol use: No Drug use: No Review of Symptoms REVIEW OF SYSTEMS GENERAL: No weight loss, malaise or fevers RESPIRATORY: Negative for cough, hemoptysis, wheezing, COPD, dyspnea or shortness of breath CARDIOVASCULAR: Negative for chest pain, leg swelling, hypertension, CHF or palpitations See hpi EXAM: BP 116/60 (BP Site: Right Arm, BP Position: Sitting, BP Cuff Size: Regular Adult) Pulse 84 Temp 37.4 C (99.4 F) Resp 16 Wt 53.5 kg (118 lb) BMI 19.94 kg/m General Appearance: Well appearing, alert, in no acute distress, well-hydrated, well nourished. and Wheelchair. MSK: 3/5 strength in lower extremities. NVI. Reflexes equal.. Health Maintenance List COVID-19 VACCINE(4 - Booster for Moderna series) due on 11/28/2021 DTAP,TDAP,TD(1 - Tdap) due on 07/16/2022 SHINGRIX VACCINE(1 of 2) due on 02/21/2023 INFLUENZA(1) due on 07/10/2022 DIABETES SCREEN due on 02/12/2025 BONE DENSITY Completed ADVANCE DIRECTIVE DISCUSSION Completed PNEUMOCOCCAL: 65+ Completed Data reviewed ASSESSMENT/PLAN: 1. Chronic midline low back pain with bilateral sciatica - ICD9: 724.2, 724.3, 338.29, ICD10: M54.41, M54.42, G89.29 (primary diagnosis) Continue with therapy. Okay to stay on gabapentin. Patient plans/wants to stop this eventually 2. Stage 3b chronic kidney disease (HCC) - ICD9: 585.3, ICD10: N18.32 Stable. Continue with renal 3. Acquired hypothyroidism - ICD9: 244.9, ICD10: E03.9 4. Iron deficiency anemia, unspecified iron deficiency anemia type - ICD9: 280.9, ICD10: D50.9 Check: - IRON + TIBC - CBC + DIFF Fabio Schulte PA-C documented in this encounter [facility] 06-26-2022 History of Presen t illness Narrative TRANSITION CARE MANAGEMENT (TCM) INITIAL CONTACT Shareholder Outreach Provider Action/FYI: Received documentation that patient had been D/C from the hospital. Contact Contacted and patient has not been discharged from Rehab She can be contacted at [phone]. Tried to contact patient several times. indicated that she would be D/C 06/29. Contacted patient on 06/30/2022 and patient was scheduled 07/01/2022 for hospital follow up. Initial contact with patient post discharge, spoke to spouse. Patient identified by name and . TRANSITION CARE MANAGEMENT INITIAL OUTREACH DOCUMENTATION: Date of Outreach: 06/19/2022 06/19/2022 Outreach Attempt 1: Contact Made - Date of Discharge 06/18/2022 06/18/2022 Some recent data might be hidden SUMMARY: -Pt discharged from [facility] Rehab on 06/29/2022. -Admitted for: Intractable back pain Do you have a hospital follow up appointment with your PCP? Appointment on 07/01/2022 with Fabio Schulte. Yes. Remind patient of appointment date, time, and location. If not within 14 calendar days of discharge - please reschedule accordingly. MEDICATIONS: Many patients have questions or concerns about their medications once they are home. Were you prescribed any new medications? Yes Were you told to hold any medications? No Were any of your medications discontinued? No Do you have any questions about getting or taking your medications? No Your discharge instructions/After visit Summary (AVS) are important in guiding you through the recovery process. Is there anything I might help you understand? Yes, no discharge instructions/AVS provided in patient's record. Follow site specific process for handoff to RN/PLATEN PRESS OPERATOR, or LIP. Do you have all the necessary equipment and supplies at home? No, follow site specific process to secure durable medical equipment and/or supplies for the patient, handoff to RN/PLATEN PRESS OPERATOR, or LIP Medical records from recent hospitalization: [facility] documented in this encounter [facility] 06-19-2022 History of Presen t illness Narrative TRANSITION CARE MANAGEMENT (TCM) INITIAL CONTACT Provider Action/FYI: Spoke with pt's . States pt has not been discharged yet and has been admitted to rehab at [facility] Initial contact with patient post discharge, spoke to pt's . Patient identified by name and . TRANSITION CARE MANAGEMENT: Date of Outreach: 06/19/2022 06/19/2022 Outreach Attempt 1: Contact Made - Date of Discharge 06/18/2022 06/18/2022 Some recent data might be hidden SUMMARY: -Pt discharged from N/A on N/A. -Follow up appointment on N/A. -Medication review done no. -Admitted for: Back pain CONCERNS: N/A NEW MEDICATIONS: N/A MEDS HELD/DISCONTINUED: N/A BRIEF HOSPITAL COURSE: N/A documented in this encounter [facility] 06-17-2022 Miscellaneous Notes Formattin g of this note might be different from the original. Pt notified of Dr Sales's message. She will go back to ER. States she is still having really bad pain. Has not improved. Danny Miranda LPN Please advise patient that if her pain is as sever as she is describing the best thing would be to return to the ER. Patient calling to check the status of her prior question to Cris. Please return call to patient because she says the sciatic pain is really bad. Pt calls to report she went to [facility] ER on 06/14 for bilateral sciatica pain. Pt reports she was prescribed prednisone 20 mg #8 -take 2 tabs daily and hydrocodone/acet 5/325 mg #12 -Take 1 tab q 6 hrs. Pt reports she is having pain of 10 on pain scale this morning and medication does not seem to offer any relief. Pt reports she will run out of medication soon and is asking if pcp will prescribe more or if there is something else that would offer more relief. Please review and advise. Call pt with 's message. Cris Jacob LPN documented in this encounter [facility] 05-26-2022 Miscellaneous Notes Patient has been identified by name and date of : Yes Pending Prescriptions Disp Refills LEVOTHYROXINE 100 MCG TABLET 90 tablet 1 Sig: Take 1 tablet by mouth once daily. Thursday-Thursday. Take 1.5 tablets on Sundays ELLIE: No RX INSTRUCTIONS: Patient aware RX will be sent to pharmacy. No need to notify patient. Ana Laura Cornelius MA Shazia: 02/2022 Nov: 08/2022 Last refill: 11/2021 Patient has been identified by name and date of : Yes Pending Prescriptions Disp Refills LEVOTHYROXINE 100 MCG TABLET 90 tablet 1 Sig: Take 1 tablet by mouth once daily. Thursday-Thursday. Take 1.5 tablets on Sundays ELLIE: No RX INSTRUCTIONS: Please send by tomorrow Patient aware RX will be sent to pharmacy. No need to notify patient. Hali Campbell Pss documented in this encounter [facility] 04-10-2022 Miscellaneous Notes Spoke with pt and information listed below given. Pt verbalizes understanding. Sherita Berry LPN Left message with gentleman who answered phone to have pt return call to office. Danny Miranda LPN Yes, I still want her to see Dr. River for her kidnies. Patient calls and states that she had kidneys checked out in hospital a couple of months ago and hospital told her that she was ok. Patient asking if provider thinks she still needs to see nephrology. Dr. Mora had told patient that she wanted her to see Dr. River before Dr. Mora would prescribe her arthritis medicine. Patient feels that she does not need to see energy auditor. Patient states that she had a appointment with Dr. River in November but patient had to cancel it. Please review and advise, Karin Hardy RN documented in this encounter [facility] 04-04-2022 Miscellaneous Notes Patient notified of results and provider's instructions. Patient verbalizes understanding. Danny Miranda LPN x2 attempt to reach patient. Unable to reach patient. Left VM to return call to office. Please read below and advise. Renae Owusu MA Left message for pt to contact office. Danny Miranda LPN Let patient know the US of her heart was ok. The US of her neck arteries show no increase in narrowing on either side. The MRI of her brain shows past small strokes in the cerebellar part of brain. This is the area we have ballance from. Want her to keep the appt with Neurology. documented in this encounter [facility] 03-28-2022 History of Presen t illness Narrative Radiology Service Progress Note DATE OF SERVICE: March 28, 2022 TIME: 10:22 AM PATIENT IDENTITY VERIFICATION COMPLETED USING TWO (2) STANDARD IDENTIFIERS: Name and Date of confirmed by patient verbally. FALL SCREENING: Has the patient had 2 falls in the last year or 1 fall with injury or currently using an Ambulatory Assistive Device (Walker, Cane, Wheelchair, Crutches, etc.)? Yes, Patient High Risk for Falls What interventions were put in place to prevent falls during this visit? Instructed Patient to Call for Help if Needed, Offered Assistance with Transfers/Clothing, Instructed Patient to Remain Seated (Not on Exam Table) Until Exam and Increased Observations by Caregivers PATIENT GENDER DATA: Female. status: : No status: NO. PATIENT RELEVANT IMPLANT DATA REVIEWED: Yes ALLERGIES: Reviewed and unchanged CONTRAST ALLERGY: NO. EXAM: MRI - CONTRAST TYPE: GROUP II PERIPHERAL IV DATA: Ambulatory: A peripheral IV was started in the Right antecubital site with a Angio cath: 24 gauge. RADIOLOGY DEPARTMENT: MR; Exam(s) Completed: Head: Routine Brain SIGNATURE: RT Silas(R) PATIENT NAME: Debbie Rodrigez DATE: March 28, 2022 TIME: 10:22 AM documented in this encounter [facility] 03-10-2022 Miscellaneous Notes Spoke with pt and information listed below given. Pt verbalizes understanding. Sehrita Berry LPN Left message for patient to call office back Laina Odonnell Ma Let patient know US of aorta shows slight increase in size. Will repeat in a year. documented in this encounter [facility] 03-05-2022 Miscellaneous Notes Patient was notified and r/s Laina Odonnell Ma Left additional message for pt to contact office regarding appointment. Danny Miranda LPN Left message for patient to contact office. Dr. Sales indicated that patient will be due for medicare wellness after 07/2022. She is currently scheduled for 08/27 for a follow up, however this needs changed so that it is a 40 minute appointment so patient will need r/s to a medicare wellness slot with 40 minutes. Ana Laura Cornelius MA documented in this encounter [facility] 02-25-2022 Miscellaneous Notes Patient notified of results and provider's instructions. Patient verbalizes understanding and repeats back instructions correctly. Consult and pt's info has been faxed to Dr Juan Santa's office. Pt aware their office should contact her to set up appointment. Danny Miranda LPN Let patient know b12 and folate were ok. Hemoglobin is slightly lower but not needing a transfusion. Iron studies show her iron is low. Advise her to start taking OTC Slo Fe one a day. I also placed consult order to see Dr. Juan Santa. documented in this encounter [facility] documented as of this encounter (statuses as of 02/25/2022) [facility] History of Past illness Narrative* Problem Noted Date Resolved Date Bilateral carotid artery disease 10/16/2017 10/10/2019 Overview: US 10/13/2017 Rt: 50-70%, Lt less than 50%. US 05/2019 R 80-99% L 20-40% referred to Dr. Santa STOMA MALFUNCTION URETEROSTOMY 06/13/2009 1 documented as of this encounter (statuses as of 03/05/2022) [facility] History of Past illness Narrative* Problem Noted Date Resolved Date Bilateral carotid artery disease 10/16/2017 10/10/2019 Overview: US 10/13/2017 Rt: 50-70%, Lt less than 50%. US 05/2019 R 80-99% L 20-40% referred to Dr. Santa STOMA MALFUNCTION URETEROSTOMY 06/13/2009 1 documented as of this encounter (statuses as of 03/08/2022) [facility] History of Past illness Narrative* Problem Noted Date Resolved Date Bilateral carotid artery disease 10/16/2017 10/10/2019 Overview: US 10/13/2017 Rt: 50-70%, Lt less than 50%. 05/2019 R 80-99% L 20-40% referred to Dr. Santa STOMA MALFUNCTION URETEROSTOMY 06/13/2009 1 documented as of this encounter (statuses as of 03/10/2022) [address]08-2017 History of Past illness Narrative* Problem Noted Date Resolved Date Bilateral carotid artery disease 10/16/2017 10/10/2019 Overview: 10/13/2017 Rt: 50-70%, Lt less than 50%. 05/2019 R 80-99% L 20-40% referred to Dr. Santa STOMA MALFUNCTION URETEROSTOMY 06/13/2009 1 documented as of this encounter (statuses as of 03/29/2022) [facility] History of Past illness Narrative* Problem Noted Date Resolved Date Bilateral carotid artery disease 10/16/2017 10/10/2019 Overview: 10/13/2017 Rt: 50-70%, Lt less than 50%. 05/2019 R 80-99% L 20-40% referred to Dr. Santa STOMA MALFUNCTION URETEROSTOMY 06/13/2009 1 documented as of this encounter (statuses as of 04/04/2022) [facility] History of Past illness Narrative* Problem Noted Date Resolved Date Bilateral carotid artery disease 10/16/2017 10/10/2019 Overview: 10/13/2017 Rt: 50-70%, Lt less than 50%. 05/2019 R 80-99% L 20-40% referred to Dr. Santa STOMA MALFUNCTION URETEROSTOMY 06/13/2009 1 documented as of this encounter (statuses as of 04/10/2022) [facility] History of Past illness Narrative* Problem Noted Date Resolved Date Bilateral carotid artery disease 10/16/2017 10/10/2019 Overview: 10/13/2017 Rt: 50-70%, Lt less than 50%. 05/2019 R 80-99% L 20-40% referred to Dr. Santa STOMA MALFUNCTION URETEROSTOMY 06/13/2009 1 documented as of this encounter (statuses as of 05/26/2022) [facility] History of Past illness Narrative* Problem Noted Date Resolved Date Bilateral carotid artery disease 10/16/2017 10/10/2019 Overview: 10/13/2017 Rt: 50-70%, Lt less than 50%. 05/2019 R 80-99% L 20-40% referred to Dr. Santa STOMA MALFUNCTION URETEROSTOMY 06/13/2009 1 documented as of this encounter (statuses as of 06/17/2022) [facility] History of Past illness Narrative* Problem Noted Date Resolved Date Bilateral carotid artery disease 10/16/2017 10/10/2019 Overview: 10/13/2017 Rt: 50-70%, Lt less than 50%. 05/2019 R 80-99% L 20-40% referred to Dr. Santa STOMA MALFUNCTION URETEROSTOMY 06/13/2009 1 documented as of this encounter (statuses as of 06/19/2022) [facility] History of Past illness Narrative* Problem Noted Date Resolved Date Bilateral carotid artery disease 10/16/2017 10/10/2019 Overview: 10/13/2017 Rt: 50-70%, Lt less than 50%. 05/2019 R 80-99% L 20-40% referred to Dr. Santa STOMA MALFUNCTION URETEROSTOMY 06/13/2009 1 documented as of this encounter (statuses as of 07/01/2022) [facility] History of Past illness Narrative* Problem Noted Date Resolved Date Bilateral carotid artery disease 10/16/2017 10/10/2019 Overview: US 10/13/2017 Rt: 50-70%, Lt less than 50%. 05/2019 R 80-99% L 20-40% referred to Dr. Santa STOMA MALFUNCTION URETEROSTOMY 06/13/2009 1 documented as of this encounter (statuses as of 07/02/2022) [facility] History of Past illness Narrative* Problem Noted Date Resolved Date Bilateral carotid artery disease 10/16/2017 10/10/2019 Overview: US 10/13/2017 Rt: 50-70%, Lt less than 50%. 05/2019 R 80-99% L 20-40% referred to Dr. Santa STOMA MALFUNCTION URETEROSTOMY 06/13/2009 1 documented as of this encounter (statuses as of 07/07/2022) [facility] History of Past illness Narrative* Problem Noted Date Resolved Date Bilateral carotid artery disease 10/16/2017 10/10/2019 Overview: 10/13/2017 Rt: 50-70%, Lt less than 50%. 05/2019 R 80-99% L 20-40% referred to Dr. Santa STOMA MALFUNCTION URETEROSTOMY 06/13/2009 1 documented as of this encounter (statuses as of 07/07/2022) [facility] History of Past illness Narrative* Problem Noted Date Resolved Date Bilateral carotid artery disease 10/16/2017 10/10/2019 Overview: 10/13/2017 Rt: 50-70%, Lt less than 50%. 05/2019 R 80-99% L 20-40% referred to Dr. Santa STOMA MALFUNCTION URETEROSTOMY 06/13/2009 1 documented as of this encounter (statuses as of 07/08/2022) [facility] History of Past illness Narrative* Problem Noted Date Resolved Date Bilateral carotid artery disease 10/16/2017 10/10/2019 Overview: 10/13/2017 Rt: 50-70%, Lt less than 50%. 05/2019 R 80-99% L 20-40% referred to Dr. Santa STOMA MALFUNCTION URETEROSTOMY 06/13/2009 1 documented as of this encounter (statuses as of 07/18/2022) [facility] History of Past illness Narrative* Problem Noted Date Resolved Date Bilateral carotid artery disease 10/16/2017 10/10/2019 Overview: 10/13/2017 Rt: 50-70%, Lt less than 50%. 05/2019 R 80-99% L 20-40% referred to Dr. Santa STOMA MALFUNCTION URETEROSTOMY 06/13/2009 1 documented as of this encounter (statuses as of 07/28/2022) [facility] History of Past illness Narrative* Problem Noted Date Resolved Date Bilateral carotid artery disease 10/16/2017 10/10/2019 Overview: US 10/13/2017 Rt: 50-70%, Lt less than 50%. 05/2019 R 80-99% L 20-40% referred to Dr. Santa STOMA MALFUNCTION URETEROSTOMY 06/13/2009 1 documented as of this encounter (statuses as of 08/31/2022) [facility] History of Past illness Narrative* Problem Noted Date Resolved Date Bilateral carotid artery disease 10/16/2017 10/10/2019 Overview: 10/13/2017 Rt: 50-70%, Lt less than 50%. 05/2019 R 80-99% L 20-40% referred to Dr. Santa STOMA MALFUNCTION URETEROSTOMY 06/13/2009 1 documented as of this encounter (statuses as of 09/12/2022) [facility] of Past [facility] Narrative* Problem Noted Date Resolved Date Bilateral carotid artery disease 10/16/2017 10/10/2019 Overview: 10/13/2017 Rt: 50-70%, Lt less than 50%. 05/2019 R 80-99% L 20-40% referred to Dr. Santa STOMA MALFUNCTION URETEROSTOMY 06/13/2009 1 documented as of this encounter (statuses as of 11/17/2022) [facility] of Past illness Narrative* Problem Noted Date Resolved Date Bilateral carotid artery disease 10/16/2017 10/10/2019 Overview: 10/13/2017 Rt: 50-70%, Lt less than 50%. 05/2019 R 80-99% L 20-40% referred to Dr. Santa STOMA MALFUNCTION URETEROSTOMY 06/13/2009 1 documented as of this encounter (statuses as of 02/23/2023) [facility] History of Past illness Narrative* Problem Noted Date Resolved Date Bilateral carotid artery disease 10/16/2017 10/10/2019 Overview: 10/13/2017 Rt: 50-70%, Lt less than 50%. 05/2019 R 80-99% L 20-40% referred to Dr. Santa STOMA MALFUNCTION URETEROSTOMY 06/13/2009 1 documented as of this encounter (statuses as of 02/27/2023) [facility] Narrative* Problem Noted Date Resolved Date Bilateral carotid artery disease 10/16/2017 10/10/2019 Overview: 10/13/2017 Rt: 50-70%, Lt less than 50%. 05/2019 R 80-99% L 20-40% referred to Dr. Santa STOMA MALFUNCTION URETEROSTOMY 06/13/2009 1 documented as of this encounter (statuses as of 03/14/2023) [facility] Narrative* Problem Noted Date Resolved Date Bilateral carotid artery disease 10/16/2017 10/10/2019 Overview: US 10/13/2017 Rt: 50-70%, Lt less than 50%. 05/2019 R 80-99% L 20-40% referred to Dr. Santa STOMA MALFUNCTION URETEROSTOMY 06/13/2009 1 documented as of this encounter (statuses as of 03/16/2023) [facility] History of Past illness Narrative* Problem Noted Date Resolved Date Bilateral carotid artery disease 10/16/2017 10/10/2019 Overview: US 10/13/2017 Rt: 50-70%, Lt less than 50%. 05/2019 R 80-99% L 20-40% referred to Dr. Santa STOMA MALFUNCTION URETEROSTOMY 06/13/2009 1 documented as of this encounter (statuses as of 04/24/2023) [facility] of Past illness Narrative* Problem Noted Date Resolved Date Bilateral carotid artery disease 10/16/2017 10/10/2019 Overview: US 10/13/2017 Rt: 50-70%, Lt less than 50%. 05/2019 R 80-99% L 20-40% referred to Dr. Santa STOMA MALFUNCTION URETEROSTOMY 06/13/2009 1 documented as of this encounter (statuses as of 05/02/2023) [facility] of [facility] Narrative* Problem Noted Date Resolved Date Bilateral carotid artery disease 10/16/2017 10/10/2019 Overview: US 10/13/2017 Rt: 50-70%, Lt less than 50%. 05/2019 R 80-99% L 20-40% referred to Dr. Satna STOMA MALFUNCTION URETEROSTOMY 06/13/2009 1 documented as of this encounter (statuses as of 05/15/2023) [facility] Narrative* Problem Noted Date Diagnosed Date Resolved Date Bilateral carotid artery disease 10/16/2017 10/10/2019 Overview: US 10/13/2017 Rt: 50-70%, Lt less than 50%. 05/2019 R 80-99% L 20-40% referred to Dr. Santa STOMA MALFUNCTION URETEROSTOMY 06/13/2009 08/13/2016 documented as of this encounter (statuses as of 05/18/2023) [facility] Narrative* Problem Noted Date Diagnosed Date Resolved Date Bilateral carotid artery disease 10/16/2017 10/10/2019 Overview: US 10/13/2017 Rt: 50-70%, Lt less than 50%. 05/2019 R 80-99% L 20-40% referred to Dr. Santa STOMA MALFUNCTION URETEROSTOMY 06/13/2009 08/13/2016 documented as of this encounter (statuses as of 09/12/2023) [facility] Narrative* Problem Noted Date Diagnosed Date Resolved Date Bilateral carotid artery disease 10/16/2017 10/10/2019 Overview: 10/13/2017 Rt: 50-70%, Lt less than 50%. 05/2019 R 80-99% L 20-40% referred to Dr. Santa STOMA MALFUNCTION URETEROSTOMY 06/13/2009 08/13/2016 documented as of this encounter (statuses as of 09/12/2023) [facility] Narrative* Problem Noted Date Diagnosed Date Resolved Date Bilateral carotid artery disease 10/16/2017 10/10/2019 Overview: US 10/13/2017 Rt: 50-70%, Lt less than 50%. 05/2019 R 80-99% L 20-40% referred to Dr. Santa STOMA MALFUNCTION URETEROSTOMY 06/13/2009 08/13/2016 documented as of this encounter (statuses as of 09/22/2023) [facility] Narrative* Problem Noted Date Diagnosed Date Resolved Date Bilateral carotid artery disease 10/16/2017 10/10/2019 Overview: 10/13/2017 Rt: 50-70%, Lt less than 50%. 05/2019 R 80-99% L 20-40% referred to Dr. Santa STOMA MALFUNCTION URETEROSTOMY 06/13/2009 08/13/2016 documented as of this encounter (statuses as of 09/25/2023) [facility] Iron deficiency anemia, unspecified iron deficiency anemia type- Primary [facility] Diagnosis Abdominal aortic aneurysm (AAA) without rupture (HCC) [facility] Diagnosis Abdominal aortic aneurysm (AAA) without rupture (HCC) [facility] Diagnosis Dizziness Dizziness and giddiness Recurrent falls Personal history of fall Shuffling gait Abnormality of gait Ataxia Lack of coordination [facility] Diagnosis Bilateral carotid artery stenosis Occlusion and stenosis of carotid artery without mention of cerebral infarction Arterial ischemic stroke, vertebrobasilar, cerebellar, remote, resolved Transient ischemic attack (TIA), and cerebral infarction without residual deficits [facility] Diagnosis 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 (HCC) Acquired hypothyroidism Unspecified hypothyroidism Iron deficiency anemia, unspecified iron deficiency anemia type [facility] Diagnosis Lumbar radiculopathy- Primary Thoracic or lumbosacral neuritis or radiculitis, unspecified Acute back pain with sciatica, right Spasm of muscle Rheumatoid arthritis, involving unspecified site, unspecified whether rheumatoid factor present (HCC) Occlusion of right carotid artery Occlusion and stenosis of carotid artery without mention of cerebral infarction 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) Abdominal aneurysm without mention of rupture Persistent disorder of initiating or maintaining sleep Unspecified hypothyroidism Mild dietary indigestion Dyspepsia and other specified disorders of function of stomach Debility Debility, unspecified Personal history of malignant neoplasm of bladder Status of artificial opening of urinary tract (HCC) Status of other artificial opening of urinary tract [facility] Diagnosis Medicare annual wellness visit, subsequent- Primary Routine general medical examination at a health care facility Encounter for immunization Need for other specified prophylactic vaccination against single bacterial disease Acquired hypothyroidism Unspecified hypothyroidism Abdominal aortic aneurysm (AAA) without rupture, unspecified part Bilateral carotid artery stenosis Occlusion and stenosis of carotid artery without mention of cerebral infarction Rheumatoid arthritis involving multiple sites, unspecified whether rheumatoid factor present (HCC) Stage 3b chronic kidney disease (HCC) Iron deficiency anemia, unspecified iron deficiency anemia type Arterial ischemic stroke, vertebrobasilar, cerebellar, remote, resolved Transient ischemic attack (TIA), and cerebral infarction without residual deficits Malignant neoplasm of urinary bladder, unspecified site (HCC) Lymph edema Other lymphedema Advance directive discussed with patient Other specified counseling Ureterostomy status (HCC) Status of other artificial opening of 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 Neck mass Swelling, mass, or lump in head and neck [facility] Diagnosis Neck mass- Primary Swelling, mass, or lump in head and neck [facility] Diagnosis Acquired hypothyroidism- Primary Unspecified hypothyroidism Stage 3b chronic kidney disease (HCC) Iron deficiency anemia, unspecified iron deficiency anemia type [facility] Diagnosis Acquired hypothyroidism- Primary Unspecified hypothyroidism Abdominal aortic aneurysm (AAA) without rupture, unspecified part (HCC) Malignant neoplasm of urinary bladder, unspecified site (HCC) Stage 3b chronic kidney disease (HCC) Rheumatoid arthritis involving multiple sites, unspecified whether rheumatoid factor present (HCC) Age-related osteoporosis without current pathological fracture Senile osteoporosis Bilateral carotid artery stenosis Occlusion and stenosis of carotid artery without mention of cerebral infarction Iron deficiency anemia, unspecified iron deficiency anemia type Generalized weakness Other malaise and fatigue Ureterostomy status (HCC) Status of other artificial opening of urinary tract [facility] Diagnosis 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 [facility] Diagnosis Abdominal aortic aneurysm (AAA) without rupture, unspecified part (HCC) [facility] Diagnosis Acquired hypothyroidism- Primary Unspecified hypothyroidism [facility] Diagnosis Abdominal aortic aneurysm (AAA) without rupture, unspecified part (HCC) documented in this encounter [facility]* Diagnosis Neck mass Swelling, mass, or lump in head and neck [facility] Diagnosis Acquired hypothyroidism Unspecified hypothyroidism documented in this encounter [facility] for referral (narrative)* Diagnostic Procedure Only (Routine) - Closed Specialty Diagnoses / Procedures Referred By Yudi dye Referred To Contact US IMAGING Diagnoses Abdominal aortic aneurysm (AAA) without rupture (HCC) Procedures US ABD AORTA US RETROPERITONEAL REAL TIME W/IMAGE LIMITED Duglas Sales MD [address] [place] [address] Us Imaging Referral ID Status Reason Start Date Expiration Date Visits Re quested Visits Authorized [id number] Closed 03/04/2022 11/08/2022 1 1 [facility] for referral (narrative)* Diagnostic Procedure Only (Routine) - Pending Review Specialty Diagnoses / Procedures Referred By Contac t Referred To Contact US IMAGING Diagnoses Abdominal aortic aneurysm (AAA) without rupture, unspecified part (HCC) Procedures US DOPPLER AORTA DUP-SCAN ARTL NAVEEN ABDL/PEL/SCROT&/RPR ORGN LMT Fabio Schulte PA-C [address] [place] [address] Us Imaging Referral ID Status Reason Start Date Expiration Date Visits Requested Visits Authorized [id number] Pending Review Auto-Generat ed Referral 02/27/2023 03/28/2024 1 1 * Diagnostic Procedure Only (Routine) - Pending Review Specialty Diagnoses / Procedures Referred By Contac t Referred To Contact US IMAGING Diagnoses Abdominal aortic aneurysm (AAA) without rupture, unspecified part (HCC) Procedures US ABD AORTA US RETROPERITONEAL REAL TIME W/IMAGE LIMITED Fabio Schulte PA-C [address] [place] [address] Us Imaging Referral ID Status Reason Start Date Expiration Date Visits Requested Visits Authorized [id number] Pending Review Auto-Generat ed Referral 02/27/2023 03/28/2024 1 1 [facility] for referral (narrative)* Diagnostic Procedure Only (Routine) - Closed Specialty Diagnoses / Procedures Referred By Contac t Referred To Contact US IMAGING Diagnoses Abdominal aortic aneurysm (AAA) without rupture, unspecified part (HCC) Procedures US DOPPLER AORTA DUP-SCAN ARTL NAVEEN ABDL/PEL/SCROT&/RPR ORGN LMT Fabio Schulte PA-C [address] [place] [address] [place] [address] Referral ID Status Reason Start Date Expiration Date V isits Requested Visits Authorized [id number] Closed Auto-Generate d Referral 03/13/2023 11/08/2023 1 1 * Diagnostic Procedure Only (Routine) - Closed Specialty Diagnoses / Procedures Referred By Contac t Referred To Contact US IMAGING Diagnoses Abdominal aortic aneurysm (AAA) without rupture, unspecified part (HCC) Procedures US ABD AORTA US RETROPERITONEAL REAL TIME W/IMAGE LIMITED Fabio Schulte PA-C [address] [place] [address] [place] [id number] Referral ID Status Reason Start Date Expiration Date V isits Requested Visits Authorized [id number] Closed Auto-Generate d Referral 03/03/2023 11/08/2023 1 1 [facility] for visit Narrative* Diagnostic Procedure Only (Routine) - Closed Specialty Diagnoses / Procedures Referred By Contac t Referred To Contact US IMAGING Diagnoses Abdominal aortic aneurysm (AAA) without rupture (HCC) Procedures US ABD AORTA US RETROPERITONEAL REAL TIME W/IMAGE LIMITED Duglas Sales MD [address] [place] [address] Us Imaging Referral ID Status Reason Start Date Expiration Date Visits Re quested Visits Authorized [id number] Closed 03/04/2022 11/08/2022 1 1 [facility] Reason for Referral Specialty Diagnoses / Procedures Referred By Contac t Referred To Contact General Surgery Diagnoses Iron deficiency anemia, unspecified iron deficiency anemia type Procedures CONSULT TO GENERAL SURGERY OFFICE/[facility] 60-74 MINUTES Duglas Sales MD [address] [place] [address] Referral ID Status Reason Start Date Expiration Date Visits Requested Visits Authorized [id number] Pending Review PCP Requested Referral 02/24/2022 02/24/2023 1 1 Specialty Diagnoses / Procedures Referred By Contac t Referred To Contact MR IMAGING Diagnoses Dizziness Recurrent falls Shuffling gait Ataxia Procedures MRI BRAIN WO/W IVCON MRI BRAIN BRAIN STEM W/O W/CONTRAST MATERIAL Duglas Sales MD [address] [place] [address] Mr Imaging Referral ID Status Reason Start Date Expiration Date V isits Requested Visits Authorized [id number] Closed Auto-Generate d Referral 03/28/2022 11/08/2022 1 1 Specialty Diagnoses / Procedures Referred By Contac t Referred To Contact CT IMAGING Diagnoses Neck mass Procedures CT NECK SOFT TISSUE W IVCON CT SOFT TISSUE NECK W/CONTRAST MATERIAL Duglas Sales MD [facility] [place] [id number] Ct Imaging Referral ID Status Reason Start Date Expiration Date Visits Requested Visits Authorized [id number] Pending Review Auto-Generat ed Referral 09/28/2023 1 1 Specialty Diagnoses / Procedures Referred By Contac t Referred To Contact CT IMAGING Diagnoses Neck mass Procedures CT NECK SOFT TISSUE WO IVCON CT SOFT TISSUE NECK W/O CONTRAST MATERIAL Duglas Sales MD [address] [place], [place] [id number] Ct Imaging Referral ID Status Reason Start Date Expiration Date Visits Requested Visits Authorized [id number] Pending Review Auto-Generat ed Referral 09/12/2022 10/12/2023 1 1 Specialty Diagnoses / Procedures Referred By Contac t Referred To Contact Ent - Otolaryngology Diagnoses Neoplasm of uncertain behavior of parotid gland Procedures CONSULT TO ENT OFFICE/OUTPATIENT NEW HIGH MDM 60-74 MINUTES Duglas Sales MD [facility] [place] [id number] Referral ID Status Reason Start Date Expiration Date Visits Requested Visits Authorized [id number] Pending Review PCP Requested Referral 03/13/2023 03/12/2024 1 1 Specialty Diagnoses / Procedures Referred By Contac t Referred To Contact CT IMAGING Diagnoses Neck mass Procedures CT NECK SOFT TISSUE WO IVCON CT SOFT TISSUE NECK W/O CONTRAST MATERIAL Duglas Sales MD [facility] [place] [address] [place] [address] Referral ID Status Reason Start Date Expiration Date V isits Requested Visits Authorized [id number] Closed Auto-Generate d Referral 03/03/2023 05/31/2023 1 1 Advance Directives No Advanced Directives Records FoundDocuments on File Type Date Recorded Patient Director Of Graduate Admissions Expl anation Advance Directive(s) 09/14/2012 3:30 PM Documents on File Type Date Recorded Patient Director Of Graduate Admissions Expl anation Advance Directive(s) 09/14/2012 3:30 PM Summary Purpose Family History No Family History Records Found Additional Source Comments Source Comments (unrecognize d section and content) In the event this informatio n is protected by the Federal Confidentiality of Alcohol and Drug Abuse Patient Records regulations: The Federal rules restrict any use of the information to criminally investigate or prosecute any alcohol or drug abuse patient.[facility] HospitalIn the event this information is protected by the Federal Confidentiality of Alcohol and Drug Abuse Patient Records regulations: The Federal rules restrict any use of the information to criminally investigate or prosecute any alcohol or drug abuse patient.[facility] HospitalIn the event this information is protected by the Federal Confidentiality of Alcohol and Drug Abuse Patient Records regulations: The Federal rules restrict any use of the information to criminally investigate or prosecute any alcohol or drug abuse patient.[facility] HospitalIn the event this information is protected by the Federal Confidentiality of Alcohol and Drug Abuse Patient Records regulations: The Federal rules restrict any use of the information to criminally investigate or prosecute any alcohol or drug abuse patient.[facility] HospitalIn the event this information is protected by the Federal Confidentiality of Alcohol and Drug Abuse Patient Records regulations: The Federal rules restrict any use of the information to criminally investigate or prosecute any alcohol or drug abuse patient.[facility] HospitalIn the event this information is protected by the Federal Confidentiality of Alcohol and Drug Abuse Patient Records regulations: The Federal rules restrict any use of the information to criminally investigate or prosecute any alcohol or drug abuse patient.[facility] HospitalIn the event this information is protected by the Federal Confidentiality of Alcohol and Drug Abuse Patient Records regulations: The Federal rules restrict any use of the information to criminally investigate or prosecute any alcohol or drug abuse patient.[facility] HospitalIn the event this information is protected by the Federal Confidentiality of Alcohol and Drug Abuse Patient Records regulations: The Federal rules restrict any use of the information to criminally investigate or prosecute any alcohol or drug abuse patient.[facility] HospitalIn the event this information is protected by the Federal Confidentiality of Alcohol and Drug Abuse Patient Records regulations: The Federal rules restrict any use of the information to criminally investigate or prosecute any alcohol or drug abuse patient.[facility] HospitalIn the event this information is protected by the Federal Confidentiality of Alcohol and Drug Abuse Patient Records regulations: The Federal rules restrict any use of the information to criminally investigate or prosecute any alcohol or drug abuse patient.[facility] HospitalIn the event this information is protected by the Federal Confidentiality of Alcohol and Drug Abuse Patient Records regulations: The Federal rules restrict any use of the information to criminally investigate or prosecute any alcohol or drug abuse patient.[facility] HospitalIn the event this information is protected by the Federal Confidentiality of Alcohol and Drug Abuse Patient Records regulations: The Federal rules restrict any use of the information to criminally investigate or prosecute any alcohol or drug abuse patient.[facility] HospitalIn the event this information is protected by the Federal Confidentiality of Alcohol and Drug Abuse Patient Records regulations: The Federal rules restrict any use of the information to criminally investigate or prosecute any alcohol or drug abuse patient.[facility] HospitalIn the event this information is protected by the Federal Confidentiality of Alcohol and Drug Abuse Patient Records regulations: The Federal rules restrict any use of the information to criminally investigate or prosecute any alcohol or drug abuse patient.[facility] HospitalIn the event this information is protected by the Federal Confidentiality of Alcohol and Drug Abuse Patient Records regulations: The Federal rules restrict any use of the information to criminally investigate or prosecute any alcohol or drug abuse patient.[facility] HospitalIn the event this information is protected by the Federal Confidentiality of Alcohol and Drug Abuse Patient Records regulations: The Federal rules restrict any use of the information to criminally investigate or prosecute any alcohol or drug abuse patient.[facility] HospitalIn the event this information is protected by the Federal Confidentiality of Alcohol and Drug Abuse Patient Records regulations: The Federal rules restrict any use of the information to criminally investigate or prosecute any alcohol or drug abuse patient.[facility] HospitalIn the event this information is protected by the Federal Confidentiality of Alcohol and Drug Abuse Patient Records regulations: The Federal rules restrict any use of the information to criminally investigate or prosecute any alcohol or drug abuse patient.[facility] HospitalIn the event this information is protected by the Federal Confidentiality of Alcohol and Drug Abuse Patient Records regulations: The Federal rules restrict any use of the information to criminally investigate or prosecute any alcohol or drug abuse patient.[facility] HospitalIn the event this information is protected by the Federal Confidentiality of Alcohol and Drug Abuse Patient Records regulations: The Federal rules restrict any use of the information to criminally investigate or prosecute any alcohol or drug abuse patient.[facility] HospitalIn the event this information is protected by the Federal Confidentiality of Alcohol and Drug Abuse Patient Records regulations: The Federal rules restrict any use of the information to criminally investigate or prosecute any alcohol or drug abuse patient.[facility] HospitalIn the event this information is protected by the Federal Confidentiality of Alcohol and Drug Abuse Patient Records regulations: The Federal rules restrict any use of the information to criminally investigate or prosecute any alcohol or drug abuse patient.[facility] HospitalIn the event this information is protected by the Federal Confidentiality of Alcohol and Drug Abuse Patient Records regulations: The Federal rules restrict any use of the information to criminally investigate or prosecute any alcohol or drug abuse patient.[facility] HospitalIn the event this information is protected by the Federal Confidentiality of Alcohol and Drug Abuse Patient Records regulations: The Federal rules restrict any use of the information to criminally investigate or prosecute any alcohol or drug abuse patient.[facility] HospitalIn the event this information is protected by the Federal Confidentiality of Alcohol and Drug Abuse Patient Records regulations: The Federal rules restrict any use of the information to criminally investigate or prosecute any alcohol or drug abuse patient.[facility] HospitalIn the event this information is protected by the Federal Confidentiality of Alcohol and Drug Abuse Patient Records regulations: The Federal rules restrict any use of the information to criminally investigate or prosecute any alcohol or drug abuse patient.[facility] HospitalIn the event this information is protected by the Federal Confidentiality of Alcohol and Drug Abuse Patient Records regulations: The Federal rules restrict any use of the information to criminally investigate or prosecute any alcohol or drug abuse patient.[facility] HospitalIn the event this information is protected by the Federal Confidentiality of Alcohol and Drug Abuse Patient Records regulations: The Federal rules restrict any use of the information to criminally investigate or prosecute any alcohol or drug abuse patient.[facility] HospitalIn the event this information is protected by the Federal Confidentiality of Alcohol and Drug Abuse Patient Records regulations: The Federal rules restrict any use of the information to criminally investigate or prosecute any alcohol or drug abuse patient.[facility] HospitalIn the event this information is protected by the Federal Confidentiality of Alcohol and Drug Abuse Patient Records regulations: The Federal rules restrict any use of the information to criminally investigate or prosecute any alcohol or drug abuse patient.[facility] HospitalIn the event this information is protected by the Federal Confidentiality of Alcohol and Drug Abuse Patient Records regulations: The Federal rules restrict any use of the information to criminally investigate or prosecute any alcohol or drug abuse patient.[facility] HospitalIn the event this information is protected by the Federal Confidentiality of Alcohol and Drug Abuse Patient Records regulations: The Federal rules restrict any use of the information to criminally investigate or prosecute any alcohol or drug abuse patient.[facility] Reason for Visit (unrecogniz ed section and content) Reason Comments Appointment Reason Comments Results Specialty Diagnoses / Procedures Referred By Yudi dye Referred To Contact MR IMAGING Diagnoses Dizziness Recurrent falls Shuffling gait Ataxia Procedures MRI BRAIN WO/W IVCON MRI BRAIN BRAIN STEM W/O W/CONTRAST MATERIAL Duglas Sales MD [address] [place] [address] Mr Imaging Referral ID Status Reason Start Date Expiration Date V isits Requested Visits Authorized [id number] Closed Auto-Generate d Referral 03/28/2022 11/08/2022 1 1 Reason Comments Patient Question Reason Onset Date Comments Refill Request 05/26/2022 Reason Comments ER f/u-medication request Reason Onset Date Comments Transition Of Care 06/19/2022 [facility] 06/18/22 Reason Comments Hospital F/U Reason Comments OT Plan of Care Reason Comments Edema Reason Comments Patient Update Reason Comments script Script [facility]. Reason Onset Date Comments Transition Of Care 06/26/2022 [facility] 06/24/2022 Reason Comments Medicare Wellness Exam Reason Comments Orders Reason Onset Date Comments Refill Request 11/17/2022 Reason Comments Orders Reason Comments 6 Month Exam Reason Comments Outside Ftom-Iyx-UEL Ordered Reason Comments Results Labs Reason Onset Date Comments Refill Request 05/18/2023 Reason Comments Radiology US Specialty Diagnoses / Procedures Referred By Contac t Referred To Contact US IMAGING Diagnoses Abdominal aortic aneurysm (AAA) without rupture, unspecified part (HCC) Procedures US ABD AORTA US RETROPERITONEAL REAL TIME W/IMAGE LIMITED Fabio Schulte PA-C [address] [place] [address] [place] [address] Referral ID Status Reason Start Date Expiration Date V isits Requested Visits Authorized [id number] Closed Auto-Generate d Referral 03/03/2023 11/08/2023 [address] Specialty Diagnoses / Procedures [facility] CT IM[facility]ING Diagnoses Neck mass Procedures CT NECK SOFT TISSUE WO IVCON CT SOFT TISSUE NECK W/O CONTRAST MATERIAL Duglas Sales MD [address] [place] [address] [place] [address] Referral ID Status Reason Start Date Expiration Date V isits Requested Visits Authorized [id number] Closed Auto-Generate d Referral 03/03/2023 05/31/2023 1 1 Reason Onset Date Comments Refill Request 09/21/2023 Reason Onset Date Comments Insurance Authorization 09/25/2023 Care Teams (unrecognized sec tion and content) Careers Counsellor Relationship Specialty Start Date End Date Duglas Sales MD [address] [place], [place] [phone] PCP - General Family Practice 01/23/15 Careers Counsellor Relationship Specialty Start Date End Date Duglas Sales MD [address] [place], [place] [phone] PCP - General Family Practice 01/23/15 Careers Counsellor Relationship Specialty Start Date End Date Duglas Sales MD [address] [place] [address] PCP - General Family Practice 01/23/15 Careers Counsellor Relationship Specialty Start Date End Date Duglas Sales MD [address] [facility] [place] [address] PCP - General Family Practice 01/23/15 Careers Counsellor Relationship Specialty Start Date End Date Duglas Sales MD [address] [place] [address], [place] [address] PCP - General Family Practice 01/23/15 Careers Counsellor Relationship Specialty Start Date End Date Duglas Sales MD [address] [place] [address], [place] [address] PCP - General Family Practice 01/23/15 Careers Counsellor Relationship Specialty Start Date End Date Duglas Sales MD [address] [place] [address], [place] [address] PCP - General Family Practice 01/23/15 Careers Counsellor Relationship Specialty Start Date End Date Duglas Sales MD [address] [place] [address], [place] [address] PCP - General Family Practice 01/23/15 Careers Counsellor Relationship Specialty Start Date End Date Duglas Sales MD [address] [place] [address], [place] [address] PCP - General Family Practice 01/23/15 Careers Counsellor Relationship Specialty Start Date End Date Duglas Sales MD [address] [place] [address], [place] [address] PCP - General Family Practice 01/23/15 Careers Counsellor Relationship Specialty Start Date End Date Duglas Sales MD [address] [place] [address], [place] [address] PCP - General Family Practice 01/23/15 Careers Counsellor Relationship Specialty Start Date End Date Duglas Sales MD [address] [place] [address], [place] [address] PCP - General Family Practice 01/23/15 Careers Counsellor Relationship Specialty Start Date End Date Duglas Sales MD [facility] [place] [address] PCP - General Family Medicine 01/23/15 Careers Counsellor Relationship Specialty Start Date End Date Duglas Sales MD [address] [place] [id number] PCP - General Family Medicine 01/23/15 Careers Counsellor Relationship Specialty Start Date End Date Duglas Sales MD [address] [place] [address] PCP - General Family Medicine 01/23/15 Careers Counsellor Relationship Specialty Start Date End Date Duglas Sales MD [address] [place] [address] PCP - General Family Medicine 01/23/15 Careers Counsellor Relationship Specialty Start Date End Date Duglas Sales MD [address] [place] [id number] PCP - General Family Medicine 01/23/15 Careers Counsellor Relationship Specialty Start Date End Date Duglas Sales MD [address] [place] [address] PCP - General Family Medicine 01/23/15 Careers Counsellor Relationship Specialty Start Date End Date Duglas Sales MD [address] [place] [address] [place] [address] PCP - General Family Medicine 01/23/15 Careers Counsellor Relationship Specialty Start Date End Date Duglas Sales MD [address] [place] [id number] PCP - General Family Medicine 01/23/15 Careers Counsellor Relationship Specialty Start Date End Date Duglas Sales MD [address] [place], [place] [address] PCP - General [facility] 01/23/15 Careers Counsellor Relationship Specialty Start Date End Date Duglas Sales MD [address] [place], [place] [id number] PCP - [facility] 01/23/15 Careers Counsellor Relationship Specialty Start Date End Date Duglas Sales MD [address] [place], [place] [phone] PCP - [facility] 01/23/15 Careers Counsellor Relationship Specialty Start Date End Date Duglas Sales MD [address] [place], [place] [phone] PCP - [facility] 01/23/15 INFORMATION SOURCE (unrecogn ized section and content) FOR RECORDS PERTAINING TO PATIENTS WHO ARE OR HAVE BEEN ENROLLED IN A CHEMICAL DEPENDENCY/SUBSTANCEABUSE PROGRAM, SOME INFORMATION MAY BE OMITTED. This clinical summary was aggregated from multiple sources. Caution should be exercised in using it in the provision of clinical care. This summary normalizes information from multiple sources, and as a consequence, information in this document may materially change the coding, format and clinical context of patient data. In addition, data may be omitted in some cases. CLINICAL DECISIONS SHOULD BE BASED ON THE PRIMARY CLINICAL RECORDS. [employer] [facility]. provides no warranty or guarantee of the accuracy or completeness of information in this document.
[2023-11-05 12:16] LABS: Absolute Lymphocyte Count 1.97 X10^3/uL (0.83-4.51); Absolute Neutrophil Count 3.8 X10^3/uL (2.0-7.7); Basophil# 0.05 X10^3/uL; Basophil% 0.8 % (0-1); Eosinophil# 0.18 X10^3/uL; Eosinophils% 2.7 % (0-5); Hematocrit 43.2 % (37-47); Hemoglobin 13.3 g/dL (12.0-15.0); Lymphocyte # 1.97 X10^3/ul (0.83-4.51); Mean Corp Hgb Conc 30.8 g/dL (32-36); Mean Corpuscular Hgb 29.7 pg (27.0-32.0); Mean Corpuscular Volume 96.4 fL (81-99); Mean Platelet Vol. 11.3 fl (6.2-12.0); Monocyte# 0.57 X10^3/uL; Monocyte% 8.7 % (0-10); NRBC Flagged by Analyzer 0 % (0-5); Neutrophil # 3.78 X10^3/uL (2.7-7.7); Neutrophil % 57.6 % (47-70); Platelet Count 222 K/mm3 (150-450); RBC Distribution Width CV 13.3 % (11.6-14.6); RBC Distribution Width SD 47.3 fl (35.1-43.9); Red Blood Count 4.48 M/mm3 (4.2-5.4); White Blood Count 6.6 K/mm3 (4.4-11.0)
[2023-11-05 12:46] LABS: ALB/GLOB Ratio 0.9 RATIO (0.9-2.4); AST(SGOT) 22 U/L (15-37); Alanine Aminotransfer ALT/SGPT 16 U/L (13-56); Albumin, Serum 3.6 g/dL (3.2-5.0); Alkaline Phosphatase 93 U/L (45-117); Anion Gap 0 (5-15); BUN 26 mg/dL (7-18); Calcium,Total 9.6 mg/dL (8.5-10.1); Chloride 107 mmol/L (98-107); Creatinine, Serum 1.53 mg/dL (0.55-1.02); EST Glomerular Filtration Rate 34 mL/min (>60); Est Glom Filt Rate - Afr Amer 42 mL/min (>60); Globulin 3.8 g/dL (2.2-4.2); Glucose 95 mg/dL (74-106); Potassium 4.3 mmol/L (3.5-5.1); Protein, Total 7.4 g/dL (6.4-8.2); Sodium Level 139 mmol/L (136-145)
== END | disposition home or self-care (01) ==
LOC: MTLAB 10:48
PROVIDERS: PCP Family Medicine; Referring Provider Internal Medicine Rheumatology; Visit Provider Internal Medicine Rheumatology
DX: M05.70 Rheumatoid arthritis with rheumatoid factor of unspecified site without organ or systems involvement (principal); E03.9 Hypothyroidism, unspecified; N18.9 Chronic kidney disease, unspecified; Z79.899 Other long term (current) drug therapy
CPT/HCPCS: 36415; 80053; 85025

== ENCOUNTER → 2024-04-27 | Outpatient (CLI) | payer MEDICARE, SELFPAY ==
[2024-04-27 15:39] LABS: Absolute Lymphocyte Count 1.66 X10^3/uL (0.83-4.51); Absolute Neutrophil Count 3.2 X10^3/uL (2.0-7.7); Basophil# 0.04 X10^3/uL; Basophil% 0.7 % (0-1); Eosinophil# 0.19 X10^3/uL; Eosinophils% 3.4 % (0-5); Hemoglobin 12.7 g/dL (12.0-15.0); Lymphocyte # 1.66 X10^3/ul (0.83-4.51); Mean Corp Hgb Conc 30.2 g/dL (32-36); Mean Corpuscular Hgb 29.3 pg (27.0-32.0); Mean Corpuscular Volume 96.8 fL (81-99); Mean Platelet Vol. 11.4 fl (6.2-12.0); Monocyte# 0.47 X10^3/uL; Monocyte% 8.5 % (0-10); NRBC Flagged by Analyzer 0 % (0-5); Neutrophil # 3.16 X10^3/uL (2.7-7.7); Neutrophil % 57.2 % (47-70); Platelet Count 237 K/mm3 (150-450); RBC Distribution Width CV 13.2 % (11.6-14.6); RBC Distribution Width SD 47.7 fl (35.1-43.9); Red Blood Count 4.34 M/mm3 (4.2-5.4); White Blood Count 5.5 K/mm3 (4.4-11.0)
[2024-04-27 16:39] LABS: AST(SGOT) 28 U/L (15-37); Alanine Aminotransfer ALT/SGPT 16 U/L (13-56); Albumin, Serum 3.6 g/dL (3.2-5.0); Alkaline Phosphatase 92 U/L (45-117); Anion Gap 4 (5-15); BUN 25 mg/dL (7-18); BUN/Creat Ratio 17.4 RATIO (10-20); Calcium,Total 9.2 mg/dL (8.5-10.1); Chloride 105 mmol/L (98-107); Creatinine, Serum 1.44 mg/dL (0.55-1.02); EST Glomerular Filtration Rate 37 mL/min (>60); Est Glom Filt Rate - Afr Amer 44 mL/min (>60); Globulin 3.7 g/dL (2.2-4.2); Glucose 86 mg/dL (74-106); Potassium 3.8 mmol/L (3.5-5.1); Protein, Total 7.3 g/dL (6.4-8.2); Sodium Level 138 mmol/L (136-145)
== END | disposition home or self-care (01) ==
PROVIDERS: PCP Family Medicine; Referring Provider Internal Medicine Rheumatology; Visit Provider Internal Medicine Rheumatology
DX: M05.70 Rheumatoid arthritis with rheumatoid factor of unspecified site without organ or systems involvement (principal); N18.9 Chronic kidney disease, unspecified; Z79.899 Other long term (current) drug therapy
CPT/HCPCS: 36415; 80053; 85025

== ENCOUNTER 2024-05-16 09:08 | Outpatient (CLI) | payer MEDICARE, SELFPAY ==
--- NOTE | 2024-05-16 09:14 | AAVD_ITS ---
Reason For Study: AAA Aorta Measurements Aorta Doppler Measurements Proximal aorta measures1.92cm x 1.95cm. in cross- Peak systolic flow velocities within the proximal sectional axis. aorta measure 110 cm/sec. Proximal aorta measures2.05cm. in longitudinal Peak systolic flow velocities within the mid aorta axis. measure 76 cm/sec. Mid aorta measures4.64cm x 4.9cm. in cross- Peak systolic flow velocities within the distal sectional axis. aorta measure 21 cm/sec. Mid aorta measures4.48cm. in longitudinal axis. Distal aorta measures1.81cm x 1.92cm. in cross- sectional axis. Distal aorta measures1.81cm. in longitudinal axis. Mural thrombus noted Mid Ao Aneurysm. Left Iliac Artery Left iliac artery measures 0.93cm x 0.87 cm. in the cross-sectional axis. Left iliac artery measures 0.94 cm. in the longitudinal axis. Peak systolic velocity in the left iliac artery measures 56 cm/sec. Right Iliac Artery Right iliac artery measures 0.81cm x 0.91 cm. in the cross-sectional axis. Right iliac artery measures 0.72 cm. in the longitudinal axis. Peak systolic velocity in the right iliac artery measures 52 cm/sec. Procedure Aorta IVC Iliac vasculature or bypass grafts [id number]. Exam performed in department. VL/Abd Aortic/IVC Duplex scan Interpretation Summary Infrarenal mid abdominal aortic aneurysm measuring 4.64 x 4.9 cm in diameter. M ural thrombus noted. Minimally elevated proximal aortic flow velocities with diminished velocities d istally Normal left, iliac artery at 0.93 x 0.87 cm in diameter Normal right common neck artery at 0.81 x 0.91 cm in diameter There is clinically significant increase in the diameter of the aorta from a pr evious 3.1 cm on April 18, 2020 Ordering Physician: Juan Santa Referring Physician: Nito Rivera Performed By: Clau Cedeno, KEYONCS, RVT
== END 2024-05-16 23:59 | disposition home or self-care (01) ==
LOC: CVS 09:10
PROVIDERS: PCP Family Medicine; Referring Provider Surgery; Visit Provider Surgery
DX: I71.43 Infrarenal abdominal aortic aneurysm, without rupture (principal)
CPT/HCPCS: 93978

== ENCOUNTER → 2024-07-14 | Outpatient (CLI) | payer MEDICARE, SELFPAY ==
--- NOTE | 2024-07-14 12:13 | CT_ITS ---
STUDY: CTA ABDOMEN AND PELVIS WITH CONTRAST REASON FOR EXAM: Female, 84 years old. AAA, preoperative planning -- IV hydration order faxed RADIATION DOSAGE (If Supplied By Facility): CTDIvol = ( 23.3 ) mGy, DLP = ( 489.95 ) mGycm TECHNIQUE: Transaxial images were obtained from the dome of the diaphragm to the symphysis pubis without oral contrast. IV 100mL Isovue-370 was administered. Sagittal and coronal images were reconstructed. Individualized dose optimization techniques were used for this CT. COMPARISON: Comparison is made with prior study dated June 14, 2022. FINDINGS: Mild degree of increased interstitial markings at the lung bases with areas of confluence and subpleural blebs suggestive of bibasilar scarring. The visualized portions of the heart are within normal limits. Normal liver. Normal gallbladder and extrahepatic biliary system. Normal spleen. Normal pancreas. Normal bilateral adrenal glands. Mild to moderate degree of bilateral hydronephrosis. Normal visualized stomach. Normal small intestine. There are multiple colonic diverticula consistent with diverticulosis. The appendix is visualized and appears normal. There is evidence of a saccular infrarenal abdominal aortic aneurysm with a transverse dimension of 4.7 cm. Mural thrombus is seen. Normal inferior vena cava. Normal retroperitoneum. The patient is status post cystectomy. There is evidence of prior anterior abdominal wall hernia repair with a mesh. An ileostomy is seen in the right lower quadrant. Normal osseous structures. CT/CTA Abd/Pelvis W/WO Contrast IMPRESSION: Saccular infrarenal abdominal aortic aneurysm with a transverse dimension of 4.7 cm. Mural thrombus is seen. The patient is status post cystectomy with ileostomy in the right lower quadrant. Bilateral hydronephrosis. Electronically Signed: Gustavo Kim MD at 14:32 EDT ,
[2024-07-14 12:26] VITALS: BP 143/87; PULSE 62; RESP 16; O2SAT 100; BMI 23.9
[2024-07-14] MEDS: 0.9% Normal Saline (500mL Bag) 500 ML IV (12:33)
== END | disposition home or self-care (01) ==
PROVIDERS: PCP Family Medicine; Referring Provider Physician Assistant; Visit Provider Physician Assistant
DX: I71.40 Abdominal aortic aneurysm, without rupture, unspecified (principal); N18.9 Chronic kidney disease, unspecified
CPT/HCPCS: 74174; J7040; Q9967

== ENCOUNTER → 2024-10-20 | Outpatient (CLI) | payer MEDICARE, SELFPAY ==
[2024-10-20 15:24] LABS: Absolute Lymphocyte Count 1.56 X10^3/uL (0.83-4.51); Absolute Neutrophil Count 3.7 X10^3/uL (2.0-7.7); Basophil# 0.04 X10^3/uL; Basophil% 0.7 % (0-1); Eosinophil# 0.11 X10^3/uL; Eosinophils% 1.8 % (0-5); Hematocrit 43.3 % (37-47); Hemoglobin 13.2 g/dL (12.0-15.0); Lymphocyte # 1.56 X10^3/ul (0.83-4.51); Lymphocyte % 26.2 % (19-41); Mean Corp Hgb Conc 30.5 g/dL (32-36); Mean Corpuscular Hgb 29.7 pg (27.0-32.0); Mean Corpuscular Volume 97.5 fL (81-99); Mean Platelet Vol. 11.1 fl (6.2-12.0); Monocyte# 0.54 X10^3/uL; Monocyte% 9.1 % (0-10); NRBC Flagged by Analyzer 0 % (0-5); Platelet Count 228 K/mm3 (150-450); RBC Distribution Width CV 13.2 % (11.6-14.6); RBC Distribution Width SD 47.6 fl (35.1-43.9); Red Blood Count 4.44 M/mm3 (4.2-5.4)
[2024-10-20 15:53] LABS: AST(SGOT) 24 U/L (15-37); Alanine Aminotransfer ALT/SGPT 15 U/L (13-56); Albumin, Serum 3.8 g/dL (3.2-5.0); Alkaline Phosphatase 81 U/L (45-117); Anion Gap 6 (5-15); BUN 21 mg/dL (7-18); Calcium,Total 9.6 mg/dL (8.5-10.1); Chloride 104 mmol/L (98-107); EST Glomerular Filtration Rate 35 mL/min (>60); Est Glom Filt Rate - Afr Amer 42 mL/min (>60); Globulin 3.7 g/dL (2.2-4.2); Glucose 100 mg/dL (74-106); Potassium 4.1 mmol/L (3.5-5.1); Protein, Total 7.5 g/dL (6.4-8.2); Sodium Level 137 mmol/L (136-145)
== END | disposition home or self-care (01) ==
PROVIDERS: PCP Family Medicine; Referring Provider Internal Medicine Rheumatology; Visit Provider Internal Medicine Rheumatology
DX: M05.70 Rheumatoid arthritis with rheumatoid factor of unspecified site without organ or systems involvement (principal); Z79.899 Other long term (current) drug therapy
CPT/HCPCS: 36415; 80053; 85025

== ENCOUNTER → 2025-01-30 | Outpatient (CLI) | payer MEDICARE, SELFPAY ==
--- NOTE | 2025-01-30 09:05 | AAVD_ITS ---
Reason For Study Reason For Study: HX AAA Aorta Measurements Proximal aorta measures1.79 x 1.96cm. in cross-sectional axis. Proximal aorta measures1.86cm. in longitudinal axis. Mid aorta measures4.97 x 4.90cm. in cross-sectional axis. Mid aorta measures5.01cm. in longitudinal axis. Distal aorta measures2.04 x 2.11cm. in cross-sectional axis. Distal aorta measures2.05cm. in longitudinal axis. Mural thrombus noted Mid Ao Aneurysm. Left Iliac Artery Left iliac artery measures 0.82 x 0.89 cm. in the cross-sectional axis. Left iliac artery measures 0.91 cm. in the longitudinal axis. Peak systolic velocity in the left iliac artery measures 92.0 cm/sec. Right Iliac Artery Right iliac artery measures 0.73 x 0.76 cm. in the cross-sectional axis. Right iliac artery measures 0.90 cm. in the longitudinal axis. Peak systolic velocity in the right iliac artery measures 118.3 cm/sec. VL/Abd Aortic/IVC Duplex scan Interpretation Summary Aorta patent, 5.01 cm aneurysm present. Bilateral iliac arteries patent, normal caliber Ordering Physician: Kaden Nevarez Referring Physician: Nito Rivera Performed By: Dank Miller, RVT
== END | disposition home or self-care (01) ==
LOC: CVS 09:03
PROVIDERS: PCP Family Medicine; Referring Provider Surgery Trauma Surgery; Visit Provider Surgery Trauma Surgery
DX: I71.43 Infrarenal abdominal aortic aneurysm, without rupture (principal)
CPT/HCPCS: 93978

== ENCOUNTER → 2025-04-11 | Outpatient (CLI) | payer MEDICARE, SELFPAY ==
[2025-04-11 17:48] LABS: Absolute Lymphocyte Count 1.59 X10^3/uL (0.83-4.51); Basophil# 0.03 X10^3/uL; Basophil% 0.6 % (0-1); Eosinophil# 0.13 X10^3/uL; Eosinophils% 2.4 % (0-5); Hemoglobin 13.2 g/dL (12.0-15.0); Lymphocyte # 1.59 X10^3/ul (0.83-4.51); Lymphocyte % 29.8 % (19-41); Mean Corp Hgb Conc 31.4 g/dL (32-36); Mean Corpuscular Hgb 30.7 pg (27.0-32.0); Mean Corpuscular Volume 97.7 fL (81-99); Mean Platelet Vol. 11.5 fl (6.2-12.0); Monocyte# 0.57 X10^3/uL; Monocyte% 10.7 % (0-10); NRBC Flagged by Analyzer 0 % (0-5); Neutrophil # 3.01 X10^3/uL (2.7-7.7); Neutrophil % 56.3 % (47-70); Platelet Count 187 K/mm3 (150-450); RBC Distribution Width CV 12.9 % (11.6-14.6); RBC Distribution Width SD 46.2 fl (35.1-43.9); White Blood Count 5.3 K/mm3 (4.4-11.0)
[2025-04-11 17:54] LABS: ALB/GLOB Ratio 1.5 RATIO (0.9-2.4); AST(SGOT) 29 U/L (<=31); Alanine Aminotransfer ALT/SGPT 10 U/L (<=34); Albumin, Serum 4.3 g/dL (3.4-4.8); Alkaline Phosphatase 78 U/L (35-104); Anion Gap 13 (5-15); BUN 23 mg/dL (4-19); BUN/Creat Ratio 16.8 RATIO (10-20); Calcium,Total 9.5 mg/dL (7.6-11.0); Carbon Dioxide 24.2 mmol/L (21.0-32.0); Chloride 102 mmol/L (98-108); Creatinine, Serum 1.37 mg/dL (0.70-1.20); EST Glomerular Filtration Rate 38 (>60); Globulin 2.9 g/dL (2.2-4.2); Glucose 86 mg/dL (70-99); Protein, Total 7.2 g/dL (5.9-8.4); Sodium Level 139 mmol/L (133-145); Total Bilirubin 0.35 mg/dL (0.00-1.30)
== END | disposition home or self-care (01) ==
LOC: MTLAB 15:54
PROVIDERS: PCP Family Medicine; Referring Provider Internal Medicine Rheumatology; Visit Provider Internal Medicine Rheumatology
DX: M05.70 Rheumatoid arthritis with rheumatoid factor of unspecified site without organ or systems involvement (principal); Z79.899 Other long term (current) drug therapy
CPT/HCPCS: 36415; 80053; 85025

== ENCOUNTER → 2025-07-21 | Outpatient (CLI) | payer MEDICARE, SELFPAY ==
[2025-07-21 15:25] LABS: Hematocrit 38.8 % (37-47); Hemoglobin 12.2 g/dL (12.0-15.0); Immature Granulocytes Count 0.010 X10^3/uL (0.0-0.0); Mean Corp Hgb Conc 31.4 g/dL (32-36); Mean Corpuscular Volume 96.8 fL (81-99); Mean Platelet Vol. 11.1 fl (6.2-12.0); NRBC Flagged by Analyzer 0 % (0-5); Platelet Count 225 K/mm3 (150-450); RBC Distribution Width CV 13.4 % (11.6-14.6); RBC Distribution Width SD 47.7 fl (35.1-43.9); Red Blood Count 4.01 M/mm3 (4.2-5.4); White Blood Count 5.3 K/mm3 (4.4-11.0)
[2025-07-21 17:00] LABS: AST(SGOT) 30 U/L (<=31); Alanine Aminotransfer ALT/SGPT 11 U/L (<=34); Albumin, Serum 4.0 g/dL (3.4-4.8); Alkaline Phosphatase 90 U/L (35-104); Anion Gap 14 (5-15); BUN 25 mg/dL (4-19); BUN/Creat Ratio 19.4 RATIO (10-20); Calcium,Total 8.9 mg/dL (7.6-11.0); Carbon Dioxide 21.8 mmol/L (21.0-32.0); Chloride 103 mmol/L (98-108); Globulin 2.7 g/dL (2.2-4.2); Glucose 87 mg/dL (70-99); Potassium 4.0 mmol/L (3.3-5.1)
== END | disposition home or self-care (01) ==
LOC: MTLAB 13:48
PROVIDERS: PCP Family Medicine; Referring Provider Internal Medicine Rheumatology; Visit Provider Internal Medicine Rheumatology
DX: M05.70 Rheumatoid arthritis with rheumatoid factor of unspecified site without organ or systems involvement (principal); Z79.899 Other long term (current) drug therapy
CPT/HCPCS: 36415; 80053; 85025

== ENCOUNTER → 2025-10-12 | Outpatient (CLI) | payer MEDICARE, SELFPAY ==
[2025-10-12 15:26] LABS: Hematocrit 40.1 % (37-47); Hemoglobin 13.0 g/dL (12.0-15.0); Immature Granulocytes Count 0.010 X10^3/uL (0.0-0.0); Mean Corp Hgb Conc 32.4 g/dL (32-36); Mean Corpuscular Volume 97.1 fL (81-99); Mean Platelet Vol. 10.9 fl (6.2-12.0); NRBC Flagged by Analyzer 0 % (0-5); Platelet Count 198 K/mm3 (150-450); RBC Distribution Width CV 13.2 % (11.6-14.6); RBC Distribution Width SD 46.8 fl (35.1-43.9); Red Blood Count 4.13 M/mm3 (4.2-5.4); White Blood Count 4.8 K/mm3 (4.4-11.0)
[2025-10-12 17:48] LABS: AST(SGOT) 30 U/L (<=31); Alanine Aminotransfer ALT/SGPT 12 U/L (<=34); Albumin, Serum 4.4 g/dL (3.4-4.8); Alkaline Phosphatase 75 U/L (35-104); Anion Gap 11 (5-15); BUN 28 mg/dL (4-19); BUN/Creat Ratio 19.9 RATIO (10-20); Calcium,Total 9.5 mg/dL (7.6-11.0); Carbon Dioxide 25.5 mmol/L (21.0-32.0); Chloride 103 mmol/L (98-108); Globulin 2.7 g/dL (2.2-4.2); Glucose 89 mg/dL (70-99); Potassium 4.2 mmol/L (3.3-5.1)
== END | disposition home or self-care (01) ==
LOC: MTLAB 13:46
PROVIDERS: PCP Family Medicine; Referring Provider Internal Medicine Rheumatology; Visit Provider Internal Medicine Rheumatology
DX: M05.70 Rheumatoid arthritis with rheumatoid factor of unspecified site without organ or systems involvement (principal); N18.9 Chronic kidney disease, unspecified; Z79.899 Other long term (current) drug therapy
CPT/HCPCS: 36415; 80053; 85025